=== PATIENT | male | born 1950 | race Caucasian/White ===

== ENCOUNTER → 2021-06-15 10:03 | Outpatient (CLI) | payer MEDICARE, SELFPAY ==
[2021-06-15 12:44] LABS: AST(SGOT) 18 U/L (15-37); Alanine Aminotransfer ALT/SGPT 26 U/L (16-61); Albumin, Serum 3.7 g/dL (3.2-5.0); Alkaline Phosphatase 124 U/L (45-117); Anion Gap 8 (5-15); BUN 19 mg/dL (7-18); BUN/Creat Ratio 19.1 RATIO (10-20); Calcium,Total 9.8 mg/dL (8.5-10.1); Chloride 104 mmol/L (98-107); Cholesterol 138 mg/dL (200); EST Glomerular Filtration Rate 79 mL/min (>60); Est Glom Filt Rate - Afr Amer 96 mL/min (>60); Globulin 3.7 g/dL (2.2-4.2); Glucose 148 mg/dL (74-106); High Density Lipoprotein 33 mg/dL; Potassium 4.4 mmol/L (3.5-5.1); Protein, Total 7.4 g/dL (6.4-8.2); Sodium Level 138 mmol/L (136-145); T4 Free Direct 0.83 ng/dL (0.76-1.46); Thyroid Stim Hormone (TSH) 1.82 uIU/mL (0.358-3.74); Triglycerides 392 mg/dL; Very Low Density Lipoprotein 78 mg/dL (5-40); Vitamin D,25 Hydroxy 21.5 ng/mL
[2021-06-15 13:08] LABS: Microalbumin:Creatinine Ratio 24.7 mg/g CRE (<30 mg/g CRE)
== END ==
PROVIDERS: PCP Internal Medicine; Referring Provider Internal Medicine Endocrinology, Diabetes & Metabolism; Visit Provider Internal Medicine Endocrinology, Diabetes & Metabolism
DX: G62.9 Polyneuropathy, unspecified (principal); E11.9 Type 2 diabetes mellitus without complications; I10 Essential (primary) hypertension; E78.2 Mixed hyperlipidemia; E55.9 Vitamin D deficiency, unspecified
CPT/HCPCS: 36415; 80053; 80061; 82043; 82306; 82533; 82570; 84439; 84443

== ENCOUNTER → 2021-07-19 15:02 | Outpatient (CLI) | payer MEDICARE, SELFPAY ==
--- NOTE | 2021-07-19 15:13 | ECHOD_ITS ---
Version 2 Reason For Study: CHF Procedure This was a 2D Doppler, Color Flow transthoracic echocardiogram. Exam performed in department. Left Ventricle Normal LV size. Left ventricular systolic function is normal. The estimated ejection fraction is 55 %. Stage 2 diastolic dysfunction. No regional wall motion abnormalities noted. Right Ventricle Normal RV size. Normal systolic function. Atria Normal left atrium. Normal right atrium. Mitral Valve Normal mitral valve. Tricuspid Valve Normal tricuspid valve. Mild tricuspid valve insufficiency. Pulmonary artery systolic pressure is 36 mmHg. Aortic Valve The aortic valve is not well visualized. Pulmonic Valve The pulmonic valve is not well visualized. Great Vessels Normal aortic root. Pericardium/Pleural No pericardial effusion. MMode/2D Measurements & Calculations LVIDd: 6.0 cm IVSd: 0.90 cm Ao root diam: 2.7 cm LVIDs: 4.3 cm LVPWd: 0.98 cm RVDd: 3.4 cm FS: 28.0 % LAV(MOD-bp): 77.6 ml LVAd ap4: 42.0 cm2 SV(MOD-sp4): 86.6 ml LAV(MOD-bp) Indexed: 27.3 ml/m2 LVLd ap4: 9.2 cm LAV(MOD-sp2): 76.1 ml EDV(MOD-sp4): 157.8 ml LAV(MOD-sp4): 74.6 ml EDV(sp4-el): 162.0 ml LVAs ap4: 26.4 cm2 LVLs ap4: 8.5 cm ESV(MOD-sp4): 71.2 ml ESV(sp4-el): 69.9 ml EF(MOD-sp4): 54.9 % EF(sp4-el): 56.9 % SV(sp4-el): 92.1 ml LA A4 area: 22.3 cm2 LA dimension(2D): 5.4 cm RA A4 area: 13.9 cm2 Doppler Measurements & Calculations MV E max taurus: 98.3 cm/sec Lat Peak E' Taurus: 12.8 cm/sec Med Peak E' Taurus: 5.0 cm/sec MV A max taurus: 58.1 cm/sec E/E' lat: 7.7 E/E' med: 19.5 MV E/A: 1.7 Ao V2 max: 174.6 cm/sec LV V1 max: 117.0 cm/sec PA V2 max: 101.6 cm/sec Ao max P.2 mmHg LV V1 max P.5 mmHg Ao V2 mean: 116.9 cm/sec Ao mean P.2 mmHg Ao V2 VTI: 36.9 cm TR max taurus: 279.8 cm/sec TR max P.3 mmHg ECHO/Echo Complete Interpretation Summary Normal LV size. Left ventricular systolic function is normal. The estimated ejection fraction is 55 %. Stage 2 diastolic dysfunction. The study was technically limited. The study was technically difficult. Ordering Physician: Constanza Alegria Referring Physician: Constanza Alegria Performed By: Kasandra Steele, PADMINI, RVT
== END ==
PROVIDERS: PCP Internal Medicine; Referring Provider Internal Medicine; Visit Provider Internal Medicine
DX: I50.9 Heart failure, unspecified (principal); I51.89 Other ill-defined heart diseases
CPT/HCPCS: 93306

== ENCOUNTER → 2021-07-20 13:40 | Outpatient (CLI) | payer MEDICARE, SELFPAY ==
[2021-07-20 15:09] LABS: Absolute Lymphocyte Count 0.99 X10^3/uL (0.83-4.51); Basophil# 0.01 X10^3/uL; Basophil% 0.3 % (0-1); Eosinophil# 0.07 X10^3/uL; Eosinophils% 2.1 % (0-5); Hematocrit 28.3 % (40-54); Hemoglobin 8.7 g/dL (13.0-16.5); Lymphocyte # 0.99 X10^3/ul (0.83-4.51); Lymphocyte % 30.2 % (19-41); Mean Corp Hgb Conc 30.7 g/dL (32-36); Mean Corpuscular Hgb 28.8 pg (27.0-32.0); Mean Corpuscular Volume 93.7 fL (80-94); Monocyte% 6.1 % (0-10); NRBC Flagged by Analyzer 1.5 % (0-5); Neutrophil # 1.98 X10^3/uL (2.7-7.7); Neutrophil % 60.4 % (47-70); POSITIVE COUNT YES; POSITIVE MORPHOLOGY YES; Platelet Count 88 K/mm3 (150-450); RBC Distribution Width CV 19.9 % (11.6-14.6); RBC Distribution Width SD 67.3 fl (35.1-43.9); Red Blood Count 3.02 M/mm3 (4.6-6.2); White Blood Count 3.3 K/mm3 (4.4-11.0)
[2021-07-20 15:28] LABS: Differential Indicated SCAN CRITERIA MET
[2021-07-20 15:43] LABS: Anisocytosis 2+; Differential Comment SCANNED; Hypochromasia RARE; Polychromasia RARE
[2021-07-20 15:44] LABS: Erythrocyte Sedimentation Rate 10 mm/hr (0-20)
[2021-07-20 15:47] LABS: CRP < 2.90 mg/L (0.0-3.0); Ferritin 87 ng/mL (26-388); Iron 149 ug/dL (65-175); Iron Binding Capacity,Total 353 ug/dL (250-450); PERCENT IRON SATURATION 42.2 % (15.0-55.0); Vitamin B12 > 2000 pg/mL (211-911); Vitamin D,25 Hydroxy 32.1 ng/mL
[2021-07-24 14:51] LABS: Vitamin D 1,25-Dihydroxy 61.8 pg/mL (19.9-79.3)
== END ==
PROVIDERS: PCP Internal Medicine; Referring Provider Internal Medicine Gastroenterology; Visit Provider Internal Medicine Gastroenterology
DX: E55.9 Vitamin D deficiency, unspecified (principal); D64.9 Anemia, unspecified; E11.65 Type 2 diabetes mellitus with hyperglycemia; Z79.4 Long term (current) use of insulin
CPT/HCPCS: 36415; 82306; 82607; 82652; 82728; 82784; 83516; 83540; 83550; 85025; 85652; 86140; 86255

== ENCOUNTER → 2021-07-24 09:43 | Outpatient (CLI) | payer MEDICARE, SELFPAY ==
[2021-07-24 10:41] LABS: Ferritin 65 ng/mL (26-388); LDH 192 U/L (87-241)
[2021-07-25 13:08] LABS: Anti-Centromere B Ab <0.2 AI (0.0-0.9); Anti-Chromatin <0.2 AI (0.0-0.9); Anti-Jo <0.2 AI (0.0-0.9); Anti-Scleroderma-70 AB <0.2 AI (0.0-0.9); RNP Ab 0.2 AI (0.0-0.9); SJOGREN'S Anti-SS-A test < 0.2 AI (0.0-0.9); SJOGREN'S Anti-SS-B test < 0.2 AI (0.0-0.9); Smith Ab <0.2 AI (0.0-0.9)
[2021-07-25 14:08] LABS: Anti-Mitochondrial AB <20.0 Units (0.0-20.0); Anti-dsDNA Ab 1 IU/mL (0-9)
[2021-07-27 12:08] LABS: Ceruloplasmin 19.8 mg/dL (16.0-31.0); Cytoplasmic Ab (C-ANCA) <1:20 titer (Neg:<1:20); HEPATITIS B SURFACE AG Negative (Negative); Hepatitis A IgM Antibody Negative (Negative); Hepatitis B Core AB IgM Negative (Negative); Immunoglobulin A 66 mg/dL (61-437); Immunoglobulin E 73 IU/mL (6-495); Immunoglobulin G 699 mg/dL (603-1613)
[2021-07-27 13:48] LABS: AFP, Tumor Marker 2.5 ng/mL (0.0-8.3); Anti-Smooth Muscle ABS 3 Units (0-19); Copper, Serum or Plasma 88 ug/dL (69-132); Hep C Antibodies <0.1 s/co ratio (0.0-0.9); Immunoglobulin M 36 mg/dL (20-172); Perinuclear Ab (P-ANCA) <1:20 titer (Neg:<1:20)
== END ==
PROVIDERS: PCP Internal Medicine; Referring Provider Internal Medicine Gastroenterology; Visit Provider Internal Medicine Gastroenterology
DX: E78.2 Mixed hyperlipidemia (principal); K74.60 Unspecified cirrhosis of liver; D64.9 Anemia, unspecified; E11.65 Type 2 diabetes mellitus with hyperglycemia; Z79.4 Long term (current) use of insulin
CPT/HCPCS: 36415; 80074; 82105; 82390; 82525; 82728; 82784; 82785; 83516; 83615; 86225; 86235; 86256

== ENCOUNTER 2021-08-11 07:50 | Outpatient (CLI) | payer MEDICARE, SELFPAY ==
--- NOTE | 2021-08-11 07:58 | US_ITS ---
STUDY: ABDOMINAL ULTRASOUND - RIGHT UPPER QUADRANT REASON FOR VISIT: Male, 70 years old cirrhosis TECHNIQUE: Ultrasound evaluation of the right upper quadrant was performed with real-time and static armstrong-scale imaging. TECHNICAL QUALITY: Adequate. COMPARISON: None. FINDINGS: Liver: The liver is enlarged and measures 22.3 cm. There is increased echogenicity consistent with fatty infiltration. The bile ducts are within normal limits. There is hepatic color flow. The direction of portal flow is hepatopetal. There is no demonstrated mass lesion. Gallbladder: Normal distended gallbladder. The gallbladder wall measures 3.0 mm. There is a negative sonographic Phillips''s sign. There is no pericholecystic fluid. There are no gallstones. Common Bile Duct (C.B.D.): The common bile duct measures 4.3 mm. Pancreas: There is nonvisualization of the pancreas due to overlying bowel gas. Right Kidney: Normal size of the right kidney. The right kidney measures 12.4 cm x 6.7 cm x 5.7 cm. Normal renal cortex. The right cortex measures 2 cm. There is no demonstrated renal mass or cyst. There is no right hydronephrosis. US/Liver IMPRESSION: Hepatomegaly and fatty infiltration of the liver. Electronically Signed: Lauro Horner MD at 10:34 EST , Service support ,
--- NOTE | 2021-08-11 07:58 | CT_ITS ---
STUDY: CT ABDOMEN AND PELVIS WITH CONTRAST REASON FOR EXAM: Male, 70 years old. Cirrhosis. RADIATION DOSAGE (If Supplied By Facility): CTDIvol = ( 20.57 ) mGy, DLP = ( 1579.25 ) mGycm TECHNIQUE: Transaxial images were obtained from the dome of the diaphragm to the symphysis pubis with oral contrast. Oral and amp; IV GASTROGRAFIN and amp; 100mL Isovue-300 was administered. Sagittal and coronal images were reconstructed. Individualized dose optimization techniques were used for this CT. COMPARISON: None. FINDINGS: Increased markings in the posterior medial segment of the left lower lobe. This is suggestive of early infiltrate. The visualized portions of the heart are within normal limits. There is decreased attenuation of the liver consistent with steatosis. Hepatomegaly. Normal gallbladder and extrahepatic biliary system. Normal spleen. Normal pancreas. Normal bilateral adrenal glands. Small right renal cysts. Small cyst in the lower pole of the left kidney. Normal visualized stomach. Normal small intestine. There are scattered colonic diverticula consistent with diverticulosis. The appendix is visualized and appears normal. There is scattered atherosclerotic calcification of the abdominal aorta, without a demonstrated aneurysm. Normal inferior vena cava. Normal retroperitoneum. Normal urinary bladder. The prostate measures 4.6 times by 5.6 cm. There is a small umbilical hernia containing fat. Diffuse sclerosis involving the appendicular and axial skeleton in keeping with diffuse osteoblastic metastasis. CT/Abdomen/Pelvis WITH Contrast IMPRESSION: Hepatomegaly and diffuse fatty infiltration of the liver. Small bilateral renal cysts. 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 Electronically Signed: Lauro Horner MD at 11:20 EST , Service support ,
[2021-08-11 11:10] LABS: CREATININE FINGERSTICK 1.1 mg/dL (0.70-1.30); EGFR FINGERSTICK > 60.0000 mL/min (>60)
== END 2021-08-11 23:59 | disposition short-term general hospital (02) ==
PROVIDERS: PCP Internal Medicine; Referring Provider Internal Medicine Gastroenterology; Visit Provider Internal Medicine Gastroenterology
DX: K74.60 Unspecified cirrhosis of liver (principal); D64.9 Anemia, unspecified
CPT/HCPCS: 74177; 76705; Q9967

== ENCOUNTER 2021-08-24 08:47 | Outpatient (CLI) | payer MEDICARE, SELFPAY ==
[2021-08-24] VITALS (9 sets, daily range): BP systolic 124–168; BP diastolic 55–74; PULSE 60–71; RESP 13–19; TEMP 36.9; O2SAT 93–98; BMI 48.1
--- NOTE | 2021-08-24 | BONBX_PTH ---
PATIENT: BLU SAMUEL LOC: CT U#:[id number] AGE/SX: 70/M ROOM: RE08/24/[address]: Dr. Cheryl Dillard MD : 1950 BED: DIS: 08/24/2021 SPEC #: [id number] RECD: 08/24/21 11:27 STATUS: MARISA KRYS #: [id number] ALEXA: 08/24/21 00:[address]: Cheryl Dillard DEPT: SURGICAL PATHOLOGY RECD BY: Dulce Huston ENTERED: 08/24/21 11:28 SP TYPE: Bone OTHR DR: Dr. Constanza Alegria, Tissues: Bone marrow of iliac crest Procedures: Decalcification bone/plaque Surgery Specimen Level V HEADER OPERATION: CT-guided bone marrow biopsy PRE-OP DIAGNOSIS: Bone lesion TISSUE SUBMITTED: Bone marrow 1 core MICROSCOPIC DIAGNOSIS Bone lesion, CT-guided core biopsy: A piece of bone with extensive necrosis. See comment. SJ:emily 08/25/2021 COMMENT No viable tumor is identified. If there is a high suspicion of malignancy, re-biopsy is suggested if clinically indicated. Case has been reviewed in consultation with Dr. Jackson who concurs with the above diagnosis. IDC:AM MICROSCOPIC DESCRIPTION Slides are reviewed. GROSS DESCRIPTION Received in fixative is one container labeled with the patient's name and designated bone lesion. The specimen consists of a fragment of bone measuring 0.3 x 0.2 x 0.1 cm. The entire specimen is submitted in one cassette after decalcification. / SJ:emily 08/24/2021 TC: Cannot code CPT: 31827, 79625 ADDENDUM ADDENDUM ADDENDUM ADDENDUM ADDENDUM ADDENDUM ADDENDUM ADDENDUM ADDENDUM ADDENDUM 10/30/2021 10:16 ADDENDUM 10/30/2021 10:16 ADDENDUM 10/30/2021 10:16 ADDENDUM 10/30/2021 10:16 ADDENDUM 10/30/2021 10:16 This addendum is added to incorporate an outside pathology consultation report. The case was examined at [facility] (#[id number]) and the following diagnosis was rendered. Bone lesion, CT-guided core biopsy: Fragmented bone with extensive necrosis. Please see complete above mentioned consultation report in EMR
--- NOTE | 2021-08-24 09:03 | CT_ITS ---
PROCEDURE: CT GUIDED BONE marrow biopsy of the posterior right iliac bone. DATE: 08/24/2021. INDICATION: Male, 70 years old. Diffuse sclerotic metastasis. PHYSICIAN: Lauro Horner M.D. RADIATION DOSAGE (If Supplied By Facility): CTDIvol = ( 9.49 ) mGy, DLP = ( 750.83 ) mGycm. Individualized dose augmentation techniques were utilized. PROCEDURE: The risks, benefits, and alternatives to the procedure were explained to the patient. The specific risk of hemorrhage requiring further treatment or intervention was detailed and accepted. Follow-up instructions were discussed with the patient as well. Written informed consent was obtained. The patient was brought into the CT suite and placed in the prone position. . An appropriate entry site was identified. The overlying skin was prepped and draped in the usual sterile fashion. 1% lidocaine was administered subcutaneously for local anesthesia. Conscious sedation was performed. The patient received 3 mg of VERSED and 75 mcg of FENTANYL intravenously. Conscious sedation was started at 10:09 AM and terminated at 1040. The patient was independently monitored by the department nurse. Under CT guidance, a bone marrow biopsy and attempted aspirate were performed utilizing an 11-gauge bone marrow biopsy needle system. The specimens were then placed in the appropriate fluid and transported to the laboratory for analysis. Hemostasis was obtained. The patient tolerated the procedure well without immediate complications. CT/Biopsy/Inj or Needle Placement IMPRESSION: Successful CT guided bone marrow biopsy of the posterior aspect of the right iliac bone, as described above. The conscious sedation protocol was followed. Electronically Signed: Lauro Horner MD at 11:11 EST ,
[2021-08-24 09:09] LABS: Absolute Lymphocyte Count 0.98 X10^3/uL (0.83-4.51); Absolute Neutrophil Count 2.6 X10^3/uL (2.0-7.7); Basophil# 0.02 X10^3/uL; Basophil% 0.5 % (0-1); Eosinophil# 0.08 X10^3/uL; Eosinophils% 2.1 % (0-5); Hematocrit 24.3 % (40-54); Hemoglobin 7.4 g/dL (13.0-16.5); Lymphocyte # 0.98 X10^3/ul (0.83-4.51); Lymphocyte % 25.3 % (19-41); Mean Corp Hgb Conc 30.5 g/dL (32-36); Mean Corpuscular Hgb 28.8 pg (27.0-32.0); Mean Corpuscular Volume 94.6 fL (80-94); Mean Platelet Vol. 10.4 fl (6.2-12.0); Monocyte# 0.21 X10^3/uL; Monocyte% 5.4 % (0-10); Neutrophil # 2.56 X10^3/uL (2.7-7.7); Neutrophil % 65.9 % (47-70); POSITIVE MORPHOLOGY YES; Platelet Count 108 K/mm3 (150-450); RBC Distribution Width CV 20.6 % (11.6-14.6); RBC Distribution Width SD 70.4 fl (35.1-43.9); Red Blood Count 2.57 M/mm3 (4.6-6.2); White Blood Count 3.9 K/mm3 (4.4-11.0)
[2021-08-24 09:10] LABS: Differential Indicated SCAN CRITERIA MET
[2021-08-24 09:18] LABS: International Normalized Ratio 0.9; Prothrombin Time (Protime)PT. 11.9 SECONDS (11.7-14.9)
[2021-08-24 09:23] LABS: Differential Comment SCANNED
[2021-08-24 09:24] LABS: Anisocytosis 1+
[2021-08-24] MEDS: fentaNYL 100 MCG/2 ML Ampul IV ×2 (10:09→10:29)
[2021-08-24] MEDS: Midazolam 2 MG/2 ML Syringe IV ×2 (10:09→10:29)
[2021-08-24] MEDS: Lidocaine 2% (20 ml mdv) 20 ML Vial INFILT (10:20)
[2021-08-24 10:43] LABS: HIV - WCH Non-Reactive (Nonreactive)
[2021-08-24 14:17] LABS: Pathologist Review Reviewed
[2021-08-25 19:04] LABS: Angiotensin Convert Enzyme 28 U/L (14-82)
== END 2021-08-24 23:59 | disposition home or self-care (01) ==
PROVIDERS: Internal Medicine Gastroenterology; PCP Internal Medicine; Referring Provider Internal Medicine Hematology & Oncology; Visit Provider Internal Medicine Hematology & Oncology
DX: M87.88 Other osteonecrosis, other site (principal); C79.51 Secondary malignant neoplasm of bone; D61.818 Other pancytopenia; K74.60 Unspecified cirrhosis of liver; J44.9 Chronic obstructive pulmonary disease, unspecified; I27.20 Pulmonary hypertension, unspecified; I50.9 Heart failure, unspecified; I11.0 Hypertensive heart disease with heart failure; E11.40 Type 2 diabetes mellitus with diabetic neuropathy, unspecified; E66.01 Morbid (severe) obesity due to excess calories; Z68.42 Body mass index [BMI] 45.0-49.9, adult; Z79.4 Long term (current) use of insulin; E78.5 Hyperlipidemia, unspecified; G47.33 Obstructive sleep apnea (adult) (pediatric); K76.0 Fatty (change of) liver, not elsewhere classified; G89.29 Other chronic pain; M79.7 Fibromyalgia; E78.00 Pure hypercholesterolemia, unspecified; M19.90 Unspecified osteoarthritis, unspecified site; Z87.01 Personal history of pneumonia (recurrent); Z79.899 Other long term (current) drug therapy; D47.2 Monoclonal gammopathy; G62.9 Polyneuropathy, unspecified
CPT/HCPCS: 36415; 77012; 82164; 85025; 85610; 85730; 86703; 88307; 88311; 99156; 99157; J7040; A4216

== ENCOUNTER 2021-08-29 09:03 | Day surgery (SDC) | payer MEDICARE, SELFPAY ==
[2021-08-29] VITALS (7 sets, daily range): BP systolic 66–129; BP diastolic 33–58; PULSE 62–74; RESP 16–18; TEMP 36.5–37.5; O2SAT 96–100; BMI 46.7
--- NOTE | 2021-08-29 | COLBX_PTH ---
PATIENT: BLU SAMUEL LOC: EN U#:[id number] AGE/SX: 70/M ROOM: RE08/29/[address]: Dr. Victorino Cavazos DO : 1950 BED: DIS: 08/29/2021 SPEC #: [id number] RECD: 08/29/21 17:16 STATUS: MARISA KRYS #: [id number] ALEXA: 08/29/21 00:[address]: Victorino Cavazos DEPT: SURGICAL PATHOLOGY RECD BY: Brennan Mosqueda ENTERED: 08/30/21 09:51 SP TYPE: COLON BX OTHR DR: Dr. Constanza Alegria DO Tissues: COLON BIOPSY Procedures: Surgery Specimen Level IV HEADER OPERATION: Colonoscopy, EGD ([facility]) with biopsy PRE-OP DIAGNOSIS: Anemia, cirrhosis TISSUE SUBMITTED: Hepatic flexure polyp MICROSCOPIC DIAGNOSIS Colonic polyp at hepatic flexure, biopsy: Tubular adenoma. AM:emily 08/31/2021 MICROSCOPIC DESCRIPTION Slides are reviewed. GROSS DESCRIPTION Received in fixative is one container labeled with the patient's name and designated hepatic flexure polyp. The specimen consists of one irregular fragment of light hubbard soft tissue that measures 0.5 x 0.3 x 0.1 cm. The specimen is totally submitted in one cassette. / AM:emily 08/30/2021 TC:5 CPT: 81534
[2021-08-29] MEDS: Lactated Ringers 1,000 ML 15 ML IV (10:25)
[2021-08-29 10:46] LABS: Bedside Glucose 171 mg/dL (70-110)
--- NOTE | 2021-08-29 12:28 | PCM.HP.BLA ---
History and Physical Date of Admission: 08/29/21 70 M who presents to the office today for Referred to this office for evaluation of blood in stool. Reports anemia last hemoglobin 9.1 recently with some blood in stool. Feels it happens most when he is having some constipation and then noted blood in toilet or on tissue paper. Occurring about once a week for the last several months. Feels he may be lactose intolerant because he has frequent and loose stools following cheese. Averages two BM a day that are of normal consistency with constipation about once a week typically occurring when he has to change his habitual timing of BM. Reports dizziness every day, all day since 2012. Primary has provided referrals to multiple specialists with no diagnosis to date. Additional medical history of fibromyalgia, CHF, pulmonary HTN, HTN, hyperlipidemia, testicular hypofunction, DMII with neuropathy, monoclonal paraproteinemia. ROS Const Constitutional: Positive for fatigue ENT ENT: Positive for ear or mastoid pain, tinnitus and nosebleed/epistaxis Resp Respiratory: Positive for cough and shortness of breath Cardio Cardiology: Positive for shortness of breath Gastro GI: Positive for diarrhea and Blood in stool Musc Musculoskeletal: Positive for joint pain, numbness, stiffness, tingling, Arthritis and restless legs Neuro Neurology: Positive for numbness, tingling and restless legs Endo Endocrine: Positive for fatigue Exam Const General: cooperative and comfortable Nutritional Appearance: average body habitus and well nourished HENMT Head: normal to inspection Ears: hearing grossly normal bilaterally Nose: external nose normal Face and sinus: normal facial exam Mouth: oral mucosae normal Throat: posterior oropharynx normal Eyes General: appearance normal, both eyes and all related structures Neck Neck: normal visual inspection Chest Chest palpation & inspection: normal inspection of the chest and normal palpation of entire chest wall Resp Effort & Inspection: normal respiratory effort Auscultation: Bilateral: Clear to Auscultation Cardio Palpation: normal PMI Rate: regular rate Rhythm: regular rhythm GI Inspection: normal to inspection Auscultation: normal bowel sounds Percussion: normal to percussion Palpation: no hepatosplenomegaly Skin General: no rashes or lesions noted Neuro General: patient alert Extrem General: normal to inspection Psych Affect: normal affect Quality Reporting Tobacco Screening ([facility] 138) Smoking Status: Never smoker Assessment and Plan Assessment and Plan (1) Anemia: Status: Acute Orders: Orders: CRP Today Erythrocyte Sed Rate Today Celiac Disease Profile Today Vitamin D,25 Hydroxy Today Vitamin B12 Today Ferritin Today Iron+Iron Binding Capacity Today CBC W/Diff, Automated Today Vitamin D 1,25-Dihydroxy Today Liver Today LDH Today Anti-Mitochondrial AB Today Hepatitis Panel Acute Today ANCA Today Anti-Smooth Muscle ABS Today Ceruloplasmin Today Copper, Serum or Plasma Today Immunoglobulin A Today Immunoglobulin E Today Immunoglobulin G Today Immunoglobulin M Today Miscellaneous Lab Procedure Today Plan - Dr. Gleason Friend, DO: I checked his hemoglobin and it is down to 8.7 from 9.1. He is not seen any signs of bleeding. I am concerned that his white count being down and platelet count being down are signs of cirrhosis in the setting of fatty liver disease and likely Wu. (2) Cirrhosis: Status: Acute Orders: Orders: Abdomen/Pelvis WITH Contrast Today Liver Today LDH Today Anti-Mitochondrial AB Today Hepatitis Panel Acute Today ANCA Today Anti-Smooth Muscle ABS Today Ceruloplasmin Today Copper, Serum or Plasma Today Immunoglobulin A Today Immunoglobulin E Today Immunoglobulin G Today Immunoglobulin M Today Miscellaneous Lab Procedure Today Plan - Dr. Gleason Friend, DO: Fact that he has Wu cirrhosis. I will get a CT scan abdomen pelvis along with an ultrasound. He may also need a liver biopsy. I ultimately what my thoughts were and answered all questions concerning his care. I have re-examined the patient. There are no clinical changes since date of exam.
--- NOTE | 2021-08-29 13:13 | OP.EGD_ITS ---
Patient Name: Chu Jin Procedure Date: 08/29/2021 12:33 PM Date of : 1950 Age: 70 Procedure: Upper GI endoscopy Indications: Iron deficiency anemia Providers: Victorino Cavazos DO Medicines: See the Anesthesia note for documentation of the administered medications Patient Profile: This is a 70 year old male. Refer to note in patient chart for documentation of history and physical. Patient has symptoms. Complications: No immediate complications. Procedure: Pre-Anesthesia Assessment: - Prior to the procedure, a History and Physical was performed, and patient medications and allergies were reviewed. The patient is competent. The risks and benefits of the procedure and the sedation options and risks were discussed with the patient. All questions were answered and informed consent was obtained. Patient identification and proposed procedure were verified by the physician. Mental Status Examination: alert and oriented. Airway Examination: normal oropharyngeal airway and neck mobility. Respiratory Examination: clear to auscultation. CV Examination: normal. Prophylactic Antibiotics: The patient does not require prophylactic antibiotics. Prior Anticoagulants: The patient has taken no previous anticoagulant or antiplatelet agents. After reviewing the risks and benefits, the patient was deemed in satisfactory condition to undergo the procedure. The anesthesia plan was to use moderate sedation / analgesia (conscious sedation). Immediately prior to administration of medications, the patient was re-assessed for adequacy to receive sedatives. The heart rate, respiratory rate, oxygen saturations, blood pressure, adequacy of pulmonary ventilation, and response to care were monitored throughout the procedure. The physical status of the patient was re-assessed after the procedure. After obtaining informed consent, the endoscope was passed under direct vision. Throughout the procedure, the patient's blood pressure, pulse, and oxygen saturations were monitored continuously. The Endoscope was introduced through the mouth, and advanced to the second part of duodenum. The upper GI endoscopy was accomplished without difficulty. The patient tolerated the procedure well. Moderate Sedation: Moderate (conscious) sedation was administered by the endoscopy nurse and supervised by the endoscopist. The following parameters were monitored: oxygen saturation, heart rate, blood pressure, and response to care. Total physician intraservice time was 15 minutes. Scope In: 12:36:57 PM Scope Out: 12:44:58 PM Total Procedure Duration Time 0 hours 8 minutes 1 second Findings: The examined esophagus was normal. A small hiatal hernia was present. Two 5 mm no bleeding angioectasias were found on the greater curvature of the stomach. Coagulation for hemostasis using argon plasma at 0.3 liters/minute and 20 larose was successful. Estimated blood loss was minimal. Diffuse moderately friable mucosa with contact bleeding was found in the gastric body. Coagulation for bleeding prevention using argon beam at 0.3 liters/minute and 20 larose was successful. Few non-bleeding superficial gastric ulcers with no stigmata of bleeding were found in the gastric antrum. The largest lesion was 2 mm in largest dimension. Coagulation for bleeding prevention using argon beam at 0.3 liters/minute and 20 larose was successful. Estimated blood loss was minimal. The second portion of the duodenum was normal. Impression: - Normal esophagus. - Small hiatal hernia. - Two non-bleeding angioectasias in the stomach. Treated with argon plasma coagulation (APC). - Friable gastric mucosa. Treated with argon beam coagulation. - Non-bleeding gastric ulcers with no stigmata of bleeding. Treated with argon beam coagulation. - Normal second portion of the duodenum. - No specimens collected. Recommendation: - Discharge patient to home. - Resume previous diet. - Continue present medications. Procedure Code(s): --- Professional --- 69478, Esophagogastroduodenoscopy, flexible, transoral; with control of bleeding, any method 19362, 59, Moderate sedation services provided by the same physician or other qualified health career development coordinator/teacher performing the diagnostic or therapeutic service that the sedation supports, requiring the presence of an independent trained observer to assist in the monitoring of the patient's level of consciousness and physiological status; initial 15 minutes of intraservice time, patient age 5 years or older CPT copyright 2017 [employer]. All rights reserved. The codes documented in this report are preliminary and upon transportation director review may be revised to meet current compliance requirements. Victorino Cavazos DO 08/29/2021 1:12:50 PM This report has been signed electronically. Number of Addenda: 1 Note Initiated On: 08/29/2021 12:33 PM Addendum Number: 1 Addendum Date: 04/16/2022 7:00:19 AM MAC was used for sedation during this procedure. Victorino Cavazos DO 04/16/2022 7:00:23 AM This report has been signed electronically.
--- NOTE | 2021-08-29 13:14 | OP.CCLET_ITS ---
04/16/2022 Constanza Alegria [address] [place] [address] Re : Upper GI endoscopy procedure for [facility] Dear Dr. Alegria This procedure was performed on Sunday, August 29, 2021. My impressions and recommendations are as follows: Impressions : - Normal esophagus. - Small hiatal hernia. - Two non-bleeding angioectasias in the stomach. Treated with argon plasma coagulation (APC). - Friable gastric mucosa. Treated with argon beam coagulation. - Non-bleeding gastric ulcers with no stigmata of bleeding. Treated with argon beam coagulation. - Normal second portion of the duodenum. - No specimens collected. Recommendations : - Discharge patient to home. - Resume previous diet. - Continue present medications. My findings are described in the full procedure note, which is enclosed. If I can be of further assistance, please feel free to contact me at . Sincerely, Victorino Cavazos, 08/29/2021 1:12:50 PM This report has been signed electronically.
--- NOTE | 2021-08-29 13:22 | OP.COLON_ITS ---
Patient Name: Chu Jin Procedure Date: 08/29/2021 12:47 PM Date of : 1950 Age: 70 Procedure: Colonoscopy Indications: Iron deficiency anemia Providers: Victorino Cavazos DO Medicines: See the Anesthesia note for documentation of the administered medications Patient Profile: This is a 70 year old male. Refer to note in patient chart for documentation of history and physical. Patient has symptoms. Last Colonoscopy: date unknown. Complications: No immediate complications. Procedure: Pre-Anesthesia Assessment: - Prior to the procedure, a History and Physical was performed, and patient medications and allergies were reviewed. The patient is competent. The risks and benefits of the procedure and the sedation options and risks were discussed with the patient. All questions were answered and informed consent was obtained. Patient identification and proposed procedure were verified by the physician. Mental Status Examination: alert and oriented. Airway Examination: normal oropharyngeal airway and neck mobility. Respiratory Examination: clear to auscultation. CV Examination: normal. Prophylactic Antibiotics: The patient does not require prophylactic antibiotics. Prior Anticoagulants: The patient has taken no previous anticoagulant or antiplatelet agents. After reviewing the risks and benefits, the patient was deemed in satisfactory condition to undergo the procedure. The anesthesia plan was to use moderate sedation / analgesia (conscious sedation). Immediately prior to administration of medications, the patient was re-assessed for adequacy to receive sedatives. The heart rate, respiratory rate, oxygen saturations, blood pressure, adequacy of pulmonary ventilation, and response to care were monitored throughout the procedure. The physical status of the patient was re-assessed after the procedure. After I obtained informed consent, the scope was passed under direct vision. Throughout the procedure, the patient's blood pressure, pulse, and oxygen saturations were monitored continuously. The pediatric colonoscope was introduced through the anus and advanced to the cecum, identified by appendiceal orifice and ileocecal valve. The colonoscopy was performed without difficulty. The patient tolerated the procedure well. The quality of the bowel preparation was fair. Moderate Sedation: Moderate (conscious) sedation was administered by the endoscopy nurse and supervised by the endoscopist. The following parameters were monitored: oxygen saturation, heart rate, blood pressure, and response to care. Total physician intraservice time was 15 minutes. Scope In: 12:51:47 PM Scope Withdrawal Time 0 hours 15 minutes 41 seconds Scope Out: 1:11:53 PM Total Procedure Duration Time 0 hours 20 minutes 6 seconds Findings: Hemorrhoids were found on perianal exam. A 5 mm polyp was found in the hepatic flexure. The polyp was sessile. The polyp was removed with a hot snare. Resection and retrieval were complete. Verification of patient identification for the specimen was done. Estimated blood loss was minimal. A few small-mouthed diverticula were found in the sigmoid colon. Impression: - Preparation of the colon was fair. - Hemorrhoids found on perianal exam. - One 5 mm polyp at the hepatic flexure, removed with a hot snare. Resected and retrieved. - Diverticulosis in the sigmoid colon. Recommendation: - Discharge patient to home. - Resume previous diet. - Continue present medications. - Await pathology results. - Repeat colonoscopy in 5 years for surveillance. - Return to GI office. Procedure Code(s): --- Professional --- 53484, Colonoscopy, flexible; with removal of tumor(s), polyp(s), or other lesion(s) by snare technique 23144, 59, Moderate sedation services provided by the same physician or other qualified health residential care officer performing the diagnostic or therapeutic service that the sedation supports, requiring the presence of an independent trained observer to assist in the monitoring of the patient's level of consciousness and physiological status; initial 15 minutes of intraservice time, patient age 5 years or older CPT copyright 2017 [employer]. All rights reserved. The codes documented in this report are preliminary and upon bone cooking operator review may be revised to meet current compliance requirements. Victorino Cavazos DO 08/29/2021 1:22:08 PM This report has been signed electronically. Number of Addenda: 1 Note Initiated On: 08/29/2021 12:47 PM Addendum Number: 1 Addendum Date: 04/16/2022 7:00:31 AM MAC was used for sedation during this procedure. Victorino Cavazos DO 04/16/2022 7:00:35 AM This report has been signed electronically.
--- NOTE | 2021-08-29 13:23 | OP.CCLET_ITS ---
04/16/2022 Constanza Alegria [address] [place] [address] Re : Colonoscopy procedure for [facility] Dear Dr. Alegria This procedure was performed on Sunday, August 29, 2021. My impressions and recommendations are as follows: Impressions : - Preparation of the colon was fair. - Hemorrhoids found on perianal exam. - One 5 mm polyp at the hepatic flexure, removed with a hot snare. Resected and retrieved. - Diverticulosis in the sigmoid colon. Recommendations : - Discharge patient to home. - Resume previous diet. - Continue present medications. - Await pathology results. - Repeat colonoscopy in 5 years for surveillance. - Return to GI office. My findings are described in the full procedure note, which is enclosed. If I can be of further assistance, please feel free to contact me at . Sincerely, Victorino Cavazos, 08/29/2021 1:22:08 PM This report has been signed electronically.
== END 2021-08-29 23:59 | disposition home or self-care (01) ==
LOC: EN 09:05 → AC 10:33
PROVIDERS: PCP Internal Medicine; Referring Provider Internal Medicine; Visit Provider Internal Medicine Gastroenterology
PROC: 0DJD8ZZ Inspection of Lower Intestinal Tract, Via Natural or Artificial Opening Endoscopic (ICD-10-PCS; CPT 45378; principal; 2021-08-29 11:55)
DX: D12.3 Benign neoplasm of transverse colon (principal); K74.60 Unspecified cirrhosis of liver; J44.9 Chronic obstructive pulmonary disease, unspecified; I50.9 Heart failure, unspecified; E11.21 Type 2 diabetes mellitus with diabetic nephropathy; Z79.4 Long term (current) use of insulin; K57.30 Diverticulosis of large intestine without perforation or abscess without bleeding; K44.9 Diaphragmatic hernia without obstruction or gangrene; K64.9 Unspecified hemorrhoids; K25.9 Gastric ulcer, unspecified as acute or chronic, without hemorrhage or perforation; I12.9 Hypertensive chronic kidney disease with stage 1 through stage 4 chronic kidney disease, or unspecified chronic kidney disease; E78.00 Pure hypercholesterolemia, unspecified; M50.30 Other cervical disc degeneration, unspecified cervical region; D64.9 Anemia, unspecified; G47.33 Obstructive sleep apnea (adult) (pediatric); M19.90 Unspecified osteoarthritis, unspecified site; M79.7 Fibromyalgia; Z79.84 Long term (current) use of oral hypoglycemic drugs; Z46.81 Encounter for fitting and adjustment of insulin pump; Z79.899 Other long term (current) drug therapy
CPT/HCPCS: 45385; 43255; 82962; 88305; J7120; J2405

== ENCOUNTER 2021-08-30 08:06 | Outpatient (CLI) | payer MEDICARE, SELFPAY ==
[2021-08-30] VITALS (9 sets, daily range): BP systolic 116–149; BP diastolic 44–82; PULSE 56–68; RESP 14–95; TEMP 36.2; O2SAT 93–98; BMI 48.1
--- NOTE | 2021-08-30 08:22 | CT_ITS ---
PROCEDURE: CT GUIDED BONE marrow biopsy of the posterior right iliac bone. DATE: 08/30/2021. INDICATION: Male, 70 years old. POEM PHYSICIAN: Lauro Horner M.D. RADIATION DOSAGE (If Supplied By Facility): CTDIvol = ( 19 ) mGy, DLP = ( 602.9 ) mGycm. Individualized dose optimization techniques were utilized. PROCEDURE: The risks, benefits, and alternatives to the procedure were explained to the patient. The specific risk of hemorrhage requiring further treatment or intervention was detailed and accepted. Follow-up instructions were discussed with the patient as well. Written informed consent was obtained. The patient was brought into the CT suite and placed in the prone position. . An appropriate entry site was identified overlying the posterior right iliac crest. The overlying skin was prepped and draped in the usual sterile fashion. 1% lidocaine was administered subcutaneously for local anesthesia. Conscious sedation was performed. The patient received 3 mg of VERSED and 75 mcg of FENTANYL intravenously. Conscious sedation was started at 9:07 AM and terminated at 9:30 AM. The patient was independently monitored by the department nurse. Under CT guidance, a bone marrow biopsy and bone marrow aspirate were performed. This was a dry aspirate. There is evidence of diffuse osteosclerosis of the pelvic bones. The patient tolerated the procedure well without immediate complications. CT/Biopsy/Inj or Needle Placement IMPRESSION: Attempted CT guided bone marrow biopsy and aspirate of the posterior right iliac crest, as described above. The conscious sedation protocol was followed. Electronically Signed: Lauro Horner MD at 10:01 EST ,
[2021-08-30 08:23] LABS: Absolute Lymphocyte Count 0.82 X10^3/uL (0.83-4.51); Absolute Neutrophil Count 2.2 X10^3/uL (2.0-7.7); Basophil# 0.02 X10^3/uL; Basophil% 0.6 % (0-1); Eosinophil# 0.09 X10^3/uL; Eosinophils% 2.7 % (0-5); Hematocrit 23.5 % (40-54); Hemoglobin 7.3 g/dL (13.0-16.5); Lymphocyte # 0.82 X10^3/ul (0.83-4.51); Lymphocyte % 24.6 % (19-41); Mean Corp Hgb Conc 31.1 g/dL (32-36); Mean Corpuscular Hgb 28.9 pg (27.0-32.0); Mean Corpuscular Volume 92.9 fL (80-94); Mean Platelet Vol. 11.7 fl (6.2-12.0); Monocyte# 0.13 X10^3/uL; Monocyte% 3.9 % (0-10); NRBC Flagged by Analyzer 1.8 % (0-5); Neutrophil # 2.24 X10^3/uL (2.7-7.7); Neutrophil % 67.3 % (47-70); POSITIVE MORPHOLOGY YES; Platelet Count 103 K/mm3 (150-450); RBC Distribution Width CV 20.4 % (11.6-14.6); RBC Distribution Width SD 68.6 fl (35.1-43.9); Red Blood Count 2.53 M/mm3 (4.6-6.2); White Blood Count 3.3 K/mm3 (4.4-11.0)
[2021-08-30 08:26] LABS: Differential Indicated SCAN CRITERIA MET
[2021-08-30 08:34] LABS: International Normalized Ratio 1.1; Partial Thromboplast Time 24.7 Seconds (24.1-36.2); Prothrombin Time (Protime)PT. 13.4 SECONDS (11.7-14.9)
[2021-08-30 08:49] LABS: PSA,Total- Diagnostic 3.88 ng/mL (0.0-4.0)
[2021-08-30 09:05] LABS: Anisocytosis 1+
[2021-08-30] MEDS: fentaNYL 100 MCG/2 ML Ampul IV ×2 (09:07→09:22)
[2021-08-30] MEDS: Midazolam 2 MG/2 ML Syringe IV ×2 (09:07→09:22)
[2021-08-30] MEDS: Lidocaine 2% (20 ml mdv) 20 ML Vial INFILT (09:15)
== END 2021-08-30 23:59 | disposition home or self-care (01) ==
PROVIDERS: Internal Medicine Gastroenterology; PCP Internal Medicine; Referring Provider Internal Medicine Hematology & Oncology; Visit Provider Internal Medicine Hematology & Oncology
DX: Z01.812 Encounter for preprocedural laboratory examination (principal); C79.51 Secondary malignant neoplasm of bone; K74.60 Unspecified cirrhosis of liver; D47.2 Monoclonal gammopathy
CPT/HCPCS: 38222; 36415; 77012; 84153; 85025; 85610; 85730; 99156; J7040; A4216

== ENCOUNTER 2021-09-13 11:52 | Outpatient (CLI) | payer MEDICARE, SELFPAY ==
--- NOTE | 2021-09-13 12:04 | US_ITS ---
STUDY: ABDOMINAL ULTRASOUND - ELASTOGRAPHY REASON FOR VISIT: Male, 70 years old. Cirrhosis. TECHNIQUE: Liver stiffness measurements were obtained on a [place] RS 85 ultrasound machine using a CA 1-7 probe following the SRU guidelines. 3 measurements were obtained using a 2-D-SWE method. The IQR/M was 12% suggesting a quality data set. TECHNICAL QUALITY: Adequate. COMPARISON: Comparison is made with prior examination is generally 2021. FINDINGS: Liver: Hepatomegaly. Fatty infiltration of the liver. Median liver stiffness measured 13 kPa. US/Elastography Parenchyma/Organ IMPRESSION: Liver stiffness measures 13 kPa compatible with F3 Metavir score. Electronically Signed: Lauro Horner MD at 15:23 EST ,
== END 2021-09-13 23:59 | disposition home or self-care (01) ==
PROVIDERS: PCP Internal Medicine; Referring Provider Internal Medicine Gastroenterology; Visit Provider Internal Medicine Gastroenterology
DX: K74.60 Unspecified cirrhosis of liver (principal)
CPT/HCPCS: 76981

== ENCOUNTER 2021-09-15 07:42 | Outpatient (CLI) | payer MEDICARE, SELFPAY ==
[2021-09-15] VITALS (8 sets, daily range): BP systolic 106–147; BP diastolic 46–86; PULSE 54–66; RESP 13–20; TEMP 36.4; O2SAT 93–99; BMI 46.5
--- NOTE | 2021-09-15 | LIVB_PTH ---
PATIENT: BLU SAMUEL LOC: CT U#:[id number] AGE/SX: 70/M ROOM: RE09/15/[address]: Dr. Victorino Cavazos DO : 1950 BED: DIS: 09/15/2021 SPEC #: [id number] RECD: 09/15/21 09:36 STATUS: MARISA RETierney #: [id number] ALEXA: 09/15/21 00:[address]: Cheryl Dillard DEPT: SURGICAL PATHOLOGY RECD BY: Robbin Cortez ENTERED: 09/15/21 13:03 SP TYPE: LIVER BX OTHR DR: DO Dr. Victorino Nichols, DO Dr. Blu Roberts MD Tissues: Liver, NOS Procedures: PAS with Diastase (control) Trichrome (control) Special Stain Group II PAS Stain (control) Surgery Specimen Level V Retic (control) Iron Stain (control) Comments: @ Ordering doctor for SUV edited from to @ by MARK at 09/15/21 1524 @ Submitting doctor edited from to @ by RGOOD at 09/15/21 1524 HEADER OPERATION: CT-guided liver biopsy PRE-OP DIAGNOSIS: Liver disease, suspected cirrhosis TISSUE SUBMITTED: Liver 18-gauge core x3 MICROSCOPIC DIAGNOSIS Liver, CT-guided core biopsy: Liver parenchymal tissue with focal macrovesicular steatosis. See microscopic description and comment. SJ:emily 09/18/2021 COMMENT Significant fibrosis consistent with cirrhosis is not seen. Correlation with clinical findings and appropriate follow up are necessary. Case has been reviewed in consultation with Dr. Jackson who concurs with the above diagnosis. IDC:AM MICROSCOPIC DESCRIPTION Slides are reviewed. The specimen shows liver parenchymal tissue with preserved lobular architecture. Hepatocytes show focal macrovesicular steatosis. Significant lobular inflammation is not seen. Portal areas are essentially unremarkable and does not show significant increased inflammation. Iron stain does not show significant increase of iron deposition. PAS stain with and without diastase does not show any abnormal accumulation of protein. Reticulin stain shows preserved lobular architecture. Trichrome stain does not show increased fibrosis. All stains are performed with appropriate matched control. GROSS DESCRIPTION Received in fixative is one container labeled with the patient's name and designated liver. The specimen consists of three elongated fragments of hubbard soft tissue each measuring 2 cm in length and 0.1 cm in diameter. The specimen is totally submitted in one cassette. / SJ:emily 09/15/2021 TC:5 CPT: 67445, 17749 x5
--- NOTE | 2021-09-15 08:01 | CT_ITS ---
PROCEDURE: CT DIRECTED CORE LIVER BIOPSY INDICATION: Male, 70 years old. Liver disease, suspected cirrhosis PHYSICIAN: Dr. JUAN PABLO Manzo CONSENT: Written informed consent was obtained having explained the risks, benefits and alternatives in detail with the patient who accepted the risks and agreed to proceed. Laboratory review and clinical assessment was performed. CONSCIOUS SEDATION PROTOCOL: The Drugs used were: 2 mg Versed, IV., and 50 mcg Fentanyl, IV. The sedation time was: 16 minutes. Conscious sedation was started at 9:13 AM and terminated on 929. The conscious sedation protocol was independently monitored. RADIATION DOSAGE (If Supplied By Facility): CTDIvol = ( 27 ) mGy, DLP = ( 850.93 ) mGycm Individualized dose optimization techniques were used for this CT. TECHNIQUE: Using CT image guidance with image documentation, a suitable location in the left lobe of the liver was identified. Using an anterior approach, puncture of the liver was uneventful with an 18-gauge core needle system. 3, 18-gauge core samples were obtained, and submitted in formalin to the pathologist for further assessment. Followup CT scan revealed no distinct sequelae. CT/Biopsy/Inj or Needle Placement IMPRESSION: 1. CT directed core needle biopsy of the liver, using CT image guidance with image documentation as described. 2. Conscious Sedation protocol utilized with independent monitoring. Electronically Signed: Lauro Horner MD at 9:53 EST ,
--- NOTE | 2021-09-15 08:01 | CT_ITS ---
STUDY: CT CHEST WITH CONTRAST REASON FOR EXAM: Male, 70 years old. POEMS/ ASSESS LN SCLEROTIC BONE LESIONS RADIATION DOSAGE (If Supplied By Facility): CTDIvol = ( 23.43 ) mGy, DLP = ( 983.94 ) mGycm TECHNIQUE: Transaxial imaging was performed following intravenous administration of IV 100mL Isovue-300. Multiplanar coronal and sagittal images were reformatted. Individualized dose optimization techniques were used for this CT. COMPARISON: None. FINDINGS: Small bilateral benign-appearing axillary lymph nodes. Multiple noncalcified nodules are seen in the left hemithorax more prominent in the left lower lobe. The largest nodule measures 3.6 cm x 4.2 cm. Calcified granuloma is seen in the anterior aspect of the right lower lobe. Scattered small nodules are seen at the right lung base. Minimal increased markings at the right lung base There is no demonstrated pleural abnormality. There are calcifications of the coronary arteries. There are multiple small lymph nodes within the mediastinum, which are normal in size and morphology most compatible with reactive lymph hyperplasia. Normal hilar regions. Normal enhanced pulmonary arteries. Normal aorta arch and descending thoracic aorta. Diffuse sclerosis of the appendicular and axial skeletons. There is no demonstrated abnormality of the visualized upper abdomen. CT/Chest WITH Contrast IMPRESSION: Pulmonary nodules in the left hemithorax as described. Metastatic disease should be ruled out. Smaller nodules are also seen at the right lung base. Diffuse sclerosis of the appendicular and axial skeletons. Electronically Signed: Lauro Horner MD at 10:26 EST ,
[2021-09-15 08:35] LABS: BNP,B-Type NATRIURETIC PEPTIDE 73.6 pg/mL (0-100)
[2021-09-15] MEDS: Midazolam 2 MG/2 ML Syringe IV (09:13)
[2021-09-15] MEDS: fentaNYL 100 MCG/2 ML Ampul IV (09:13)
[2021-09-15] MEDS: Lidocaine 2% (20 ml mdv) 20 ML Vial INFILT (09:23)
== END 2021-09-15 23:59 | disposition home or self-care (01) ==
PROVIDERS: Internal Medicine Pulmonary Disease; PCP Internal Medicine; Referring Provider Internal Medicine Gastroenterology; Visit Provider Internal Medicine Gastroenterology
DX: R06.00 Dyspnea, unspecified (principal); C79.51 Secondary malignant neoplasm of bone; K74.60 Unspecified cirrhosis of liver; E88.09 Other disorders of plasma-protein metabolism, not elsewhere classified
CPT/HCPCS: 47000; 36415; 71260; 77012; 83880; 88307; 88313; 99156; J7040; Q9967; A4216

== ENCOUNTER 2021-09-25 08:54 | Outpatient (CLI) | payer MEDICARE, SELFPAY ==
[2021-09-25] VITALS (11 sets, daily range): BP systolic 111–158; BP diastolic 51–77; PULSE 59–69; RESP 12–22; TEMP 36.1; O2SAT 90–99; BMI 46.5
--- NOTE | 2021-09-25 09:09 | CT_ITS ---
PROCEDURE: CT GUIDED CORE NEEDLE BIOPSY OF A left lower lobe pulmonary LUNG LESION INDICATION: Male, 70 years old. LUNG NODULES PHYSICIAN: Dr. JUAN PABLO Manzo CONSENT: Written informed consent was obtained having explained the risks, benefits and alternatives in detail with the patient who accepted the risks and agreed to proceed. Laboratory review and clinical assessment was performed. CONSCIOUS SEDATION PROTOCOL: The Drugs used were: 2 mg Versed, IV., and 50 mcg Fentanyl, IV. The sedation time was: 20 minutes. Conscious sedation was started at 10:10 AM and terminated at 10:30 AM. The conscious sedation protocol was independently monitored. RADIATION DOSAGE (If Supplied By Facility): CTDIvol = ( 24 ) mGy, DLP = ( 1012.25 ) mGycm Individualized dose optimization techniques were used for this CT. TECHNIQUE: The patient was placed in the pleural position. A noncontrast CT was performed to localize the lesion in the left lower lobe . The skin surface was prepped and draped in a sterile fashion. 1% lidocaine was used for local anesthesia. Using CT guidance, a 20-gauge coaxial biopsy device was advanced to the periphery of the lesion. A total of 5 core specimens were obtained. The specimens were placed in a formalin solution. A post procedure CT demonstrated no adverse sequelae or pneumothorax. The patient tolerated the procedure well without adverse event. A negative biopsy does not exclude malignancy. Further imaging or clinical followup based on patient condition and degree of clinical suspicion for malignancy. Suggest rebiopsy, if biopsy results do not match with clinical scenario. CT/Biopsy/Inj or Needle Placement IMPRESSION: 1. CT directed core needle biopsy of the left lower lobe pulmonary nodule using CT image guidance with image documentation as described. Pathology results are pending. 2. Conscious Sedation protocol utilized with independent monitoring. Electronically Signed: Lauro Horner MD at 10:55 EST ,
[2021-09-25 09:11] LABS: Absolute Lymphocyte Count 1.23 X10^3/uL (0.83-4.51); Absolute Neutrophil Count 2.4 X10^3/uL (2.0-7.7); Basophil# 0.01 X10^3/uL; Basophil% 0.2 % (0-1); Eosinophil# 0.16 X10^3/uL; Hematocrit 27.6 % (40-54); Hemoglobin 8.4 g/dL (13.0-16.5); Lymphocyte # 1.23 X10^3/ul (0.83-4.51); Lymphocyte % 30.4 % (19-41); Mean Corp Hgb Conc 30.4 g/dL (32-36); Mean Corpuscular Hgb 28.5 pg (27.0-32.0); Mean Corpuscular Volume 93.6 fL (80-94); Mean Platelet Vol. 11.3 fl (6.2-12.0); Monocyte# 0.19 X10^3/uL; Monocyte% 4.7 % (0-10); Neutrophil # 2.43 X10^3/uL (2.7-7.7); POSITIVE MORPHOLOGY YES; Platelet Count 125 K/mm3 (150-450); RBC Distribution Width CV 20.9 % (11.6-14.6); RBC Distribution Width SD 71.2 fl (35.1-43.9); Red Blood Count 2.95 M/mm3 (4.6-6.2); White Blood Count 4.1 K/mm3 (4.4-11.0)
[2021-09-25 09:14] LABS: Differential Indicated SCAN CRITERIA MET
[2021-09-25 09:22] LABS: International Normalized Ratio 0.9
[2021-09-25 09:23] LABS: Partial Thromboplast Time 25.7 Seconds (24.1-36.2)
[2021-09-25 09:40] LABS: Anisocytosis 1+; Poikilocytosis 1+; Polychromasia 1+
[2021-09-25 09:41] LABS: Ovalocyte 1+
[2021-09-25 09:54] LABS: Vitamin D,25 Hydroxy 21.6 ng/mL
[2021-09-25 10:00] LABS: Follicle Stimulating Hormone 4.4 mIU/mL; Free T3 2.5 pg/mL (2.18-3.98); Luteinizing Hormone 4.2 mIU/mL; Prolactin 16.8 ng/mL; T4 Free Direct 0.89 ng/dL (0.76-1.46); Thyroid Stim Hormone (TSH) 1.79 uIU/mL (0.358-3.74)
[2021-09-25] MEDS: fentaNYL 100 MCG/2 ML Ampul IV (10:10)
[2021-09-25] MEDS: Midazolam 2 MG/2 ML Syringe IV (10:10)
[2021-09-25] MEDS: Lidocaine 2% (20 ml mdv) 20 ML Vial INFILT (10:20)
--- NOTE | 2021-09-25 10:24 | ASPIGT_PTH ---
PATIENT: BLU SAMUEL LOC: CT U#:[id number] AGE/SX: 70/M ROOM: RE09/25/[address]: Dr. Cheryl Dillard MD : 1950 BED: DIS: 09/25/2021 SPEC #: [id number] RECD: 09/25/21 11:00 STATUS: MARISA RETierney #: [id number] ALEXA: 09/25/21 10:[address]: Cheryl Dillard DEPT: SURGICAL PATHOLOGY RECD BY: Dulce Huston ENTERED: 09/25/21 11:56 SP TYPE: ASP RAD OTHR DR: DO Dr. Damián Nichols MD Tissues: Lung, NOS Procedures: FNA Specimen Adequacy Elastin Stain (control) Trichrome (control) Special Stain Group II Special Stain Group I Surgery Specimen Level IV AFB Stain (control) GMS Stain (control) Retic (control) Imprint (control) HEADER OPERATION: CT-guided left lower lobe lung biopsy PRE-OP DIAGNOSIS: Lung nodule TISSUE SUBMITTED: Left lower lobe lung biopsy, 20-gauge, core x5 MICROSCOPIC DIAGNOSIS Left lower lobe lung, CT-guided core biopsy: Cores of benign lung parenchyma with lymphoplasmacytic and granulomatous inflammation; see comment. SJ:rg 10/30/2021 COMMENT The specimen is evaluated at the time of biopsy by Dr. Lizarraga. Immediate Evaluation = Negative for malignant cells. The specimen is sent to [facility] for expert opinion, reviewed by Dr. Alfaro and the above diagnosis is rendered. ?There is no evidence of malignancy in this sample; kappa/lambda-NANCY staining in the plasma cells shows a polytypic pattern without overt CD56 expression. HHV8 is negative, favoring against plasma cell of Castleman disease. The granulomatous inflammation and lymphoplasmacytic infiltrates are concerning for infectious etiologies. Stains are negative for unequivocal organisms. Correlation with microbiology studies is recommended, if clinically indicated. The differential also includes autoimmune etiologies; however, autoimmune workup has been negative. Sarcoidosis is another consideration; however, morphology in this sample is not typical.? The complete report is viewable in the patient's EMR. Reticulin, trichrome, elastin, AFB and GMS stains are performed with appropriate matched controls. Flow cytometry study was canceled due to no viable cells present. This case was discussed with Dr. Dillard on 10/06/2021. Case has been reviewed in consultation with Dr. Jackson who concurs with the above diagnosis. IDC:AM MICROSCOPIC DESCRIPTION Slides are reviewed. Stains/immunohistochemical stains performed at [facility] on block A1 show: CD138: Highlights plasma cell infiltrate. [place]/Lambda-NANCY: Polytypic expression CD56: No overt co-expression in plasma cells. CD3: Highlights admixed T-cells. PAX5: Highlights rare B-cells HHV8: Negative CD21: Negative ERG: Highlights vasculature CD163: Highlights scattered histiocytes and giant cells. [place] red: Negative for amyloid deposition. Elastic: Highlights histiologic findings. GMS, AFB, Edgardo: Negative for unequivocal organisms. GROSS DESCRIPTION Received in fixative is one container labeled with the patient's name and designated left lower lobe lung. The specimen consists of multiple irregular fragments of hubbard soft tissue that in aggregate measure 1.5 x 0.2 x 0.1 cm. The specimen is totally submitted in one cassette. One core is submitted for flow cytometry study. Three touch imprints are prepared at the time of core biopsy. / Vargas 09/25/2021 TC:3 CPT: 41078, 13336, 61961 x 3, 50774 x2
--- NOTE | 2021-09-25 10:40 | RAD_ITS ---
STUDY: X-RAY CHEST REASON FOR EXAM: Male, 70 years old. Pneumothorax -- Immediately post lung biopsy TECHNIQUE: AP inspiration and expiration views. COMPARISON: None. FINDINGS: No evidence of pneumothorax on the immediate post left lung biopsy radiographs. RAD/Chest Insp/Exp 2 View IMPRESSION: No evidence of pneumothorax on the immediate post left lung biopsy Electronically Signed: Lauro Horner MD at 12:16 EST ,
--- NOTE | 2021-09-25 12:46 | RAD_ITS ---
STUDY: X-RAY CHEST REASON FOR EXAM: Male, 70 years old. CHEST PAIN pneumothorax -- 2 hours post lung biopsy TECHNIQUE: XR Chest 2 Views COMPARISON: Study done earlier today. FINDINGS: There is no demonstrated pleural abnormality. There is no pneumothorax. Normal size heart. Normal mediastinum and florentino. Normal visualized pulmonary arteries. There is atherosclerotic calcification of the aortic arch with tortuosity. There are diffuse degenerative changes of the visualized thoracic spine. There is degenerative osteoarthritis of the bilateral shoulders. There is no demonstrated abnormality of the visualized soft tissue structures of the upper abdomen. RAD/Chest Insp/Exp 2 View IMPRESSION: There are no acute findings. Electronically Signed: Loco Orlando MD at 19:13 EST ,
[2021-09-29 17:07] LABS: Testosterone, % Free 2.33 % (1.50-4.20); Testosterone, Free 5.85 ng/dL (5.00-21.00)
[2021-09-29 18:55] LABS: Adrenocorticotropic Hormone 13.1 pg/mL (7.2-63.3); Testosterone, Total 251 ng/dL (264-916)
== END 2021-09-25 23:59 | disposition home or self-care (01) ==
LOC: CT 08:55
PROVIDERS: Internal Medicine Endocrinology, Diabetes & Metabolism; PCP Internal Medicine; Referring Provider Internal Medicine Hematology & Oncology; Visit Provider Internal Medicine Hematology & Oncology
DX: Z01.812 Encounter for preprocedural laboratory examination (principal); E11.65 Type 2 diabetes mellitus with hyperglycemia; Z79.4 Long term (current) use of insulin; R91.8 Other nonspecific abnormal finding of lung field; E55.9 Vitamin D deficiency, unspecified; E88.09 Other disorders of plasma-protein metabolism, not elsewhere classified
CPT/HCPCS: 32408; 36415; 71046; 77012; 82024; 82306; 82533; 83001; 83002; 84146; 84402; 84403; 84439; 84443; 84481; 85025; 85610; 85730; 88172; 88305; 88312; 88313; 99156; J7040; A4216

== ENCOUNTER 2021-10-03 12:34 | Outpatient (CLI) | payer MEDICARE, SELFPAY ==
--- NOTE | 2021-10-03 12:41 | ECHOCS_ITS ---
Reason For Study: DYSPNEA Procedure This was a 2D Doppler, Color Flow transthoracic echocardiogram. The study was technically difficult. Exam performed in department. Left Ventricle Normal LV size. Left ventricular systolic function is lower limits of normal. The estimated ejection fraction is 53 %. Stage 2 diastolic dysfunction. No regional wall motion abnormalities noted. Right Ventricle Normal RV size. Normal systolic function. Atria The left atrium is mildly enlarged. Normal right atrium. Mitral Valve Normal mitral valve. Tricuspid Valve The tricuspid valve is not well visualized. Mild (1+) tricuspid valve insufficiency. Pulmonary artery systolic pressure is 36 mmHg. Aortic Valve The aortic valve is not well visualized. Pulmonic Valve Normal pulmonic valve. Great Vessels Normal aortic root. Pericardium/Pleural No pericardial effusion. Medication 22 gauge I.V. with prn adaptor inserted into right arm. Diluted definity 2ml given slow IV push to enhance endocardial definition. MMode/2D Measurements & Calculations LVIDd: 5.4 cm IVSd: 0.99 cm Ao root diam: 3.2 cm LVIDs: 3.8 cm LVPWd: 1.0 cm RVDd: 4.4 cm FS: 30.5 % LAV(MOD-bp): 71.3 ml LVAd ap4: 48.3 cm2 SV(MOD-sp4): 118.7 ml LAV(MOD-bp) Indexed: 25.6 ml/m2 LVLd ap4: 9.6 cm LAV(MOD-sp2): 63.0 ml EDV(MOD-sp4): 200.5 ml LAV(MOD-sp4): 67.3 ml EDV(sp4-el): 207.1 ml LVAs ap4: 27.0 cm2 LVLs ap4: 7.3 cm ESV(MOD-sp4): 81.8 ml ESV(sp4-el): 84.5 ml EF(MOD-sp4): 59.2 % EF(sp4-el): 59.2 % SV(sp4-el): 122.6 ml LA A4 area: 23.5 cm2 LA dimension(2D): 3.8 cm RA A4 area: 22.2 cm2 Time Measurements MV dec time: 0.18 sec Doppler Measurements & Calculations MV E max taurus: 101.5 cm/sec Lat Peak E' Taurus: 16.2 cm/sec Med Peak E' Taurus: 8.2 cm/sec MV A max taurus: 52.7 cm/sec E/E' lat: 6.3 E/E' med: 12.4 MV E/A: 1.9 Ao V2 max: 178.7 cm/sec LV V1 max: 105.3 cm/sec PA V2 max: 125.6 cm/sec Ao max P.8 mmHg LV V1 max P.4 mmHg TR max taurus: 284.3 cm/sec TR max P.3 mmHg ECHO/Echo Complete W/ Contrast Interpretation Summary Normal LV size. Left ventricular systolic function is lower limits of normal. The estimated ejection fraction is 53 %. Stage 2 diastolic dysfunction. The left atrium is mildly enlarged. Contrast injection was performed. Ordering Physician: Chu Roberts Referring Physician: JOHAN CARVAJAL Performed By: Irlanda Yuen RDCS
== END 2021-10-03 23:59 | disposition home or self-care (01) ==
LOC: CVS 12:36
PROVIDERS: PCP Internal Medicine; Referring Provider Internal Medicine Pulmonary Disease; Visit Provider Internal Medicine Pulmonary Disease
DX: R06.00 Dyspnea, unspecified (principal)
CPT/HCPCS: 93306; Q9957; A4216; C8929

== ENCOUNTER 2021-11-15 08:06 | Outpatient (CLI) | payer MEDICARE, SELFPAY ==
[2021-11-16 15:57] LABS: Angiotensin Convert Enzyme 33 U/L (14-82)
== END 2021-11-15 23:59 | disposition home or self-care (01) ==
LOC: LAB 08:07
PROVIDERS: PCP Internal Medicine; Referring Provider Internal Medicine Pulmonary Disease; Visit Provider Internal Medicine Pulmonary Disease
DX: R06.00 Dyspnea, unspecified (principal); J44.9 Chronic obstructive pulmonary disease, unspecified
CPT/HCPCS: 36415; 82164

== ENCOUNTER → 2021-11-30 | Outpatient (CLI) | payer MEDICARE, SELFPAY ==
[2021-11-30 15:28] LABS: Vitamin B12 298 pg/mL (211-911)
[2021-11-30 16:11] LABS: Magnesium 2.1 mg/dL (1.6-2.6)
[2021-12-11 16:30] LABS: Vitamin B1, Thiamine 126.5 nmol/L (66.5-200.0)
== END | disposition home or self-care (01) ==
LOC: MTLAB 12:32
PROVIDERS: PCP Internal Medicine; Referring Provider Psychiatry & Neurology Neurology; Visit Provider Psychiatry & Neurology Neurology
DX: G62.9 Polyneuropathy, unspecified (principal); G25.3 Myoclonus
CPT/HCPCS: 36415; 82607; 82746; 83735; 84425

== ENCOUNTER → 2022-01-01 | Outpatient (CLI) | payer MEDICARE, SELFPAY ==
[2022-01-01 16:48] LABS: Absolute Lymphocyte Count 0.85 X10^3/uL (0.83-4.51); Absolute Neutrophil Count 1.7 X10^3/uL (2.0-7.7); Basophil# 0.01 X10^3/uL; Basophil% 0.4 % (0-1); Eosinophil# 0.06 X10^3/uL; Eosinophils% 2.2 % (0-5); Hematocrit 31.3 % (40-54); Hemoglobin 9.7 g/dL (13.0-16.5); Immature Platelet Fraction 7.9 % (1.0-7.9); Lymphocyte # 0.85 X10^3/ul (0.83-4.51); Lymphocyte % 31.7 % (19-41); Mean Corpuscular Hgb 28.7 pg (27.0-32.0); Mean Corpuscular Volume 92.6 fL (80-94); Mean Platelet Vol. 11.4 fl (6.2-12.0); Monocyte# 0.08 X10^3/uL; NRBC Flagged by Analyzer 1.1 % (0-5); Neutrophil # 1.67 X10^3/uL (2.7-7.7); Neutrophil % 62.3 % (47-70); POSITIVE COUNT YES; POSITIVE MORPHOLOGY YES; Platelet Count 86 K/mm3 (150-450); RBC Distribution Width CV 19.2 % (11.6-14.6); RBC Distribution Width SD 64.5 fl (35.1-43.9); RET-HE 27.6 pg (30-35); Red Blood Count 3.38 M/mm3 (4.6-6.2); Reticulocyte Count 1.93 % (0.5-1.5); White Blood Count 2.7 K/mm3 (4.4-11.0)
[2022-01-01 16:54] LABS: Differential Indicated SCAN CRITERIA MET
[2022-01-01 17:12] LABS: Atypical Lymphocyte 1+ %; Platelet Estimate MOD DEC (ADEQ); Red Cell Morphology N CHROM NORMAL (NORM C&C)
[2022-01-01 17:13] LABS: Anisocytosis 1+; Macrocytosis RARE
[2022-01-01 18:17] LABS: ALB/GLOB Ratio 1.1 RATIO (0.9-2.4); AST(SGOT) 15 U/L (15-37); Alanine Aminotransfer ALT/SGPT 23 U/L (16-61); Albumin, Serum 3.8 g/dL (3.2-5.0); Alkaline Phosphatase 112 U/L (45-117); Anion Gap 5 (5-15); BUN 17 mg/dL (7-18); BUN/Creat Ratio 14.7 RATIO (10-20); Calcium,Total 9.4 mg/dL (8.5-10.1); Chloride 111 mmol/L (98-107); Creatinine, Serum 1.16 mg/dL (0.70-1.30); EST Glomerular Filtration Rate 66 mL/min (>60); Est Glom Filt Rate - Afr Amer 80 mL/min (>60); Ferritin 42 ng/mL (26-388); Globulin 3.4 g/dL (2.2-4.2); Glucose 87 mg/dL (74-106); Iron 126 ug/dL (65-175); Iron Binding Capacity,Total 365 ug/dL (250-450); LDH 172 U/L (87-241); PERCENT IRON SATURATION 34.5 % (15.0-55.0); Potassium 4.2 mmol/L (3.5-5.1); Protein, Total 7.2 g/dL (6.4-8.2); Sodium Level 140 mmol/L (136-145)
[2022-01-03 22:07] LABS: Albumin 3.9 g/dL (2.9-4.4); Alpha-1-Globulins 0.2 g/dL (0.0-0.4); Alpha-2-Globulins 0.9 g/dL (0.4-1.0); Free Kappa Light Chains 16.1 mg/L (3.3-19.4); Free Lambda Light Chains 24.2 mg/L (5.7-26.3); Gamma Globulin 0.9 g/dL (0.4-1.8); Immunoglobulin A 58 mg/dL (61-437); Immunoglobulin G 832 mg/dL (603-1613); Immunoglobulin M 39 mg/dL (20-172); PROEL- TOTAL PROTEIN 6.9 g/dL (6.0-8.5)
== END | disposition home or self-care (01) ==
LOC: PAVLAB 16:18
PROVIDERS: PCP Internal Medicine; Visit Provider Internal Medicine Hematology & Oncology
DX: E88.09 Other disorders of plasma-protein metabolism, not elsewhere classified (principal); I11.0 Hypertensive heart disease with heart failure; I50.9 Heart failure, unspecified; M89.9 Disorder of bone, unspecified; R16.0 Hepatomegaly, not elsewhere classified
CPT/HCPCS: 36415; 80053; 82728; 82784; 83540; 83550; 83615; 83883; 84165; 85025; 85045; 86334; 86850; 86900; 86901

== ENCOUNTER → 2022-02-23 | Outpatient (CLI) | payer MEDICARE, SELFPAY ==
--- NOTE | 2022-02-23 08:47 | RAD_ITS ---
STUDY: CHEST SERIES--PA AND LATERAL VIEWS OF 0854 HOURS ON 02/23/2022 REASON FOR EXAM: 71-year-old male with shortness of breath. TECHNIQUE: A 3 view (PA and 2 lateral views) chest x-ray series were performed per protocol. COMPARISON: 09/25/2021. FINDINGS: Normal osseous structures. No cardiomegaly. Mild prominence of the bronchovascular markings in both lower lobes on comparison with the previous study of 09/25/2021 that may be indicative of a mild bilateral lower lobe pneumonitis. There is no confluent infiltrates, atelectasis, effusion, or pulmonary mass lesions. There is no other interval change since that previous study of 09/25/2021. RAD/Chest PA and Lateral IMPRESSION: 1. Findings indicative of normal mild bilateral lower lobe pneumonitis. 2. No other evidence of active cardiopulmonary disease. 3. Normal osseous structures. Electronically Signed: Lorenzo Suarez MD at 2:01 EDT ,
[2022-02-23 09:25] LABS: Absolute Lymphocyte Count 0.94 X10^3/uL (0.83-4.51); Absolute Neutrophil Count 1.5 X10^3/uL (2.0-7.7); Basophil# 0.01 X10^3/uL; Basophil% 0.4 % (0-1); Eosinophil# 0.06 X10^3/uL; Eosinophils% 2.4 % (0-5); Hematocrit 26.3 % (40-54); Hemoglobin 8.2 g/dL (13.0-16.5); Lymphocyte # 0.94 X10^3/ul (0.83-4.51); Lymphocyte % 36.9 % (19-41); Mean Corp Hgb Conc 31.2 g/dL (32-36); Mean Corpuscular Hgb 29.5 pg (27.0-32.0); Mean Corpuscular Volume 94.6 fL (80-94); Monocyte# 0.05 X10^3/uL; NRBC Flagged by Analyzer 1.6 % (0-5); Neutrophil # 1.47 X10^3/uL (2.7-7.7); Neutrophil % 57.5 % (47-70); POSITIVE COUNT YES; POSITIVE MORPHOLOGY YES; Platelet Count 77 K/mm3 (150-450); RBC Distribution Width CV 20.6 % (11.6-14.6); RBC Distribution Width SD 70.8 fl (35.1-43.9); Red Blood Count 2.78 M/mm3 (4.6-6.2); White Blood Count 2.6 K/mm3 (4.4-11.0)
[2022-02-23 09:47] LABS: Anisocytosis 2+; Differential Indicated SCAN CRITERIA MET
[2022-02-23 09:48] LABS: Anion Gap 4 (5-15); BUN 23 mg/dL (7-18); Calcium,Total 9.2 mg/dL (8.5-10.1); Chloride 110 mmol/L (98-107); Creatinine, Serum 1.28 mg/dL (0.70-1.30); EST Glomerular Filtration Rate 59 mL/min (>60); Est Glom Filt Rate - Afr Amer 72 mL/min (>60); Glucose 243 mg/dL (74-106); Hypochromasia 1+; Potassium 4.4 mmol/L (3.5-5.1); Sodium Level 139 mmol/L (136-145)
== END | disposition home or self-care (01) ==
LOC: LAB 08:35
PROVIDERS: PCP Internal Medicine; Referring Provider Internal Medicine Cardiovascular Disease; Visit Provider Internal Medicine Cardiovascular Disease
DX: R06.00 Dyspnea, unspecified (principal); E66.01 Morbid (severe) obesity due to excess calories; Z68.42 Body mass index [BMI] 45.0-49.9, adult; I25.10 Atherosclerotic heart disease of native coronary artery without angina pectoris; R06.02 Shortness of breath
CPT/HCPCS: 36415; 71046; 80048; 85025

== ENCOUNTER 2022-03-02 06:39 | Day surgery (SDC) | payer MEDICARE, SELFPAY ==
[2022-03-01 08:10] VITALS: BMI 49.3
[2022-03-02 08:40] LABS: Blood Gas Specimen Type VEN; VBG BASE EXCESS -4 mmol/L (-1.0-3.5); VBG Bicarbonate 22 mmol/L (22-26); VBG PO2 39 mmHg (25-40); VBG SO2 70 % (50-70); VBG TCO2 24 mmol/L (23-33); VBG pCO2 41.4 mmHg (41-51); VBG pH 7.34 (7.32-7.42)
[2022-03-02 08:50] LABS: Base Excess -4 mmol/L (-2 to +2); Bicarbonate 21.1 mmol/L (22-26); Blood Gas Specimen Type ART; PO2 101 mmHG (75-100); SO2 98 % (95-99); Total Carbon Dioxide 22 mmol/L; pCO2 36.7 mmHg (35-45); pH 7.37 (7.35-7.45)
--- NOTE | 2022-03-02 12:12 | CL.D_ITS ---
Patient Name: BLU SAMUEL Study Date: 03/02/2022 Performing: Shakeel Ramos MD Ht: 74 inches 188 cm : 1950 Wt: 384.1 lbs 174 kg Age: 71 Gender: male BSA: 2.87 PROCEDURE(S) PERFORMED [id number])RHC/LHC/COR/LV CLINICAL PROFILE AND INDICATIONS Indications: Suspected CAD Heart Failure: None Stress/Imaging Stress/Image Study Performed: No CAD Presentations: Other: SOB CONCLUSIONS Non obstructive coronary arteries Mild distal LM Cardiomyopathy: Dilated RECOMMENDATIONS Medical therapy DESCRIPTION OF PROCEDURE The patient arrived to the procedure lab. The risks and benefits of the procedure as well as a full d escription of our services here and current unavailability of surgical backup were fully explained to the patient and/or their significant other prior to the catheterization. The Timeout was completed, verifying the correct patient and procedure. The patient's procedural site was prepped and draped in the usual fashion. Local anesthetic was given subcutaneously to right groin region with Lidocaine 2%. Local anesthetic was given subcutaneously to right radial region with Lidocaine 2%. Using a modified Seldinger technique, arterial access was obtained via the right radial artery, a 6Fr sheath was inse rted. Venous access was obtained via the right femoral vein, a 7Fr sheath was inserted. A 7Fr thermal dilution catheter was inserted and right heart pressures were recorded, it was then advanced to PA p osition for cardiac outputs. The Thermal dilution catheter was then removed. Right Coronary Artery selective angiography was then performed in multiple views using a 5 Fr. 4.0 Colton ca theter. Left Coronary Artery selective angiography was performed in multiple views using a 5 Fr. 4.0 Colton catheter. Left Ventriculography was performed in RAY projection using a 5 Fr. Pigtail catheter. LV to AO pullback pressures were then recorded.The venous sheath was then pulled and manual compress ion applied until hemostasis achieved CORONARY ANGIOGRAPHY DOMINANCE: Right Dominant LEFT HEART ASSESSMENT Left Ventricular Ejection Fraction: by LV Gram 30 % Inferior Mid Hypokinesis - Severe Depressed Left Ventricular systolic function RIGHT HEART ASSESSMENT RV: 61/6 22 RA: 22/20 17 Right Heart pressures - elevated LEFT MAIN: Distal 30 LEFT ANTERIOR DESCENDING ARTERY: Mild luminal irregularities less than 30% CIRCUMFLEX ARTERY: Mild luminal irregularities RIGHT CORONARY ARTERY: Mild luminal irregularities COMPLICATIONS No Complications PROCEDURE MEDICATIONS Versed 1 mg IV Fentanyl 50 mcg IV Oxygen: 2 L/min via nasal cannula Oxygen: Discontinued Heparin given IA 03/02/2022 08:37:00 Verapamil 2.5mg, Ntg 100mcgs, 3000 units of Heparin given IA 03/02/2022 08:37:00 SUMMARY OF HEMODYNAMIC DATA Time AIR REST ECG 07:01:05 RA 22/20 (17) SV 08:37:58 RV 61/6, 22 08:38:16 AO 137/73 (97) SA 08:48:46 LV 134/13, 24 08:54:24 LV 136/14, 25 08:54:31 LV 123/12, 28 08:55:57 LV 121/13, 30 08:56:03 LVp 123/10, 29 08:56:09 AOp 125/63 (87) 08:56:14 Label % O2 Pres/Loc Time AIR REST AO 98 PV 08:57:30 RA 70 PA 08:57:40 Signed By Shakeel Ramos MD On 03/02/2022 12:12:18 Shakeel Ramos MD
== END 2022-03-02 11:48 | disposition home or self-care (01) ==
LOC: CLSP 06:40
PROVIDERS: PCP Internal Medicine; Visit Provider Internal Medicine Cardiovascular Disease
DX: I25.10 Atherosclerotic heart disease of native coronary artery without angina pectoris (principal); I42.0 Dilated cardiomyopathy; Z79.4 Long term (current) use of insulin; E11.9 Type 2 diabetes mellitus without complications; R06.02 Shortness of breath; G47.30 Sleep apnea, unspecified; E78.5 Hyperlipidemia, unspecified; Z79.82 Long term (current) use of aspirin; Z79.899 Other long term (current) drug therapy; Z79.84 Long term (current) use of oral hypoglycemic drugs; Z96.41 Presence of insulin pump (external) (internal)
CPT/HCPCS: 82803; 93460; 99152; 99153; J7040; C1769; C1894; Q9967

== ENCOUNTER → 2022-03-15 | Outpatient (CLI) | payer MEDICARE, SELFPAY ==
--- NOTE | 2022-03-15 07:50 | CT_ITS ---
STUDY: CT CHEST WITH CONTRAST REASON FOR EXAM: Male, 71 years old. F/U LUNG NODULES. CASTLEMAN''S DISEASE RADIATION DOSAGE (If Supplied By Facility): CTDIvol = ( 21.71 ) mGy, DLP = ( 968.35 ) mGycm TECHNIQUE: Transaxial imaging was performed following intravenous administration of IV 100mL Isovue-300. Multiplanar coronal and sagittal images were reformatted. Individualized dose optimization techniques were used for this CT. COMPARISON: Comparison is made with prior study dated 09/15/2021. FINDINGS: CHEST Mild degree of dependent bibasilar atelectasis and/or mild scarring. The previously seen bilateral pulmonary nodules have cleared. No new nodule is seen. Tiny calcified granulomas. There is no demonstrated pleural abnormality. There are calcifications of the coronary arteries. Normal mediastinum. Normal hilar regions. Normal unenhanced pulmonary arteries. Normal aorta arch and descending thoracic aorta. 1 segment,, there is evidence of diffuse sclerosis of the appendicular and axial skeletons. Diffuse fatty infiltration of the liver. CT/Chest WITH Contrast IMPRESSION: The previously seen nodular densities are resolved. Mild degree of bibasilar atelectasis and/or scarring. Stable appearance of the diffuse sclerosis of the appendicular and axial skeletons. Electronically Signed: Lauro Horner MD at 10:30 EDT ,
== END | disposition home or self-care (01) ==
LOC: CT 07:41
PROVIDERS: PCP Internal Medicine; Referring Provider Internal Medicine Hematology & Oncology; Visit Provider Internal Medicine Hematology & Oncology
DX: R91.1 Solitary pulmonary nodule (principal); C79.51 Secondary malignant neoplasm of bone; D61.818 Other pancytopenia; E66.01 Morbid (severe) obesity due to excess calories; Z68.42 Body mass index [BMI] 45.0-49.9, adult; E88.09 Other disorders of plasma-protein metabolism, not elsewhere classified; R53.83 Other fatigue; R06.00 Dyspnea, unspecified
CPT/HCPCS: 71260; J7040; Q9967

== ENCOUNTER → 2022-04-04 | Outpatient (CLI) | payer MEDICARE, SELFPAY ==
[2022-04-04 15:53] LABS: ALB/GLOB Ratio 0.9 RATIO (0.9-2.4); AST(SGOT) 9 U/L (15-37); Alanine Aminotransfer ALT/SGPT 16 U/L (16-61); Albumin, Serum 3.3 g/dL (3.2-5.0); Alkaline Phosphatase 64 U/L (45-117); Anion Gap 5 (5-15); BUN 20 mg/dL (7-18); BUN/Creat Ratio 14.6 RATIO (10-20); Calcium,Total 9.3 mg/dL (8.5-10.1); Chloride 108 mmol/L (98-107); Creatinine, Serum 1.37 mg/dL (0.70-1.30); EST Glomerular Filtration Rate 55 mL/min (>60); Est Glom Filt Rate - Afr Amer 66 mL/min (>60); Globulin 3.5 g/dL (2.2-4.2); Glucose 171 mg/dL (74-106); Potassium 4.4 mmol/L (3.5-5.1); Protein, Total 6.8 g/dL (6.4-8.2); Sodium Level 138 mmol/L (136-145)
== END | disposition home or self-care (01) ==
LOC: LAB 14:51
PROVIDERS: PCP Internal Medicine; Visit Provider Nurse Practitioner Family
DX: N18.9 Chronic kidney disease, unspecified (principal)
CPT/HCPCS: 36415; 80053

== ENCOUNTER → 2022-04-17 | Outpatient (CLI) | payer MEDICARE, SELFPAY ==
[2022-04-17 17:41] LABS: BNP,B-Type NATRIURETIC PEPTIDE 65.1 pg/mL (0-100)
[2022-04-17 18:05] LABS: Anion Gap 9 (5-15); BUN 32 mg/dL (7-18); BUN/Creat Ratio 17.8 RATIO (10-20); Calcium,Total 10.1 mg/dL (8.5-10.1); Chloride 105 mmol/L (98-107); EST Glomerular Filtration Rate 40 mL/min (>60); Est Glom Filt Rate - Afr Amer 48 mL/min (>60); Glucose 247 mg/dL (74-106); Potassium 4.5 mmol/L (3.5-5.1); Sodium Level 138 mmol/L (136-145)
== END | disposition home or self-care (01) ==
LOC: LAB 16:41
PROVIDERS: PCP Internal Medicine; Visit Provider Nurse Practitioner Family
DX: R06.00 Dyspnea, unspecified (principal); I42.8 Other cardiomyopathies; I10 Essential (primary) hypertension; E78.5 Hyperlipidemia, unspecified; D64.9 Anemia, unspecified
CPT/HCPCS: 36415; 80048; 83880

== ENCOUNTER → 2022-04-18 | Outpatient (CLI) | payer MEDICARE, SELFPAY ==
[2022-04-18 17:40] LABS: Absolute Lymphocyte Count 0.79 X10^3/uL (0.83-4.51); Absolute Neutrophil Count 1.5 X10^3/uL (2.0-7.7); Eosinophil# 0.03 X10^3/uL; Eosinophils% 1.2 % (0-5); Hematocrit 22.9 % (40-54); Hemoglobin 6.9 g/dL (13.0-16.5); Lymphocyte # 0.79 X10^3/ul (0.83-4.51); Lymphocyte % 31.2 % (19-41); Mean Corp Hgb Conc 30.1 g/dL (32-36); Mean Corpuscular Hgb 28.8 pg (27.0-32.0); Mean Corpuscular Volume 95.4 fL (80-94); Monocyte# 0.22 X10^3/uL; Monocyte% 8.7 % (0-10); Neutrophil # 1.48 X10^3/uL (2.7-7.7); Neutrophil % 58.5 % (47-70); POSITIVE COUNT YES; POSITIVE MORPHOLOGY YES; Platelet Count 87 K/mm3 (150-450); RBC Distribution Width CV 19.9 % (11.6-14.6); White Blood Count 2.5 K/mm3 (4.4-11.0)
[2022-04-18 17:42] LABS: Differential Indicated SCAN CRITERIA MET
[2022-04-18 18:11] LABS: Anisocytosis 1+; Platelet Estimate MOD DEC (ADEQ); Polychromasia RARE
== END | disposition home or self-care (01) ==
LOC: MTLAB 16:18
PROVIDERS: PCP Internal Medicine; Referring Provider Internal Medicine Hematology & Oncology; Visit Provider Internal Medicine Hematology & Oncology
DX: E88.09 Other disorders of plasma-protein metabolism, not elsewhere classified (principal); D61.818 Other pancytopenia
CPT/HCPCS: 85025; 86850; 86900; 86901; 86920; 86922

== ENCOUNTER → 2022-04-23 | Outpatient (CLI) | payer MEDICARE, SELFPAY ==
--- NOTE | 2022-04-23 10:26 | MRI_ITS ---
EXAM: MR HEAD WITHOUT AND WITH INTRAVENOUS CONTRAST, INTERNAL AUDITORY CANAL PROTOCOL CLINICAL INDICATION: Positional disequilibrium/vertigo; L hearing loss -- Perform w/ attention to internal auditory canals TECHNIQUE: Multiplanar and multisequence MR images of the internal auditory canal were obtained without and with intravenous contrast. This report was created using [employer] report [employer] technology. CONTRAST: IV 30 cc dotarem COMPARISON: None. FINDINGS: CRANIAL NERVES: Unremarkable. No mass. No abnormal enhancement. COCHLEA AND SEMICIRCULAR CANALS: Unremarkable. CEREBELLOPONTINE ANGLES: Unremarkable. No mass. BRAIN AND EXTRA-AXIAL SPACES: Unremarkable as visualized. No intra- or extra-axial hemorrhage. No intracranial mass or mass effect. There is preservation of the armstrong/white matter interface. Posterior fossa structures are unremarkable. Ventricles are appropriate for age. No hydrocephalus. Basal cisterns are patent. BONES/JOINTS: Unremarkable. No discrete lytic or blastic abnormalities. SINUSES: Unremarkable as visualized. Clear. MASTOID AIR CELLS: Unremarkable as visualized. Clear. ORBITS: Unremarkable as visualized. Both globes, extraocular muscles, optic nerves and retrobulbar fat appear unremarkable. MRI/Brain W/WO Contrast IMPRESSION: Unremarkable MRI of the internal auditory canal. Electronically Signed: Loco Orlando MD at 21:34 EDT ,
== END | disposition home or self-care (01) ==
PROVIDERS: PCP Internal Medicine; Referring Provider Psychiatry & Neurology Neurology; Visit Provider Psychiatry & Neurology Neurology
DX: H91.90 Unspecified hearing loss, unspecified ear (principal); H91.92 Unspecified hearing loss, left ear
CPT/HCPCS: 70553; A9575

== ENCOUNTER 2022-05-18 14:59 | Inpatient (IN) | payer MEDICARE, SELFPAY ==
[2022-05-18] VITALS (14 sets, daily range): BP systolic 112–162; BP diastolic 38–99; PULSE 62–88; RESP 13–19; TEMP 36.4–37.1; O2SAT 92–100; BMI 46.2; BMI 44.3
--- NOTE | 2022-05-18 15:28 | CT_ITS ---
We are attempting to reach an attending provider to discuss findings. An addendum with communication details will be sent when the communication is complete. INDICATION: transient slurred speech EXAMINATION: CT BRAIN - CT Head or Brain W/O Contrast Injection TECHNIQUE: Multiple axial images were obtained of the head without intravenous contrast. A radiation dose optimization technique was used for this scan. IV Contrast dosage and agent: None. COMPARISON: None FINDINGS: BRAIN PARENCHYMA: No intra- or extra-axial hemorrhage. No evidence of acute infarct. No intracranial mass or mass effect. There is preservation of the armstrong/white matter interface. Posterior fossa structures are unremarkable. Volume loss with low attenuation of the periventricular white matter typical of chronic small vessel disease. CSF SPACES: Appropriate for age. No hydrocephalus. Basal cisterns are patent. CALVARIUM, SKULL BASE, PARANASAL SINUSES AND MASTOID AIR CELLS: Clear. No discrete lytic or blastic abnormalities. CT/STROKE Brain/Head without Cont IMPRESSION: Volume loss with chronic white matter changes. No acute intracranial findings. Electronically Signed: Florian Kuo MD at 16:16 EDT ,
--- NOTE | 2022-05-18 15:28 | EKG12_ITS ---
Test Reason : GENERAL ILLNESS Blood Pressure : / mmHG Vent. Rate : 060 BPM Atrial Rate : 060 BPM P-R Int : 198 ms QRS Dur : 104 ms QT Int : 410 ms P-R-T Axes : 045 011 003 degrees QTc Int : 410 ms Normal sinus rhythm Inferior infarct , age undetermined , cannot be determined Nonspecific ST segment abnormality Abnormal ECG Confirmed by FABIENNE REED, SIMONE ([id number]), state editor LOVE BHAGAT ([id number]) on 05/22/2022 9:41:38 AM Referred By: Confirmed By:SIMONE LOVING MD
--- NOTE | 2022-05-18 15:37 | EX.ED.DYSGE1 ---
HPI History of Present Illness Chief Complaint: General Illness Informant: patient and family Narrative Narrative: Patient sent in here after speaking with PCP on the phone and having slurred speech. Daughter is present. This lasted for 15 minutes. No headaches or hemiparesis. No stroke history. Extensive recent medical history. Since June of last year noted shortness of breath with exertion with lightheaded symptoms. Prior to that he explain 2012 he was having vertigo symptoms with multiple specialists seen with negative work-up. Has seen multiple doctors. He was found to be pancytopenic, he is following Dr. Dillard. There is been 2 attempted bone marrow biopsies unable to evaluate the bone marrow. He had CT scan finding bone lesions however no clear source. He was referred down to [facility] also with no clear source. 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 He states he was attempted to be referred to the [facility] recently, however they declined the referral from his oncologist. He has been transfused blood 2 times in the last 2 weeks last time a week ago with 1 unit of blood. Denies any rectal bleeding. Also reports had a heart catheter last 2 months, he states there was an attempted intervention however unable to be performed. He has no current chest pains or tightness. Has been having urine incontinence proximal for the last week. He has no back pain. Seen his PCP on Saturday, empirically placed on antibiotics pending the culture. New symptoms was a slurred speech today therefore was sent to the ED. Also reports by daughter her insulin pump broke down 2 days ago he has been using insulin injections. 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 Presence of insulin pump Pulmonary disease Radiculopathy, cervical region Secondary pulmonary arterial hypertension Sleep apnea Vision problems Home Medications multivitamin (Daily Multi-Vitamin tablet) 1 tab PO DAILY SUPPLEMENT 06/15/21 [History Last Taken 05/18/22] fenofibric acid (choline) 135 mg capsule,delayed release (Trilipix) 135 mg PO DAILY CHOLESTEROL 08/01/21 [History Last Taken 05/17/22] cholecalciferol (vitamin D3) 25 mcg (1,000 unit) tablet 25 mcg PO DAILY SUPLEMENT 03/08/22 [History Last Taken 05/17/22] magnesium oxide 400 mg PO DAILY SUPPLEMETN 04/17/22 [History Last Taken 05/17/22] simvastatin 40 mg tablet 40 mg PO DAILY CHOLESTEROL 04/17/22 [History Last Taken 05/16/22] vitamin E mixed 400 unit capsule 400 unit PO DAILY SUPPLEMENT 04/17/22 [History Last Taken 05/18/22] carvedilol 6.25 mg tablet (Coreg) 6.25 mg PO BID HEART 05/18/22 [History Last Taken 05/18/22] dapagliflozin 10 mg tablet (Farxiga) 10 mg PO DAILY DM 05/18/22 [History Last Taken 05/17/22] furosemide 40 mg tablet (Lasix) 40 mg PO DAILY FLUID 05/18/22 [History Last Taken 05/18/22] ibuprofen 200 mg tablet 400 mg PO Q8H PRN Pain 05/18/22 [History Last Taken 05/18/22] insulin regular hum U-500 conc 500 unit/mL subcutaneous soln (Humulin R U-500 (Concentrated) Insulin) 100 unit continuous subcutaneous infusion .continuous DM 05/18/22 [History Last Taken 05/18/22] metformin 1,000 mg tablet 1,000 mg PO BID DM 05/18/22 [History Last Taken 05/18/22] metformin 500 mg tablet 500 mg PO LUNCH DM 05/18/22 [History Last Taken Unknown] sacubitril 49 mg-valsartan 51 mg tablet (Entresto) 1 tab PO BID HEART 05/18/22 [History Last Taken 05/18/22] ursodiol 300 mg capsule 300 mg PO BID GOUT 05/18/22 [History Last Taken 05/18/22] Allergy/AdvReac Type Severity Reaction Status Date / Time PITER Inhibitors Allergy Severe edema Verified 05/18/22 15:01 diltiazem [From Cardizem] Allergy Unknown unknown Verified 05/18/22 15:01 Penicillins AdvReac Intermediate diarrhea Verified 05/18/22 15:01 Family History Grandfather Alcoholism Father Arthritis Myocardial infarction Heart disease Hypertension Sister Autoimmune disorder Mother Cancer Brother Diabetes Myocardial infarction Heart disease Other Lung cancer Surgical History History of left heart catheterization (2012) History of right and left heart catheterization (03/02/22) History of surgery on arm Social History Smoking Status: Never smoker second hand exposure: No alcohol intake: never substance use type: does not use caffeine: Yes Type: carbonated beverages Number of servings: 8 and coffee Number of servings: 3 what type of physical activity do you participate in: none octavio/pentecostalism: Brethern seatbelt use: sometimes do you feel safe at home: Yes ROS ROS ED Constitutional Constitutional ED: Denies chills, fever(s) or sweats Eyes Eyes: Denies change in vision ENT ENT ED: Denies dysphagia or sore throat Cardiovascular Cardiovascular: Denies chest pain, leg edema, palpitations or racing heartbeat Respiratory/Chest Respiratory/Chest: Reports dyspnea and dyspnea on exertion Gastrointestinal Gastrointestinal: Denies abdominal pain, diarrhea, nausea or vomiting Genitourinary Genitourinary ED: Reports other Details: Urine incontinence ; Denies dysuria, hematuria or urinary frequency Musculoskeletal Musculoskeletal: Denies back pain, extremity pain or neck pain Integumentary Denies rash or wounds Neurologic Neurologic: Reports other Details: Transient slurred speech ; Denies headache(s), paresthesias or weakness EXAM Physical Exam Const Vital Signs: 05/18/22 14:59 05/18/22 15:28 05/18/22 16:30 Temperature 97.8 F Temperature Source Temporal Pulse Rate 71 68 Respiratory Rate 16 19 H Blood Pressure 126/46 H 132/57 H Blood Pressure Mean 72 82 Pulse Ox 95 94 Oxygen Delivery Method Room Air Room Air Room Air 05/18/22 17:00 Temperature Temperature Source Pulse Rate 72 Respiratory Rate 18 Blood Pressure 112/40 L Blood Pressure Mean 64 Pulse Ox 94 Oxygen Delivery Method Positive well nourished and well developed General Appearance ED: well developed and NAD HEENT Reports moist mucous membranes normocephalic and atraumatic Eyes PERRL and EOMs intact bilaterally Eyes Narrative: Pale conjunctiva General Eye ED: Yes normal appearance of both eyes Neck no lymphadenopathy and supple General: Negative for tenderness Chest Wall Chest: Negative for tenderness Resp normal respiratory effort and normal air movement Effort and Inspection: symmetric chest movement; Negative for respiratory distress Cardio regular rate, regular rhythm and no murmurs Peripheral Pulses: pulses 2+ throughout GI normal to inspection, nondistended, normoactive bowel sounds and non-tender Palpation: Negative for guarding or rebound tenderness present Back/Spine no CVA tenderness and no thoracic nor lumbar tenderness Extremity normal to inspection General Extremety ED: Negative for edema or tenderness General Extremity: Negative for edema Neuro oriented x3, CN's II-XII intact bilaterally and no sensory deficits noted Neuro Narrative: NIH of 0, normal cerebellar testing upper and lower extremities. Sensorium / Orientation: awake and alert Skin no rashes or lesions noted and no wounds MDM MDM MDM Narrative Medical decision making narrative: EKG sinus rhythm. Patient had new symptoms transient slurred speech lasted 15 minutes NIH 0. Stroke work-up initiated with noncontrast CT. Your platelets recently are 87. Resolved symptoms not candidate for any tPA. She will likely have anemia. Working diagnosis of POEMs syndrome, unable diagnosed multiple myeloma secondary no bone marrow evaluation. Evaluation of his records, March 02 had a diagnostic heart cath by Dr. Ramos found nonischemic cardiomyopathy ejection fraction of 30%. He is placed on Entresto and Farxiga. He had 30 sent blockage of main, less than 30% blockage of LAD minimal changes in other vessels. With patient's undiagnosed multiple bone lesions, cancer also in differential causing symptoms along with his incontinence current denies any back pain. CT brain returned negative. Remained symptom-free. Labs with pancytopenia white count 2.2 heme-onc 6.2, platelets 75. Blood pressure stable. Reviewing records had an endoscopy August Dr. Cavazos, he had nonbleeding gastric ulcers and angiodysplasia in the gastrum. Secondary to disease history I performed a rectal exam brown stool Hemoccult did return positive. Creatinine 1.8 stable from previous. Urine notes 25 leukocytes no other acute findings. Type and cross for 2 units of blood. To be transferred over 4 hours each unit due to his cardiomyopathy. Chest x-ray 1 view reviewed by myself and read by radiology shows no acute process. With positive guaiac stools, I spoke with his gastroenterology Dr. Friend who is aware of him and will follow as a consult if needed by hospital service. I spoke with Dr. Brown, hospitalist discussed patient's presentation history findings for admission to PCU. Lab Data Attestation: I reviewed the patient's lab results. Labs: Laboratory Results - last 24 hr 05/18/22 05/18/22 05/18/22 15:45 15:45 15:45 WBC 2.2 L RBC 2.24 L Hgb 6.2 L Hct 20.7 L MCV 92.4 MCH 27.7 MCHC 30.0 L RDW Std Deviation 62.3 H RDW Coeff of Juliet 18.6 H Plt Count 75 L MPV 10.6 Immature Gran % (Auto) 2.300 H Neut % (Auto) 67.6 Lymph % (Auto) 25.5 Searcy % (Auto) 3.7 Eos % (Auto) 0.9 Baso % (Auto) 0.0 Absolute Neuts (auto) 1.5 L Absolute Lymphs (auto) 0.55 L Nucleated RBC % 0 Differential Comment SCANNED Diff Path Review May foll PT 15.3 H INR 1.2 APTT 23.9 L Sodium 137 Potassium 3.3 L Chloride 103 Carbon Dioxide 31.0 Anion Gap 3 L BUN 30 H Creatinine 1.83 H Estim Creat Clear Calc 44.29 Est GFR (MDRD) Af Amer 47 L Est GFR (MDRD) Non-Af 39 L BUN/Creatinine Ratio 16.4 Glucose 163 H Calcium 12.3 H Phosphorus Magnesium Troponin I High Sens 38 Urine Color Urine Clarity Urine pH Ur Specific Blythe Urine Protein Urine Glucose (UA) Urine Ketones Urine Occult Blood Urine Nitrite Urine Bilirubin Urine Urobilinogen Ur Leukocyte Esterase Urine RBC Urine WBC Ur Squamous Epith Cells Urine Bacteria Hyaline Casts Fine Granular Casts Urine Mucus Blood Type Antibody Screen Crossmatch 05/18/22 05/18/22 05/18/22 15:45 16:25 16:53 WBC RBC Hgb Hct MCV MCH MCHC RDW Std Deviation RDW Coeff of Juliet Plt Count MPV Immature Gran % (Auto) Neut % (Auto) Lymph % (Auto) Searcy % (Auto) Eos % (Auto) Baso % (Auto) Absolute Neuts (auto) Absolute Lymphs (auto) Nucleated RBC % Differential Comment Diff Path Review PT INR APTT Sodium Potassium Chloride Carbon Dioxide Anion Gap BUN Creatinine Estim Creat Clear Calc Est GFR (MDRD) Af Amer Est GFR (MDRD) Non-Af BUN/Creatinine Ratio Glucose Calcium Phosphorus 2.9 Magnesium 1.8 Troponin I High Sens Urine Color Yellow Urine Clarity Clear Urine pH 6.5 Ur Specific Blythe 1.015 Urine Protein 15 H Urine Glucose (UA) 100 H Urine Ketones Negative Urine Occult Blood Negative Urine Nitrite Negative Urine Bilirubin Negative Urine Urobilinogen Normal Ur Leukocyte Esterase 25 H Urine RBC 0 SEEN Urine WBC 0-5 SEEN Ur Squamous Epith Cells 0 SEEN Urine Bacteria 0 SEEN Hyaline Casts 0-5 SEEN Fine Granular Casts 0-5 SEEN Urine Mucus 0 SEEN Blood Type Cancelled Antibody Screen Cancelled Crossmatch See Detail 05/18/22 16:55 WBC RBC Hgb Hct MCV MCH MCHC RDW Std Deviation RDW Coeff of Juliet Plt Count MPV Immature Gran % (Auto) Neut % (Auto) Lymph % (Auto) Searcy % (Auto) Eos % (Auto) Baso % (Auto) Absolute Neuts (auto) Absolute Lymphs (auto) Nucleated RBC % Differential Comment Diff Path Review PT INR APTT Sodium Potassium Chloride Carbon Dioxide Anion Gap BUN Creatinine Estim Creat Clear Calc Est GFR (MDRD) Af Amer Est GFR (MDRD) Non-Af BUN/Creatinine Ratio Glucose Calcium Phosphorus Magnesium Troponin I High Sens Urine Color Urine Clarity Urine pH Ur Specific Blythe Urine Protein Urine Glucose (UA) Urine Ketones Urine Occult Blood Urine Nitrite Urine Bilirubin Urine Urobilinogen Ur Leukocyte Esterase Urine RBC Urine WBC Ur Squamous Epith Cells Urine Bacteria Hyaline Casts Fine Granular Casts Urine Mucus Blood Type O POSITIVE Antibody Screen NEGATIVE Crossmatch See Detail Radiography Diagnostic Testing: Clinical Impression(s) from Imaging Studies Brain CT 05/18/22 15:28 IMPRESSION: Volume loss with chronic white matter changes. No acute intracranial findings. Electronically Signed: Florian Kuo MD at 16:16 EDT Reading Location ID and State: [facility] / [place] Tel , Service support , ADDENDUM: 05/18/22 [id number] IMPRESSION: Volume loss with chronic white matter changes. No acute intracranial findings. N.B. : The above Results were Read Back by Florian Kuo MD to Dima Mckeon MD, and understanding confirmed on 05/18/2022 16:18:57 (ET). Electronically Signed: Florian Kuo MD at 16:16 EDT , Chest X-Ray 05/18/22 15:59 IMPRESSION: No radiographic evidence of acute cardiopulmonary disease. Electronically Signed: Florian Kuo MD at 16:30 EDT , EKG Initial EKG: Attestation: I personally reviewed and interpreted this EKG as follows: Comments: Sinus rate of [address] or T wave changes. Critical Care Time Critical Care Time: Yes Critical care time (excluding procedures): 30-74 minutes, Discussing w/Patient &/or Family/Roller Print Tender, Discussing w/Consultants, Arranging Admission or Transfer and Performing Direct Patient Care at Bedside Discharge Plan Dx/Rx/DC Orders Clinical Impression: Brain TIA, Non-ischemic cardiomyopathy, CKD (chronic kidney disease), Slurred speech, Symptomatic anemia, GI bleed Disposition Disposition: Acute Care [facility] Discharge Date/Time: 05/18/22 18:24
[2022-05-18 15:57] LABS: Absolute Lymphocyte Count 0.55 X10^3/uL (0.83-4.51); Absolute Neutrophil Count 1.5 X10^3/uL (2.0-7.7); Eosinophil# 0.02 X10^3/uL; Eosinophils% 0.9 % (0-5); Hematocrit 20.7 % (40-54); Hemoglobin 6.2 g/dL (13.0-16.5); Lymphocyte # 0.55 X10^3/ul (0.83-4.51); Lymphocyte % 25.5 % (19-41); Mean Corpuscular Hgb 27.7 pg (27.0-32.0); Mean Corpuscular Volume 92.4 fL (80-94); Mean Platelet Vol. 10.6 fl (6.2-12.0); Monocyte# 0.08 X10^3/uL; Monocyte% 3.7 % (0-10); NRBC Flagged by Analyzer 0 % (0-5); Neutrophil # 1.46 X10^3/uL (2.7-7.7); Neutrophil % 67.6 % (47-70); POSITIVE COUNT YES; POSITIVE DIFFERENTIAL YES; POSITIVE MORPHOLOGY YES; Platelet Count 75 K/mm3 (150-450); RBC Distribution Width CV 18.6 % (11.6-14.6); RBC Distribution Width SD 62.3 fl (35.1-43.9); Red Blood Count 2.24 M/mm3 (4.6-6.2); White Blood Count 2.2 K/mm3 (4.4-11.0)
--- NOTE | 2022-05-18 15:59 | RAD_ITS ---
INDICATION: Possible stroke EXAMINATION/TECHNIQUE: X-RAY - portable upright AP chest x-ray COMPARISON: 02/23/2022 FINDINGS: LINES/DEVICES: None. LUNGS: Low lung volumes. MEDIASTINUM AND CARDIOVASCULAR STRUCTURES: Cardiac silhouette not enlarged. Central airways and mediastinal contour are unremarkable. BONES AND SOFT TISSUES: No acute findings. RAD/Chest 1 View IMPRESSION: No radiographic evidence of acute cardiopulmonary disease. Electronically Signed: Florian Kuo MD at 16:30 EDT ,
[2022-05-18 16:00] LABS: Differential Indicated SCAN CRITERIA MET
[2022-05-18 16:15] LABS: Anion Gap 3 (5-15); BUN 30 mg/dL (7-18); BUN/Creat Ratio 16.4 RATIO (10-20); Calcium,Total 12.3 mg/dL (8.5-10.1); Chloride 103 mmol/L (98-107); Creatinine, Serum 1.83 mg/dL (0.70-1.30); EST Glomerular Filtration Rate 39 mL/min (>60); Est Glom Filt Rate - Afr Amer 47 mL/min (>60); Estimated Creatinine Clearance 44.29 ml/min; Glucose 163 mg/dL (74-106); Potassium 3.3 mmol/L (3.5-5.1); Sodium Level 137 mmol/L (136-145); Troponin-I HS 38 pg/mL (3.0-78.0)
[2022-05-18 16:17] LABS: International Normalized Ratio 1.2; Prothrombin Time (Protime)PT. 15.3 SECONDS (11.7-14.9)
[2022-05-18 16:18] LABS: Partial Thromboplast Time 23.9 Seconds (24.1-36.2)
[2022-05-18 17:00] LABS: Differential Comment SCANNED
[2022-05-18 17:08] LABS: Bacteria 0 SEEN /hpf (None Seen); Mucous, Urine 0 SEEN /hpf (<or=2+); Red Blood Cells-Urine 0 SEEN /hpf (0-5); Squamous Epithelial Cells - UA 0 SEEN /hpf (0-5)
[2022-05-18 17:27] LABS: Color, Urine Yellow (Yellow); Glucose, Dipstick 100 mg/dl (Normal); Ketone-Dipstick Negative (Negative); Leukocyte Esterase-Dipstick 25 /ul (Negative); Nitrite-Dipstick Negative (Negative); Occult Blood-Urine Negative /ul (Negative); Protein-Dipstick 15 mg/dl (Negative); Specific Gravity, Urine 1.015 (1.002-1.030); Urine Bilirubin Dipstick Negative (Negative); Urine Clarity Clear (Clear); Urine Urobilinogen Normal (Normal); Urine pH 6.5 (5.0 - 8.0)
[2022-05-18 17:48] LABS: Fine Granular Cast- Urine 0-5 SEEN /lpf (0-5); Hyaline Cast 0-5 SEEN /lpf (0-5); White Blood Cells 0-5 SEEN /hpf (0-5)
--- NOTE | 2022-05-18 19:10 | PCM.HP.STD ---
[facility] - General General Date of Admission: 05/18/22 Date of Service: 05/18/22 Chief Complaint: Slurred speech sent by PCP. Also has pancytopenia with severe anemia. Multiple active symptoms. HPI Narrative BLU SAMUEL, is a 71 M who was sent by PCP to ED after he talked to him regarding slurred speech. Patient said today he felt slurred speech noticed by the daughter. He does not have previous stroke or TIA history. Symptom is resolved. No focal weakness sensory abnormality headache or confusion. Besides that patient is undergoing work-up for multiple recent history of dizziness, shortness of breath on exertion lightheadedness and vertigo and polyneuropathy since 2018 and is seen multiple specialities without any diagnosis. Patient follows political anthropologist/oncologist Dr. Dillard for pancytopenia. He had 2 bone marrow biopsies probably was dry unable to get sample. 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 Patient had multiple office visits to neurologist Dr. Hernandez. The patient also has severe anemia with pancytopenia and required transfusion 3 times in the past. Patient had colonoscopy by Dr. Cavazos in August 2021 reported hemorrhoids on perianal exam, one 5 mm polyp in hepatic flexure and diverticulosis in sigmoid colon. EGD during same time reported small hiatus hernia, 2 nonbleeding angiectasia in the stomach treated with APC. Friable gastric mucosa treated with argon beam coagulation. Nonbleeding gastric ulcer with no stigmata of bleeding. In ED, hemoglobin found 6.2/20%, WBC 2.2 thousand, ANC 1.5 thousand platelet count 75,000. CT head did not show acute intracranial abnormality but volume loss with chronic white matter changes. Chest x-ray no acute cardiopulmonary abnormality. Vitals in ED reviewed and are in normal range. Patient is ordered 2 units of PRBC transfusion and further admitted. 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 Presence of insulin pump Pulmonary disease Radiculopathy, cervical region Secondary pulmonary arterial hypertension Sleep apnea Vision problems Home Medications multivitamin (Daily Multi-Vitamin tablet) 1 tab PO DAILY SUPPLEMENT 06/15/21 [History Last Taken 05/18/22] fenofibric acid (choline) 135 mg capsule,delayed release (Trilipix) 135 mg PO DAILY CHOLESTEROL 08/01/21 [History Last Taken 05/17/22] cholecalciferol (vitamin D3) 25 mcg (1,000 unit) tablet 25 mcg PO DAILY SUPLEMENT 03/08/22 [History Last Taken 05/17/22] magnesium oxide 400 mg PO DAILY SUPPLEMETN 04/17/22 [History Last Taken 05/17/22] simvastatin 40 mg tablet 40 mg PO DAILY CHOLESTEROL 04/17/22 [History Last Taken 05/16/22] vitamin E mixed 400 unit capsule 400 unit PO DAILY SUPPLEMENT 04/17/22 [History Last Taken 05/18/22] carvedilol 6.25 mg tablet (Coreg) 6.25 mg PO BID HEART 05/18/22 [History Last Taken 05/18/22] dapagliflozin 10 mg tablet (Farxiga) 10 mg PO DAILY DM 05/18/22 [History Last Taken 05/17/22] furosemide 40 mg tablet (Lasix) 40 mg PO DAILY FLUID 05/18/22 [History Last Taken 05/18/22] ibuprofen 200 mg tablet 400 mg PO Q8H PRN Pain 05/18/22 [History Last Taken 05/18/22] insulin regular hum U-500 conc 500 unit/mL subcutaneous soln (Humulin R U-500 (Concentrated) Insulin) 100 unit continuous subcutaneous infusion .continuous DM 05/18/22 [History Last Taken 05/18/22] metformin 1,000 mg tablet 1,000 mg PO BID DM 05/18/22 [History Last Taken 05/18/22] metformin 500 mg tablet 500 mg PO LUNCH DM 05/18/22 [History Last Taken Unknown] sacubitril 49 mg-valsartan 51 mg tablet (Entresto) 1 tab PO BID HEART 05/18/22 [History Last Taken 05/18/22] ursodiol 300 mg capsule 300 mg PO BID GOUT 05/18/22 [History Last Taken 05/18/22] Allergy/AdvReac Type Severity Reaction Status Date / Time PITER Inhibitors Allergy Severe edema Verified 05/18/22 15:01 diltiazem [From Cardizem] Allergy Unknown unknown Verified 05/18/22 15:01 Penicillins AdvReac Intermediate diarrhea Verified 05/18/22 15:01 Family History Grandfather Alcoholism Father Arthritis Myocardial infarction Heart disease Hypertension Sister Autoimmune disorder Mother Cancer Brother Diabetes Myocardial infarction Heart disease Other Lung cancer Surgical History History of left heart catheterization (2012) History of right and left heart catheterization (03/02/22) History of surgery on arm Social History Smoking Status: Never smoker second hand exposure: No alcohol intake: never substance use type: does not use caffeine: Yes Type: carbonated beverages Number of servings: 8 and coffee Number of servings: 3 what type of physical activity do you participate in: none octavio/pentecostalism: Brethern seatbelt use: sometimes do you feel safe at home: Yes ROS ROS Narrative Constitutional: Reports fatigue and weakness, morbid obese person HEENT: Reports systems reviewed and no addt'l complaints, except as documented Respiratory/Chest: Denies chest pain, shortness of breath at rest or with exertion Gastrointestinal: Denies coffee ground emesis, hematemesis or vomiting Genitourinary: Recent urinary incontinence but patient has bladder sensation, cannot control it. Increased frequency and urgency. Intermittent micturition. Denies burning micturition/dysuria Musculoskeletal: Reports chronic lower back pain/knee joint pain and limited range of motion Neurologic: Neuropathy symptoms of lower extremities. Denies seizure-like activity skin: No ulcer. No rash Endocrinology: Reports systems reviewed and no addt'l complaints, except as documented Hematologic/Lymphatic: Reports systems reviewed and no addt'l complaints, except as documented Rest 14 ROS are negative except as mentioned in HPI Vital Signs Vital Signs Vital Signs: 05/18/22 14:59 05/18/22 15:28 05/18/22 16:30 Temperature 97.8 F Temperature Source Temporal Pulse Rate 71 68 Respiratory Rate 16 19 H Blood Pressure 126/46 H 132/57 H Blood Pressure Mean 72 82 Blood Pressure Source Blood Pressure Position Blood Pressure Location Pulse Ox 95 94 Oxygen Delivery Method Room Air Room Air Room Air 05/18/22 17:00 05/18/22 18:19 05/18/22 17:30 Temperature 97.8 F Temperature Source Temporal Pulse Rate 72 70 62 Respiratory Rate 18 18 17 Blood Pressure 112/40 L 125/99 H 117/55 L Blood Pressure Mean 64 107 75 Blood Pressure Source Blood Pressure Position Blood Pressure Location Pulse Ox 94 97 100 Oxygen Delivery Method Room Air 05/18/22 18:00 05/18/22 18:30 Temperature 97.6 F L Temperature Source Oral Pulse Rate 67 72 Respiratory Rate 13 18 Blood Pressure 122/42 H 139/43 H Blood Pressure Mean 68 75 Blood Pressure Source Monitor Blood Pressure Position Semi-Fowlers Blood Pressure Location Right Arm Pulse Ox 97 92 Oxygen Delivery Method Room Air Weight Weight: 345 lb 7.43 oz Body Mass Index (BMI) 44.3 Physical Exam Narrative General: Alert, Oriented x3, Cooperative, morbid recently BMI 44.4 kg/m? HEENT: Atraumatic, PERRLA, EOMI, Normocephalic. Chronic dizziness and vertigo Oral: Oral mucosa dry. No Gingival or Mucosal Lesions/ Ulcerations Neck: Supple, No JVD, Negative Carotid Bruits Lungs: Air entry diminished in bilateral lung bases. No crepitation/rhonchi Cardiovascular: Regular rate, Regular Rhythm, Normal S1, Normal S2, grade 3/6 LLSB systolic murmur Abdomen: Bowel Sounds Present, Soft, Non Tender, Non-Distended : Recent urinary incontinence, increased frequency urgency. No renal angle tenderness. No suprapubic tenderness. Extremities: No edema, Capillary Refill Less than 3 Seconds Skin: No rashes, No breakdown Musculoskeletal: No Tenderness to Palpation of Joints or Extremities. Muscle strength 4+/5 at major joints. Neurological: Chronic polyneuropathy. Cranial nerves II-XII grossly intact, DTR 2+/4 NIH 0 Psych/Mental Status: Flat affect. Results Lab / Micro Data Result Diagrams: 05/18/22 15:45 05/18/22 15:45 Labs: Laboratory Results - last 24 hr 05/18/22 15:45: WBC 2.2 L, RBC 2.24 L, Hgb 6.2 L, Hct 20.7 L, MCV 92.4, MCH 27.7, MCHC 30.0 L, RDW Std Deviation 62.3 H, RDW Coeff of Juliet 18.6 H, Plt Count 75 L, MPV 10.6, Immature Gran % (Auto) 2.300 H, Neut % (Auto) 67.6, Lymph % (Auto) 25.5, [place] % (Auto) 3.7, Eos % (Auto) 0.9, Baso % (Auto) 0.0, Absolute Neuts (auto) 1.5 L, Absolute Lymphs (auto) 0.55 L, Nucleated RBC % 0, Differential Comment SCANNED, Diff Path Review November05/18/22 15:45: PT 15.3 H, INR 1.2, APTT 23.9 L 05/18/22 15:45: Sodium 137, Potassium 3.3 L, Chloride 103, Carbon Dioxide 31.0, Anion Gap 3 L, BUN 30 H, Creatinine 1.83 H, Estim Creat Clear Calc 44.29, Est GFR (MDRD) Af Amer 47 L, Est GFR (MDRD) Non-Af 39 L, BUN/Creatinine Ratio 16.4, Glucose 163 H, Calcium 12.3 H, Troponin I High Sens 38 05/18/22 16:25: Blood Type Cancelled, Antibody Screen Cancelled, Crossmatch See Detail 05/18/22 16:53: Urine Color Yellow, Urine Clarity Clear, Urine pH 6.5, Ur Specific [place] 1.015, Urine Protein 15 H, Urine Glucose (UA) 100 H, Urine Ketones Negative, Urine Occult Blood Negative, Urine Nitrite Negative, Urine Bilirubin Negative, Urine Urobilinogen Normal, Ur Leukocyte Esterase 25 H, Urine RBC 0 SEEN, Urine WBC 0-5 SEEN, Ur Squamous Epith Cells 0 SEEN, Urine Bacteria 0 SEEN, Hyaline Casts 0-5 SEEN, Fine Granular Casts 0-5 SEEN, Urine Mucus 0 SEEN 05/18/22 16:55: Blood Type O POSITIVE, Antibody Screen NEGATIVE, Crossmatch See Detail Micro: Microbiology 05/18/22 16:45 Stool Stool Occult Blood (BASHIR) - Final Occult Blood Positive Radiology Impression Brain CT 05/18/22 15:28 IMPRESSION: Volume loss with chronic white matter changes. No acute intracranial findings. Electronically Signed: Florian Kuo MD at 16:16 EDT , ADDENDUM: 05/18/22 1625 IMPRESSION: Volume loss with chronic white matter changes. No acute intracranial findings. N.B. : The above Results were Read Back by Florian Kuo MD to Dima Mckeon MD, and understanding confirmed on 05/18/2022 16:18:57 (ET). Electronically Signed: Florian Kuo MD at 16:16 EDT , Chest X-Ray 05/18/22 15:59 IMPRESSION: No radiographic evidence of acute cardiopulmonary disease. Electronically Signed: Florian Kuo MD at 16:30 EDT , Assessment & Plan Assessment/Plan (1) TIA (transient ischemic attack): (2) Pancytopenia: PLAN: Plan This is a 71-year-old question gentleman is admitted for work-up for TIA and severe pancytopenia predominantly anemia 1. Pancytopenia with predominant anemia: Patient is being admitted in PCU on cardiac telemetry. H&H 6.2/20.7%. 2 units of PRBC type and crossmatch and transfuse 1 unit today. Monitor CBC tomorrow and decide about second unit. Patient has been transfused 3 units in the last 3 weeks recently. Stool for occult blood. GI is Patient had colonoscopy by Dr. Cavazos in August 2021 reported hemorrhoids on perianal exam, one 5 mm polyp in hepatic flexure and diverticulosis in sigmoid colon. EGD during same time reported small hiatus hernia, 2 nonbleeding angiectasia in the stomach treated with APC. Friable gastric mucosa treated with argon beam coagulation. Nonbleeding gastric ulcer with no stigmata of bleeding.consulted. 2. Slurred speech with suspicion of TIA: Acute stroke work-up was ordered including MRI brain and MRA head and neck without contrast. Patient had recent echo in September 2021 reported EF 53%, stage II diastolic dysfunction mild TR, LV mildly enlarged sensitive of chronic HFpEF. If MRI positive, decide further about echo with bubble contrast study. Continue high intensity statin. 3. Recent acute kidney injury since March 2022 on CKD 3: Patient BUN/creatinine was normal until DecemberJanuary 2022. Thereafter creatinine 1.6 in February and then 1.8 on March 2022 and then admitting creatinine 1.83. BUN/creatinine 16.4. Will consult driver's license examiner. On IV fluid Ringer lactate. Mild hypokalemia 3.3. Potassium replacement ordered. Serum magnesium and phosphorus level normal. 4. Nonobstructive cardiomyopathy/chronic HFpEF Patient had cardiac cath in February [address] Ramos for nonobstructive cardiomyopathy. Continue carvedilol. Hold baby aspirin, Entresto, metformin and furosemide. 5. Diabetes mellitus type 2: Hold oral hypoglycemic agents including Farxiga and metformin. Accu-Chek insulin coverage Humalog sliding scale. Patient on insulin pump but seems his current pump is broken. Accu-Chek insulin is covered with Humalog sliding scale. Glucose in BMP 163. Lantus 8 units subcutaneous daily. 6. 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 Liver ultrasound reported fatty infiltration hepatomegaly 22.[address]-guided biopsy in August 2021 reported focal macrovesicular steatosis. Reported significant fibrosis consistent with cirrhosis not seen. 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 Patient does not have dedicated power of ip technology transactions attorney for health but wants her eldest daughter to be power of ip technology transactions attorney for health. His had stroke and dementia. After discussion of benefits/risks procedures involved with full code, DNR CC arrest and DNR CC, the patient opted for DNRCC arrest with no intubation Patient does want artificial life support including intubation, tube feed, ventilator and/chest compression, central venous catheter, vasopressor and DC shock if needed Total time spent in [id number] encounter in discussion of advanced directive 16 minutes. Microbiology Past 72 Hours 05/18/22 16:45 Stool Stool Occult Blood (BASHIR) - Final Occult Blood Positive Laboratory Results 05/18/22 15:45: WBC 2.2 L, RBC 2.24 L, Hgb 6.2 L, Hct 20.7 L, MCV 92.4, MCH 27.7, MCHC 30.0 L, RDW Std Deviation 62.3 H, RDW Coeff of Juliet 18.6 H, Plt Count 75 L, MPV 10.6, Immature Gran % (Auto) 2.300 H, Neut % (Auto) 67.6, Lymph % (Auto) 25.5, [place] % (Auto) 3.7, Eos % (Auto) 0.9, Baso % (Auto) 0.0, Absolute Neuts (auto) 1.5 L, Absolute Lymphs (auto) 0.55 L, Nucleated RBC % 0, Differential Comment SCANNED, Diff Path Review November05/18/22 15:45: PT 15.3 H, INR 1.2, APTT 23.9 L 05/18/22 15:45: Sodium 137, Potassium 3.3 L, Chloride 103, Carbon Dioxide 31.0, Anion Gap 3 L, BUN 30 H, Creatinine 1.83 H, Estim Creat Clear Calc 44.29, Est GFR (MDRD) Af Amer 47 L, Est GFR (MDRD) Non-Af 39 L, BUN/Creatinine Ratio 16.4, Glucose 163 H, Calcium 12.3 H, Troponin I High Sens 38 05/18/22 15:45: Phosphorus Pending, Magnesium Pending 05/18/22 16:25: Blood Type Cancelled, Antibody Screen Cancelled, Crossmatch See Detail 05/18/22 16:53: Urine Color Yellow, Urine Clarity Clear, Urine pH 6.5, Ur Specific [place] 1.015, Urine Protein 15 H, Urine Glucose (UA) 100 H, Urine Ketones Negative, Urine Occult Blood Negative, Urine Nitrite Negative, Urine Bilirubin Negative, Urine Urobilinogen Normal, Ur Leukocyte Esterase 25 H, Urine RBC 0 SEEN, Urine WBC 0-5 SEEN, Ur Squamous Epith Cells 0 SEEN, Urine Bacteria 0 SEEN, Hyaline Casts 0-5 SEEN, Fine Granular Casts 0-5 SEEN, Urine Mucus 0 SEEN 05/18/22 16:55: Blood Type O POSITIVE, Antibody Screen NEGATIVE, Crossmatch See Detail Clinical Impression(s) from Imaging Studies Brain CT 05/18/22 15:28 IMPRESSION: Volume loss with chronic white matter changes. No acute intracranial findings. Chest X-Ray 05/18/22 15:59 IMPRESSION: No radiographic evidence of acute cardiopulmonary disease. Charges/Coding Multi Select Codes Visit Charges Visit Charges: 41814 Init Hosp Hospitalists' Procedures Procedures: 31624 Advncd Care Plan 30 Min
[2022-05-18 19:38] LABS: Magnesium 1.8 mg/dL (1.6-2.6); Phosphorus 2.9 mg/dL (2.5-4.9)
[2022-05-18 20:50] LABS: AST(SGOT) 17 U/L (15-37); Alanine Aminotransfer ALT/SGPT 21 U/L (16-61); Albumin, Serum 2.2 g/dL (3.2-5.0); Alkaline Phosphatase 58 U/L (45-117); Bilirubin, Direct 0.17 mg/dL (0.00-0.30); Protein, Total 8.2 g/dL (6.4-8.2)
[2022-05-18] MEDS: Atorvastatin Calcium 80 MG Tablet PO (21:55)
[2022-05-18] MEDS: 0.9% Saline Lock 10 ML Syringe IV (21:55)
[2022-05-18] MEDS: Carvedilol 6.25 MG Tablet PO (21:55)
[2022-05-18] MEDS: Ursodiol 250 MG Tablet PO (21:55)
[2022-05-19] VITALS (24 sets, daily range): BP systolic 108–148; BP diastolic 53–91; PULSE 69–88; RESP 18; TEMP 36.6–37.2; O2SAT 92–96; BMI 44.3
[2022-05-19 00:31] LABS: Bedside Glucose 140 mg/dL (74-106)
--- NOTE | 2022-05-19 02:30 | NURSING ---
Alerted by staff call/aids to room. Pt was found laying on the floor in the bathroom, urine on the floor. Pt stated he felt okay, he was unsure if he hit his head or not. VS stable (documented). Assisted pt into chair, wheeled to bed, and assisted into bed. Re checked vitals, NIH, and neuro assessment, all negative. Blood sugar 189. MD aware, fall sheet filled out. Pt was A&Ox3 before fall, he had previously called for help and had not tried to get out of bed before this. Once in bed post fall, this RN re-educated patient labor economics professor light, and ensured bed exit is on, fall sign up, fall communication filled out. Pt has no injuries noted besides small abrasion on back. Abrasion is not actively draining, left open to air. Pt denies any pain.
[2022-05-19 03:26] LABS: Bedside Glucose 189 mg/dL (74-106)
[2022-05-19] MEDS: Insulin Lispro 100 UNIT/ML INSULN.PEN SC ×4 (06:49→22:03)
[2022-05-19 06:50] LABS: Absolute Lymphocyte Count 0.56 X10^3/uL (0.83-4.51); Absolute Neutrophil Count 1.6 X10^3/uL (2.0-7.7); Eosinophil# 0.02 X10^3/uL; Eosinophils% 0.9 % (0-5); Hematocrit 20.9 % (40-54); Hemoglobin 6.5 g/dL (13.0-16.5); Lymphocyte # 0.56 X10^3/ul (0.83-4.51); Lymphocyte % 23.8 % (19-41); Mean Corp Hgb Conc 31.1 g/dL (32-36); Mean Corpuscular Hgb 27.9 pg (27.0-32.0); Mean Corpuscular Volume 89.7 fL (80-94); Monocyte# 0.11 X10^3/uL; Monocyte% 4.7 % (0-10); NRBC Flagged by Analyzer 0.9 % (0-5); Neutrophil # 1.64 X10^3/uL (2.7-7.7); Neutrophil % 69.7 % (47-70); POSITIVE COUNT YES; POSITIVE DIFFERENTIAL YES; POSITIVE MORPHOLOGY YES; Platelet Count 65 K/mm3 (150-450); RBC Distribution Width CV 18.8 % (11.6-14.6); RBC Distribution Width SD 60.7 fl (35.1-43.9); Red Blood Count 2.33 M/mm3 (4.6-6.2); White Blood Count 2.4 K/mm3 (4.4-11.0)
[2022-05-19 06:54] LABS: Differential Indicated SCAN CRITERIA MET
[2022-05-19 07:10] LABS: Anisocytosis 1+; Platelet Estimate MOD DEC (ADEQ)
[2022-05-19 07:10] LABS: Bedside Glucose 199 mg/dL (74-106)
[2022-05-19 07:38] LABS: Anion Gap 10 (5-15); BUN 24 mg/dL (7-18); BUN/Creat Ratio 15.7 RATIO (10-20); Calcium,Total 11.6 mg/dL (8.5-10.1); Chloride 101 mmol/L (98-107); Cholesterol 91 mg/dL (200); Creatinine, Serum 1.53 mg/dL (0.70-1.30); EST Glomerular Filtration Rate 48 mL/min (>60); Est Glom Filt Rate - Afr Amer 58 mL/min (>60); Estimated Creatinine Clearance 52.98 ml/min; Glucose 207 mg/dL (74-106); High Density Lipoprotein 28 mg/dL; Potassium 3.3 mmol/L (3.5-5.1); Sodium Level 136 mmol/L (136-145); Thyroid Stim Hormone (TSH) 0.88 uIU/mL (0.358-3.74); Triglycerides 201 mg/dL; Very Low Density Lipoprotein 40 mg/dL (5-40)
[2022-05-19] MEDS: Carvedilol 6.25 MG Tablet PO ×2 (08:15→22:05)
[2022-05-19] MEDS: Insulin Glargine-YFGN 100 UNIT/ML Pen 8 UNIT SC (08:15)
[2022-05-19] MEDS: Magnesium Chloride 64 MG Delay Rel.Tablet 128 MG PO (08:15)
[2022-05-19] MEDS: Ursodiol 250 MG Tablet PO ×2 (08:15→22:04)
[2022-05-19] MEDS: Cholecalciferol (VIT D3) 25 MCG TABLET (1,000 UNITS) PO (08:15)
[2022-05-19] MEDS: Vitamin E 400 UNITS Capsule PO (08:15)
[2022-05-19] MEDS: Multivitamins,Therapeutic Tablet 1 TABLET PO (08:15)
[2022-05-19] MEDS: Acetaminophen 325 MG Tablet 650 MG PO ×2 (09:28→15:58)
--- NOTE | 2022-05-19 09:51 | CASEMGMT ---
Social Work SW met w/pt in room, reviewed prior level of function and anticipated discharge plan. PCP: Dr. Alegria Specialists: Cardiology--Dr. Ramos, GI--Dr. Cavazos, Pulmonology--Armando Insurance: [facility] Medicare Pharmacy: [facility] in [place] Living arrangements: Pt lives home w/ LW/POA: Pt had not completed these documents. SW assisted pt in completing Healthcare POA. Pt put daughter Vale Choe as POA. Pt declined to complete LW. SW gave pt original and copies, copies placed on chart. DME: Pt has and uses a shower chair. Pt has no other DME HHC/SNF: Pt has no history of HHC or SNF Prior level of function: Pt independent with ADLs at home. Pt drives, organizes his own medications, does the cooking. Pt states he does have trouble getting around however due to having shortness of breath. Pt states he does not have home oxygen. Plan: Pt would like to go home if possible. SW explained we will continue to follow. SW/CM to follow for appropriate plan. Pt would prefer to go home. SATINDER Nath
--- NOTE | 2022-05-19 10:03 | CASEMGMT ---
Social Work Pt completed PHQ-9 with pt, pt scored a 12. We reviewed how pt has been feeling mentally. Pt confirms has been feeling down, however he attributes all of his symptoms to his recent decline in health. He states this has just been over the last couple of weeks. Pt states he is normally an upbeat person. Support given to pt in light of all of his recent health difficulties. SW spoke w/pt about counseling should this persist. Pt does feel it is too soon to consider counseling, but is open to a list of counseling agencies. SW provided list of agencies to pt. SW remains available for any additional support to pt. SATINDER Nath
--- NOTE | 2022-05-19 11:00 | MRI_ITS ---
STUDY: MRA NECK WITHOUT CONTRAST REASON FOR EXAM: Male, 71 years old. Acute stroke suspected. TECHNIQUE: Source images were obtained, MIPs were performed. The study was performed unenhanced. COMPARISON: None. FINDINGS: RIGHT CAROTID ARTERIES: Normal right common carotid artery (CCA). Normal right carotid bulb. Normal origin of the right internal carotid (ICA) artery without a hemodynamically significant stenosis. Normal visualized cervical portion of the right internal carotid artery. Normal origin of the right external carotid artery (ECA). LEFT CAROTID ARTERIES: Normal left common carotid artery (CCA). Normal left carotid bulb. Normal origin of the left internal carotid (ICA) artery without a hemodynamically significant stenosis. Normal visualized cervical portion of the left internal carotid artery. Normal origin of the left external carotid artery (ECA). VERTEBRAL ARTERIES: Normal antegrade flow within the bilateral vertebral artery without a hemodynamically significant stenosis. MRI/MRA Neck without Contrast IMPRESSION: Normal bilateral cervical carotid and vertebral arteries. Electronically Signed: Sidney Ashton MD at 14:10 EDT ,
--- NOTE | 2022-05-19 11:00 | MRI_ITS ---
STUDY: MRI BRAIN WITHOUT CONTRAST REASON FOR EXAM: Male, 71 years old. TIA. TECHNIQUE: Standardized multiplanar fat and water weighted pulse sequences were obtained. COMPARISON: CT head without contrast 05/18/2022. FINDINGS: Normal size of the ventricles and extra-axial spaces for the patient''s age. Normal white matter tracts of the supratentorial brain. Normal bilateral basal ganglia. Normal thalami. There is no extra-axial fluid accumulation. Normal flow voids within the major intracranial circulation suggesting patency by spin echo criteria. Normal sella turcica, pituitary gland, infundibular stalk, optic chiasm and hypothalamus. Normal tectal plate and pineal gland. Normal midbrain, adolfo and medulla. Normal cerebellum. Normal basal cisterns. Normal bilateral temporal bones. Normal bilateral internal auditory canals. No demonstrated orbital abnormality, within the constraints of a routine brain study. Normal visualized paranasal sinuses. Normal calvarium and skull base. Normal visualized soft tissue structures. Normal visualized upper cervical spine. MRI/Brain without Contrast IMPRESSION: Normal unenhanced MRI of the brain. Electronically Signed: Sidney Ashton MD at 14:09 EDT ,
--- NOTE | 2022-05-19 11:00 | MRI_ITS ---
STUDY: MRA OF THE HEAD WITHOUT CONTRAST REASON FOR EXAM: Male, 71 years old. Acute stroke suspected TECHNIQUE: 3-D [id number] (TOF) imaging was performed with MIPs. The study was performed unenhanced. COMPARISON: None. FINDINGS: Normal bilateral petrous carotid arteries. Normal right cavernous carotid artery with a normal supraclinoid bifurcation. Normal left cavernous carotid artery with a normal supraclinoid bifurcation. Normal right A1 segment of the anterior cerebral artery. Normal left A1 segment of the anterior cerebral artery. Normal intact anterior communicating artery (ACOM). Normal bilateral A2 segments of the anterior cerebral arteries. Normal right M1 and M2 segments of the middle cerebral arteries, with a normal M1 bifurcation. Normal left M1 and M2 segments of the middle cerebral arteries, with a normal M1 bifurcation. Normal right posterior communicating artery (PCOM). Normal left posterior communicating artery (PCOM). Normal bilateral vertebral arteries. Normal basilar artery with a normal basilar bifurcation. The visualized bilateral superior cerebellar (SCA) arteries are normal. Normal bilateral P1, P2 and visualized P3 segments of the posterior cerebral arteries. There is no demonstrated aneurysm of the [place]. There is no major vessel occlusion or hemodynamically significant stenosis. There is no demonstrated abnormality of the visualized brain. MRI/MRA Head ONLY without Contrast IMPRESSION: Normal MRA of the head Electronically Signed: Sidney Ashton MD at 14:10 EDT ,
[2022-05-19 11:30] LABS: Bedside Glucose 266 mg/dL (74-106)
--- NOTE | 2022-05-19 13:48 | PN.HOSP_ITS ---
Subjective Subjective This 71-year-old male who presented with slurred speech and sent from his primary care physician's office but also was noted to have pancytopenia with severe anemia and multiple symptoms otherwise. He recently has been undergoing an extensive work-up and is following with hematology oncology for pancytopenia. 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 The patient's had previous colonoscopies in August 2021 which showed no significant etiology for bleeding however the patient remains pancytopenic. His slurred speech has since resolved. The patient complains of intermittent shortness of breath however he is not hypoxic and currently on room air. He is receiving transfusion of 2 units packed red blood cells for hemoglobin of 6.5 this morning. He is awaiting MRI and MRA to rule out stroke. Objective Data Objective Data Vital Signs: Vital Signs Temp Pulse Resp BP Pulse Ox O2 Del Method 98.9 F 77 18 108/86 H 92 Room Air 05/19/22 13:19 05/19/22 13:19 05/19/22 13:19 05/19/22 13:19 05/19/22 13:19 05/19/22 13:19 Oxygen Delivery Method Room Air Weight: 156.7 kg Body Mass Index (BMI) 44.3 Intake & Output: Intake and Output for Last 24 Hours 05/17/22 05/18/22 05/19/22 23:59 23:59 23:59 Intake Total 800 / 800 880 / 880 Output Total 550 / 550 1100 / 1100 Balance 250 / 250 -220 / -220 Lab / Micro Data Result Diagrams: 05/19/22 05:30 05/19/22 05:30 Labs: Laboratory Results - last 24 hr 05/18/22 15:45: WBC 2.2 L, RBC 2.24 L, Hgb 6.2 L, Hct 20.7 L, MCV 92.4, MCH 27.7, MCHC 30.0 L, RDW Std Deviation 62.3 H, RDW Coeff of Juliet 18.6 H, Plt Count 75 L, MPV 10.6, Immature Gran % (Auto) 2.300 H, Neut % (Auto) 67.6, Lymph % (Auto) 25.5, [place] % (Auto) 3.7, Eos % (Auto) 0.9, Baso % (Auto) 0.0, Absolute Neuts (auto) 1.5 L, Absolute Lymphs (auto) 0.55 L, Nucleated RBC % 0, Differential Comment SCANNED, Diff Path Review November05/18/22 15:45: PT 15.3 H, INR 1.2, APTT 23.9 L 05/18/22 15:45: Sodium 137, Potassium 3.3 L, Chloride 103, Carbon Dioxide 31.0, Anion Gap 3 L, BUN 30 H, Creatinine 1.83 H, Estim Creat Clear Calc 44.29, Est GFR (MDRD) Af Amer 47 L, Est GFR (MDRD) Non-Af 39 L, BUN/Creatinine Ratio 16.4, Glucose 163 H, Calcium 12.3 H, Troponin I High Sens 38 05/18/22 15:45: Phosphorus 2.9, Magnesium 1.8 05/18/22 15:45: Total Bilirubin 0.30, Direct Bilirubin 0.17, AST 17, ALT 21, Alkaline Phosphatase 58, Total Protein 8.2, Albumin 2.2 L, Globulin 6.0 H 05/18/22 16:25: Blood Type Cancelled, Antibody Screen Cancelled, Crossmatch See Detail 05/18/22 16:53: Urine Color Yellow, Urine Clarity Clear, Urine pH 6.5, Ur Specific Slemp 1.015, Urine Protein 15 H, Urine Glucose (UA) 100 H, Urine Ketones Negative, Urine Occult Blood Negative, Urine Nitrite Negative, Urine Bilirubin Negative, Urine Urobilinogen Normal, Ur Leukocyte Esterase 25 H, Urine RBC 0 SEEN, Urine WBC 0-5 SEEN, Ur Squamous Epith Cells 0 SEEN, Urine Bacteria 0 SEEN, Hyaline Casts 0-5 SEEN, Fine Granular Casts 0-5 SEEN, Urine Mucus 0 SEEN 05/18/22 16:55: Blood Type O POSITIVE, Antibody Screen NEGATIVE, Crossmatch See Detail 05/18/22 16:55: Crossmatch See Detail 05/18/22 20:28: POC Glucose 140 H 05/19/22 03:00: POC Glucose 189 H 05/19/22 05:30: Sodium 136, Potassium 3.3 L, Chloride 101, Carbon Dioxide 25.0, Anion Gap 10, BUN 24 H, Creatinine 1.53 H, Estim Creat Clear Calc 52.98, Est GFR (MDRD) Af Amer 58 L, Est GFR (MDRD) Non-Af 48 L, BUN/Creatinine Ratio 15.7, Glucose 207 H, Calcium 11.6 H, Triglycerides 201 H, Cholesterol 91, LDL Cholesterol 23, VLDL Cholesterol 40, HDL Cholesterol 28 L, TSH 0.88 05/19/22 05:30: WBC 2.4 L, RBC 2.33 L, Hgb 6.5 L, Hct 20.9 L, MCV 89.7, MCH 27.9, MCHC 31.1 L, RDW Std Deviation 60.7 H, RDW Coeff of Juliet 18.8 H, Plt Count 65 L, MPV 11.0, Immature Gran % (Auto) 0.900, Neut % (Auto) 69.7, Lymph % (Auto) 23.8, [place] % (Auto) 4.7, Eos % (Auto) 0.9, Baso % (Auto) 0.0, Absolute Neuts (auto) 1.6 L, Absolute Lymphs (auto) 0.56 L, Nucleated RBC % 0.9, Diff Path Review November foll, Platelet Estimate MOD DEC, Anisocytosis 1+ 05/19/22 06:41: POC Glucose 199 H 05/19/22 10:55: POC Glucose 266 H Micro: Microbiology 05/18/22 16:45 Stool Stool Occult Blood (BASHIR) - Final Occult Blood Positive Radiography Diagnostic Testing: Radiology Impression Brain CT 05/18/22 15:28 IMPRESSION: Volume loss with chronic white matter changes. No acute intracranial findings. Electronically Signed: Florian Kuo MD at 16:16 EDT Reading Location ID and State: [facility] / [place] Tel , Service support , ADDENDUM: 05/18/22 1625 IMPRESSION: Volume loss with chronic white matter changes. No acute intracranial findings. N.B. : The above Results were Read Back by Florian Kuo MD to Dima Mckeon MD, and understanding confirmed on 05/18/2022 16:18:57 (ET). Electronically Signed: Florian Kuo MD at 16:16 EDT Reading Location ID and State: [facility] / [place] Tel , Service support , Chest X-Ray 05/18/22 15:59 IMPRESSION: No radiographic evidence of acute cardiopulmonary disease. Electronically Signed: Florian Kuo MD at 16:30 EDT Reading Location ID and State: [facility] / [place] Tel , Service support , Physical Exam Const alert, oriented x3 and well nourished Constitutional Narrative: Very pleasant, upper middle-aged white male sitting up in bed, morbidly obese, and daughter at bedside, patient appears nontoxic and comfortable at this time HEENT head/scalp atraumatic and moist oral mucous membranes HEENT Narrative: Mild hearing loss, dentition is fair, Mallampati is 3, no thrush Head and Scalp: normocephalic Resp normal respiratory effort, no retractions, no use of accessory muscles and clear to auscultation bilaterally Resp Narrative: Diminished diffusely but clear Auscultation: Negative for crackles, rales, rhonchi or wheezes Cardio regular rate, regular rhythm, S1 normal heart sound, S2 normal heart sound, no murmurs, no rub, no gallops and no clicks GI normal to inspection, nondistended, normoactive bowel sounds, soft to palpation and non-tender Extremity no clubbing, cyanosis or edema Extremity Narrative: Tenderness at left lateral knee Skin skin turgor normal, no jaundice, no petechiae and no mottling Skin Narrative: Linear ecchymotic area on upper back left side, skin is pale Neuro oriented x3, CN's II-XII intact bilaterally, moves all extremities and no focal motor deficits Neuro Narrative: Generalized weakness but no focal deficits Speech: speech normal Psych affect normal Psych Narrative: Very pleasant and jokes during my exam Assessment & Plan Assessment/Plan (1) Slurred speech: (2) Pancytopenia: (3) Hypokalemia: (4) Chronic kidney disease: (5) Hypercalcemia: PLAN: Plan Slurred speech -Resolved -Possible TIA -MRA of head and neck and MRI pending -Lipids performed and showed total cholesterol of 91/LDL 23/HDL 28 -Aspirin on hold secondary to severe thrombocytopenia/anemia -Continue statin -Echo performed 3 of 2022 that shows an EF of 53% and stage II diastolic dysfunction with mild left atrial enlargement however no bubble study done at that time therefore we will repeat echocardiogram if MRI positive for stroke -PT/OT consultation -Speech consultation Pancytopenia -2 bone marrow biopsy attempts with no results -Follows with Dr.'s Boateng from hematology -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 and work-up in progress -Patient has been transfused 1 unit packed red blood cells and receiving 2 more units this morning for hemoglobin of 6.5 -GI consultation pending -Hold on antiplatelet therapy at this time given anemia requiring transfusion and thrombocytopenia -Has had recent EGD and colonoscopy in August 2021--> may need repeat given worsening anemia and guaiac positive stool CKD stage IIIb -Serum creatinine is at baseline -We will continue to hold home Lasix for now and evaluate to restart in the next 24 hours -Avoid nephrotoxins as able Hypercalcemia -This appears to be new -With previous known lytic lesions -Alk phos within normal limits -Check vitamin D level -Check intact PTH Hypokalemia -40 mill equivalents p.o. potassium replacement -Check a.m. BMP and magnesium level DM-2 -Hold home oral agents -Sliding scale insulin -Accu-Cheks as ordered -Most recent hemoglobin A1c from 04/04/2022 was 7 indicating adequate control Nonobstructive cardiomyopathy/HFpEF -Currently compensated -Continue carvedilol -Aspirin on hold secondary to the above -We will continue to hold Entresto and furosemide for now however anticipate restart in the next 24 hours as long as renal function maintain stability Wu -Possible F3 fibrosis on elastography -Liver ultrasound previously reported fatty infiltration with hepatomegaly -CT-guided biopsy 2021 with focal macrovesicular steatosis -No cirrhosis noted at this time -Continue to follow with gastroenterology Fall -No severe injury -Complaining of left knee pain -We will obtain imaging of left knee History of gout -Continue ursodiol Vitamin D deficiency -Repeating vitamin D level given hypercalcemia -Most recent one documented in the computer was 21 -If less than 30 will start ergocalciferol weekly Fibromyalgia -No current acute issues Essential tremor/myoclonus -Continue outpatient follow-up with neurology KADE -Nocturnal CPAP ordered -Family to bring in home unit but will need one of our masks Hypertension -Continue home carvedilol -Anticipate reinitiation of Entresto in the next 24 hours Hyperlipidemia -Continue home simvastatin Chronic dyspnea -Likely multifactorial -We will monitor for oxygen needs at discharge with ambulation Morbid obesity -BMI 44.4 -Recommend weight loss -Complicates treatment, prognosis, outcomes DVT prophylaxis -SCDs -No chemoprophylaxis with severe hrombocytopenia CODE STATUS -Full code Charges/Coding Visit Charges Inpatient E&M: 69602 Subs Hosp L2
--- NOTE | 2022-05-19 14:05 | RAD_ITS ---
STUDY: X-RAY - LEFT KNEE REASON FOR EXAM: Male, 71 years old. pain TECHNIQUE: 3 view(s) of the knee. COMPARISON: None. FINDINGS: Unusual mottled radiolucencies involving the distal femur and the proximal tibia and fibula of uncertain etiology and significance. Correlation with MRI would be useful. Normal proximal tibiofibular articulation. Normal medial femorotibial compartment. Normal lateral femorotibial compartment. Normal patellofemoral articulation. Calcification of the distal patellar tendon. RAD/Knee 3 Views IMPRESSION: Unusual mottled radiolucencies of the distal femur and proximal tibia and fibula. Correlation with MRI would be useful. Electronically Signed: Mark Ramesh MD at 16:44 EDT ,
[2022-05-19] MEDS: Potassium Chloride Oral Tablet 20 MEQ 40 MEQ PO (14:20)
[2022-05-19 15:27] LABS: PTHIN 11.2 pg/mL (18.4-80.1)
[2022-05-19] MEDS: Glucerna Shake 120 ML LIQUID PO (15:58)
[2022-05-19 16:25] LABS: Bedside Glucose 282 mg/dL (74-106)
[2022-05-19 16:46] LABS: Hematocrit 23.5 % (40-54); Hemoglobin 7.5 g/dL (13.0-16.5)
[2022-05-19 18:26] LABS: Bedside Glucose 283 mg/dL (74-106)
[2022-05-19] MEDS: Atorvastatin Calcium 80 MG Tablet PO (22:03)
[2022-05-19 23:00] LABS: Bedside Glucose 386 mg/dL (74-106)
[2022-05-20] VITALS (13 sets, daily range): BP systolic 131–163; BP diastolic 48–91; PULSE 66–84; RESP 14–18; TEMP 36.7–38.6; O2SAT 94–100; BMI 44.3
[2022-05-20] MEDS: Acetaminophen 325 MG Tablet 650 MG PO (03:10)
[2022-05-20 06:25] LABS: Absolute Lymphocyte Count 0.42 X10^3/uL (0.83-4.51); Absolute Neutrophil Count 1.7 X10^3/uL (2.0-7.7); Hematocrit 23.9 % (40-54); Hemoglobin 7.7 g/dL (13.0-16.5); Lymphocyte # 0.42 X10^3/ul (0.83-4.51); Lymphocyte % 19.1 % (19-41); Mean Corp Hgb Conc 32.2 g/dL (32-36); Mean Corpuscular Hgb 28.2 pg (27.0-32.0); Mean Corpuscular Volume 87.5 fL (80-94); Monocyte# 0.08 X10^3/uL; Monocyte% 3.6 % (0-10); NRBC Flagged by Analyzer 1.4 % (0-5); Neutrophil # 1.68 X10^3/uL (2.7-7.7); Neutrophil % 76.4 % (47-70); POSITIVE COUNT YES; POSITIVE DIFFERENTIAL YES; POSITIVE MORPHOLOGY YES; Platelet Count 60 K/mm3 (150-450); RBC Distribution Width CV 17.5 % (11.6-14.6); RBC Distribution Width SD 54.8 fl (35.1-43.9); Red Blood Count 2.73 M/mm3 (4.6-6.2); White Blood Count 2.2 K/mm3 (4.4-11.0)
[2022-05-20 06:26] LABS: Differential Indicated SCAN CRITERIA MET
[2022-05-20] MEDS: Insulin Lispro 100 UNIT/ML INSULN.PEN SC ×4 (06:36→21:52)
[2022-05-20 06:47] LABS: Anisocytosis 1+; Platelet Estimate MKD DEC (ADEQ)
[2022-05-20 06:50] LABS: ALB/GLOB Ratio 0.4 RATIO (0.9-2.4); AST(SGOT) 18 U/L (15-37); Alanine Aminotransfer ALT/SGPT 18 U/L (16-61); Albumin, Serum 2.1 g/dL (3.2-5.0); Alkaline Phosphatase 59 U/L (45-117); Anion Gap 8 (5-15); BUN 23 mg/dL (7-18); BUN/Creat Ratio 14.4 RATIO (10-20); Calcium,Total 11.5 mg/dL (8.5-10.1); Chloride 102 mmol/L (98-107); EST Glomerular Filtration Rate 46 mL/min (>60); Est Glom Filt Rate - Afr Amer 55 mL/min (>60); Estimated Creatinine Clearance 50.66 ml/min; Glucose 273 mg/dL (74-106); Magnesium 1.8 mg/dL (1.6-2.6); Phosphorus 2.6 mg/dL (2.5-4.9); Potassium 3.5 mmol/L (3.5-5.1); Protein, Total 8.1 g/dL (6.4-8.2); Sodium Level 135 mmol/L (136-145)
[2022-05-20 07:06] LABS: Bedside Glucose 275 mg/dL (74-106)
[2022-05-20] MEDS: Glucerna Shake 120 ML LIQUID PO ×2 (08:25→17:08)
[2022-05-20] MEDS: Multivitamins,Therapeutic Tablet 1 TABLET PO (08:26)
[2022-05-20] MEDS: Cholecalciferol (VIT D3) 25 MCG TABLET (1,000 UNITS) PO (08:26)
[2022-05-20] MEDS: Carvedilol 6.25 MG Tablet PO ×2 (08:26→21:51)
[2022-05-20] MEDS: Magnesium Chloride 64 MG Delay Rel.Tablet 128 MG PO (08:26)
[2022-05-20] MEDS: Ursodiol 250 MG Tablet PO ×2 (08:26→21:53)
[2022-05-20] MEDS: Vitamin E 400 UNITS Capsule PO (08:26)
[2022-05-20] MEDS: Insulin Glargine-YFGN 100 UNIT/ML Pen 8 UNIT SC (10:08)
[2022-05-20 10:31] LABS: Bedside Glucose 253 mg/dL (74-106)
--- NOTE | 2022-05-20 10:49 | PCM.PN.HOSP ---
Subjective Subjective Patient was not able to wear CPAP last evening. He states that his unit was not compatible with our masks and for some reason our units were not given to him. I have addressed this with nursing to address with respiratory. And I would like patient to wear a mask nocturnally with his baseline sleep apnea. He denies any complaints and no significant issues overnight. Objective Data Objective Data Vital Signs: Vital Signs Temp Pulse Resp BP Pulse Ox O2 Del Method O2 Flow Rate 98.1 F 81 18 156/68 H 95 Nasal Cannula 2 05/20/22 08:20 05/20/22 08:20 05/20/22 08:20 05/20/22 08:20 05/20/22 08:20 05/20/22 08:20 05/20/22 08:20 FiO2 96 05/19/22 20:00 Oxygen Flow Rate (L/min) 2 Oxygen Delivery Method Nasal Cannula Weight: 156.7 kg Body Mass Index (BMI) 44.3 Intake & Output: Intake and Output for Last 24 Hours 05/18/22 05/19/22 05/20/22 23:59 23:59 23:59 Intake Total 800 / 800 1760 / 2560 1600 / 1600 Output Total 550 / 550 1475 / 2200 1075 / 1075 Balance 250 / 250 285 / 360 525 / 525 Lab / Micro Data Result Diagrams: 05/20/22 05:15 05/20/22 05:15 Labs: Laboratory Results - last 24 hr 05/18/22 16:55: Crossmatch See Detail 05/18/22 16:55: Crossmatch See Detail 05/19/22 05:30: PTH Intact 11.2 L 05/19/22 10:55: POC Glucose 266 H 05/19/22 15:56: POC Glucose 282 H 05/19/22 16:35: Hgb 7.5 L, Hct 23.5 L 05/19/22 18:01: POC Glucose 283 H 05/19/22 22:01: POC Glucose 386 H 05/20/22 05:15: WBC 2.2 L, RBC 2.73 L, Hgb 7.7 L, Hct 23.9 L, MCV 87.5, MCH 28.2, MCHC 32.2, RDW Std Deviation 54.8 H, RDW Coeff of Juliet 17.5 H, Plt Count 60 L, MPV 11.0, Immature Gran % (Auto) 0.900, Neut % (Auto) 76.4 H, Lymph % (Auto) 19.1, [place] % (Auto) 3.6, Eos % (Auto) 0.0, Baso % (Auto) 0.0, Absolute Neuts (auto) 1.7 L, Absolute Lymphs (auto) 0.42 L, Nucleated RBC % 1.4, Diff Path Review May foll, Platelet Estimate MKD DEC, Anisocytosis 1+ 05/20/22 05:15: Sodium 135 L, Potassium 3.5, Chloride 102, Carbon Dioxide 25.0, Anion Gap 8, BUN 23 H, Creatinine 1.60 H, Estim Creat Clear Calc 50.66, Est GFR (MDRD) Af Amer 55 L, Est GFR (MDRD) Non-Af 46 L, BUN/Creatinine Ratio 14.4, Glucose 273 H, Calcium 11.5 H, Phosphorus 2.6, Magnesium 1.8, Total Bilirubin 0.60, AST 18, ALT 18, Alkaline Phosphatase 59, Total Protein 8.1, Albumin 2.1 L, Globulin 6.0 H, Albumin/Globulin Ratio 0.4 L 05/20/22 06:34: POC Glucose 275 H 05/20/22 10:07: POC Glucose 253 H Micro: Microbiology 05/18/22 16:45 Stool Stool Occult Blood (BASHIR) - Final Occult Blood Positive Radiography Diagnostic Testing: Radiology Impression Brain MRI 05/19/22 11:00 IMPRESSION: Normal unenhanced MRI of the brain. Electronically Signed: Sidney Ashton MD at 14:09 EDT Reading Location ID and State: [facility] / [place] , Service support , Head MRA 05/19/22 11:00 IMPRESSION: Normal MRA of the head Electronically Signed: Sidney Ashton MD at 14:10 EDT , Neck MRA 05/19/22 11:00 IMPRESSION: Normal bilateral cervical carotid and vertebral arteries. Electronically Signed: Sidney Ashton MD at 14:10 EDT , Knee X-Ray 05/19/22 14:05 IMPRESSION: Unusual mottled radiolucencies of the distal femur and proximal tibia and fibula. Correlation with MRI would be useful. Electronically Signed: Mark Ramesh MD at 16:44 EDT , Physical Exam Const alert, oriented x3 and well nourished Constitutional Narrative: Very pleasant, upper middle-aged white male lying in bed sleeping, arouses to verbal and tactile stimuli, morbidly obese, still somewhat sleepy but interactive, patient appears nontoxic and comfortable at this time HEENT head/scalp atraumatic and moist oral mucous membranes HEENT Narrative: Mallampati 3, no thrush Resp normal respiratory effort, no retractions, no use of accessory muscles and clear to auscultation bilaterally Resp Narrative: Diminished diffusely but clear Auscultation: Negative for crackles, rales, rhonchi or wheezes Cardio regular rate, regular rhythm, S1 normal heart sound, S2 normal heart sound, no murmurs, no rub, no gallops and no clicks GI normal to inspection, nondistended, normoactive bowel sounds, soft to palpation and non-tender Extremity no clubbing, cyanosis or edema Extremity Narrative: Tenderness at left lateral knee Neuro oriented x3, moves all extremities and no focal motor deficits Neuro Narrative: Generalized weakness but no focal deficits Speech: speech normal Psych Psych Narrative: Sleepy this morning Assessment & Plan Assessment/Plan (1) Slurred speech: (2) Pancytopenia: (3) Hypokalemia: (4) Chronic kidney disease: (5) Hypercalcemia: (6) Fever: PLAN: Plan Slurred speech -Resolved--> etiology unclear -Possible TIA -MRA and MRI were negative -Lipids performed and showed total cholesterol of 91/LDL 23/HDL 28 -Aspirin on hold secondary to severe thrombocytopenia/anemia -Continue statin -Echo performed 2021 that shows an EF of 53% and stage II diastolic dysfunction with mild left atrial enlargement however no bubble study done at that time therefore we will repeat echocardiogram if MRI positive for stroke -PT/OT following and assessments pending as they were held yesterday secondary to blood products being given -Speech has cleared for diet of regular textures and thin liquids Pancytopenia -2 bone marrow biopsy attempts with no results -Follows with Dr.'s Boateng from hematology -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 Cavazos this morning as he had not seen the patient yesterday due to confusion with regards to the consult -Hold on antiplatelet therapy at this time given anemia requiring transfusion and thrombocytopenia -Has had recent EGD and colonoscopy in August 2021--> may need repeat given worsening anemia and guaiac positive stool Fever -Isolated temp of 101 this morning -Urine cultures pending -We will obtain blood cultures -Hold on empiric antibiotics at this time since it was an isolated event but if recurrent fevers occur will start empiric antibiotics -Chest x-ray from admission was unremarkable CKD stage IIIb -Serum creatinine is at baseline -Restart home diuretics as serum creatinine is stable -Avoid nephrotoxins as able Hypercalcemia -This appears to be new -With previous known lytic lesions -Alk phos within normal limits -Vitamin D level remains pending -PTH is appropriately suppressed at 11.2 Hypokalemia - resolved at 3.5 however we will dose 40 mill equivalents as patient is to receive Lasix today DM-2 -Hold home oral agents -Blood sugar is up today at 273 increase Lantus from 8 units to 14 units -Sliding scale insulin -Accu-Cheks as ordered -Most recent hemoglobin A1c from 04/04/2022 was 7 indicating adequate control Nonobstructive cardiomyopathy/HFpEF -Currently compensated -Continue carvedilol -Aspirin on hold secondary to the above -Restart Lasix and Entresto Wu -Possible F3 fibrosis on elastography -Liver ultrasound previously reported fatty infiltration with hepatomegaly -CT-guided biopsy 2021 with focal macrovesicular steatosis -No cirrhosis noted at this time -Continue to follow with gastroenterology Fall -No severe injury -Complaining of left knee pain -Imaging with no acute fracture History of gout -Continue ursodiol Vitamin D deficiency -Vitamin D level pending -Most recent one documented in the computer was 21.6 from 09/25/2021 -If less than 30 will start ergocalciferol weekly Fibromyalgia -No current acute issues Essential tremor/myoclonus -Continue outpatient follow-up with neurology KADE -Nocturnal CPAP ordered -Family to bring in home unit but will need one of our masks Hypertension -Continue home carvedilol -Anticipate reinitiation of Entresto in the next 24 hours Hyperlipidemia -Continue home simvastatin Chronic dyspnea -Likely multifactorial -We will monitor for oxygen needs at discharge with ambulation Morbid obesity -BMI 44.4 -Recommend weight loss -Complicates treatment, prognosis, outcomes DVT prophylaxis -SCDs -No chemoprophylaxis with severe hrombocytopenia CODE STATUS -Full code Charges/Coding Visit Charges Inpatient E&M: 29721 Subs Hosp L2
--- NOTE | 2022-05-20 11:08 | NURSING ---
Called respiratory to be sure the patient has CPAP at bedtime.
[2022-05-20] MEDS: 0.9% Saline Lock 10 ML Syringe IV (11:43)
[2022-05-20] MEDS: Potassium Chloride Oral Tablet 20 MEQ 40 MEQ PO (11:43)
[2022-05-20] MEDS: SACUBITRIL/VALSARTAN 49-51 MG TABLET 1 EACH PO ×2 (11:43→21:52)
[2022-05-20 11:45] LABS: Bedside Glucose 258 mg/dL (74-106)
--- NOTE | 2022-05-20 16:07 | CON.PCM_ITS ---
Assessment & Plan Assessment/Plan (1) Anemia: PLAN: He does not want a repeat colonoscopy at this time to look for angiodysplastic lesions. He will agree to have an upper endoscopy to look for angiodysplastic lesions of the upper GI tract. Depending on what we see he may agree to have a colonoscopy for evaluation of his small bowel from the lower GI tract. He was explained alternatives, risk, benefits including not withstanding bleeding, infection, sepsis, perforation, need for emergent . He will have an ASA of 3. HPI Consult Data Date of Consult: 05/20/22 HPI Narrative Reason for Consultation: Anemia HPI Narrative: BLU SAMUEL, is a 71 M who presented to the ED after the patient sent in here after speaking with PCP on the phone and having slurred speech.? His daughter was present with him in the ED.? No headaches or hemiparesis.? No stroke history.? Extensive recent medical history.? Since June of last year noted shortness of breath with exertion with lightheaded symptoms.? Prior to that he explain 2012 he was having vertigo symptoms with multiple specialists seen with negative work-up.? Has seen multiple doctors.? He was found to be pancytopenic, he is following Dr. Dillard.? There is been 2 attempted bone marrow biopsies unable to evaluate the bone marrow.? He had CT scan finding bone lesions however no clear source.? He was referred down to [facility] also with no clear source.? 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 He states he was attempted to be referred to the [facility] recently, however they declined the referral from his oncologist.? He has been transfused blood 2 times in the last 2 weeks last time a week ago with 1 unit of blood.? Denies any rectal bleeding.? Also reports had a heart catheter last 2 months, he states there was an attempted intervention however unable to be performed.? He has no current chest pains or tightness.? Has been having urine incontinence proximal for the last week.? He has no back pain.? He was seen by his PCP on Saturday, empirically placed on antibiotics pending the culture.? New symptoms was a slurred speech today therefore was sent to the ED.? Also reports by daughter her insulin pump broke down 2 days ago he has been using insulin injections. He was referred to me for the evaluation of blood in stool. He reports anemia last hemoglobin 9.7 and recently with some blood in stool. His current hemoglobin is down to 7. He feels it happens most when he is having some constipation and then noted blood in toilet or on tissue paper. Occurring about once a week for the last several months. He feels he may be lactose intolerant because he has frequent and loose stools following cheese. Averages two BM a day that are of normal consistency with constipation about once a week typically occurring when he has to change his habitual timing of BM. Reports dizziness every day, all day since 2012. Primary has provided referrals to multiple specialists with no diagnosis to date. Additional medical history of fibromyalgia, CHF, pulmonary HTN, HTN, hyperlipidemia, testicular hypofunction, DMII with neuropathy, monoclonal par aproteinemia. 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 Presence of insulin pump Pulmonary disease Radiculopathy, cervical region Secondary pulmonary arterial hypertension Sleep apnea Vision problems Home Medications multivitamin (Daily Multi-Vitamin tablet) 1 tab PO DAILY SUPPLEMENT 06/15/21 [History Last Taken 05/18/22] fenofibric acid (choline) 135 mg capsule,delayed release (Trilipix) 135 mg PO DAILY CHOLESTEROL 08/01/21 [History Last Taken 05/17/22] cholecalciferol (vitamin D3) 25 mcg (1,000 unit) tablet 25 mcg PO DAILY SUPLEMENT 03/08/22 [History Last Taken 05/17/22] magnesium oxide 400 mg PO DAILY SUPPLEMETN 04/17/22 [History Last Taken 05/17/22] simvastatin 40 mg tablet 40 mg PO DAILY CHOLESTEROL 04/17/22 [History Last Taken 05/16/22] vitamin E mixed 400 unit capsule 400 unit PO DAILY SUPPLEMENT 04/17/22 [History Last Taken 05/18/22] carvedilol 6.25 mg tablet (Coreg) 6.25 mg PO BID HEART 05/18/22 [History Last Taken 05/18/22] dapagliflozin 10 mg tablet (Farxiga) 10 mg PO DAILY DM 05/18/22 [History Last Taken 05/17/22] furosemide 40 mg tablet (Lasix) 40 mg PO DAILY FLUID 05/18/22 [History Last Taken 05/18/22] ibuprofen 200 mg tablet 400 mg PO Q8H PRN Pain 05/18/22 [History Last Taken 05/18/22] insulin regular hum U-500 conc 500 unit/mL subcutaneous soln (Humulin R U-500 (Concentrated) Insulin) 100 unit continuous subcutaneous infusion .continuous DM 05/18/22 [History Last Taken 05/18/22] metformin 1,000 mg tablet 1,000 mg PO BID DM 05/18/22 [History Last Taken 05/18/22] metformin 500 mg tablet 500 mg PO LUNCH DM 05/18/22 [History Last Taken Unknown] sacubitril 49 mg-valsartan 51 mg tablet (Entresto) 1 tab PO BID HEART 05/18/22 [History Last Taken 05/18/22] ursodiol 300 mg capsule 300 mg PO BID GOUT 05/18/22 [History Last Taken 05/18/22] Allergy/AdvReac Type Severity Reaction Status Date / Time PITER Inhibitors Allergy Severe edema Verified 05/18/22 15:01 diltiazem [From Cardizem] Allergy Unknown unknown Verified 05/18/22 15:01 Penicillins AdvReac Intermediate diarrhea Verified 05/18/22 15:01 Family History Grandfather Alcoholism Father Arthritis Myocardial infarction Heart disease Hypertension Sister Autoimmune disorder Mother Cancer Brother Diabetes Myocardial infarction Heart disease Other Lung cancer Surgical History History of left heart catheterization (2012) History of right and left heart catheterization (03/02/22) History of surgery on arm Social History Smoking Status: Never smoker second hand exposure: No alcohol intake: never substance use type: does not use caffeine: Yes Type: carbonated beverages Number of servings: 8 and coffee Number of servings: 3 what type of physical activity do you participate in: none octavio/faith: Brethern seatbelt use: sometimes do you feel safe at home: Yes ROS ROS Narrative Constitutional: Reports fatigue and weakness, morbid obese person HEENT: Reports systems reviewed and no addt'l complaints, except as documented Respiratory/Chest: Denies chest pain, shortness of breath at rest or with exertion Gastrointestinal: Denies coffee ground emesis, hematemesis or vomiting Genitourinary: Recent urinary incontinence but patient has bladder sensation, cannot control it. Increased frequency and urgency. Intermittent micturition. Denies burning micturition/dysuria Musculoskeletal: Reports chronic lower back pain/knee joint pain and limited range of motion Neurologic: Neuropathy symptoms of lower extremities. Denies seizure-like activity skin: No ulcer. No rash Endocrinology: Reports systems reviewed and no addt'l complaints, except as documented Hematologic/Lymphatic: Reports systems reviewed and no addt'l complaints, except as documented Rest 14 ROS are negative except as mentioned in HPI Physical Exam Narrative General: Alert, Oriented x3, Cooperative, morbid recently BMI 44.4 kg/m? HEENT: Atraumatic, PERRLA, EOMI, Normocephalic. Chronic dizziness and vertigo Oral: Oral mucosa dry. No Gingival or Mucosal Lesions/ Ulcerations Neck: Supple, No JVD, Negative Carotid Bruits Lungs: Air entry diminished in bilateral lung bases. No crepitation/rhonchi Cardiovascular: Regular rate, Regular Rhythm, Normal S1, Normal S2, grade 3/6 LLSB systolic murmur Abdomen: Bowel Sounds Present, Soft, Non Tender, Non-Distended : Recent urinary incontinence, increased frequency urgency. No renal angle tenderness. No suprapubic tenderness. Extremities: No edema, Capillary Refill Less than 3 Seconds Skin: No rashes, No breakdown Musculoskeletal: No Tenderness to Palpation of Joints or Extremities. Muscle strength 4+/5 at major joints. Neurological: Chronic polyneuropathy. Cranial nerves II-XII grossly intact, DTR 2+/4 NIH 0 Psych/Mental Status: Flat affect. Lab / Micro Data Result Diagrams: 05/21/22 05:45 05/21/22 05:45 Labs: Laboratory Results - last 24 hr 05/18/22 15:45: Diff Path Review Reviewed 05/19/22 05:30: Diff Path Review Reviewed 05/20/22 05:15: Vitamin D 25-Hydroxy 64.5 05/20/22 05:15: Diff Path Review Reviewed 05/20/22 17:07: POC Glucose 307 H 05/20/22 21:49: POC Glucose 318 H 05/21/22 05:45: WBC 1.7 L, RBC 2.44 L, Hgb 7.0 L, Hct 21.7 L, MCV 88.9, MCH 28.7, MCHC 32.3, RDW Std Deviation 55.4 H, RDW Coeff of Juliet 17.2 H, Plt Count 52 L, MPV 10.5, Immature Gran % (Auto) 0.600, Neut % (Auto) 69.8, Lymph % (Auto) 25.4, Lyon % (Auto) 3.6, Eos % (Auto) 0.6, Baso % (Auto) 0.0, Absolute Neuts (auto) 1.2 L, Absolute Lymphs (auto) 0.43 L, Nucleated RBC % 0, Differential Comment SCANNED, Diff Path Review Reviewed 05/21/22 05:45: Sodium 135 L, Potassium 3.5, Chloride 104, Carbon Dioxide 24.0, Anion Gap 7, BUN 23 H, Creatinine 1.57 H, Estim Creat Clear Calc 51.63, Est GFR (MDRD) Af Amer 57 L, Est GFR (MDRD) Non-Af 47 L, BUN/Creatinine Ratio 14.6, Glucose 289 H, Calcium 11.4 H 05/21/22 06:38: POC Glucose 287 H 05/21/22 11:11: POC Glucose 276 H 05/21/22 15:07: POC Glucose 299 H Micro: Microbiology 05/19/22 00:39 Urine, Clean Catch Urine Culture - Final Mixed Gram Positive Organisms
[2022-05-20 17:30] LABS: Bedside Glucose 307 mg/dL (74-106)
[2022-05-20] MEDS: Atorvastatin Calcium 80 MG Tablet PO (21:52)
[2022-05-20 23:06] LABS: Bedside Glucose 318 mg/dL (74-106)
[2022-05-21] VITALS (18 sets, daily range): BP systolic 107–158; BP diastolic 44–64; PULSE 69–79; RESP 14–20; TEMP 36.3–37.4; O2SAT 89–97; BMI 44.3
[2022-05-21 06:32] LABS: Absolute Lymphocyte Count 0.43 X10^3/uL (0.83-4.51); Absolute Neutrophil Count 1.2 X10^3/uL (2.0-7.7); Eosinophil# 0.01 X10^3/uL; Eosinophils% 0.6 % (0-5); Hematocrit 21.7 % (40-54); Lymphocyte # 0.43 X10^3/ul (0.83-4.51); Lymphocyte % 25.4 % (19-41); Mean Corp Hgb Conc 32.3 g/dL (32-36); Mean Corpuscular Hgb 28.7 pg (27.0-32.0); Mean Corpuscular Volume 88.9 fL (80-94); Mean Platelet Vol. 10.5 fl (6.2-12.0); Monocyte# 0.06 X10^3/uL; Monocyte% 3.6 % (0-10); NRBC Flagged by Analyzer 0 % (0-5); Neutrophil # 1.18 X10^3/uL (2.7-7.7); Neutrophil % 69.8 % (47-70); POSITIVE COUNT YES; POSITIVE DIFFERENTIAL YES; POSITIVE MORPHOLOGY YES; Platelet Count 52 K/mm3 (150-450); RBC Distribution Width CV 17.2 % (11.6-14.6); RBC Distribution Width SD 55.4 fl (35.1-43.9); Red Blood Count 2.44 M/mm3 (4.6-6.2); White Blood Count 1.7 K/mm3 (4.4-11.0)
[2022-05-21] MEDS: Insulin Lispro 100 UNIT/ML INSULN.PEN SC ×3 (06:39→21:34)
[2022-05-21 06:44] LABS: Anion Gap 7 (5-15); BUN 23 mg/dL (7-18); BUN/Creat Ratio 14.6 RATIO (10-20); Calcium,Total 11.4 mg/dL (8.5-10.1); Chloride 104 mmol/L (98-107); Creatinine, Serum 1.57 mg/dL (0.70-1.30); EST Glomerular Filtration Rate 47 mL/min (>60); Est Glom Filt Rate - Afr Amer 57 mL/min (>60); Estimated Creatinine Clearance 51.63 ml/min; Glucose 289 mg/dL (74-106); Potassium 3.5 mmol/L (3.5-5.1); Sodium Level 135 mmol/L (136-145)
[2022-05-21 07:02] LABS: Differential Indicated SCAN CRITERIA MET
[2022-05-21 07:10] LABS: Bedside Glucose 287 mg/dL (74-106)
[2022-05-21 07:53] LABS: Differential Comment SCANNED
[2022-05-21 09:16] LABS: Vitamin D,25 Hydroxy 64.5 ng/mL
--- NOTE | 2022-05-21 10:45 | CASEMGMT ---
Therapy is recommending correction facility for patient. SW went to patient's room. Patient was sleeping, but he did wake up when RN said his name. SW introduced self and role at [facility]. SW let patient know that therapy is recommending he go somewhere for therapy at discharge. Patient was not awake enough to respond to SW. SW let patient know SW will bring him a list of facilities that take his insurance. SW went back to patient's room and left him a list of correction facility providers including quality and resource use data and consistent with patient?s preferred geographic region, medical needs, and insurance network were provided from the [employer] Guide. Patient was sleeping. Plan: Undetermined Ramona GILMORE
[2022-05-21 11:35] LABS: Bedside Glucose 276 mg/dL (74-106)
[2022-05-21 11:38] LABS: Pathologist Review Reviewed
[2022-05-21 11:42] LABS: Pathologist Review Reviewed
[2022-05-21 12:13] LABS: Pathologist Review Reviewed
[2022-05-21 12:18] LABS: Pathologist Review Reviewed
--- NOTE | 2022-05-21 12:21 | PCM.PN.HOSP ---
Subjective Subjective Patient more awake today. Complains of pain in all of his extremities which has been ongoing since his initial blood transfusion which was done as an outpatient, speech therapy at the bedside he is complaining of word finding difficulties however he appears to do quite well overall. Strongly encourage patient to get out of bed and move around some. May need placement at discharge Objective Data Objective Data Vital Signs: Vital Signs Temp Pulse Resp BP Pulse Ox O2 Del Method O2 Flow Rate 97.4 F L 69 18 134/44 H 96 Nasal Cannula 2 05/21/22 11:13 05/21/22 11:13 05/21/22 11:13 05/21/22 11:13 05/21/22 11:13 05/21/22 11:13 05/21/22 11:13 FiO2 96 05/19/22 20:00 Oxygen Flow Rate (L/min) 2 Oxygen Delivery Method Nasal Cannula Weight: 156.7 kg Body Mass Index (BMI) 44.3 Intake & Output: Intake and Output for Last 24 Hours 05/19/22 05/20/22 05/21/22 23:59 23:59 23:59 Intake Total 1760 / 2560 2040 / 2640 1400 / 1400 Output Total 1475 / 2200 1885 / 1885 400 / 400 Balance 285 / 360 155 / 755 1000 / 1000 Lab / Micro Data Result Diagrams: 05/21/22 05:45 05/21/22 05:45 Labs: Laboratory Results - last 24 hr 05/18/22 15:45: Diff Path Review Reviewed 05/19/22 05:30: Diff Path Review Reviewed 05/20/22 05:15: Vitamin D 25-Hydroxy 64.5 05/20/22 05:15: Diff Path Review Reviewed 05/20/22 17:07: POC Glucose 307 H 05/20/22 21:49: POC Glucose 318 H 05/21/22 05:45: WBC 1.7 L, RBC 2.44 L, Hgb 7.0 L, Hct 21.7 L, MCV 88.9, MCH 28.7, MCHC 32.3, RDW Std Deviation 55.4 H, RDW Coeff of Juliet 17.2 H, Plt Count 52 L, MPV 10.5, Immature Gran % (Auto) 0.600, Neut % (Auto) 69.8, Lymph % (Auto) 25.4, [place] % (Auto) 3.6, Eos % (Auto) 0.6, Baso % (Auto) 0.0, Absolute Neuts (auto) 1.2 L, Absolute Lymphs (auto) 0.43 L, Nucleated RBC % 0, Differential Comment SCANNED, Diff Path Review Reviewed 05/21/22 05:45: Sodium 135 L, Potassium 3.5, Chloride 104, Carbon Dioxide 24.0, Anion Gap 7, BUN 23 H, Creatinine 1.57 H, Estim Creat Clear Calc 51.63, Est GFR (MDRD) Af Amer 57 L, Est GFR (MDRD) Non-Af 47 L, BUN/Creatinine Ratio 14.6, Glucose 289 H, Calcium 11.4 H 05/21/22 06:38: POC Glucose 287 H 05/21/22 11:11: POC Glucose 276 H Micro: Microbiology 05/19/22 00:39 Urine, Clean Catch Urine Culture - Final Mixed Gram Positive Organisms 05/18/22 16:45 Stool Stool Occult Blood (BASHIR) - Final Occult Blood Positive Physical Exam Const alert, oriented x3 and well nourished Constitutional Narrative: Very pleasant, upper middle-aged white male sitting up in bed, speech therapy at bedside, morbidly obese, patient appears nontoxic and comfortable at this time HEENT head/scalp atraumatic and moist oral mucous membranes HEENT Narrative: Mallampati 3-4, dentition is fair, no thrush Resp normal respiratory effort, no retractions, no use of accessory muscles and clear to auscultation bilaterally Resp Narrative: Diminished diffusely but clear Auscultation: Negative for crackles, rales, rhonchi or wheezes Cardio regular rate, regular rhythm, S1 normal heart sound, S2 normal heart sound, no murmurs, no rub, no gallops and no clicks GI normal to inspection, nondistended, normoactive bowel sounds, soft to palpation and non-tender Extremity no clubbing, cyanosis or edema Neuro oriented x3, CN's II-XII intact bilaterally, moves all extremities and no focal motor deficits Neuro Narrative: Generalized weakness but no focal deficits Speech: speech normal Psych affect normal Assessment & Plan Assessment/Plan (1) Slurred speech: (2) Pancytopenia: (3) Hypokalemia: (4) Chronic kidney disease: (5) Hypercalcemia: (6) Fever: PLAN: Plan Slurred speech -Resolved--> etiology unclear -Possible TIA -MRA and MRI were negative -Lipids performed and showed total cholesterol of 91/LDL 23/HDL 28 -Aspirin on hold secondary to severe thrombocytopenia/anemia -Continue statin -Echo performed 2021 that shows an EF of 53% and stage II diastolic dysfunction with mild left atrial enlargement -PT/OT following and overall patient did fairly well need some therapy at discharge most likely will be home health -Speech has cleared for diet of regular textures and thin liquids Pancytopenia -2 bone marrow biopsy attempts with no results -Follows with Dr. Phillips from hematology -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 and work-up in progress -Patient has been transfused 1 unit packed red blood cells and receiving 2 more units this morning for hemoglobin of 6.5 -GI consultation--> plan for EGD today -Hold on antiplatelet therapy at this time given anemia requiring transfusion and thrombocytopenia -Has had recent EGD and colonoscopy in August 2021 Fever -Isolated temp of 101 on a.m. of 05/20/2022, however no further temperature elevations documented -Urine cultures was contaminant with mixed gram-positive organisms -Blood cultures are pending -Continue to hold empiric antibiotics -Chest x-ray from admission was unremarkable CKD stage IIIb -Serum creatinine is at baseline -Convert Lasix to hydrochlorothiazide with calcium elevation -Avoid nephrotoxins as able Hypercalcemia -This appears to be new -With previous known lytic lesions -Alk phos within normal limits -Vitamin D level was greater than 60 -PTH is appropriately suppressed at 11.2 -We will trial HCTZ for calcium wasting at the kidney level and trend given this is only a mild elevation Hypokalemia -Resolved DM-2 -Hold home oral agents -Fasting blood sugar remains elevated at 289 increase Lantus from 8 units to 20 units -Sliding scale insulin -Accu-Cheks as ordered -Most recent hemoglobin A1c from 04/04/2022 was 7 indicating adequate control Nonobstructive cardiomyopathy/HFpEF -Currently compensated -Continue carvedilol -Aspirin on hold secondary to the above -Stop Lasix and switch to hydrochlorothiazide with hypercalcemia -Continue Entresto Wu -Possible F3 fibrosis on elastography -Liver ultrasound previously reported fatty infiltration with hepatomegaly -CT-guided biopsy 2021 with focal macrovesicular steatosis -No cirrhosis noted at this time -Continue to follow with gastroenterology Fall -No severe injury -Complaining of left knee pain -Imaging with no acute fracture History of gout -Continue ursodiol Vitamin D deficiency -Vitamin D level pending -Most recent one documented in the computer was 21.6 from 09/25/2021 -If less than 30 will start ergocalciferol weekly Fibromyalgia -No current acute issues Essential tremor/myoclonus -Continue outpatient follow-up with neurology KADE -Nocturnal CPAP ordered -Family to bring in home unit but will need one of our masks Hypertension -Continue home carvedilol -Continue Entresto Hyperlipidemia -Continue home simvastatin Chronic dyspnea -Likely multifactorial -We will monitor for oxygen needs at discharge with ambulation Morbid obesity -BMI 44.4 -Recommend weight loss -Complicates treatment, prognosis, outcomes DVT prophylaxis -SCDs -No chemoprophylaxis with severe thrombocytopenia CODE STATUS -Full code Charges/Coding Visit Charges Inpatient E&M: 60168 Subs Hosp L2
[2022-05-21 15:31] LABS: Bedside Glucose 299 mg/dL (74-106)
--- NOTE | 2022-05-21 16:36 | OP.CCLET_ITS ---
05/21/2022 Constanza Alegria [address] [place] [address] Re : Upper GI endoscopy procedure for [facility] Dear Dr. Alegria This procedure was performed on Saturday, May 21, 2022. My impressions and recommendations are as follows: Impressions : - The nasopharynx and oropharynx are abnormal. - Normal esophagus. - A few bleeding angiodysplastic lesions in the stomach. Treated with a heater probe. - Normal second portion of the duodenum. - No specimens collected. Recommendations : - Resume regular diet. - Continue present medications. - Consider CT of the sinuses and brain to look for source of blood in oropharynx. My findings are described in the full procedure note, which is enclosed. If I can be of further assistance, please feel free to contact me at . Sincerely, Victorino Cavazos, 05/21/2022 4:35:35 PM This report has been signed electronically.
--- NOTE | 2022-05-21 16:36 | OP.EGD_ITS ---
Patient Name: Chu Jin Procedure Date: 05/21/2022 3:37 PM Date of : 1950 Age: 71 Procedure: Upper GI endoscopy Indications: Iron deficiency anemia Providers: Victorino Cavazos DO Medicines: Monitored Anesthesia Care Complications: No immediate complications. Procedure: Pre-Anesthesia Assessment: - Prior to the procedure, a History and Physical was performed, and patient medications and allergies were reviewed. The patient is competent. The risks and benefits of the procedure and the sedation options and risks were discussed with the patient. All questions were answered and informed consent was obtained. Patient identification and proposed procedure were verified by the physician in the pre-procedure area. Mental Status Examination: alert and oriented. Airway Examination: normal oropharyngeal airway and neck mobility. Respiratory Examination: clear to auscultation. CV Examination: normal. Prophylactic Antibiotics: The patient does not require prophylactic antibiotics. Prior Anticoagulants: The patient has taken no previous anticoagulant or antiplatelet agents. ASA Grade Assessment: IV - A patient with severe systemic disease that is a constant threat to life. After reviewing the risks and benefits, the patient was deemed in satisfactory condition to undergo the procedure. The anesthesia plan was to use monitored anesthesia care (MAC). Immediately prior to administration of medications, the patient was re-assessed for adequacy to receive sedatives. The heart rate, respiratory rate, oxygen saturations, blood pressure, adequacy of pulmonary ventilation, and response to care were monitored throughout the procedure. The physical status of the patient was re-assessed after the procedure. After obtaining informed consent, the endoscope was passed under direct vision. Throughout the procedure, the patient's blood pressure, pulse, and oxygen saturations were monitored continuously. The gastroscope was introduced through the mouth, and advanced to the second part of duodenum. Scope In: 4:15:51 PM Scope Out: 4:21:05 PM Total Procedure Duration Time 0 hours 5 minutes 14 seconds Findings: The nasopharynx and oropharynx are abnormal as there was a lot of old blood in his nasopharynx and oropharynx. The examined esophagus was normal except for some esophagitis in the distal esophagus. A few 4 mm bleeding angiodysplastic lesions were found in the stomach. Coagulation for hemostasis using heater probe was successful. The second portion of the duodenum was normal. Impression: - The nasopharynx and oropharynx are abnormal. - Normal esophagus. - A few bleeding angiodysplastic lesions in the stomach. Treated with a heater probe. - Normal second portion of the duodenum. - No specimens collected. Recommendation: - Resume regular diet. - Continue present medications. - Consider CT of the sinuses and brain to look for source of blood in oropharynx. Procedure Code(s): --- Professional --- 44922, Esophagogastroduodenoscopy, flexible, transoral; with control of bleeding, any method CPT copyright 2017 [employer]. All rights reserved. The codes documented in this report are preliminary and upon break off worker review may be revised to meet current compliance requirements. Victorino Cavazos DO 05/21/2022 4:35:35 PM This report has been signed electronically. Number of Addenda: 0 Note Initiated On: 05/21/2022 3:37 PM
[2022-05-21] MEDS: Magnesium Chloride 64 MG Delay Rel.Tablet 128 MG PO (17:23)
[2022-05-21] MEDS: Carvedilol 6.25 MG Tablet PO ×2 (17:24→21:35)
[2022-05-21] MEDS: Ursodiol 250 MG Tablet PO ×2 (17:24→21:35)
[2022-05-21] MEDS: hydroCHLOROthiazide 25 MG Tablet PO (17:24)
[2022-05-21] MEDS: Vitamin E 400 UNITS Capsule PO (17:24)
[2022-05-21] MEDS: Multivitamins,Therapeutic Tablet 1 TABLET PO (17:24)
[2022-05-21] MEDS: Cholecalciferol (VIT D3) 25 MCG TABLET (1,000 UNITS) PO (17:24)
[2022-05-21] MEDS: SACUBITRIL/VALSARTAN 49-51 MG TABLET 1 EACH PO ×2 (17:24→21:35)
[2022-05-21] MEDS: Glucerna Shake 120 ML LIQUID PO (17:49)
[2022-05-21 17:51] LABS: Bedside Glucose 297 mg/dL (74-106)
[2022-05-21] MEDS: Atorvastatin Calcium 80 MG Tablet PO (21:35)
[2022-05-21 22:00] LABS: Bedside Glucose 344 mg/dL (74-106)
[2022-05-22] VITALS (9 sets, daily range): BP systolic 125–132; BP diastolic 48–51; PULSE 63–76; RESP 18–20; TEMP 37.1–37.3; O2SAT 93–97; BMI 44.3
[2022-05-22] MEDS: Insulin Lispro 100 UNIT/ML INSULN.PEN SC ×4 (06:26→21:25)
[2022-05-22 06:30] LABS: Absolute Lymphocyte Count 0.39 X10^3/uL (0.83-4.51); Absolute Neutrophil Count 1.1 X10^3/uL (2.0-7.7); Hematocrit 22.3 % (40-54); Hemoglobin 7.2 g/dL (13.0-16.5); Lymphocyte # 0.39 X10^3/ul (0.83-4.51); Lymphocyte % 25.7 % (19-41); Mean Corp Hgb Conc 32.3 g/dL (32-36); Mean Corpuscular Hgb 28.7 pg (27.0-32.0); Mean Corpuscular Volume 88.8 fL (80-94); Mean Platelet Vol. 11.6 fl (6.2-12.0); Monocyte# 0.06 X10^3/uL; Monocyte% 3.9 % (0-10); NRBC Flagged by Analyzer 0 % (0-5); Neutrophil # 1.05 X10^3/uL (2.7-7.7); Neutrophil % 69.1 % (47-70); POSITIVE COUNT YES; POSITIVE DIFFERENTIAL YES; POSITIVE MORPHOLOGY YES; Platelet Count 53 K/mm3 (150-450); RBC Distribution Width CV 17.2 % (11.6-14.6); RBC Distribution Width SD 54.7 fl (35.1-43.9); Red Blood Count 2.51 M/mm3 (4.6-6.2); White Blood Count 1.5 K/mm3 (4.4-11.0)
[2022-05-22 06:40] LABS: Differential Indicated SCAN CRITERIA MET
[2022-05-22 06:50] LABS: Bedside Glucose 312 mg/dL (74-106)
[2022-05-22 06:51] LABS: Anion Gap 8 (5-15); BUN 26 mg/dL (7-18); BUN/Creat Ratio 16.8 RATIO (10-20); Calcium,Total 11.8 mg/dL (8.5-10.1); Chloride 102 mmol/L (98-107); Creatinine, Serum 1.55 mg/dL (0.70-1.30); EST Glomerular Filtration Rate 47 mL/min (>60); Est Glom Filt Rate - Afr Amer 57 mL/min (>60); Glucose 333 mg/dL (74-106); Magnesium 1.7 mg/dL (1.6-2.6); Phosphorus 2.8 mg/dL (2.5-4.9); Potassium 3.5 mmol/L (3.5-5.1); Sodium Level 135 mmol/L (136-145)
[2022-05-22 06:59] LABS: Anisocytosis 1+; Platelet Estimate MOD DEC (ADEQ)
--- NOTE | 2022-05-22 07:14 | CT_ITS ---
EXAM: CT MAXILLOFACIAL SINUSES WITHOUT INTRAVENOUS CONTRAST CLINICAL INDICATION: bleeding TECHNIQUE: Helically acquired images were obtained of the maxillofacial sinuses without intravenous contrast. This CT exam was performed using one or more of the following dose reduction techniques: automated exposure control, adjustment of the mA and/or kV according to patient size, and/or use of iterative reconstruction technique. This report was created using [email or web address] report generation technology. COMPARISON: None. FINDINGS: MAXILLARY SINUSES: Clear. Ostiomeatal complexes are normally formed. SPHENOID SINUSES: Clear. FRONTAL SINUSES: Clear. ETHMOID AIR CELLS: Clear. NASAL CAVITY/SEPTUM: Bilateral conch bullosa. Mild deviation of the anterior nasal septum to the right of midline. Left-sided septal spur is present. Nasal turbinates are unremarkable. BONES/JOINTS: Osteolytic and osteoblastic changes of the visualized osseous structures consistent with metastatic bone disease. ORBITS: Normal. DENTAL: Dental crown erosions involve the right mandibular maxillary molars. No periodontal osseous erosion. CT/Sinus/Facial Bone IMPRESSION: 1. No evidence of sinusitis or nasopharyngeal mass. 2. Diffuse bony metastases. Electronically Signed: Zeeshan Skaggs MD at 8:22 EDT ,
[2022-05-22] MEDS: 0.9% Normal Saline 1,000 ML 75 ML IV (09:30)
[2022-05-22] MEDS: Glucerna Shake 120 ML LIQUID PO ×3 (09:31→17:00)
[2022-05-22] MEDS: Insulin Glargine-YFGN 100 UNIT/ML Pen 16 UNIT SC (09:32)
[2022-05-22] MEDS: Ursodiol 250 MG Tablet PO ×2 (09:33→21:25)
[2022-05-22] MEDS: Vitamin E 400 UNITS Capsule PO (09:33)
[2022-05-22] MEDS: Furosemide 40 MG/4 ML Vial IV ×2 (09:33→17:00)
[2022-05-22] MEDS: Magnesium Chloride 64 MG Delay Rel.Tablet 128 MG PO (09:33)
[2022-05-22] MEDS: Cholecalciferol (VIT D3) 25 MCG TABLET (1,000 UNITS) PO (09:33)
[2022-05-22] MEDS: Carvedilol 6.25 MG Tablet PO ×2 (09:33→21:25)
[2022-05-22] MEDS: SACUBITRIL/VALSARTAN 49-51 MG TABLET 1 EACH PO ×2 (09:33→21:25)
[2022-05-22] MEDS: Multivitamins,Therapeutic Tablet 1 TABLET PO (09:33)
--- NOTE | 2022-05-22 10:34 | PN_ITS ---
Subjective Subjective He underwent an upper endoscopy yesterday and was discovered to have a lot of blood in his hypopharynx, nasopharynx and oropharynx. He underwent a CT scan of the sinuses. He was discovered to have a lot of bony metastasis that is seen on her imaging studies Objective Data Objective Data Vital Signs: Vital Signs Temp Pulse Resp BP Pulse Ox O2 Del Method O2 Flow Rate 98.8 F 73 18 125/48 H 97 CPAP 3 05/22/22 02:30 05/22/22 03:00 05/22/22 02:30 05/22/22 02:30 05/22/22 08:32 05/22/22 02:30 05/22/22 08:32 FiO2 96 05/19/22 20:00 Oxygen Flow Rate (L/min) 3 Oxygen Delivery Method CPAP Weight: 345 lb 7.43 oz Body Mass Index (BMI) 44.3 Intake & Output: Intake and Output for Last 24 Hours 05/20/22 05/21/22 05/22/22 23:59 23:59 23:59 Intake Total 2040 / 2640 1700 / 1700 Output Total 1885 / 1885 1450 / 1450 450 / 450 Balance 155 / 755 250 / 250 -450 / -450 Lab / Micro Data Result Diagrams: 05/22/22 05:00 05/22/22 05:00 Labs: Laboratory Results - last 24 hr 05/18/22 15:45: Diff Path Review Reviewed 05/18/22 16:55: Crossmatch See Detail 05/19/22 05:30: Diff Path Review Reviewed 05/20/22 05:15: Diff Path Review Reviewed 05/21/22 05:45: Diff Path Review Reviewed 05/21/22 11:11: POC Glucose 276 H 05/21/22 15:07: POC Glucose 299 H 05/21/22 17:20: POC Glucose 297 H 05/21/22 21:33: POC Glucose 344 H 05/22/22 05:00: WBC 1.5 L, RBC 2.51 L, Hgb 7.2 L, Hct 22.3 L, MCV 88.8, MCH 28.7, MCHC 32.3, RDW Std Deviation 54.7 H, RDW Coeff of Juliet 17.2 H, Plt Count 53 L, MPV 11.6, Immature Gran % (Auto) 1.300 H, Neut % (Auto) 69.1, Lymph % (Auto) 25.7, [place] % (Auto) 3.9, Eos % (Auto) 0.0, Baso % (Auto) 0.0, Absolute Neuts (auto) 1.1 L, Absolute Lymphs (auto) 0.39 L, Nucleated RBC % 0, Diff Path Review May foll, Platelet Estimate MOD DEC, Anisocytosis 1+ 05/22/22 05:00: Sodium 135 L, Potassium 3.5, Chloride 102, Carbon Dioxide 25.0, Anion Gap 8, BUN 26 H, Creatinine 1.55 H, Estim Creat Clear Calc 52.30, Est GFR (MDRD) Af Amer 57 L, Est GFR (MDRD) Non-Af 47 L, BUN/Creatinine Ratio 16.8, Glucose 333 H, Calcium 11.8 H, Phosphorus 2.8, Magnesium 1.7 05/22/22 06:25: POC Glucose 312 H Micro: Microbiology 05/20/22 11:24 Blood Culture (Wb) - Right Hand Blood Culture - Preliminary No growth in 48 hours. 05/20/22 11:13 Blood Culture (Wb) - Anticubital Right Blood Culture - Preliminary No growth in 48 hours. 05/19/22 00:39 Urine, Clean Catch Urine Culture - Final Mixed Gram Positive Organisms 05/18/22 16:45 Stool Stool Occult Blood (BASHIR) - Final Occult Blood Positive Radiography Diagnostic Testing: Radiology Impression Facial/Sinus 05/22/22 07:14 IMPRESSION: 1. No evidence of sinusitis or nasopharyngeal mass. 2. Diffuse bony metastases. Electronically Signed: Zeeshan Skaggs MD at 8:22 EDT , Physical Exam Narrative General: Alert, Oriented x3, Cooperative, morbid recently BMI 44.4 kg/m? HEENT: Atraumatic, PERRLA, EOMI, Normocephalic. Chronic dizziness and vertigo Oral: Oral mucosa dry. No Gingival or Mucosal Lesions/ Ulcerations Neck: Supple, No JVD, Negative Carotid Bruits Lungs: Air entry diminished in bilateral lung bases. No crepitation/rhonchi Cardiovascular: Regular rate, Regular Rhythm, Normal S1, Normal S2, grade 3/6 LLSB systolic murmur Abdomen: Bowel Sounds Present, Soft, Non Tender, Non-Distended : Recent urinary incontinence, increased frequency urgency. No renal angle tenderness. No suprapubic tenderness. Extremities: No edema, Capillary Refill Less than 3 Seconds Skin: No rashes, No breakdown Musculoskeletal: No Tenderness to Palpation of Joints or Extremities. Muscle strength 4+/5 at major joints. Neurological: Chronic polyneuropathy. Cranial nerves II-XII grossly intact, DTR 2+/4 NIH 0 Psych/Mental Status: Flat affect. Assessment & Plan Assessment/Plan (1) Anemia: PLAN: I think he should get an ENT evaluation to see if bleeding in his upper airway that is causing his worsening anemia. His hemoglobin is slightly up toda y. I will give him iron transfusions and a unit of blood. We will likely need to be on scheduled iron transfusions as an outpatient as he follows up with oncology. We can repeat his capsule endoscopy as an outpatient. (2) GI bleed: PLAN: He was discovered to have 3-4 AVMs in his upper GI tract that were treated endoscopically. There was no signs of active bleeding of the angiodysplasias in his stomach. Charges/Coding Visit Charges Inpatient E&M: 83763 Subs Hosp L2
--- NOTE | 2022-05-22 11:14 | CASEMGMT ---
SW went back to patient's room. Patient's and granddaughter were present. Patient's said their daughter is patient's Healthcare Power of Quality Assurance Supervisor Final. Patient's said she called her and let her know about the list in the room. SW explained they just need to pick at least 3 facilities they would be okay with. SW will then make referrals. They asked when SW needed the information and SW told them the sooner the better as SW has to get the process started before patient is ready for discharge. They verbalized understanding. SW pointed out SW's name and contact information at the top of the list. Plan: Likely SNF pending daughter viewing the list, giving options, accepting facility, and pre-cert. Ramona GILMORE
--- NOTE | 2022-05-22 11:35 | CASEMGMT ---
CATHRYN received a call from patient's daughter Vale. CATHRYN let Vale know that therapy is recommending SNF placement. Vale agreed with this plan. Their first choice is [facility], second is [facility], and third is [facility]. CATHRYN asked Sana d/c financial planning assistant to please make referrals. Plan: SNF pending accepting facility and pre-cert. Ramona GILMORE
--- NOTE | 2022-05-22 12:01 | CASEMGMT ---
Addendum entered by Sana Johnson 05/22/22 14:52: Discharge Linter Saw Sharpener [facility] reached out. No beds at this time. Sade Saldana Addendum entered by Sana Johnson 05/22/22 13:52: Referral also sent to [facility]. Sade AVERY Public Finance Specialist Original Note: Discharge Linter Saw Sharpener This flex o writer operator sent referral to [facility]. Will follow up. Sade AVERY Public Finance Specialist
[2022-05-22 12:30] LABS: Bedside Glucose 370 mg/dL (74-106)
--- NOTE | 2022-05-22 13:01 | PN.HOSP_ITS ---
Subjective Subjective No significant GI bleeding found yesterday on scopes. Significant blood found to though in posterior oropharynx and this was suggestive of nasal bleeding. CT of the face performed with no masses so I discussed this with family and they indicate that he has had significant nosebleeds at home. We discussed that this is likely related to any supplemental oxygen that he may be on plus his low platelet counts. I did recommend ENT follow-up as an outpatient after discharge and they voiced understanding. We also discussed his elevated calcium level and pending work-up. Objective Data Objective Data Vital Signs: Vital Signs Temp Pulse Resp BP Pulse Ox O2 Del Method O2 Flow Rate 98.8 F 76 18 125/48 H 97 CPAP 3 05/22/22 02:30 05/22/22 07:03 05/22/22 02:30 05/22/22 02:30 05/22/22 08:32 05/22/22 08:00 05/22/22 08:32 FiO2 96 05/19/22 20:00 Oxygen Flow Rate (L/min) 3 Oxygen Delivery Method CPAP Weight: 156.7 kg Body Mass Index (BMI) 44.3 Intake & Output: Intake and Output for Last 24 Hours 05/20/22 05/21/22 05/22/22 23:59 23:59 23:59 Intake Total 2040 / 2640 1700 / 6651 943.9714 / 809.1667 Output Total 1885 / 1885 1450 / 1450 850 / 850 Balance 155 / 755 250 / 250 -40.8333 / -40.8333 Lab / Micro Data Result Diagrams: 05/22/22 05:00 05/22/22 05:00 Labs: Laboratory Results - last 24 hr 05/18/22 16:55: Crossmatch See Detail 05/21/22 15:07: POC Glucose 299 H 05/21/22 17:20: POC Glucose 297 H 05/21/22 21:33: POC Glucose 344 H 05/22/22 05:00: WBC 1.5 L, RBC 2.51 L, Hgb 7.2 L, Hct 22.3 L, MCV 88.8, MCH 28.7, MCHC 32.3, RDW Std Deviation 54.7 H, RDW Coeff of Juliet 17.2 H, Plt Count 53 L, MPV 11.6, Immature Gran % (Auto) 1.300 H, Neut % (Auto) 69.1, Lymph % (Auto) 25.7, [place] % (Auto) 3.9, Eos % (Auto) 0.0, Baso % (Auto) 0.0, Absolute Neuts (auto) 1.1 L, Absolute Lymphs (auto) 0.39 L, Nucleated RBC % 0, Diff Path Review May foll, Platelet Estimate MOD DEC, Anisocytosis 1+ 05/22/22 05:00: Sodium 135 L, Potassium 3.5, Chloride 102, Carbon Dioxide 25.0, Anion Gap 8, BUN 26 H, Creatinine 1.55 H, Estim Creat Clear Calc 52.30, Est GFR (MDRD) Af Amer 57 L, Est GFR (MDRD) Non-Af 47 L, BUN/Creatinine Ratio 16.8, Glucose 333 H, Calcium 11.8 H, Phosphorus 2.8, Magnesium 1.7 05/22/22 06:25: POC Glucose 312 H 05/22/22 11:58: POC Glucose 370 H Micro: Microbiology 05/20/22 11:24 Blood Culture (Wb) - Right Hand Blood Culture - Preliminary No growth in 48 hours. 05/20/22 11:13 Blood Culture (Wb) - Anticubital Right Blood Culture - Preliminary No growth in 48 hours. 05/19/22 00:39 Urine, Clean Catch Urine Culture - Final Mixed Gram Positive Organisms 05/18/22 16:45 Stool Stool Occult Blood (BASHIR) - Final Occult Blood Positive Radiography Diagnostic Testing: Radiology Impression Facial/Sinus 05/22/22 07:14 IMPRESSION: 1. No evidence of sinusitis or nasopharyngeal mass. 2. Diffuse bony metastases. Electronically Signed: Zeeshan Skaggs MD at 8:22 EDT , Physical Exam Const alert, oriented x3 and well nourished Constitutional Narrative: Very pleasant, upper middle-aged white male sitting up in bed, family at bedside, morbidly obese, patient appears nontoxic and comfortable at this time HEENT head/scalp atraumatic and moist oral mucous membranes HEENT Narrative: Old blood noted in mustache on right below right nares Resp normal respiratory effort, no retractions, no use of accessory muscles and clear to auscultation bilaterally Resp Narrative: Diminished diffusely but clear Auscultation: Negative for crackles, rales, rhonchi or wheezes Cardio regular rate, regular rhythm, S1 normal heart sound, S2 normal heart sound, no murmurs, no rub, no gallops and no clicks GI normal to inspection, nondistended, normoactive bowel sounds, soft to palpation and non-tender Extremity no clubbing, cyanosis or edema Skin skin turgor normal, no jaundice, no petechiae and no mottling Skin Narrative: Linear ecchymotic area on upper back left side, skin is pale Neuro oriented x3, CN's II-XII intact bilaterally, moves all extremities and no focal motor deficits Neuro Narrative: Generalized weakness but no focal deficits Speech: speech normal Psych affect normal Psych Narrative: Very pleasant and appropriately interactive-speech was more timely today Assessment & Plan Assessment/Plan (1) Slurred speech: (2) Pancytopenia: (3) Hypokalemia: (4) Chronic kidney disease: (5) Hypercalcemia: (6) Fever: PLAN: Plan Slurred speech -Resolved--> etiology unclear -May be related to hypercalcemia -MRA and MRI were negative -Lipids performed and showed total cholesterol of 91/LDL 23/HDL 28 -Aspirin on hold secondary to severe thrombocytopenia/anemia -Continue statin -Echo performed 2021 that shows an EF of 53% and stage II diastolic dysfunction with mild left atrial enlargement -PT/OT following and overall patient did fairly well need some therapy at discharge most likely will be home health -Speech has cleared for diet of regular textures and thin liquids Pancytopenia -2 bone marrow biopsy attempts with no results -Follows with Dr. 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 -Hold on antiplatelet therapy at this time given anemia requiring transfusion and thrombocytopenia -Has had recent EGD and colonoscopy in August 2021 Nasal bleeding -CT of the sinuses and nasopharynx was normal with no masses -We will refer to ENT for possible cauterization as an outpatient after di scharge Fever -Isolated temp of 101 on a.m. of 05/20/2022, however no further temperature elevations documented -Urine cultures was contaminant with mixed gram-positive organisms -Blood cultures are negative -Fevers have resolved CKD stage IIIb -Serum creatinine is at baseline -Continue Lasix -Avoid nephrotoxins as able Hypercalcemia -This appears to be new -With previous known lytic lesions -Alk phos within normal limits -Vitamin D level was greater than 60 -PTH is appropriately suppressed at 11.2 -Continue Lasix and add IV fluids -Check check PTHrP, vitamin D 1,25, SPEP and UPEP Hypokalemia -Resolved but will monitor with diuretic use DM-2 -Hold home oral agents -Fasting blood sugar remains elevated at 33 increase Lantus from 16 units to 22 units -Sliding scale insulin -Accu-Cheks as ordered -Most recent hemoglobin A1c from 04/04/2022 was 7 indicating adequate control -Unclear why blood sugars are so elevated at this time Nonobstructive cardiomyopathy/HFpEF -Currently compensated -Continue carvedilol -Aspirin on hold secondary to the above -Continue Lasix -Continue Entresto Wu -Possible F3 fibrosis on elastography -Liver ultrasound previously reported fatty infiltration with hepatomegaly -CT-guided biopsy 2021 with focal macrovesicular steatosis -No cirrhosis noted at this time -Continue to follow with gastroenterology Fall -No severe injury -Complaining of left knee pain -Imaging with no acute fracture History of gout -Continue ursodiol Vitamin D deficiency -Vitamin D level pending -Most recent one documented in the computer was 21.6 from 09/25/2021 -If less than 30 will start ergocalciferol weekly Fibromyalgia -No current acute issues Essential tremor/myoclonus -Continue outpatient follow-up with neurology KADE -Nocturnal CPAP ordered -Family to bring in home unit but will need one of our masks Hypertension -Continue home carvedilol -Continue Entresto Hyperlipidemia -Continue home simvastatin Chronic dyspnea -Likely multifactorial -We will monitor for oxygen needs at discharge with ambulation Debility -Patient will need placement at discharge -PT and OT to continue to follow -Management following and discharge planning for placement in progress Morbid obesity -BMI 44.4 -Recommend weight loss -Complicates treatment, prognosis, outcomes DVT prophylaxis -SCDs -No chemoprophylaxis with severe thrombocytopenia CODE STATUS -Full code Charges/Coding Visit Charges Inpatient E&M: 79766 Subs Hosp L2
[2022-05-22 15:15] LABS: Pathologist Review Reviewed
[2022-05-22 17:16] LABS: Bedside Glucose 347 mg/dL (74-106)
[2022-05-22] MEDS: Atorvastatin Calcium 80 MG Tablet PO (21:25)
[2022-05-22 22:35] LABS: Bedside Glucose 381 mg/dL (74-106)
[2022-05-23] VITALS (13 sets, daily range): BP systolic 104–121; BP diastolic 38–51; PULSE 64–76; RESP 18–20; TEMP 35.6–36.9; O2SAT 93–97; BMI 44.3
[2022-05-23 05:36] LABS: Absolute Lymphocyte Count 0.37 X10^3/uL (0.83-4.51); Absolute Neutrophil Count 1.2 X10^3/uL (2.0-7.7); Eosinophil# 0.01 X10^3/uL; Eosinophils% 0.6 % (0-5); Hematocrit 23.3 % (40-54); Hemoglobin 7.3 g/dL (13.0-16.5); Lymphocyte # 0.37 X10^3/ul (0.83-4.51); Lymphocyte % 22.3 % (19-41); Mean Corp Hgb Conc 31.3 g/dL (32-36); Mean Corpuscular Volume 89.3 fL (80-94); Mean Platelet Vol. 12.2 fl (6.2-12.0); Monocyte# 0.07 X10^3/uL; Monocyte% 4.2 % (0-10); NRBC Flagged by Analyzer 1.2 % (0-5); Neutrophil % 72.3 % (47-70); POSITIVE COUNT YES; POSITIVE DIFFERENTIAL YES; POSITIVE MORPHOLOGY YES; Platelet Count 54 K/mm3 (150-450); RBC Distribution Width CV 17.3 % (11.6-14.6); RBC Distribution Width SD 55.8 fl (35.1-43.9); Red Blood Count 2.61 M/mm3 (4.6-6.2); White Blood Count 1.7 K/mm3 (4.4-11.0)
[2022-05-23 05:38] LABS: Differential Indicated SCAN CRITERIA MET
[2022-05-23 05:57] LABS: Anion Gap 5 (5-15); BUN 37 mg/dL (7-18); BUN/Creat Ratio 21.6 RATIO (10-20); Calcium,Total 12.2 mg/dL (8.5-10.1); Chloride 102 mmol/L (98-107); Creatinine, Serum 1.71 mg/dL (0.70-1.30); EST Glomerular Filtration Rate 42 mL/min (>60); Est Glom Filt Rate - Afr Amer 51 mL/min (>60); Glucose 387 mg/dL (74-106); Potassium 3.5 mmol/L (3.5-5.1); Sodium Level 133 mmol/L (136-145)
[2022-05-23 06:21] LABS: Differential Comment SCANNED
[2022-05-23 06:22] LABS: Anisocytosis 1+; Hypochromasia 1+; Microcytosis 1+; Platelet Estimate MKD DEC (ADEQ)
[2022-05-23] MEDS: Insulin Lispro 100 UNIT/ML INSULN.PEN SC ×4 (06:25→21:06)
[2022-05-23 06:51] LABS: Bedside Glucose 398 mg/dL (74-106)
[2022-05-23] MEDS: Ursodiol 250 MG Tablet PO ×2 (08:29→21:10)
[2022-05-23] MEDS: Cholecalciferol (VIT D3) 25 MCG TABLET (1,000 UNITS) PO (08:29)
[2022-05-23] MEDS: Carvedilol 6.25 MG Tablet PO (08:30)
[2022-05-23] MEDS: Multivitamins,Therapeutic Tablet 1 TABLET PO (08:30)
[2022-05-23] MEDS: Furosemide 40 MG Tablet PO (08:30)
[2022-05-23] MEDS: Vitamin E 400 UNITS Capsule PO (08:30)
[2022-05-23] MEDS: SACUBITRIL/VALSARTAN 49-51 MG TABLET 1 EACH PO (08:30)
[2022-05-23] MEDS: Glucerna Shake 120 ML LIQUID PO ×2 (08:30→16:32)
[2022-05-23] MEDS: Magnesium Chloride 64 MG Delay Rel.Tablet 128 MG PO (08:30)
--- NOTE | 2022-05-23 09:13 | CASEMGMT ---
Discharge Creative Services Coordinator This automobile service writer reached out to [place] and left a message about referral and also messaged [place] on [facility]. Sade AVERY Wire Harness Design Engineer
[2022-05-23] MEDS: Insulin Glargine-YFGN 100 UNIT/ML Pen 32 UNIT SC (11:14)
[2022-05-23] MEDS: Insulin Lispro 100 UNIT/ML INSULN.PEN 8 UNIT SC ×2 (11:15→16:31)
--- NOTE | 2022-05-23 11:17 | PCM.CONS.R ---
Assessment & Plan Assessment/Plan (1) Hypercalcemia: PLAN: Corrected calcium is 13.5-14. Phosphate normal. PTH appropriately suppressed. PTH RP is pending. 25-hydroxy vitamin D is normal. 1, 25 hydroxy vitamin D is pending. He does have evidence of granulomatous infiltrate on the lung biopsy. Most likely hypercalcemia is mediated by granulomatous condition. He also has extensive osteolytic lesions. Myeloma work-up is not impressive so far. Due to inability to obtain a bone marrow sample, conclusive myeloma diagnosis has not been possible. He does have pancytopenia. This case was discussed in myeloma conference at [facility]. Due to lack of bone marrow, chemotherapy was not advised. Will be somewhat atypical for sarcoidosis to cause pancytopenia and osteolytic lesions. I think fungal infection needs to be ruled out. I called and spoke to Dr. Sanchez from infectious disease. He will evaluate patient and order required fungal battery testing. For treatment, increase IV fluids, cut back on Lasix, hold vitamin D. He has received a dose of pamidronate 60 mg yesterday. Should improve the labs in about 1 to 2 days. Hesitant to add steroids due to suspected fungal infections. (2) Chronic kidney disease: PLAN: Likely mediated by hypercalcemia. Previous abdominal imaging without any hydronephrosis. Urine analysis does show some glycosuria. HPI Consult Data Date of Consult: 05/23/22 HPI Narrative Reason for Consultation: Acute renal failure HPI Narrative: BLU SAMUEL, is a 71 M who presents to the hospital with slurred speech, nephrology on consultation for acute renal failure and hypercalcemia. She has somewhat complicated last 1 year. Initially presented to with anemia, was subsequently found to have pancytopenia, saw hematology. Nephrology on consultation for hypercalcemia. Work-up so far Pancytopenia Serum protein electrophoresis with monoclonal lambda chain, serum kappa and lambda levels are normal Immunoglobulin levels are acceptable Bone marrow biopsy was attempted twice, first time the bone was necrosis, second time the bone was considered to be too hard hence sample could not be obtained Imaging study. CT chest with resolving granulomatous lesion in the left lung. Biopsy was consistent with lymphoplasma Citic infiltrate with granulomatous infiltration. CT abdomen shows hepatomegaly, liver biopsy was consistent with fatty liver ANCA, double-stranded DNA, other rheumatologic work-up negative His creatinine was around 1.0-1.1 beginning of this year, slowly increased to 1.7 now Hypercalcemia, corrected calcium is about 13.5-14. Phosphate is normal. Vitamin D levels low normal around 30. 1, 25 hydroxy vitamin D is pending this admission, in the past the level was within normal limits for the lab Alkaline phosphatase was normal Bone scan with extensive lytic lesions Denies any significant weight loss. Appetite is poor. Energy levels are low. 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 Presence of insulin pump Pulmonary disease Radiculopathy, cervical region Secondary pulmonary arterial hypertension Sleep apnea Vision problems Home Medications multivitamin (Daily Multi-Vitamin tablet) 1 tab PO DAILY SUPPLEMENT 06/15/21 [History Last Taken 05/18/22] fenofibric acid (choline) 135 mg capsule,delayed release (Trilipix) 135 mg PO DAILY CHOLESTEROL 08/01/21 [History Last Taken 05/17/22] cholecalciferol (vitamin D3) 25 mcg (1,000 unit) tablet 25 mcg PO DAILY SUPLEMENT 03/08/22 [History Last Taken 05/17/22] magnesium oxide 400 mg PO DAILY SUPPLEMETN 04/17/22 [History Last Taken 05/17/22] simvastatin 40 mg tablet 40 mg PO DAILY CHOLESTEROL 04/17/22 [History Last Taken 05/16/22] vitamin E mixed 400 unit capsule 400 unit PO DAILY SUPPLEMENT 04/17/22 [History Last Taken 05/18/22] carvedilol 6.25 mg tablet (Coreg) 6.25 mg PO BID HEART 05/18/22 [History Last Taken 05/18/22] dapagliflozin 10 mg tablet (Farxiga) 10 mg PO DAILY DM 05/18/22 [History Last Taken 05/17/22] furosemide 40 mg tablet (Lasix) 40 mg PO DAILY FLUID 05/18/22 [History Last Taken 05/18/22] ibuprofen 200 mg tablet 400 mg PO Q8H PRN Pain 05/18/22 [History Last Taken 05/18/22] insulin regular hum U-500 conc 500 unit/mL subcutaneous soln (Humulin R U-500 (Concentrated) Insulin) 100 unit continuous subcutaneous infusion .continuous DM 05/18/22 [History Last Taken 05/18/22] metformin 1,000 mg tablet 1,000 mg PO BID DM 05/18/22 [History Last Taken 05/18/22] metformin 500 mg tablet 500 mg PO LUNCH DM 05/18/22 [History Last Taken Unknown] sacubitril 49 mg-valsartan 51 mg tablet (Entresto) 1 tab PO BID HEART 05/18/22 [History Last Taken 05/18/22] ursodiol 300 mg capsule 300 mg PO BID GOUT 05/18/22 [History Last Taken 05/18/22] Allergy/AdvReac Type Severity Reaction Status Date / Time PITER Inhibitors Allergy Severe edema Verified 05/18/22 15:01 diltiazem [From Cardizem] Allergy Unknown unknown Verified 05/18/22 15:01 Penicillins AdvReac Intermediate diarrhea Verified 05/18/22 15:01 Family History Grandfather Alcoholism Father Arthritis Myocardial infarction Heart disease Hypertension Sister Autoimmune disorder Mother Cancer Brother Diabetes Myocardial infarction Heart disease Other Lung cancer Surgical History History of left heart catheterization (2012) History of right and left heart catheterization (03/02/22) History of surgery on arm Social History second hand exposure: No alcohol intake: never substance use type: does not use caffeine: Yes Type: carbonated beverages Number of servings: 8 and coffee Number of servings: 3 what type of physical activity do you participate in: none octavio/sikh: Brethern seatbelt use: sometimes do you feel safe at home: Yes ROS ROS Narrative Negative except above Physical Exam Narrative Alert awake oriented x 3 no obvious distress no pallor no icterus no JVD s1s2 no murmurs lungs clear abdomen soft no organomegaly no edema no cyanosis Lab / Micro Data Result Diagrams: 05/23/22 04:54 05/23/22 04:54 Labs: Laboratory Results - last 24 hr 05/22/22 05:00: Diff Path Review Reviewed 05/22/22 11:58: POC Glucose 370 H 05/22/22 16:56: POC Glucose 347 H 05/22/22 21:23: POC Glucose 381 H 05/23/22 04:54: WBC 1.7 L, RBC 2.61 L, Hgb 7.3 L, Hct 23.3 L, MCV 89.3, MCH 28.0, MCHC 31.3 L, RDW Std Deviation 55.8 H, RDW Coeff of Juliet 17.3 H, Plt Count 54 L, MPV 12.2 H, Immature Gran % (Auto) 0.600, Neut % (Auto) 72.3 H, Lymph % (Auto) 22.3, [place] % (Auto) 4.2, Eos % (Auto) 0.6, Baso % (Auto) 0.0, Absolute Neuts (auto) 1.2 L, Absolute Lymphs (auto) 0.37 L, Nucleated RBC % 1.2, Differential Comment SCANNED, Diff Path Review May , Platelet Estimate MKD DEC, Hypochromasia 1+, Anisocytosis 1+, Microcytosis 1+ 05/23/22 04:54: Sodium 133 L, Potassium 3.5, Chloride 102, Carbon Dioxide 26.0, Anion Gap 5, BUN 37 H, Creatinine 1.71 H, Estim Creat Clear Calc 47.40, Est GFR (MDRD) Af Amer 51 L, Est GFR (MDRD) Non-Af 42 L, BUN/Creatinine Ratio 21.6 H, Glucose 387 H, Calcium 12.2 H 05/23/22 06:23: POC Glucose 398 H Micro: Microbiology 05/20/22 11:24 Blood Culture (Wb) - Right Hand Blood Culture - Preliminary No growth in 48 hours. 05/20/22 11:13 Blood Culture (Wb) - Anticubital Right Blood Culture - Preliminary No growth in 48 hours.
--- NOTE | 2022-05-23 11:18 | CASEMGMT ---
Sana pelletier estate planning paralegal has not been able to speak with anyone in admissions at [employer]. CATHRYN called and was placed on hold for over 10 minutes. CATHRYN tried again and finally was able to talk with Jennifer. CATHRYN asked about referral and she said they are waiting on 1 more person on the clinical team. Jennifer said she will call this person and call CATHRYN back. CATHRYN gave Jennifer LOCKETT's name and phone number. Await response. Ramona Hughes DEVELOPMENTAL TRAINING COUNSELOR MANDO
[2022-05-23 11:35] LABS: Bedside Glucose 384 mg/dL (74-106)
[2022-05-23] MEDS: 0.9% Normal Saline 1,000 ML 75 ML IV ×3 (12:12→21:11)
[2022-05-23 12:48] LABS: Pathologist Review Reviewed
--- NOTE | 2022-05-23 13:50 | CASEMGMT ---
Discharge Central Sterile Technician This technical document writer reached out to [place]. [place] still does not have an answer for us. This technical document writer expressed how frustrating this is at the referral was sent yesterday. Will keep following up. Sade AVERY Credit Control Officer
--- NOTE | 2022-05-23 13:56 | CASEMGMT ---
Discharge Pbx Repairer Jaquan called back. Patient has been accepted and [facility] is start pre-cert. [facility] asked if patient has a home breathing machine and if so if patient can bring it in from home. CATHRYN Greene notified. Sade AVERY Medical Oncology Physician
--- NOTE | 2022-05-23 14:52 | CASEMGMT ---
CATHRYN spoke with patient and his . CATHRYN let them know that SW spoke with patient's daughter and she wanted [facility] or [facility]. [facility] was full, but [facility] can take him. Patient confirmed he has his cpap here at [facility]. SW let them know SW will call their daughter and inform her of the update. CATHRYN called patient's daughter Vale and let her know [facility] is full, but [facility] could take him. Vale thanked CATHRYN for the update. Plan: [facility] pending insurance approval and patient being medically ready. Ramona Hughes ARMED SECURITY OFFICERFelecia GILMORE
--- NOTE | 2022-05-23 15:04 | PCM.PN.HOSP ---
Subjective Subjective No specific issues overnight. Mental status still issue intermittently. Denies any current needs. Objective Data Objective Data Vital Signs: Vital Signs Temp Pulse Resp BP Pulse Ox O2 Del Method O2 Flow Rate 96.1 F L 64 18 104/41 L 94 Room Air 2 05/23/22 10:16 05/23/22 11:39 05/23/22 10:16 05/23/22 10:16 05/23/22 11:39 05/23/22 11:39 05/23/22 10:16 FiO2 21 05/23/22 10:16 Oxygen Flow Rate (L/min) 2 Oxygen Delivery Method Room Air Weight: 156.7 kg Body Mass Index (BMI) 44.3 Intake & Output: Intake and Output for Last 24 Hours 05/21/22 05/22/22 05/23/22 23:59 23:59 23:59 Intake Total 1700 / 1700 1259.1667 / 2192.9167 2398.75 / 2398.75 Output Total 1450 / 1450 1950 / 1950 800 / 800 Balance 250 / 250 -690.8333 / 242.9167 1598.75 / 1598.75 Lab / Micro Data Result Diagrams: 05/23/22 04:54 05/23/22 04:54 Labs: Laboratory Results - last 24 hr 05/22/22 05:00: Diff Path Review Reviewed 05/22/22 16:56: POC Glucose 347 H 05/22/22 21:23: POC Glucose 381 H 05/23/22 04:54: WBC 1.7 L, RBC 2.61 L, Hgb 7.3 L, Hct 23.3 L, MCV 89.3, MCH 28.0, MCHC 31.3 L, RDW Std Deviation 55.8 H, RDW Coeff of Juliet 17.3 H, Plt Count 54 L, MPV 12.2 H, Immature Gran % (Auto) 0.600, Neut % (Auto) 72.3 H, Lymph % (Auto) 22.3, [place] % (Auto) 4.2, Eos % (Auto) 0.6, Baso % (Auto) 0.0, Absolute Neuts (auto) 1.2 L, Absolute Lymphs (auto) 0.37 L, Nucleated RBC % 1.2, Differential Comment SCANNED, Diff Path Review Reviewed, Platelet Estimate MKD DEC, Hypochromasia 1+, Anisocytosis 1+, Microcytosis 1+ 05/23/22 04:54: Sodium 133 L, Potassium 3.5, Chloride 102, Carbon Dioxide 26.0, Anion Gap 5, BUN 37 H, Creatinine 1.71 H, Estim Creat Clear Calc 47.40, Est GFR (MDRD) Af Amer 51 L, Est GFR (MDRD) Non-Af 42 L, BUN/Creatinine Ratio 21.6 H, Glucose 387 H, Calcium 12.2 H 05/23/22 06:23: POC Glucose 398 H 05/23/22 11:12: POC Glucose 384 H Micro: Microbiology 05/20/22 11:24 Blood Culture (Wb) - Right Hand Blood Culture - Preliminary No growth in 48 hours. 05/20/22 11:13 Blood Culture (Wb) - Anticubital Right Blood Culture - Preliminary No growth in 48 hours. 05/19/22 00:39 Urine, Clean Catch Urine Culture - Final Mixed Gram Positive Organisms 05/18/22 16:45 Stool Stool Occult Blood (BASHIR) - Final Occult Blood Positive Physical Exam Const alert, oriented x3 and well nourished Constitutional Narrative: Very pleasant, upper middle-aged white male sitting up in bed, morbidly obese, patient appears nontoxic and comfortable at this time, patient is trying to change the television with the phone and seems confused when I try to correct him but finally does understand how to change the television the remote HEENT head/scalp atraumatic and moist oral mucous membranes HEENT Narrative: Mallampati 3, no thrush Resp normal respiratory effort, no retractions, no use of accessory muscles and clear to auscultation bilaterally Resp Narrative: Diminished diffusely but clear Auscultation: Negative for crackles, rales, rhonchi or wheezes Cardio regular rate, regular rhythm, S1 normal heart sound, S2 normal heart sound, no murmurs, no rub, no gallops and no clicks GI normal to inspection, nondistended, normoactive bowel sounds, soft to palpation and non-tender Extremity no clubbing, cyanosis or edema Extremity Narrative: Tenderness at left lateral knee Skin skin turgor normal, no jaundice, no petechiae and no mottling Skin Narrative: Linear ecchymotic area on upper back left side, skin is pale Neuro oriented x3, CN's II-XII intact bilaterally, moves all extremities and no focal motor deficits Neuro Narrative: Generalized weakness but no focal deficits Speech: speech normal Psych affect normal Psych Narrative: Very pleasant and appropriately interactive-seems more confused today but is alert and oriented x3 Assessment & Plan Assessment/Plan (1) Slurred speech: (2) Pancytopenia: (3) Hypokalemia: (4) Chronic kidney disease: (5) Hypercalcemia: (6) Fever: PLAN: Plan Slurred speech/encephalopathy -Suspect related to hypercalcemia -Corrected calcium levels 15.3 -Deferred ionized calcium as obtaining this takes approximately 1 week to result -MRA and MRI were negative -Lipids performed and showed total cholesterol of 91/LDL 23/HDL 28 -Aspirin on hold secondary to severe thrombocytopenia/anemia -Continue statin -Echo performed 2021 that shows an EF of 53% and stage II diastolic dysfunction with mild left atrial enlargement -PT/OT following and overall patient did fairly well need some therapy at discharge most likely will be home health -Speech has cleared for diet of regular textures and thin liquids Hypercalcemia -This appears to be new -With previous known lytic lesions -Alk phos within normal limits -Vitamin D level was greater than 60 -PTH is appropriately suppressed at 11.2 -Continue Lasix and add IV fluids - PTHrP, vitamin D 1,25, SPEP and UPEP are all pending -vitamin D 1,25 should be elevated if granulomatous disease present -Pamidronate 60 mg given 1 dose on 05/22/2022 -Nephrology consulted and they suspect granulomatous disease--> ID consultation is pending -Fungal pathology has been ordered -She will need outpatient follow-up with ID and nephrology at the time of discharge as I suspect lab work will be pending at that time for the above Pancytopenia -2 bone marrow biopsy attempts with no results -Follows with Dr. 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 -Hold on antiplatelet therapy at this time given anemia requiring transfusion and thrombocytopenia Nasal bleeding -CT of the sinuses and nasopharynx was normal with no masses -We will refer to ENT for possible cauterization as an outpatient after discharge CKD stage IIIb -Serum creatinine is at baseline -Continue Lasix -Avoid nephrotoxins as able -Nephrology following Hypokalemia -Resolved but will monitor with diuretic use DM-2 -Hold home oral agents -Fasting blood sugar remains elevated at 33 increase Lantus from 16 units to 22 units -Sliding scale insulin -Accu-Cheks as ordered -Most recent hemoglobin A1c from 04/04/2022 was 7 indicating adequate control -Unclear why blood sugars are so elevated at this time Nonobstructive cardiomyopathy/HFpEF -Currently compensated -Continue carvedilol -Aspirin on hold secondary to the above -Continue Lasix -Entresto on hold Wu -Possible F3 fibrosis on elastography -Liver ultrasound previously reported fatty infiltration with hepatomegaly -CT-guided biopsy 2021 with focal macrovesicular steatosis -No cirrhosis noted at this time -Continue to follow with gastroenterology Fall -No severe injury -Complaining of left knee pain -Imaging with no acute fracture History of gout -Continue ursodiol Vitamin D deficiency -Vitamin D level pending -Most recent one documented in the computer was 21.6 from 09/25/2021 -If less than 30 will start ergocalciferol weekly Fibromyalgia -No current acute issues Essential tremor/myoclonus -Continue outpatient follow-up with neurology KADE -Nocturnal CPAP ordered -Family to bring in home unit but will need one of our masks Hypertension -Continue home carvedilol -Continue Entresto Hyperlipidemia -Continue home simvastatin Chronic dyspnea -Likely multifactorial -We will monitor for oxygen needs at discharge with ambulation Debility -Patient will need placement at discharge -PT and OT to continue to follow -Management following and discharge planning for placement in progress Morbid obesity -BMI 44.4 -Recommend weight loss -Complicates treatment, prognosis, outcomes DVT prophylaxis -SCDs -No chemoprophylaxis with severe thrombocytopenia CODE STATUS -Full code Charges/Coding Visit Charges Inpatient E&M: 86747 Subs Hosp L2
[2022-05-23 16:55] LABS: Bedside Glucose 363 mg/dL (74-106)
--- NOTE | 2022-05-23 19:26 | CON.PCM.ID_ITS ---
Assessment & Plan Assessment/Plan (1) Granulomatous disease: PLAN: Granulomatous disease seen on path 08/2021 of LLL biopsy. Minimal records in [facility] and [facility] system. Will order fungal and AFB workup, including AFB bcx, fungal bcx, histo Ab and Ag, bartonella antibodies, TB IGRA, fungal immunodiffusion panel, and Aspergillus Ab. Will follow, thank you, d/w Dr. Hope (2) Pancytopenia: (3) Hypercalcemia: (4) Chronic kidney disease: (5) Bone lesion: HPI Consult Data Date of Consult: 05/23/22 HPI Narrative Reason for Consultation: granulomatous disease HPI Narrative: BLU SAMUEL, is a 71 M who presented 05/18 with one day h/o slurred speech. Has been having pancytopenia, lung lesion, hypercalcemia, multiple bone lesions of unclear cause. 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 Denies any pets, no animal/bat/bird/livestock exposure. Has not been to [facility]. Only foreign travel was to [place]. Not feeling well, unable to provide much history. Full ROS performed and neg except as noted above. 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 Presence of insulin pump Pulmonary disease Radiculopathy, cervical region Secondary pulmonary arterial hypertension Sleep apnea Vision problems Home Medications multivitamin (Daily Multi-Vitamin tablet) 1 tab PO DAILY SUPPLEMENT 06/15/21 [History Last Taken 05/18/22] fenofibric acid (choline) 135 mg capsule,delayed release (Trilipix) 135 mg PO DAILY CHOLESTEROL 08/01/21 [History Last Taken 05/17/22] cholecalciferol (vitamin D3) 25 mcg (1,000 unit) tablet 25 mcg PO DAILY SUPLEMENT 03/08/22 [History Last Taken 05/17/22] magnesium oxide 400 mg PO DAILY SUPPLEMETN 04/17/22 [History Last Taken 05/17/22] simvastatin 40 mg tablet 40 mg PO DAILY CHOLESTEROL 04/17/22 [History Last Taken 05/16/22] vitamin E mixed 400 unit capsule 400 unit PO DAILY SUPPLEMENT 04/17/22 [History Last Taken 05/18/22] carvedilol 6.25 mg tablet (Coreg) 6.25 mg PO BID HEART 05/18/22 [History Last Taken 05/18/22] dapagliflozin 10 mg tablet (Farxiga) 10 mg PO DAILY DM 05/18/22 [History Last Taken 05/17/22] furosemide 40 mg tablet (Lasix) 40 mg PO DAILY FLUID 05/18/22 [History Last Taken 05/18/22] ibuprofen 200 mg tablet 400 mg PO Q8H PRN Pain 05/18/22 [History Last Taken 05/18/22] insulin regular hum U-500 conc 500 unit/mL subcutaneous soln (Humulin R U-500 (Concentrated) Insulin) 100 unit continuous subcutaneous infusion .continuous DM 05/18/22 [History Last Taken 05/18/22] metformin 1,000 mg tablet 1,000 mg PO BID DM 05/18/22 [History Last Taken 05/18/22] metformin 500 mg tablet 500 mg PO LUNCH DM 05/18/22 [History Last Taken Unknown] sacubitril 49 mg-valsartan 51 mg tablet (Entresto) 1 tab PO BID HEART 05/18/22 [History Last Taken 05/18/22] ursodiol 300 mg capsule 300 mg PO BID GOUT 05/18/22 [History Last Taken 05/18/22] Allergy/AdvReac Type Severity Reaction Status Date / Time PITER Inhibitors Allergy Severe edema Verified 05/18/22 15:01 diltiazem [From Cardize] Allergy Unknown unknown Verified 05/18/22 15:01 Penicillins AdvReac Intermediate diarrhea Verified 05/18/22 15:01 Family History Grandfather Alcoholism Father Arthritis Myocardial infarction Heart disease Hypertension Sister Autoimmune disorder Mother Cancer Brother Diabetes Myocardial infarction Heart disease Other Lung cancer Surgical History History of left heart catheterization (2012) History of right and left heart catheterization (03/02/22) History of surgery on arm Social History second hand exposure: No alcohol intake: never substance use type: does not use caffeine: Yes Type: carbonated beverages Number of servings: 8 and coffee Number of servings: 3 what type of physical activity do you participate in: none octavio/confucianist: Brethern seatbelt use: sometimes do you feel safe at home: Yes Physical Exam Const General Appearance: cooperative and lethargic HEENT normocephalic and head/scalp atraumatic Eyes PERRL and EOMs intact bilaterally Neck supple and No nodes Resp normal air movement and clear to auscultation bilaterally Cardio regular rate and regular rhythm GI soft to palpation, non-tender and non-distended Extremity General Extremity: edema Skin no rashes or lesions noted Neuro CN's II-XII intact bilaterally Lab / Micro Data Attestation: I reviewed the patient's lab results. Result Diagrams: 05/23/22 04:54 05/23/22 04:54 Labs: Laboratory Results - last 24 hr 05/22/22 21:23: POC Glucose 381 H 05/23/22 04:54: WBC 1.7 L, RBC 2.61 L, Hgb 7.3 L, Hct 23.3 L, MCV 89.3, MCH 28.0, MCHC 31.3 L, RDW Std Deviation 55.8 H, RDW Coeff of Juliet 17.3 H, Plt Count 54 L, MPV 12.2 H, Immature Gran % (Auto) 0.600, Neut % (Auto) 72.3 H, Lymph % (Auto) 22.3, [place] % (Auto) 4.2, Eos % (Auto) 0.6, Baso % (Auto) 0.0, Absolute Neuts (auto) 1.2 L, Absolute Lymphs (auto) 0.37 L, Nucleated RBC % 1.2, Differential Comment SCANNED, Diff Path Review Reviewed, Platelet Estimate MKD DEC, Hypochromasia 1+, Anisocytosis 1+, Microcytosis 1+ 05/23/22 04:54: Sodium 133 L, Potassium 3.5, Chloride 102, Carbon Dioxide 26.0, Anion Gap 5, BUN 37 H, Creatinine 1.71 H, Estim Creat Clear Calc 47.40, Est GFR (MDRD) Af Amer 51 L, Est GFR (MDRD) Non-Af 42 L, BUN/Creatinine Ratio 21.6 H, Glucose 387 H, Calcium 12.2 H 05/23/22 06:23: POC Glucose 398 H 05/23/22 11:12: POC Glucose 384 H 05/23/22 16:29: POC Glucose 363 H
[2022-05-23] MEDS: Atorvastatin Calcium 80 MG Tablet PO (21:09)
[2022-05-23 23:50] LABS: Bedside Glucose 299 mg/dL (74-106)
[2022-05-24] VITALS (30 sets, daily range): BP systolic 96–151; BP diastolic 38–92; PULSE 62–123; RESP 12–24; TEMP 36–37.2; O2SAT 92–100; BMI 44.3
--- NOTE | 2022-05-24 01:20 | EKG12_ITS ---
Test Reason : A-FIB Blood Pressure : / mmHG Vent. Rate : 127 BPM Atrial Rate : 000 BPM P-R Int : 000 ms QRS Dur : 090 ms QT Int : 366 ms P-R-T Axes : 000 009 -16 degrees QTc Int : 531 ms Atrial fibrillation with rapid ventricular response Inferior infarct (cited on or before 18-MAY-2022) Abnormal ECG When compared with ECG of 18-MAY-2022 15:42, Atrial fibrillation has replaced Sinus rhythm Vent. rate has increased BY 67 BPM Nonspecific T wave abnormality, improved in Lateral leads Confirmed by LORIE REED, RAN ([id number]), digital editor LOVE BHAGAT ([id number]) on 05/25/2022 2:41:40 P M Referred By: DR THOMPSON Confirmed By:MJ MELO MD
--- NOTE | 2022-05-24 02:10 | PCM.HOSP.N ---
Hospitalist Note Developed afib w RVR around midnight. Denies chest pain nor palpitations. He confirms that he has an allergy to Cardizem. He does not recall what the actual allergy is other than it turns him into a goon. He does not elaborate on that. Will start amiodarone bolus and gtt, DC carvedilol for now.
[2022-05-24] MEDS: 0.9% Saline Lock 10 ML Syringe IV (02:32)
--- NOTE | 2022-05-24 02:36 | CPS ---
Pt has own bipap unit with 3 L o2 bled in
[2022-05-24] MEDS: Amiodarone 360 MG in Dextrose 5% Viaflo Bag 192.8 ML 16.7 MG CONT INF ×2 (02:42→16:33)
[2022-05-24 05:36] LABS: Absolute Lymphocyte Count 0.43 X10^3/uL (0.83-4.51); Absolute Neutrophil Count 1.4 X10^3/uL (2.0-7.7); Eosinophil# 0.02 X10^3/uL; Eosinophils% 1.1 % (0-5); Hematocrit 22.8 % (40-54); Hemoglobin 7.2 g/dL (13.0-16.5); Lymphocyte # 0.43 X10^3/ul (0.83-4.51); Lymphocyte % 22.6 % (19-41); Mean Corp Hgb Conc 31.6 g/dL (32-36); Mean Corpuscular Hgb 28.5 pg (27.0-32.0); Mean Corpuscular Volume 90.1 fL (80-94); Mean Platelet Vol. 11.4 fl (6.2-12.0); Monocyte# 0.09 X10^3/uL; Monocyte% 4.7 % (0-10); NRBC Flagged by Analyzer 0 % (0-5); Neutrophil # 1.35 X10^3/uL (2.7-7.7); Neutrophil % 71.1 % (47-70); POSITIVE COUNT YES; POSITIVE DIFFERENTIAL YES; POSITIVE MORPHOLOGY YES; Platelet Count 60 K/mm3 (150-450); RBC Distribution Width CV 17.2 % (11.6-14.6); Red Blood Count 2.53 M/mm3 (4.6-6.2); White Blood Count 1.9 K/mm3 (4.4-11.0)
[2022-05-24 05:40] LABS: Differential Indicated SCAN CRITERIA MET
[2022-05-24 05:47] LABS: Anion Gap 8 (5-15); BUN 50 mg/dL (7-18); Calcium,Total 10.7 mg/dL (8.5-10.1); Chloride 102 mmol/L (98-107); Creatinine, Serum 1.85 mg/dL (0.70-1.30); EST Glomerular Filtration Rate 39 mL/min (>60); Est Glom Filt Rate - Afr Amer 47 mL/min (>60); Estimated Creatinine Clearance 43.82 ml/min; Glucose 366 mg/dL (74-106); Potassium 3.4 mmol/L (3.5-5.1); Sodium Level 133 mmol/L (136-145)
[2022-05-24 06:18] LABS: Differential Comment SCANNED; Platelet Estimate MOD DEC (ADEQ)
[2022-05-24] MEDS: Insulin Lispro 100 UNIT/ML INSULN.PEN 8 UNIT SC ×3 (08:53→16:27)
[2022-05-24] MEDS: Insulin Glargine-YFGN 100 UNIT/ML Pen 32 UNIT SC (08:53)
[2022-05-24] MEDS: Insulin Lispro 100 UNIT/ML INSULN.PEN SC ×4 (08:53→21:53)
[2022-05-24 09:11] LABS: Bedside Glucose 353 mg/dL (74-106)
[2022-05-24] MEDS: Potassium Chloride Oral Tablet 20 MEQ 40 MEQ PO (10:24)
[2022-05-24] MEDS: Magnesium Chloride 64 MG Delay Rel.Tablet 128 MG PO (10:25)
[2022-05-24] MEDS: Vitamin E 400 UNITS Capsule PO (10:25)
[2022-05-24] MEDS: Multivitamins,Therapeutic Tablet 1 TABLET PO (10:25)
[2022-05-24] MEDS: Furosemide 40 MG Tablet PO (10:25)
[2022-05-24] MEDS: Ursodiol 250 MG Tablet PO ×2 (10:26→21:54)
[2022-05-24] MEDS: Glucerna Shake 120 ML LIQUID PO ×2 (10:28→12:50)
--- NOTE | 2022-05-24 10:35 | EKG12_ITS ---
Test Reason : Blood Pressure : / mmHG Vent. Rate : 066 BPM Atrial Rate : 066 BPM P-R Int : 150 ms QRS Dur : 102 ms QT Int : 394 ms P-R-T Axes : -09 041 122 degrees QTc Int : 413 ms Normal sinus rhythm Possible Inferior infarct , age undetermined Nonspecific T wave abnormality Abnormal ECG Confirmed by FABIENNE REED, SIMONE ([id number]), research editor LOVE BHAGAT ([id number]) on 05/25/2022 10:22:28 AM Referred By: TERRI Confirmed By:SIMONE LOVING MD
[2022-05-24] MEDS: 0.9% Normal Saline 1,000 ML 75 ML IV (10:59)
[2022-05-24 11:05] LABS: Bedside Glucose 359 mg/dL (74-106)
--- NOTE | 2022-05-24 12:20 | CASEMGMT ---
Discharge Director Consumer Pre-cert has been obtained at [facility]. [facility] can take patient when medically ready starting 05/25/2022. CATHRYN Greene notified. Sade AVERY Senior Quality Control Inspector
--- NOTE | 2022-05-24 13:30 | PN.RENAL_ITS ---
Subjective Subjective no new events mental status is better Objective Data Objective Data Vital Signs: Vital Signs Temp Pulse Resp BP Pulse Ox O2 Del Method O2 Flow Rate 96.8 F L 62 18 114/46 L 96 Room Air 3 05/24/22 12:41 05/24/22 12:41 05/24/22 12:41 05/24/22 12:41 05/24/22 12:41 05/24/22 12:41 05/24/22 10:00 FiO2 21 05/24/22 10:00 Oxygen Flow Rate (L/min) 3 Oxygen Delivery Method Room Air Weight: 156.7 kg Body Mass Index (BMI) 44.3 Intake & Output: Intake and Output for Last 24 Hours 05/22/22 05/23/22 05/24/22 23:59 23:59 23:59 Intake Total 1259.1667 / 2192.9167 3422.50 / 3422.50 1241.63 / 1241.63 Output Total 1950 / 1950 1200 / 1400 500 / 500 Balance -690.8333 / 242.9167 2222.50 / 2022.50 741.63 / 741.63 Lab / Micro Data Result Diagrams: 05/24/22 05:10 05/24/22 05:10 Labs: Laboratory Results - last 24 hr 05/23/22 16:29: POC Glucose 363 H 05/23/22 21:06: POC Glucose 299 H 05/24/22 05:10: Miscellaneous Test Cancelled 05/24/22 05:10: WBC 1.9 L, RBC 2.53 L, Hgb 7.2 L, Hct 22.8 L, MCV 90.1, MCH 28.5, MCHC 31.6 L, RDW Std Deviation 56.0 H, RDW Coeff of Juliet 17.2 H, Plt Count 60 L, MPV 11.4, Immature Gran % (Auto) 0.500, Neut % (Auto) 71.1 H, Lymph % (Auto) 22.6, [place] % (Auto) 4.7, Eos % (Auto) 1.1, Baso % (Auto) 0.0, Absolute Ne uts (auto) 1.4 L, Absolute Lymphs (auto) 0.43 L, Nucleated RBC % 0, Differential Comment SCANNED, Diff Path Review November jarret, Platelet Estimate MOD 05/24/22 05:10: Sodium 133 L, Potassium 3.4 L, Chloride 102, Carbon Dioxide 23.0, Anion Gap 8, BUN 50 H, Creatinine 1.85 H, Estim Creat Clear Calc 43.82, Est GFR (MDRD) Af Amer 47 L, Est GFR (MDRD) Non-Af 39 L, BUN/Creatinine Ratio 27.0 H, Glucose 366 H, Calcium 10.7 H 05/24/22 08:51: POC Glucose 353 H 05/24/22 10:44: POC Glucose 359 H Micro: Microbiology 05/20/22 11:24 Blood Culture (Wb) - Right Hand Blood Culture - Preliminary No growth in 48 hours. 05/20/22 11:13 Blood Culture (Wb) - Anticubital Right Blood Culture - Preliminary No growth in 48 hours. 05/19/22 00:39 Urine, Clean Catch Urine Culture - Final Mixed Gram Positive Organisms 05/18/22 16:45 Stool Stool Occult Blood (BASHIR) - Final Occult Blood Positive Physical Exam Narrative Alert awake oriented x 3 no obvious distress no pallor no icterus no JVD s1s2 no murmurs lungs clear abdomen soft no organomegaly no edema no cyanosis Assessment & Plan Assessment/Plan (1) Hypercalcemia: PLAN: Corrected calcium is 13.5-14. Phosphate normal. PTH appropriately suppressed. PTH RP is pending. 25-hydroxy vitamin D is normal. 1, 25 hydroxy vitamin D is pending. He does have evidence of granulomatous infiltrate on the lung biopsy. Most likely hypercalcemia is mediated by granulomatous condition. He also has extensive osteolytic lesions. Myeloma work-up is not impressive so far. Due to inability to obtain a bone marrow sample, conclusive myeloma diagnosis has not been possible. He does have pancytopenia. This case was discussed in myeloma conference at [facility]. Due to lack of bone marrow, chemotherapy was not advised. Will be somewhat atypical for sarcoidosis to cause pancytopenia and osteolytic lesions. I think fungal infection needs to be ruled out. ID on consult continue same for today Hesitant to add steroids due to suspected fungal infections. (2) Chronic kidney disease: PLAN: Likely mediated by hypercalcemia. Previous abdominal imaging without any hydronephrosis. Urine analysis does show some glycosuria.
--- NOTE | 2022-05-24 14:34 | CON.PCM.CA_ITS ---
Assessment & Plan Assessment/Plan (1) Atrial fibrillation: PLAN: Converted to sinus rhythm. Restart carvedilol 6.25 mg p.o. twice daily. Once 24 hours of IV amiodarone is done, recommend 200 mg p.o. daily of p.o. amiodarone. Based on [id number] score patient would qualify for anticoagulation with one of the newer oral anticoagulants or Coumadin. Unfortunately he has other medical issues which could limit our ability to anticoagulate him or even give him aspirin. Patient has pancytopenia and was found to have bleeding angiodysplastic lesions in the stomach. The final decision regarding anticoagulation/antiplatelet therapy will be up to the primary team after discussing with GI and heme-onc service to see if it is okay from their standpoint for him to be on anticoagulation (preferred) or at least antiplatelet therapy with either aspirin or Plavix. (2) Non-ischemic cardiomyopathy: PLAN: Restart carvedilol. Entresto appears to be on hold due to acute kidney injury. HPI Consult Data Date of Consult: 05/24/22 HPI Narrative Reason for Consultation: Atrial fibrillation HPI Narrative: BLU SAMUEL, is a 71 M who presents with slurred speech. He has history of pancytopenia and follows with hematology service. He also has nonischemic cardiomyopathy with an EF of 30%. He did have coronary angiography which did not reveal any significant obstructive CAD. Cardiology consult was requested as patient went into A. fib with RVR. He was started on IV amiodarone and has converted to sinus rhythm. Review of systems: All systems reviewed. 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 Presence of insulin pump Pulmonary disease Radiculopathy, cervical region Secondary pulmonary arterial hypertension Sleep apnea Vision problems Home Medications multivitamin (Daily Multi-Vitamin tablet) 1 tab PO DAILY SUPPLEMENT 06/15/21 [History Last Taken 05/18/22] fenofibric acid (choline) 135 mg capsule,delayed release (Trilipix) 135 mg PO DAILY CHOLESTEROL 08/01/21 [History Last Taken 05/17/22] cholecalciferol (vitamin D3) 25 mcg (1,000 unit) tablet 25 mcg PO DAILY SUPLEMENT 03/08/22 [History Last Taken 05/17/22] magnesium oxide 400 mg PO DAILY SUPPLEMETN 04/17/22 [History Last Taken 05/17/22] simvastatin 40 mg tablet 40 mg PO DAILY CHOLESTEROL 04/17/22 [History Last Taken 05/16/22] vitamin E mixed 400 unit capsule 400 unit PO DAILY SUPPLEMENT 04/17/22 [History Last Taken 05/18/22] carvedilol 6.25 mg tablet (Coreg) 6.25 mg PO BID HEART 05/18/22 [History Last Taken 05/18/22] dapagliflozin 10 mg tablet (Farxiga) 10 mg PO DAILY DM 05/18/22 [History Last Taken 05/17/22] furosemide 40 mg tablet (Lasix) 40 mg PO DAILY FLUID 05/18/22 [History Last Taken 05/18/22] ibuprofen 200 mg tablet 400 mg PO Q8H PRN Pain 05/18/22 [History Last Taken 05/18/22] insulin regular hum U-500 conc 500 unit/mL subcutaneous soln (Humulin R U-500 (Concentrated) Insulin) 100 unit continuous subcutaneous infusion .continuous DM 05/18/22 [History Last Taken 05/18/22] metformin 1,000 mg tablet 1,000 mg PO BID DM 05/18/22 [History Last Taken 05/18/22] metformin 500 mg tablet 500 mg PO LUNCH DM 05/18/22 [History Last Taken Unknown] sacubitril 49 mg-valsartan 51 mg tablet (Entresto) 1 tab PO BID HEART 05/18/22 [History Last Taken 05/18/22] ursodiol 300 mg capsule 300 mg PO BID GOUT 05/18/22 [History Last Taken 05/18/22] Allergy/AdvReac Type Severity Reaction Status Date / Time PITER Inhibitors Allergy Severe edema Verified 05/18/22 15:01 diltiazem [From Cardizem] Allergy Unknown unknown Verified 05/18/22 15:01 Penicillins AdvReac Intermediate diarrhea Verified 05/18/22 15:01 Family History Grandfather Alcoholism Father Arthritis Myocardial infarction Heart disease Hypertension Sister Autoimmune disorder Mother Cancer Brother Diabetes Myocardial infarction Heart disease Other Lung cancer Surgical History History of left heart catheterization (2012) History of right and left heart catheterization (03/02/22) History of surgery on arm Social History second hand exposure: No alcohol intake: never substance use type: does not use caffeine: Yes Type: carbonated beverages Number of servings: 8 and coffee Number of servings: 3 what type of physical activity do you participate in: none octavio/pentecostalism: Brethern seatbelt use: sometimes do you feel safe at home: Yes Physical Exam Const alert and oriented x3 HEENT normocephalic Eyes no scleral icterus Cardio regular rate Skin no rashes or lesions noted Psych mental status grossly normal Risk Stratification Risk Stratification Applicable: No Charges/Coding Visit Charges Inpatient E&M: 07717 Init Hosp L2 Objective Data Vital Signs: Vital Signs Temp Pulse Resp BP Pulse Ox O2 Del Method O2 Flow Rate 96.8 F L 62 18 114/46 L 96 Room Air 3 05/24/22 12:41 05/24/22 12:41 05/24/22 12:41 05/24/22 12:41 05/24/22 12:41 05/24/22 14:00 05/24/22 10:00 FiO2 21 05/24/22 10:00 Oxygen Flow Rate (L/min) 3 Oxygen Delivery Method Room Air Weight: 345 lb 7.43 oz Body Mass Index (BMI) 44.3 Intake & Output: Intake and Output for Last 24 Hours 05/22/22 05/23/22 05/24/22 23:59 23:59 23:59 Intake Total 1259.1667 / 2192.9167 3422.50 / 3422.50 1741.63 / 1741.63 Output Total 1950 / 1950 1200 / 1400 500 / 500 Balance -690.8333 / 242.9167 2222.50 / 2022.50 1241.63 / 1241.63 Lab / Micro Data Result Diagrams: 05/24/22 05:10 05/24/22 05:10 Labs: Laboratory Results - last 24 hr 05/23/22 16:29: POC Glucose 363 H 05/23/22 21:06: POC Glucose 299 H 05/24/22 05:10: Miscellaneous Test Cancelled 05/24/22 05:10: WBC 1.9 L, RBC 2.53 L, Hgb 7.2 L, Hct 22.8 L, MCV 90.1, MCH 28.5, MCHC 31.6 L, RDW Std Deviation 56.0 H, RDW Coeff of Juliet 17.2 H, Plt Count 60 L, MPV 11.4, Immature Gran % (Auto) 0.500, Neut % (Auto) 71.1 H, Lymph % (Auto) 22.6, [place] % (Auto) 4.7, Eos % (Auto) 1.1, Baso % (Auto) 0.0, Absolute Neuts (auto) 1.4 L, Absolute Lymphs (auto) 0.43 L, Nucleated RBC % 0, Differential Comment SCANNED, Diff Path Review November, Platelet Estimate MOD 05/24/22 05:10: Sodium 133 L, Potassium 3.4 L, Chloride 102, Carbon Dioxide 23.0, Anion Gap 8, BUN 50 H, Creatinine 1.85 H, Estim Creat Clear Calc 43.82, Est GFR (MDRD) Af Amer 47 L, Est GFR (MDRD) Non-Af 39 L, BUN/Creatinine Ratio 27.0 H, Glucose 366 H, Calcium 10.7 H 05/24/22 08:51: POC Glucose 353 H 05/24/22 10:44: POC Glucose 359 H Cardiology Labs/Tests 05/24/22 05:10: WBC 1.9 L, RBC 2.53 L, Hgb 7.2 L, Hct 22.8 L, MCV 90.1, MCH 28.5, MCHC 31.6 L, Plt Count 60 L, MPV 11.4, Immature Gran % (Auto) 0.500, Neut % (Auto) 71.1 H, Lymph % (Auto) 22.6, [place] % (Auto) 4.7, Eos % (Auto) 1.1, Baso % (Auto) 0.0, Absolute Neuts (auto) 1.4 L, Nucleated RBC % 0 05/24/22 05:10: Sodium 133 L, Potassium 3.4 L, Chloride 102, Carbon Dioxide 23.0, Anion Gap 8, BUN 50 H, Creatinine 1.85 H, Est GFR (MDRD) Af Amer 47 L, Est GFR (MDRD) Non-Af 39 L, BUN/Creatinine Ratio 27.0 H, Glucose 366 H, Calcium 10.7 H Rhythm: EKG: ECHO: Stress Test: Cardiac Cath: PCI: CT Surgery: Holter monitor: EPS: PPM: CXR: Chest CT Scan:
--- NOTE | 2022-05-24 14:41 | PN.HOSP_ITS ---
Subjective Subjective Family at bedside and they were updated with regards to current thoughts and plan of care. Patient developed A. fib with RVR overnight however it appears he is now in normal sinus rhythm after being started on amiodarone drip. Anticoagulation is contraindicated based on platelet count and hemoglobin levels. Cardiology has been consulted. Mental status seems better to family and to me however still remains not at baseline. Current thought is that his mental status issues are related to hypercalcemia which seems to be improving. It is felt that this may be related to granulomatous disease as he has had pr evious granulomatous infiltration on lung biopsy. Objective Data Objective Data Vital Signs: Vital Signs Temp Pulse Resp BP Pulse Ox O2 Del Method O2 Flow Rate 96.8 F L 62 18 114/46 L 96 Room Air 3 05/24/22 12:41 05/24/22 12:41 05/24/22 12:41 05/24/22 12:41 05/24/22 12:41 05/24/22 14:00 05/24/22 10:00 FiO2 21 05/24/22 10:00 Oxygen Flow Rate (L/min) 3 Oxygen Delivery Method Room Air Weight: 156.7 kg Body Mass Index (BMI) 44.3 Intake & Output: Intake and Output for Last 24 Hours 05/22/22 05/23/22 05/24/22 23:59 23:59 23:59 Intake Total 1259.1667 / 2192.9167 3422.50 / 3422.50 1741.63 / 1741.63 Output Total 1950 / 1950 1200 / 1400 500 / 500 Balance -690.8333 / 242.9167 2222.50 / 2022.50 1241.63 / 1241.63 Lab / Micro Data Result Diagrams: 05/24/22 05:10 05/24/22 05:10 Labs: Laboratory Results - last 24 hr 05/23/22 16:29: POC Glucose 363 H 05/23/22 21:06: POC Glucose 299 H 05/24/22 05:10: Miscellaneous Test Cancelled 05/24/22 05:10: WBC 1.9 L, RBC 2.53 L, Hgb 7.2 L, Hct 22.8 L, MCV 90.1, MCH 28.5, MCHC 31.6 L, RDW Std Deviation 56.0 H, RDW Coeff of Juliet 17.2 H, Plt Count 60 L, MPV 11.4, Immature Gran % (Auto) 0.500, Neut % (Auto) 71.1 H, Lymph % (Auto) 22.6, [place] % (Auto) 4.7, Eos % (Auto) 1.1, Baso % (Auto) 0.0, Absolute Neuts (auto) 1.4 L, Absolute Lymphs (auto) 0.43 L, Nucleated RBC % 0, Differential Comment SCANNED, Diff Path Review November foll, Platelet Estimate MOD 05/24/22 05:10: Sodium 133 L, Potassium 3.4 L, Chloride 102, Carbon Dioxide 23.0, Anion Gap 8, BUN 50 H, Creatinine 1.85 H, Estim Creat Clear Calc 43.82, Est GFR (MDRD) Af Amer 47 L, Est GFR (MDRD) Non-Af 39 L, BUN/Creatinine Ratio 27.0 H, Glucose 366 H, Calcium 10.7 H 05/24/22 08:51: POC Glucose 353 H 05/24/22 10:44: POC Glucose 359 H Micro: Microbiology 05/20/22 11:24 Blood Culture (Wb) - Right Hand Blood Culture - Preliminary No growth in 48 hours. 05/20/22 11:13 Blood Culture (Wb) - Anticubital Right Blood Culture - Preliminary No growth in 48 hours. 05/19/22 00:39 Urine, Clean Catch Urine Culture - Final Mixed Gram Positive Organisms 05/18/22 16:45 Stool Stool Occult Blood (BASHIR) - Final Occult Blood Positive Physical Exam Const alert, no apparent distress and well nourished Constitutional Narrative: Very pleasant, morbidly obese, upper middle-aged white male sitting up in bed, patient appears nontoxic and comfortable at this time, family at bedside and feel that his mental status is better today than it has been, disoriented on current place but oriented to self, month, year, and vice president mission integration HEENT head/scalp atraumatic and moist oral mucous membranes HEENT Narrative: Mallampati 3, no thrush Resp normal respiratory effort, no retractions, no use of accessory muscles and clear to auscultation bilaterally Resp Narrative: Diminished diffusely but clear Auscultation: Negative for crackles, rales, rhonchi or wheezes Cardio regular rate, regular rhythm, S1 normal heart sound, S2 normal heart sound, no murmurs, no rub, no gallops and no clicks GI normal to inspection, nondistended, normoactive bowel sounds, soft to palpation and non-tender Extremity Extremity Narrative: 2+ pedal pulses, trace edema in hands and feet bilaterally, no cyanosis or clubbing Skin skin turgor normal, no jaundice, no petechiae and no mottling Skin Narrative: Linear ecchymotic area on upper back left side, skin is pale Neuro oriented x3, CN's II-XII intact bilaterally, moves all extremities and no focal motor deficits Neuro Narrative: Generalized weakness but no focal deficits Speech: speech normal Psych affect normal Psych Narrative: Confusion seems better however not resolved, patient very pleasant Assessment & Plan Assessment/Plan (1) Slurred speech: (2) Pancytopenia: (3) Hypokalemia: (4) Chronic kidney disease: (5) Hypercalcemia: (6) Fever: (7) Toxic metabolic encephalopathy: PLAN: Plan Metabolic/toxic encephalopathy -Suspect related to hypercalcemia -Corrected calcium levels 15.3--> 13.73 in the last 24 hours -Deferred ionized calcium as obtaining this takes approximately 1 week to result -MRA and MRI were negative -Lipids performed and showed total cholesterol of 91/LDL 23/HDL 28 -Aspirin on hold secondary to severe thrombocytopenia/anemia -Continue statin -Echo performed 2021 that shows an EF of 53% and stage II diastolic dysfunction with mild left atrial enlargement -PT/OT following and overall patient did fairly well need some therapy at discharge most likely will be home health -Speech has cleared for diet of regular textures and thin liquids Hypercalcemia -This appears to be new -With previous known lytic lesions -Alk phos within normal limits -Vitamin D level was greater than 60 -PTH is appropriately suppressed at 11.2 -Continue Lasix and add IV fluids - PTHrP, vitamin D 1,25, SPEP and UPEP are all pending -vitamin D 1,25 should be elevated if granulomatous disease present -Pamidronate 60 mg given 1 dose on 05/22/2022 -Calcium level is finally improving with corrected down from 15-13.73 -Status seems to be improving -Suspect granulomatous disease is caused -Fungal pathology has been ordered -If negative will likely have steroids initiated -She will need outpatient follow-up with ID and nephrology at the time of discharge as I suspect lab work will be pending at that time for the above Pancytopenia -2 bone marrow biopsy attempts with no results -Is willing to retry bone marrow biopsy per discussion with nephrology--> ordered however Dr. Horner reports that he is done both bone marrow's and they taps are dry and there is no reason to repeat -Follows with Dr. 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 -Hold on antiplatelet therapy at this time given anemia requiring transfusion and thrombocytopenia Paroxysmal atrial fibrillation -Patient developed A. fib overnight -Patient apparently has previous remote history of atrial fibrillation with no known episodes in between -Amiodarone drip initiated-continue -Cardiology consult is pending -Anticoagulation is contraindicated with thrombocytopenia and anemia as well as ongoing intermittent nosebleeds -Continue aspirin alone for now Nasal bleeding -CT of the sinuses and nasopharynx was normal with no masses -We will refer to ENT for possible cauterization as an outpatient after discharge CKD stage IIIb -Slight trend up and serum creatinine -Continue Lasix per nephrology orders/continue fluids as nephrology -Entresto is on hold -Avoid nephrotoxins as able -Nephrology following Hypokalemia -Repeat is 3.4 today -P.o. 40 medical events given -Recheck in a.m. DM-2 -Hold home oral agents -Fasting blood sugar remains elevated at 33 increase Lantus from 16 units to 22 units -Sliding scale insulin -Accu-Cheks as ordered -Most recent hemoglobin A1c from 04/04/2022 was 7 indicating adequate control -Unclear why blood sugars are so elevated at this time Nonobstructive cardiomyopathy/HFpEF -Currently compensated -Continue carvedilol -Aspirin on hold secondary to the above -Continue Lasix -Entresto on hold Wu -Possible F3 fibrosis on elastography -Liver ultrasound previously reported fatty infiltration with hepatomegaly -CT-guided biopsy 2021 with focal macrovesicular steatosis -No cirrhosis noted at this time -Continue to follow with gastroenterology Fall -No severe injury -Complaining of left knee pain -Imaging with no acute fracture History of gout -Continue ursodiol Vitamin D deficiency -Vitamin D level is normal -Most recent one documented in the computer was 21.6 from 09/25/2021 Fibromyalgia -No current acute issues Essential tremor/myoclonus -Continue outpatient follow-up with neurology KADE -Nocturnal CPAP ordered -Family to bring in home unit but will need one of our masks Hypertension -Continue home carvedilol -Continue Entresto Hyperlipidemia -Continue home simvastatin Chronic dyspnea -Likely multifactorial -We will monitor for oxygen needs at discharge with ambulation Debility -Patient will need placement at discharge -PT and OT to continue to follow -Management following and discharge planning for placement in progress Morbid obesity -BMI 44.4 -Recommend weight loss -Complicates treatment, prognosis, outcomes DVT prophylaxis -SCDs -No chemoprophylaxis with severe thrombocytopenia CODE STATUS -Full code Charges/Coding Visit Charges Inpatient E&M: 24585 Subs Hosp L2
--- NOTE | 2022-05-24 14:49 | CASEMGMT ---
SW spoke with patient's daughter and gave her information on [facility] transportation van per her request. Ramona GILMORE
[2022-05-24 16:50] LABS: Bedside Glucose 271 mg/dL (74-106)
[2022-05-24] MEDS: Insulin Glargine-YFGN 100 UNIT/ML Pen 25 UNIT SC (21:53)
[2022-05-24] MEDS: Atorvastatin Calcium 80 MG Tablet PO (21:54)
[2022-05-24] MEDS: Carvedilol 6.25 MG Tablet PO (22:01)
[2022-05-24] MEDS: Senna/Docusate Sodium 1 Tablet 2 TABLET PO (22:13)
[2022-05-24 22:16] LABS: Bedside Glucose 267 mg/dL (74-106)
[2022-05-25] VITALS (21 sets, daily range): BP systolic 82–149; BP diastolic 38–66; PULSE 59–70; RESP 16–25; TEMP 36.3–37.2; O2SAT 93–100
[2022-05-25] MEDS: 0.9% Normal Saline 1,000 ML 75 ML IV ×2 (00:19→14:24)
--- NOTE | 2022-05-25 01:05 | CPS ---
pt placed on own bipap unit with 2 l/m o2 bleed in
[2022-05-25] MEDS: 0.9% Saline Lock 10 ML Syringe IV ×3 (02:32→12:08)
[2022-05-25 06:21] LABS: Absolute Neutrophil Count 0.8 X10^3/uL (2.0-7.7); Eosinophil# 0.01 X10^3/uL; Eosinophils% 0.8 % (0-5); Hematocrit 17.7 % (40-54); Hemoglobin 5.9 g/dL (13.0-16.5); Lymphocyte % 30.3 % (19-41); Mean Corp Hgb Conc 33.3 g/dL (32-36); Mean Corpuscular Hgb 29.8 pg (27.0-32.0); Mean Corpuscular Volume 89.4 fL (80-94); Mean Platelet Vol. 12.1 fl (6.2-12.0); Monocyte# 0.06 X10^3/uL; Monocyte% 4.5 % (0-10); NRBC Flagged by Analyzer 0 % (0-5); Neutrophil # 0.84 X10^3/uL (2.7-7.7); Neutrophil % 63.6 % (47-70); POSITIVE COUNT YES; POSITIVE DIFFERENTIAL YES; POSITIVE MORPHOLOGY YES; Platelet Count 47 K/mm3 (150-450); RBC Distribution Width CV 17.6 % (11.6-14.6); RBC Distribution Width SD 56.7 fl (35.1-43.9); Red Blood Count 1.98 M/mm3 (4.6-6.2); White Blood Count 1.3 K/mm3 (4.4-11.0)
[2022-05-25 06:30] LABS: Differential Indicated SCAN CRITERIA MET
[2022-05-25 06:46] LABS: Anion Gap 6 (5-15); BUN 44 mg/dL (7-18); BUN/Creat Ratio 27.3 RATIO (10-20); Calcium,Total 8.9 mg/dL (8.5-10.1); Chloride 104 mmol/L (98-107); Creatinine, Serum 1.61 mg/dL (0.70-1.30); EST Glomerular Filtration Rate 45 mL/min (>60); Est Glom Filt Rate - Afr Amer 55 mL/min (>60); Estimated Creatinine Clearance 50.35 ml/min; Glucose 301 mg/dL (74-106); Potassium 3.2 mmol/L (3.5-5.1); Sodium Level 134 mmol/L (136-145)
[2022-05-25 07:06] LABS: Anisocytosis 1+; Platelet Estimate MKD DEC (ADEQ)
--- NOTE | 2022-05-25 07:58 | PN.HOSP_ITS ---
Subjective Subjective Follow-up for multiple acute issues including pancytopenia, kidney dysfunction, A. fib, low physical function capacity Patient is very weak lethargic. No fever or chills. Heart rate and blood pressure controlled. Patient still has very low cell counts on all 3 cell lines Objective Data Objective Data Vital Signs: Vital Signs Temp Pulse Resp BP Pulse Ox O2 Del Method O2 Flow Rate 98.5 F 70 24 H 120/38 L 94 Room Air 2 05/25/22 04:00 05/25/22 07:01 05/25/22 04:00 05/25/22 04:00 05/25/22 07:11 05/25/22 07:11 05/25/22 04:00 FiO2 21 05/24/22 17:35 Oxygen Flow Rate (L/min) 2 Oxygen Delivery Method Room Air Weight: 345 lb 7.43 oz Body Mass Index (BMI) 44.3 Intake & Output: Intake and Output for Last 24 Hours 05/23/22 05/24/22 05/25/22 23:59 23:59 23:59 Intake Total 3422.50 / 3422.50 1910.72 / 2227.42 1350.1 / 1350.1 Output Total 1200 / 1400 500 / 500 Balance 2222.50 / 2022.50 1410.72 / 1727.42 1350.1 / 1350.1 Lab / Micro Data Result Diagrams: 05/25/22 13:10 05/25/22 05:40 Labs: Laboratory Results - last 24 hr 05/24/22 05:10: Miscellaneous Test Cancelled 05/24/22 08:51: POC Glucose 353 H 05/24/22 10:44: POC Glucose 359 H 05/24/22 16:25: POC Glucose 271 H 05/24/22 21:51: POC Glucose 267 H 05/25/22 05:40: WBC 1.3 L*, RBC 1.98 L, Hgb 5.9 L*, Hct 17.7 L, MCV 89.4, MCH 29.8, MCHC 33.3 D, RDW Std Deviation 56.7 H, RDW Coeff of Juliet 17.6 H, Plt Count 47 L*, MPV 12.1 H, Immature Gran % (Auto) 0.800, Neut % (Auto) 63.6, Lymph % (Auto) 30.3, [place] % (Auto) 4.5, Eos % (Auto) 0.8, Baso % (Auto) 0.0, Absolute Neuts (auto) 0.8 L, Absolute Lymphs (auto) 0.40 L, Nucleated RBC % 0, Diff Path Review May foll, Platelet Estimate MKD DEC, Anisocytosis 1+ 05/25/22 05:40: Sodium 134 L, Potassium 3.2 L, Chloride 104, Carbon Dioxide 24.0 , Anion Gap 6, BUN 44 H, Creatinine 1.61 H, Estim Creat Clear Calc 50.35, Est GFR (MDRD) Af Amer 55 L, Est GFR (MDRD) Non-Af 45 L, BUN/Creatinine Ratio 27.3 H , Glucose 301 H, Calcium 8.9 05/25/22 06:55: Crossmatch See Detail Micro: Microbiology 05/20/22 11:24 Blood Culture (Wb) - Right Hand Blood Culture - Preliminary No growth in 48 hours. 05/20/22 11:13 Blood Culture (Wb) - Anticubital Right Blood Culture - Preliminary No growth in 48 hours. 05/19/22 00:39 Urine, Clean Catch Urine Culture - Final Mixed Gram Positive Organisms 05/18/22 16:45 Stool Stool Occult Blood (BASHIR) - Final Occult Blood Positive Physical Exam Narrative General: Awake, Oriented x3, Cooperative, morbid recently BMI 44.4 kg/m? HEENT: Atraumatic, PERRLA, EOMI, Normocephalic. Chronic dizziness and vertigo Oral: Oral mucosa dry. No Gingival or Mucosal Lesions/ Ulcerations Neck: Supple, No JVD, Negative Carotid Bruits Lungs: Air entry diminished in bilateral lung bases. No crepitation/rhonchi Cardiovascular: Regular rate, Regular Rhythm, Normal S1, Normal S2, grade 3/6 LLSB systolic murmur Abdomen: Bowel Sounds Present, Soft, Non Tender, Non-Distended : Large urinary incontinence, spontaneously voiding. No renal angle or suprapubic tenderness. Extremities: No edema, Capillary Refill Less than 3 Seconds Skin: No rashes, No breakdown Musculoskeletal: No Tenderness to Palpation of Joints or Extremities. Muscle strength 4/5 at major joints. Neurological: Chronic polyneuropathy. Cranial nerves II-XII grossly intact, DTR 2+/4. Psych/Mental Status: Flat affect. Assessment & Plan Assessment/Plan (1) Pancytopenia: (2) Hypokalemia: (3) Chronic kidney disease: (4) Hypercalcemia: (5) Toxic metabolic encephalopathy: PLAN: Plan This is a 71-year-old question gentleman is admitted for work-up for TIA and severe pancytopenia predominantly anemia 1.? Pancytopenia with predominant anemia: Patient is being admitted in PCU on cardiac telemetry.? H&H 6.2/20.7%.? 2 units of PRBC type and crossmatch and transfuse 1 unit today.? Monitor CBC tomorrow and decide about second unit.? Patient has been transfused 3 units in the last 3 weeks recently. The patient is willing to try the third bone marrow biopsy but Dr. Oliva said no reason to repeat as prior to bone marrow were dry tap. 05/25: Hemoglobin 5.9/27.7, platelet count 47,000. WBC count 1.3 thousand, ANC 0.8 thousand, ALC 0.4 thousand. Anisocytosis 1+. Patient had total of 4 units PRBC transfusion till now during this admission Patient had repeat EGD on 05/21 noted old blood in nasopharynx and oropharynx, some mild esophagitis distally, angiodysplastic lesions stomach, noted to be bleeding and was hemostasis was done. Does not require platelet transfusion. Microbiology Past 72 Hours 05/20/22 11:13 Blood Culture (Wb) - Anticubital Right Blood Culture - Final No growth in 5 days. 05/20/22 11:24 Blood Culture (Wb) - Right Hand Blood Culture - Final No growth in 5 days. Laboratory Results 05/24/22 16:25: POC Glucose 271 H 05/24/22 21:51: POC Glucose 267 H 05/25/22 05:40: WBC 1.3 L*, RBC 1.98 L, Hgb 5.9 L*, Hct 17.7 L, MCV 89.4, MCH 29.8, MCHC 33.3 D, RDW Std Deviation 56.7 H, RDW Coeff of Juliet 17.6 H, Plt Count 47 L*, MPV 12.1 H, Immature Gran % (Auto) 0.800, Neut % (Auto) 63.6, Lymph % (Auto) 30.3, [place] % (Auto) 4.5, Eos % (Auto) 0.8, Baso % (Auto) 0.0, Absolute Neuts (auto) 0.8 L, Absolute Lymphs (auto) 0.40 L, Nucleated RBC % 0, Diff Path Review May foll, Platelet Estimate MKD DEC, Anisocytosis 1+ 05/25/22 05:40: Sodium 134 L, Potassium 3.2 L, Chloride 104, Carbon Dioxide 24.0, Anion Gap 6, BUN 44 H, Creatinine 1.61 H, Estim Creat Clear Calc 50.35, Est GFR (MDRD) Af Amer 55 L, Est GFR (MDRD) Non-Af 45 L, BUN/Creatinine Ratio 27.3 H, Glucose 301 H, Calcium 8.9 05/25/22 06:55: Blood Type O POSITIVE, Antibody Screen NEGATIVE, Crossmatch See Detail 05/25/22 08:28: POC Glucose 282 H 05/25/22 11:24: POC Glucose 301 H 05/25/22 13:10: Hgb 6.9 L, Hct 21.4 L 2. Metabolic/toxic encephalopathy suspected to be due to hypercalcemia: Serum calcium level of 8.9. -MRA and MRI were negative -Lipids performed and showed total cholesterol of 91/LDL 23/HDL 28 -Aspirin on hold secondary to severe thrombocytopenia/anemia -Continue statin -Echo performed 2021 that shows an EF of 53% and stage II diastolic dysfunction with mild left atrial enlargement -PT/OT following and overall patient did fairly well need some therapy at discharge most likely will be home health -Speech has cleared for diet of regular textures and thin liquids 3. Hypercalcemia -This appears to be new -With previous known lytic lesions -Alk phos within normal limits -Vitamin D level was greater than 60 -PTH is appropriately suppressed at 11.2 -Continue Lasix and add IV fluids - PTHrP, vitamin D 1,25, SPEP and UPEP are all pending -vitamin D 1,25 should be elevated if granulomatous disease present -Pamidronate 60 mg given 1 dose on 05/22/2022 -Calcium level is finally improving with corrected down from 15-13.73 -Status seems to be improving 4. 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 Fungal and AFB work-up was ordered. Histo antibody antigen Bartonella antibodies TB Ig and fungal immunodiffusion panel and Aspergillus antibodies. Being comanaged with ID. Paroxysmal atrial fibrillation: As per daughter, patient was sinus rhythm for long time and then in A. fib. The patient was on amiodarone drip, changed to amiodarone oral 200 mg daily. Converted to sinus rhythm. Carvedilol 6.25 mg p.o. twice daily. Due to pancytopenia. High risk for bleeding and contraindication for anticoagulant. Nasal bleeding -CT of the sinuses and nasopharynx was normal with no masses -We will refer to ENT for possible cauterization as an outpatient after discharge CKD stage IIIb -Slight trend up and serum creatinine -Continue Lasix per nephrology orders/continue fluids as nephrology -Entresto is on hold -Avoid nephrotoxins as able -Nephrology following Hypokalemia -Repeat K3.2. Mild hyponatremia. Spironolactone added. DM-2 -Hold home oral agents -Fasting blood sugar remains elevated at 33 increase Lantus from 16 units to 22 units -Sliding scale insulin -Accu-Cheks as ordered -Most recent hemoglobin A1c from 04/04/2022 was 7 indicating adequate control -Unclear why blood sugars are so elevated at this time Nonobstructive cardiomyopathy/HFpEF -Currently compensated -Continue carvedilol -Aspirin on hold secondary to the above -Continue Lasix. 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 -Liver ultrasound previously reported fatty infiltration with hepatomegaly -CT-guided biopsy 2021 with focal macrovesicular steatosis -No cirrhosis noted at this time -Continue to follow with gastroenterology Fall -No severe injury -Complaining of left knee pain -Imaging with no acute fracture History of gout -Continue ursodiol Vitamin D deficiency -Vitamin D level is normal -Most recent one documented in the computer was 21.6 from 09/25/2021 Fibromyalgia -No current acute issues Essential tremor/myoclonus -Continue outpatient follow-up with neurology KADE -Nocturnal CPAP ordered -Family to bring in home unit but will need one of our masks Hypertension -Continue home carvedilol -Continue Entresto Hyperlipidemia -Continue home simvastatin Chronic dyspnea -Likely multifactorial -We will monitor for oxygen needs at discharge with ambulation Debility -Patient will need placement at discharge -PT and OT to continue to follow -Management following and discharge planning for placement in progress Morbid obesity -BMI 44.4 -Recommend weight loss -Complicates treatment, prognosis, outcomes DVT prophylaxis -SCDs -No chemoprophylaxis with severe thrombocytopenia CODE STATUS -Full code Total time of the visit including total time spent in counseling or coordination of care, (more than 50% of the total time, spent in obtaining medical informat ion from nurses and other ancillary care providers,explaining to the patient about labs, imaging, diagnosis and management of active complex medical conditions), discussion with consultants, review of labs and imaging, clinical update given to patient's daughter and near the bedside is 40 minutes. Charges/Coding Visit Charges Inpatient E&M: 32712 Subs Hosp L3
[2022-05-25] MEDS: Insulin Lispro 100 UNIT/ML INSULN.PEN 8 UNIT SC ×3 (08:31→17:19)
[2022-05-25] MEDS: Insulin Lispro 100 UNIT/ML INSULN.PEN SC ×4 (08:32→22:18)
[2022-05-25] MEDS: Vitamin E 400 UNITS Capsule PO (08:34)
[2022-05-25] MEDS: Amiodarone 200 MG Tablet PO (08:34)
[2022-05-25] MEDS: Multivitamins,Therapeutic Tablet 1 TABLET PO (08:34)
[2022-05-25 09:00] LABS: Bedside Glucose 282 mg/dL (74-106)
--- NOTE | 2022-05-25 09:39 | CASEMGMT ---
Discharge Staker Surveying This property underwriter called [facility] about when pre-cert expires. Pre-cert expires today. CATHRYN Greene notified. Sade AVERY Biological Lab Technician
[2022-05-25] MEDS: Carvedilol 6.25 MG Tablet PO ×2 (09:54→22:20)
[2022-05-25] MEDS: Magnesium Chloride 64 MG Delay Rel.Tablet 128 MG PO (09:55)
[2022-05-25] MEDS: Furosemide 40 MG Tablet PO (09:55)
[2022-05-25] MEDS: Ursodiol 250 MG Tablet PO ×2 (09:55→22:20)
--- NOTE | 2022-05-25 10:11 | CASEMGMT ---
Addendum entered by Sana Johnson 05/25/22 13:35: Discharge Rail Layer This aligner typewriter called Neeru at [facility] to tell her patient will be staying over weekend. Neeru stated we need a new pre-cert. If ready Saturday this aligner typewriter will call on Saturday to have [facility] start a new pre-cert. Sade AVERY Chief Safety Officer Original Note: Discharge Rail Layer Neeru from [facility] called. Pre-cert is actually good thru tomorrow. Neeru stated that if patient were to come tomorrow 05/26/2022 the patient would need to be at [facility] by 1:00pm or the facility can't take patient. CATHRYN Greene notified. Sade AVERY Chief Safety Officer
[2022-05-25] MEDS: Acetaminophen 325 MG Tablet 650 MG PO (11:18)
[2022-05-25] MEDS: Insulin Glargine-YFGN 100 UNIT/ML Pen 25 UNIT SC ×2 (11:26→22:19)
[2022-05-25 11:51] LABS: Bedside Glucose 301 mg/dL (74-106)
[2022-05-25] MEDS: Spironolactone 25 MG Tablet PO (12:07)
[2022-05-25 13:17] LABS: Hematocrit 21.4 % (40-54); Hemoglobin 6.9 g/dL (13.0-16.5)
--- NOTE | 2022-05-25 13:27 | PN.CARD_ITS ---
Subjective Subjective Denies any cardiac complaints. Continues to remain in sinus rhythm Objective Data Vital Signs: Vital Signs Temp Pulse Resp BP Pulse Ox O2 Del Method O2 Flow Rate 98.1 F 60 18 125/43 H 96 Room Air 2 05/25/22 11:52 05/25/22 11:52 05/25/22 11:52 05/25/22 11:52 05/25/22 11:52 05/25/22 11:52 05/25/22 04:00 FiO2 21 05/24/22 17:35 Oxygen Flow Rate (L/min) 2 Oxygen Delivery Method Room Air Weight: 345 lb 7.43 oz Body Mass Index (BMI) 44.3 Intake & Output: Intake and Output for Last 24 Hours 05/23/22 05/24/22 05/25/22 23:59 23:59 23:59 Intake Total 3422.50 / 3422.50 1910.72 / 2227.42 2150.1 / 2150.1 Output Total 1200 / 1400 500 / 500 300 / 300 Balance 2222.50 / 2022.50 1410.72 / 1727.42 1850.1 / 1850.1 Lab / Micro Data Result Diagrams: 05/25/22 13:10 05/25/22 05:40 Labs: Laboratory Results - last 24 hr 05/24/22 16:25: POC Glucose 271 H 05/24/22 21:51: POC Glucose 267 H 05/25/22 05:40: WBC 1.3 L*, RBC 1.98 L, Hgb 5.9 L*, Hct 17.7 L, MCV 89.4, MCH 29.8, MCHC 33.3 D, RDW Std Deviation 56.7 H, RDW Coeff of Juliet 17.6 H, Plt Count 47 L*, MPV 12.1 H, Immature Gran % (Auto) 0.800, Neut % (Auto) 63.6, Lymph % (Auto) 30.3, [place] % (Auto) 4.5, Eos % (Auto) 0.8, Baso % (Auto) 0.0, Absolute Neuts (auto) 0.8 L, Absolute Lymphs (auto) 0.40 L, Nucleated RBC % 0, Diff Path Review May foll, Platelet Estimate MKD DEC, Anisocytosis 1+ 05/25/22 05:40: Sodium 134 L, Potassium 3.2 L, Chloride 104, Carbon Dioxide 24.0, Anion Gap 6, BUN 44 H, Creatinine 1.61 H, Estim Creat Clear Calc 50.35, Est GFR (MDRD) Af Amer 55 L, Est GFR (MDRD) Non-Af 45 L, BUN/Creatinine Ratio 27.3 H, Glucose 301 H, Calcium 8.9 05/25/22 06:55: Blood Type O POSITIVE, Antibody Screen NEGATIVE, Crossmatch See Detail 05/25/22 08:28: POC Glucose 282 H 05/25/22 11:24: POC Glucose 301 H 05/25/22 13:10: Hgb 6.9 L, Hct 21.4 L Cardiology Labs/Tests 05/25/22 05:40: WBC 1.3 L*, RBC 1.98 L, Hgb 5.9 L*, Hct 17.7 L, MCV 89.4, MCH 29.8, MCHC 33.3 D, Plt Count 47 L*, MPV 12.1 H, Immature Gran % (Auto) 0.800, Neut % (Auto) 63.6, Lymph % (Auto) 30.3, [place] % (Auto) 4.5, Eos % (Auto) 0.8, Baso % (Auto) 0.0, Absolute Neuts (auto) 0.8 L, Nucleated RBC % 0 05/25/22 05:40: Sodium 134 L, Potassium 3.2 L, Chloride 104, Carbon Dioxide 24.0, Anion Gap 6, BUN 44 H, Creatinine 1.61 H, Est GFR (MDRD) Af Amer 55 L, Est GFR (MDRD) Non-Af 45 L, BUN/Creatinine Ratio 27.3 H, Glucose 301 H, Calcium 8.9 05/25/22 13:10: Hgb 6.9 L, Hct 21.4 L Rhythm: EKG: ECHO: Stress Test: Cardiac Cath: PCI: CT Surgery: Holter monitor: EPS: PPM: CXR: Chest CT Scan: Physical Exam Const alert and oriented x3 HEENT normocephalic Eyes no scleral icterus Resp normal respiratory effort Cardio regular rate Extremity no pedal edema Psych mental status grossly normal Assessment & Plan Assessment/Plan (1) Atrial fibrillation: PLAN: Converted to sinus rhythm. Restart carvedilol 6.25 mg p.o. twice daily. Continue 200 mg p.o. daily of p.o. amiodarone. Based on [id number] score patient would qualify for anticoagulation with one of the newer oral anticoagulants or Coumadin. Unfortunately he has other medical issues which could limit our ability to anticoagulate him or even give him aspirin. Patient has pancytopenia and was found to have bleeding angiodysplastic lesions in the s tomach. The final decision regarding anticoagulation/antiplatelet therapy will be up to the primary team after discussing with GI and heme-onc service to see if it is okay from their standpoint for him to be on anticoagulation (preferred) or at least antiplatelet therapy with either aspirin or Plavix. We will sign off at this time. If we can be of any further assistance please let us know. (2) Non-ischemic cardiomyopathy: PLAN: Continue carvedilol. Entresto appears to be on hold due to acute kidney injury. Please restart Entresto when okay with renal service. Charges/Coding Visit Charges Inpatient E&M: 47332 Subs Hosp L2
--- NOTE | 2022-05-25 14:29 | PN.RENAL_ITS ---
Subjective Subjective no new events Objective Data Objective Data Vital Signs: Vital Signs Temp Pulse Resp BP Pulse Ox O2 Del Method O2 Flow Rate 98.1 F 60 18 125/43 H 96 Room Air 2 05/25/22 11:52 05/25/22 11:52 05/25/22 11:52 05/25/22 11:52 05/25/22 11:52 05/25/22 11:52 05/25/22 04:00 FiO2 21 05/24/22 17:35 Oxygen Flow Rate (L/min) 2 Oxygen Delivery Method Room Air Weight: 156.7 kg Body Mass Index (BMI) 44.3 Intake & Output: Intake and Output for Last 24 Hours 05/23/22 05/24/22 05/25/22 23:59 23:59 23:59 Intake Total 3422.50 / 3422.50 1910.72 / 2227.42 3150.1 / 3150.1 Output Total 1200 / 1400 500 / 500 300 / 300 Balance 2222.50 / 2022.50 1410.72 / 1727.42 2850.1 / 2850.1 Lab / Micro Data Result Diagrams: 05/25/22 13:10 05/25/22 05:40 Labs: Laboratory Results - last 24 hr 05/24/22 16:25: POC Glucose 271 H 05/24/22 21:51: POC Glucose 267 H 05/25/22 05:40: WBC 1.3 L*, RBC 1.98 L, Hgb 5.9 L*, Hct 17.7 L, MCV 89.4, MCH 29.8, MCHC 33.3 D, RDW Std Deviation 56.7 H, RDW Coeff of Juliet 17.6 H, Plt Count 47 L*, MPV 12.1 H, Immature Gran % (Auto) 0.800, Neut % (Auto) 63.6, Lymph % (Auto) 30.3, [place] % (Auto) 4.5, Eos % (Auto) 0.8, Baso % (Auto) 0.0, Absolute Ne uts (auto) 0.8 L, Absolute Lymphs (auto) 0.40 L, Nucleated RBC % 0, Diff Path Review May foll, Platelet Estimate MKD DEC, Anisocytosis 1+ 05/25/22 05:40: Sodium 134 L, Potassium 3.2 L, Chloride 104, Carbon Dioxide 24.0, Anion Gap 6, BUN 44 H, Creatinine 1.61 H, Estim Creat Clear Calc 50.35, Est GFR (MDRD) Af Amer 55 L, Est GFR (MDRD) Non-Af 45 L, BUN/Creatinine Ratio 27.3 H, Glucose 301 H, Calcium 8.9 05/25/22 06:55: Blood Type O POSITIVE, Antibody Screen NEGATIVE, Crossmatch See Detail 05/25/22 08:28: POC Glucose 282 H 05/25/22 11:24: POC Glucose 301 H 05/25/22 13:10: Hgb 6.9 L, Hct 21.4 L Micro: Microbiology 05/20/22 11:13 Blood Culture (Wb) - Anticubital Right Blood Culture - Final No growth in 5 days. 05/20/22 11:24 Blood Culture (Wb) - Right Hand Blood Culture - Final No growth in 5 days. 05/19/22 00:39 Urine, Clean Catch Urine Culture - Final Mixed Gram Positive Organisms 05/18/22 16:45 Stool Stool Occult Blood (BASHIR) - Final Occult Blood Positive Physical Exam Narrative Alert awake oriented x 3 no obvious distress no pallor no icterus no JVD s1s2 no murmurs lungs clear abdomen soft no organomegaly no edema no cyanosis Assessment & Plan Assessment/Plan (1) Hypercalcemia: PLAN: Corrected calcium is 13.5-14. Phosphate normal. PTH appropriately suppressed. PTH RP is pending. 25-hydroxy vitamin D is normal. 1, 25 hydroxy vitamin D is pending. He does have evidence of granulomatous infiltrate on the lung biopsy. Most likely hypercalcemia is mediated by granulomatous condition. He also has extensive osteolytic lesions. Myeloma work-up is not impressive so far. Due to inability to obtain a bone marrow sample, conclusive myeloma diagnosis has not been possible. He does have pancytopenia. This case was discussed in myeloma conference at [facility]. Due to lack of bone marrow, chemotherapy was not advised. Will be somewhat atypical for sarcoidosis to cause pancytopenia and osteolytic lesions. I think fungal infection needs to be ruled out. ID on consult calcium better BP is ok dc fluids Hesitant to add steroids due to suspected fungal infections. (2) Chronic kidney disease: PLAN: Likely mediated by hypercalcemia. Previous abdominal imaging without any hydronephrosis. Urine analysis does show some glycosuria.
[2022-05-25 15:45] LABS: Pathologist Review Reviewed
[2022-05-25 17:25] LABS: Bedside Glucose 212 mg/dL (74-106)
[2022-05-25] MEDS: Atorvastatin Calcium 80 MG Tablet PO (22:19)
[2022-05-25 23:55] LABS: Bedside Glucose 181 mg/dL (74-106)
[2022-05-26] VITALS (17 sets, daily range): BP systolic 113–142; BP diastolic 46–55; PULSE 61–67; RESP 18–20; TEMP 36.2–36.9; O2SAT 93–100
[2022-05-26] MEDS: 0.9% Normal Saline 1,000 ML 75 ML IV ×2 (03:28→18:57)
[2022-05-26 05:55] LABS: Absolute Lymphocyte Count 0.48 X10^3/uL (0.83-4.51); Absolute Neutrophil Count 0.9 X10^3/uL (2.0-7.7); Eosinophil# 0.02 X10^3/uL; Eosinophils% 1.4 % (0-5); Hematocrit 20.4 % (40-54); Hemoglobin 6.4 g/dL (13.0-16.5); Lymphocyte # 0.48 X10^3/ul (0.83-4.51); Lymphocyte % 32.7 % (19-41); Mean Corp Hgb Conc 31.4 g/dL (32-36); Mean Corpuscular Hgb 28.8 pg (27.0-32.0); Mean Corpuscular Volume 91.9 fL (80-94); Mean Platelet Vol. 10.4 fl (6.2-12.0); Monocyte# 0.09 X10^3/uL; Monocyte% 6.1 % (0-10); NRBC Flagged by Analyzer 0 % (0-5); Neutrophil # 0.85 X10^3/uL (2.7-7.7); Neutrophil % 57.8 % (47-70); POSITIVE COUNT YES; POSITIVE DIFFERENTIAL YES; POSITIVE MORPHOLOGY YES; Platelet Count 50 K/mm3 (150-450); RBC Distribution Width CV 17.5 % (11.6-14.6); Red Blood Count 2.22 M/mm3 (4.6-6.2); White Blood Count 1.5 K/mm3 (4.4-11.0)
[2022-05-26 06:12] LABS: Differential Indicated SCAN CRITERIA MET
[2022-05-26 06:35] LABS: ALB/GLOB Ratio 0.3 RATIO (0.9-2.4); AST(SGOT) 26 U/L (15-37); Alanine Aminotransfer ALT/SGPT 19 U/L (16-61); Albumin, Serum 1.5 g/dL (3.2-5.0); Alkaline Phosphatase 76 U/L (45-117); Anion Gap 5 (5-15); BUN 28 mg/dL (7-18); BUN/Creat Ratio 20.3 RATIO (10-20); Calcium,Total 8.2 mg/dL (8.5-10.1); Chloride 109 mmol/L (98-107); Creatinine, Serum 1.38 mg/dL (0.70-1.30); EST Glomerular Filtration Rate 54 mL/min (>60); Est Glom Filt Rate - Afr Amer 66 mL/min (>60); Estimated Creatinine Clearance 58.74 ml/min; Globulin 5.4 g/dL (2.2-4.2); Glucose 206 mg/dL (74-106); Potassium 3.4 mmol/L (3.5-5.1); Protein, Total 6.9 g/dL (6.4-8.2); Sodium Level 136 mmol/L (136-145)
[2022-05-26 06:39] LABS: Differential Comment SCANNED; Hypochromasia 1+
[2022-05-26] MEDS: Insulin Lispro 100 UNIT/ML INSULN.PEN 8 UNIT SC ×3 (08:47→16:59)
[2022-05-26] MEDS: Insulin Lispro 100 UNIT/ML INSULN.PEN SC ×3 (08:47→16:59)
[2022-05-26] MEDS: Vitamin E 400 UNITS Capsule PO (08:50)
[2022-05-26] MEDS: Carvedilol 6.25 MG Tablet PO ×2 (08:50→21:59)
[2022-05-26] MEDS: Furosemide 40 MG Tablet PO (08:50)
[2022-05-26] MEDS: Ursodiol 250 MG Tablet PO ×2 (08:50→22:00)
[2022-05-26] MEDS: Multivitamins,Therapeutic Tablet 1 TABLET PO (08:50)
[2022-05-26] MEDS: Amiodarone 200 MG Tablet PO (08:51)
[2022-05-26] MEDS: Spironolactone 25 MG Tablet PO (08:51)
[2022-05-26 09:47] LABS: Vitamin D 1,25-Dihydroxy 12.4 pg/mL (24.8-81.5)
[2022-05-26 10:01] LABS: Bedside Glucose 206 mg/dL (74-106)
[2022-05-26] MEDS: Magnesium Chloride 64 MG Delay Rel.Tablet 128 MG PO (11:04)
[2022-05-26] MEDS: Insulin Glargine-YFGN 100 UNIT/ML Pen 25 UNIT SC ×2 (12:08→21:59)
[2022-05-26] MEDS: Glucerna Shake 120 ML LIQUID PO (12:13)
[2022-05-26 12:35] LABS: Bedside Glucose 200 mg/dL (74-106)
--- NOTE | 2022-05-26 13:01 | CASEMGMT ---
Social Work Pt is not ready for discharge. Therefore, pt will be here until Saturday as a new precert will need to be attained for pt to go to SNF. The precert expires today. SATINDER Nath
--- NOTE | 2022-05-26 13:11 | CASEMGMT ---
Social Work SW assisted pt in completing POA, pt listed daughter Laurie Choe as POA. Pt declined to complete LW. SATINDER Nath
[2022-05-26 14:40] LABS: Hematocrit 22.3 % (40-54); Hemoglobin 7.2 g/dL (13.0-16.5)
--- NOTE | 2022-05-26 15:10 | PCM.PN.HOSP ---
Subjective Subjective Follow-up for multiple acute medical conditions including pancytopenia, A. fib, low physical functional capacity Not much improvement as compared to yesterday. Still feels weak. Objective Data Objective Data Vital Signs: Vital Signs Temp Pulse Resp BP Pulse Ox O2 Del Method O2 Flow Rate 97.2 F L 64 20 H 130/55 H 95 Nasal Cannula 2 05/26/22 13:28 05/26/22 13:28 05/26/22 13:28 05/26/22 13:28 05/26/22 13:28 05/26/22 14:55 05/26/22 14:55 FiO2 21 05/26/22 11:00 Oxygen Flow Rate (L/min) 2 Oxygen Delivery Method Nasal Cannula Weight: 345 lb 7.43 oz Body Mass Index (BMI) 44.3 Intake & Output: Intake and Output for Last 24 Hours 05/24/22 05/25/22 05/26/22 23:59 23:59 23:59 Intake Total 1910.72 / 2227.42 3770.1 / 3770.1 2455 / 2455 Output Total 500 / 500 1600 / 1600 800 / 800 Balance 1410.72 / 1727.42 2170.1 / 2170.1 1655 / 1655 Lab / Micro Data Result Diagrams: 05/26/22 14:15 05/26/22 05:28 Labs: Laboratory Results - last 24 hr 05/22/22 05:00: Vit D 1,25-Dihydroxy 12.4 L 05/24/22 05:10: Diff Path Review Reviewed 05/25/22 06:55: Crossmatch See Detail 05/25/22 06:55: Crossmatch See Detail 05/25/22 17:05: POC Glucose 212 H 05/25/22 22:14: POC Glucose 181 H 05/26/22 05:28: WBC 1.5 L, RBC 2.22 L, Hgb 6.4 L, Hct 20.4 L, MCV 91.9, MCH 28.8, MCHC 31.4 L D, RDW Std Deviation 58.0 H, RDW Coeff of Juliet 17.5 H, Plt Count 50 L*, MPV 10.4, Immature Gran % (Auto) 2.000 H, Neut % (Auto) 57.8, Lymph % (Auto) 32.7, [place] % (Auto) 6.1, Eos % (Auto) 1.4, Baso % (Auto) 0.0, Absolute Neuts (auto) 0.9 L, Absolute Lymphs (auto) 0.48 L, Nucleated RBC % 0, Differential Comment SCANNED, Diff Path Review May foll, Hypochromasia 1+ 05/26/22 05:28: Sodium 136, Potassium 3.4 L, Chloride 109 H, Carbon Dioxide 22.0, Anion Gap 5, BUN 28 H, Creatinine 1.38 H, Estim Creat Clear Calc 58.74, Est GFR (MDRD) Af Amer 66, Est GFR (MDRD) Non-Af 54 L, BUN/Creatinine Ratio 20.3 H, Glucose 206 H, Calcium 8.2 L, Total Bilirubin 0.40, AST 26, ALT 19, Alkaline Phosphatase 76, Total Protein 6.9, Albumin 1.5 L, Globulin 5.4 H, Albumin/Globulin Ratio 0.3 L 05/26/22 08:43: POC Glucose 206 H 05/26/22 12:04: POC Glucose 200 H 05/26/22 14:15: Hgb 7.2 L, Hct 22.3 L Micro: Microbiology 05/20/22 11:13 Blood Culture (Wb) - Anticubital Right Blood Culture - Final No growth in 5 days. 05/20/22 11:24 Blood Culture (Wb) - Right Hand Blood Culture - Final No growth in 5 days. 05/19/22 00:39 Urine, Clean Catch Urine Culture - Final Mixed Gram Positive Organisms 05/18/22 16:45 Stool Stool Occult Blood (BASHIR) - Final Occult Blood Positive Physical Exam Narrative General: Awake, Oriented x3, Cooperative, morbid recently BMI 44.4 kg/m? HEENT: Atraumatic, PERRLA, EOMI, Normocephalic. Chronic dizziness and vertigo Oral: Oral mucosa dry. No Gingival or Mucosal Lesions/ Ulcerations Neck: Supple, No JVD, Negative Carotid Bruits Lungs: Air entry diminished in bilateral lung bases. No crepitation/rhonchi Cardiovascular: Sinus rhythm, Normal S1, Normal S2, grade 3/6 LLSB systolic murmur Abdomen: Bowel Sounds Present, Soft, Non Tender, Non-Distended : Large urinary incontinence, spontaneously voiding. No renal angle or suprapubic tenderness. Extremities: No edema, Capillary Refill Less than 3 Seconds Skin: No rashes, No breakdown Musculoskeletal: No Tenderness to Palpation of Joints or Extremities. Muscle strength 4/5 at major joints. Neurological: Chronic polyneuropathy. Cranial nerves II-XII grossly intact, DTR 2+/4. Psych/Mental Status: Flat affect. Assessment & Plan Assessment/Plan (1) Pancytopenia: (2) Hypokalemia: (3) Chronic kidney disease: (4) Hypercalcemia: (5) Toxic metabolic encephalopathy: PLAN: Plan This is a 71-year-old question gentleman is admitted for work-up for TIA and severe pancytopenia predominantly anemia 1.? Pancytopenia with predominant anemia: Patient is being admitted in PCU on cardiac telemetry.? H&H 6.2/20.7%.? 2 units of PRBC type and crossmatch and transfuse 1 unit today.? Monitor CBC tomorrow and decide about second unit.? Patient has been transfused 3 units in the last 3 weeks recently. The patient is willing to try the third bone marrow biopsy but Dr. Oliva said no reason to repeat as prior to bone marrow were dry tap. 05/25: Hemoglobin 5.9/27.7, platelet count 47,000. WBC count 1.3 thousand, ANC 0.8 thousand, ALC 0.4 thousand. Anisocytosis 1+. Patient had total of 4 units PRBC transfusion till now during this admission Patient had repeat EGD on 05/21 noted old blood in nasopharynx and oropharynx, some mild esophagitis distally, angiodysplastic lesions stomach, noted to be bleeding and was hemostasis was done. Does not require platelet transfusion. 05/26: H&H 6.4/20.4.. Fluid smear shows moderate thrombocytopenia, leukopenia and normocytic normochromic anemia. Patient does not have chest pain or shortness of breath. We will hold for transfusion. Microbiology Past 72 Hours 05/20/22 11:13 Blood Culture (Wb) - Anticubital Right Blood Culture - Final No growth in 5 days. 05/20/22 11:24 Blood Culture (Wb) - Right Hand Blood Culture - Final No growth in 5 days. Laboratory Results 05/22/22 05:00: Vit D 1,25-Dihydroxy 12.4 L 05/24/22 05:10: Diff Path Review Reviewed 05/25/22 06:55: Crossmatch See Detail 05/25/22 06:55: Crossmatch See Detail 05/25/22 17:05: POC Glucose 212 H 05/25/22 22:14: POC Glucose 181 H 05/26/22 05:28: WBC 1.5 L, RBC 2.22 L, Hgb 6.4 L, Hct 20.4 L, MCV 91.9, MCH 28.8, MCHC 31.4 L D, RDW Std Deviation 58.0 H, RDW Coeff of Juliet 17.5 H, Plt Count 50 L*, MPV 10.4, Immature Gran % (Auto) 2.000 H, Neut % (Auto) 57.8, Lymph % (Auto) 32.7, [place] % (Auto) 6.1, Eos % (Auto) 1.4, Baso % (Auto) 0.0, Absolute Neuts (auto) 0.9 L, Absolute Lymphs (auto) 0.48 L, Nucleated RBC % 0, Differential Comment SCANNED, Diff Path Review May foll, Hypochromasia 1+ 05/26/22 05:28: Sodium 136, Potassium 3.4 L, Chloride 109 H, Carbon Dioxide 22.0, Anion Gap 5, BUN 28 H, Creatinine 1.38 H, Estim Creat Clear Calc 58.74, Est GFR (MDRD) Af Amer 66, Est GFR (MDRD) Non-Af 54 L, BUN/Creatinine Ratio 20.3 H, Glucose 206 H, Calcium 8.2 L, Total Bilirubin 0.40, AST 26, ALT 19, Alkaline Phosphatase 76, Total Protein 6.9, Albumin 1.5 L, Globulin 5.4 H, Albumin/Globulin Ratio 0.3 L 05/26/22 08:43: POC Glucose 206 H 05/26/22 12:04: POC Glucose 200 H 05/26/22 14:15: Hgb 7.2 L, Hct 22.3 L 2. Metabolic/toxic encephalopathy suspected to be due to hypercalcemia: Serum calcium level of 8.9. -MRA and MRI were negative -Lipids performed and showed total cholesterol of 91/LDL 23/HDL 28 -Aspirin on hold secondary to severe thrombocytopenia/anemia -Continue statin -Echo performed 2021 that shows an EF of 53% and stage II diastolic dysfunction with mild left atrial enlargement -PT/OT following and overall patient did fairly well need some therapy at discharge most likely will be home health -Speech has cleared for diet of regular textures and thin liquids 3. Hypercalcemia -This appears to be new -With previous known lytic lesions -Alk phos within normal limits -Vitamin D level was greater than 60 -PTH is appropriately suppressed at 11.2 -Continue Lasix and add IV fluids - PTHrP, vitamin D 1,25, SPEP and UPEP are all pending -vitamin D 1,25 should be elevated if granulomatous disease present -Pamidronate 60 mg given 1 dose on 05/22/2022 -Calcium level is finally improving with corrected down from 15-13.73 05/26: Serum calcium 8.2. 4. 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 Fungal and AFB work-up was ordered. Histo antibody antigen Bartonella antibodies TB Ig and fungal immunodiffusion panel and Aspergillus antibodies. Being comanaged with ID. Paroxysmal atrial fibrillation: As per daughter, patient was sinus rhythm for long time and then in A. fib. The patient was on amiodarone drip, changed to amiodarone oral 200 mg daily. Converted to sinus rhythm. Carvedilol 6.25 mg p.o. twice daily. Due to pancytopenia. High risk for bleeding and contraindication for anticoagulant. Nasal bleeding -CT of the sinuses and nasopharynx was normal with no masses -We will refer to ENT for possible cauterization as an outpatient after discharge CKD stage IIIb -Slight trend up and serum creatinine -Continue Lasix per nephrology orders/continue fluids as nephrology -Entresto is on hold -Avoid nephrotoxins as able -Nephrology following 05/26: Serum creatinine improving. From 1.85 to current 1.38 Hypokalemia -Repeat K3.2. Mild hyponatremia. Spironolactone added. DM-2 -Hold home oral agents -Fasting blood sugar remains elevated at 33 increase Lantus from 16 units to 22 units -Sliding scale insulin -Accu-Cheks as ordered -Most recent hemoglobin A1c from 04/04/2022 was 7 indicating adequate control -Unclear why blood sugars are so elevated at this time Nonobstructive cardiomyopathy/HFpEF -Currently compensated -Continue carvedilol -Aspirin on hold secondary to the above -Continue Lasix. 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 -Liver ultrasound previously reported fatty infiltration with hepatomegaly -CT-guided biopsy 2021 with focal macrovesicular steatosis -No cirrhosis noted at this time -Continue to follow with gastroenterology Fall -No severe injury -Complaining of left knee pain -Imaging with no acute fracture History of gout -Continue ursodiol Vitamin D deficiency -Vitamin D level is normal -Most recent one documented in the computer was 21.6 from 09/25/2021 Fibromyalgia -No current acute issues Essential tremor/myoclonus -Continue outpatient follow-up with neurology KADE -Nocturnal CPAP ordered -Family to bring in home unit but will need one of our masks Hypertension -Continue home carvedilol -Continue Entresto Hyperlipidemia -Continue home simvastatin Chronic dyspnea -Likely multifactorial -We will monitor for oxygen needs at discharge with ambulation Debility -Patient will need placement at discharge -PT and OT to continue to follow -Management following and discharge planning for placement in progress Morbid obesity -BMI 44.4 -Recommend weight loss -Complicates treatment, prognosis, outcomes DVT prophylaxis -SCDs -No chemoprophylaxis with severe thrombocytopenia CODE STATUS -Full code Total time of the visit including total time spent in counseling or coordination of care, (more than 50% of the total time, spent in obtaining medical information from nurses and other ancillary care providers,explaining to the patient about labs, imaging, diagnosis and management of active complex medical conditions), discussion with consultants, review of labs and imaging, clinical update given to patient's daughter and near the bedside is 40 minutes. Charges/Coding Visit Charges Inpatient E&M: 95797 Subs Hosp L2
[2022-05-26 17:25] LABS: Bedside Glucose 190 mg/dL (74-106)
[2022-05-26] MEDS: Atorvastatin Calcium 80 MG Tablet PO (22:00)
[2022-05-26] MEDS: 0.9% Saline Lock 10 ML Syringe IV (22:04)
[2022-05-26 23:50] LABS: Bedside Glucose 149 mg/dL (74-106)
[2022-05-27] VITALS (17 sets, daily range): BP systolic 115–148; BP diastolic 40–57; PULSE 64–76; RESP 18–20; TEMP 36.2–37.1; O2SAT 94–99
[2022-05-27 06:19] LABS: ALB/GLOB Ratio 0.3 RATIO (0.9-2.4); AST(SGOT) 19 U/L (15-37); Alanine Aminotransfer ALT/SGPT 19 U/L (16-61); Albumin, Serum 1.5 g/dL (3.2-5.0); Alkaline Phosphatase 80 U/L (45-117); Anion Gap 8 (5-15); BUN 19 mg/dL (7-18); BUN/Creat Ratio 15.7 RATIO (10-20); Calcium,Total 7.5 mg/dL (8.5-10.1); Chloride 108 mmol/L (98-107); Creatinine, Serum 1.21 mg/dL (0.70-1.30); EST Glomerular Filtration Rate 63 mL/min (>60); Est Glom Filt Rate - Afr Amer 76 mL/min (>60); Estimated Creatinine Clearance 66.99 ml/min; Globulin 5.3 g/dL (2.2-4.2); Glucose 166 mg/dL (74-106); Potassium 3.1 mmol/L (3.5-5.1); Protein, Total 6.8 g/dL (6.4-8.2); Sodium Level 136 mmol/L (136-145)
[2022-05-27 06:29] LABS: Absolute Lymphocyte Count 0.42 X10^3/uL (0.83-4.51); Absolute Neutrophil Count 0.8 X10^3/uL (2.0-7.7); Basophil# 0.01 X10^3/uL; Basophil% 0.7 % (0-1); Eosinophil# 0.01 X10^3/uL; Eosinophils% 0.7 % (0-5); Hematocrit 20.3 % (40-54); Hemoglobin 6.6 g/dL (13.0-16.5); Lymphocyte # 0.42 X10^3/ul (0.83-4.51); Lymphocyte % 31.1 % (19-41); Mean Corp Hgb Conc 32.5 g/dL (32-36); Mean Corpuscular Hgb 29.5 pg (27.0-32.0); Mean Corpuscular Volume 90.6 fL (80-94); Mean Platelet Vol. 10.9 fl (6.2-12.0); Monocyte# 0.09 X10^3/uL; Monocyte% 6.7 % (0-10); NRBC Flagged by Analyzer 0 % (0-5); Neutrophil % 59.3 % (47-70); POSITIVE COUNT YES; POSITIVE DIFFERENTIAL YES; POSITIVE MORPHOLOGY YES; Platelet Count 51 K/mm3 (150-450); RBC Distribution Width CV 17.6 % (11.6-14.6); RBC Distribution Width SD 56.9 fl (35.1-43.9); Red Blood Count 2.24 M/mm3 (4.6-6.2)
[2022-05-27 06:38] LABS: Differential Indicated SCAN CRITERIA MET
[2022-05-27 06:39] LABS: White Blood Count 1.4 K/mm3 (4.4-11.0)
[2022-05-27 06:54] LABS: Differential Comment SCANNED
[2022-05-27] MEDS: Insulin Lispro 100 UNIT/ML INSULN.PEN 8 UNIT SC ×3 (08:28→16:55)
[2022-05-27] MEDS: Insulin Lispro 100 UNIT/ML INSULN.PEN SC ×4 (08:29→20:49)
[2022-05-27 08:51] LABS: Bedside Glucose 163 mg/dL (74-106)
[2022-05-27] MEDS: Furosemide 40 MG Tablet PO (09:53)
[2022-05-27] MEDS: Glucerna Shake 120 ML LIQUID PO ×3 (09:54→16:55)
[2022-05-27] MEDS: Vitamin E 400 UNITS Capsule PO (09:54)
[2022-05-27] MEDS: Ursodiol 250 MG Tablet PO ×2 (09:54→20:49)
[2022-05-27] MEDS: Magnesium Chloride 64 MG Delay Rel.Tablet 128 MG PO (09:54)
[2022-05-27] MEDS: Multivitamins,Therapeutic Tablet 1 TABLET PO (09:54)
[2022-05-27] MEDS: Carvedilol 6.25 MG Tablet PO ×2 (09:54→20:48)
[2022-05-27] MEDS: Amiodarone 200 MG Tablet PO (09:54)
[2022-05-27 11:50] LABS: Bedside Glucose 175 mg/dL (74-106)
[2022-05-27] MEDS: Spironolactone 50 MG Tablet PO (12:10)
[2022-05-27] MEDS: 0.9% Normal Saline 1,000 ML 75 ML IV (12:26)
[2022-05-27 14:14] LABS: Hemoglobin 7.4 g/dL (13.0-16.5)
--- NOTE | 2022-05-27 16:23 | PCM.PN.HOSP ---
Subjective Subjective Follow-up for pancytopenia, failure to thrive, encephalopathy. Objective Data Objective Data Vital Signs: Vital Signs Temp Pulse Resp BP Pulse Ox O2 Del Method O2 Flow Rate 97.2 F L 65 20 H 127/52 H 94 Nasal Cannula 2 05/27/22 12:08 05/27/22 14:57 05/27/22 12:08 05/27/22 12:08 05/27/22 15:25 05/27/22 14:07 05/27/22 15:25 FiO2 21 05/27/22 10:38 Oxygen Flow Rate (L/min) 2 Oxygen Delivery Method Nasal Cannula Weight: 345 lb 7.43 oz Body Mass Index (BMI) 44.3 Intake & Output: Intake and Output for Last 24 Hours 05/25/22 05/26/22 05/27/22 23:59 23:59 23:59 Intake Total 3770.1 / 3770.1 3056.25 / 3056.25 2840 / 2840 Output Total 1600 / 1600 1400 / 1600 200 / 200 Balance 2170.1 / 2170.1 1656.25 / 1456.25 2640 / 2640 Lab / Micro Data Result Diagrams: 05/27/22 14:03 05/27/22 05:23 Labs: Laboratory Results - last 24 hr 05/25/22 06:55: Crossmatch See Detail 05/26/22 16:58: POC Glucose 190 H 05/26/22 21:47: POC Glucose 149 H 05/27/22 05:23: WBC 1.4 L*, RBC 2.24 L, Hgb 6.6 L, Hct 20.3 L, MCV 90.6, MCH 29.5, MCHC 32.5, RDW Std Deviation 56.9 H, RDW Coeff of Juliet 17.6 H, Plt Count 51 L, MPV 10.9, Immature Gran % (Auto) 1.500 H, Neut % (Auto) 59.3, Lymph % (Auto) 31.1, Alexander % (Auto) 6.7, Eos % (Auto) 0.7, Baso % (Auto) 0.7, Absolute Neuts (auto) 0.8 L, Absolute Lymphs (auto) 0.42 L, Nucleated RBC % 0, Differential Comment SCANNED, Diff Path Review November05/27/22 05:23: Sodium 136, Potassium 3.1 L, Chloride 108 H, Carbon Dioxide 20.0 L, Anion Gap 8, BUN 19 H, Creatinine 1.21, Estim Creat Clear Calc 66.99, Est GFR (MDRD) Af Amer 76, Est GFR (MDRD) Non-Af 63, BUN/Creatinine Ratio 15.7, Glucose 166 H, Calcium 7.5 L, Total Bilirubin 0.50, AST 19, ALT 19, Alkaline Phosphatase 80, Total Protein 6.8, Albumin 1.5 L, Globulin 5.3 H, Albumin/Globulin Ratio 0.3 L 05/27/22 08:27: POC Glucose 163 H 05/27/22 11:09: POC Glucose 175 H 05/27/22 14:03: Hgb 7.4 L, Hct 23.0 L Micro: Microbiology 05/20/22 11:13 Blood Culture (Wb) - Anticubital Right Blood Culture - Final No growth in 5 days. 05/20/22 11:24 Blood Culture (Wb) - Right Hand Blood Culture - Final No growth in 5 days. 05/19/22 00:39 Urine, Clean Catch Urine Culture - Final Mixed Gram Positive Organisms 05/18/22 16:45 Stool Stool Occult Blood (BASHIR) - Final Occult Blood Positive Physical Exam Narrative General: Awake, Oriented x3, Cooperative, morbid recently BMI 44.4 kg/m? HEENT: Atraumatic, PERRLA, EOMI, Normocephalic. Chronic dizziness and vertigo Oral: Oral mucosa dry. No Gingival or Mucosal Lesions/ Ulcerations Neck: Supple, No JVD, Negative Carotid Bruits Lungs: Air entry diminished in bilateral lung bases. No crepitation/rhonchi Cardiovascular: Sinus rhythm, Normal S1, Normal S2, grade 3/6 LLSB systolic murmur Abdomen: Bowel Sounds Present, Soft, Non Tender, Non-Distended : Large urinary incontinence, spontaneously voiding. No renal angle or suprapubic tenderness. Extremities: No edema, Capillary Refill Less than 3 Seconds Skin: No rashes, No breakdown Musculoskeletal: No Tenderness to Palpation of Joints or Extremities. Muscle strength 4/5 at major joints. Neurological: Chronic polyneuropathy. Cranial nerves II-XII grossly intact, DTR 2+/4. Psych/Mental Status: Flat affect. Assessment & Plan Assessment/Plan (1) Pancytopenia: (2) Hypokalemia: (3) Chronic kidney disease: (4) Hypercalcemia: (5) Toxic metabolic encephalopathy: PLAN: Plan This is a 71-year-old question gentleman is admitted for work-up for TIA and severe pancytopenia predominantly anemia 1.? Pancytopenia with predominant anemia: Patient is being admitted in PCU on cardiac telemetry.? H&H 6.2/20.7%.? 2 units of PRBC type and crossmatch and transfuse 1 unit today.? Monitor CBC tomorrow and decide about second unit.? Patient has been transfused 3 units in the last 3 weeks recently. The patient is willing to try the third bone marrow biopsy but Dr. Oliva said no reason to repeat as prior to bone marrow were dry tap. 05/25: Hemoglobin 5.9/27.7, platelet count 47,000. WBC count 1.3 thousand, ANC 0.8 thousand, ALC 0.4 thousand. Anisocytosis 1+. Patient had total of 4 units PRBC transfusion till now during this admission Patient had repeat EGD on 05/21 noted old blood in nasopharynx and oropharynx, some mild esophagitis distally, angiodysplastic lesions stomach, noted to be bleeding and was hemostasis was done. Does not require platelet transfusion. 05/26: H&H 6.4/20.4.. Fluid smear shows moderate thrombocytopenia, leukopenia and normocytic normochromic anemia. Patient does not have chest pain or shortness of breath. We will hold for transfusion. 05/27: Hemoglobin 6.6 g, 1 unit of PRBC ordered last night. Patient on PRBC transfusion. Repeat hemoglobin 7.4 in afternoon. 2. Metabolic/toxic encephalopathy suspected to be due to hypercalcemia: Serum calcium level of 8.9. -MRA and MRI were negative -Lipids performed and showed total cholesterol of 91/LDL 23/HDL 28 -Aspirin on hold secondary to severe thrombocytopenia/anemia -Continue statin -Echo performed 2021 that shows an EF of 53% and stage II diastolic dysfunction with mild left atrial enlargement -PT/OT following and overall patient did fairly well need some therapy at discharge most likely will be home health -Speech has cleared for diet of regular textures and thin liquids 05/27: Patient is still lethargic, Sleepy, responds to simple questions. 3. Hypercalcemia -This appears to be new -With previous known lytic lesions -Alk phos within normal limits -Vitamin D level was greater than 60 -PTH is appropriately suppressed at 11.2 -Continue Lasix and add IV fluids - PTHrP, vitamin D 1,25, SPEP and UPEP are all pending -vitamin D 1,25 should be elevated if granulomatous disease present -Pamidronate 60 mg given 1 dose on 05/22/2022 -Calcium level is finally improving with corrected down from 15-13.73 05/26: Serum calcium 8.2. 4. 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 Fungal and AFB work-up was ordered. Histo antibody antigen Bartonella antibodies TB Ig and fungal immunodiffusion panel and Aspergillus antibodies. Being comanaged with ID. Paroxysmal atrial fibrillation: As per daughter, patient was sinus rhythm for long time and then in A. fib. The patient was on amiodarone drip, changed to amiodarone oral 200 mg daily. Converted to sinus rhythm. Carvedilol 6.25 mg p.o. twice daily. Due to pancytopenia. High risk for bleeding and contraindication for anticoagulant. Nasal bleeding -CT of the sinuses and nasopharynx was normal with no masses -We will refer to ENT for possible cauterization as an outpatient after discharge CKD stage IIIb -Slight trend up and serum creatinine -Continue Lasix per nephrology orders/continue fluids as nephrology -Entresto is on hold -Avoid nephrotoxins as able -Nephrology following 05/26: Serum creatinine improving. Admitting creatinine 1.83 Hypokalemia -Repeat K3.2. Mild hyponatremia. Spironolactone added. 05/27: Potassium 3.1. Patient spironolactone was increased to 50 mg daily. Creatinine improved to 1.2. DM-2 -Hold home oral agents -Fasting blood sugar remains elevated at 33 increase Lantus from 16 units to 22 units -Sliding scale insulin -Accu-Cheks as ordered -Most recent hemoglobin A1c from 04/04/2022 was 7 indicating adequate control -Unclear why blood sugars are so elevated at this time Nonobstructive cardiomyopathy/HFpEF -Currently compensated -Continue carvedilol -Aspirin on hold secondary to the above -Continue Lasix. 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 -Liver ultrasound previously reported fatty infiltration with hepatomegaly -CT-guided biopsy 2021 with focal macrovesicular steatosis -No cirrhosis noted at this time -Continue to follow with gastroenterology Fall -No severe injury -Complaining of left knee pain -Imaging with no acute fracture History of gout -Continue ursodiol Vitamin D deficiency -Vitamin D level is normal -Most recent one documented in the computer was 21.6 from 09/25/2021 Fibromyalgia -No current acute issues Essential tremor/myoclonus -Continue outpatient follow-up with neurology KADE -Nocturnal CPAP ordered -Family to bring in home unit but will need one of our masks Hypertension -Continue home carvedilol -Continue Entresto Hyperlipidemia -Continue home simvastatin Chronic dyspnea -Likely multifactorial -We will monitor for oxygen needs at discharge with ambulation Debility -Patient will need placement at discharge -PT and OT to continue to follow -Management following and discharge planning for placement in progress Morbid obesity -BMI 44.4 -Recommend weight loss -Complicates treatment, prognosis, outcomes DVT prophylaxis -SCDs -No chemoprophylaxis with severe thrombocytopenia CODE STATUS -Full code Microbiology Past 72 Hours 05/20/22 11:13 Blood Culture (Wb) - Anticubital Right Blood Culture - Final No growth in 5 days. 05/20/22 11:24 Blood Culture (Wb) - Right Hand Blood Culture - Final No growth in 5 days. Laboratory Results 05/25/22 06:55: Crossmatch See Detail 05/26/22 16:58: POC Glucose 190 H 05/26/22 21:47: POC Glucose 149 H 05/27/22 05:23: WBC 1.4 L*, RBC 2.24 L, Hgb 6.6 L, Hct 20.3 L, MCV 90.6, MCH 29.5, MCHC 32.5, RDW Std Deviation 56.9 H, RDW Coeff of Juliet 17.6 H, Plt Count 51 L, MPV 10.9, Immature Gran % (Auto) 1.500 H, Neut % (Auto) 59.3, Lymph % (Auto) 31.1, Alexander % (Auto) 6.7, Eos % (Auto) 0.7, Baso % (Auto) 0.7, Absolute Neuts (auto) 0.8 L, Absolute Lymphs (auto) 0.42 L, Nucleated RBC % 0, Differential Comment SCANNED, Diff Path Review November05/27/22 05:23: Sodium 136, Potassium 3.1 L, Chloride 108 H, Carbon Dioxide 20.0 L, Anion Gap 8, BUN 19 H, Creatinine 1.21, Estim Creat Clear Calc 66.99, Est GFR (MDRD) Af Amer 76, Est GFR (MDRD) Non-Af 63, BUN/Creatinine Ratio 15.7, Glucose 166 H, Calcium 7.5 L, Total Bilirubin 0.50, AST 19, ALT 19, Alkaline Phosphatase 80, Total Protein 6.8, Albumin 1.5 L, Globulin 5.3 H, Albumin/Globulin Ratio 0.3 L 05/27/22 08:27: POC Glucose 163 H 05/27/22 11:09: POC Glucose 175 H 05/27/22 14:03: Hgb 7.4 L, Hct 23.0 L Charges/Coding Visit Charges Inpatient E&M: 67013 Subs Hosp L2
[2022-05-27 17:20] LABS: Bedside Glucose 209 mg/dL (74-106)
[2022-05-27] MEDS: Insulin Glargine-YFGN 100 UNIT/ML Pen 25 UNIT SC (20:49)
[2022-05-27] MEDS: Atorvastatin Calcium 80 MG Tablet PO (20:49)
[2022-05-27 22:36] LABS: Bedside Glucose 186 mg/dL (74-106)
[2022-05-28] VITALS (18 sets, daily range): BP systolic 122–148; BP diastolic 37–52; PULSE 60–71; RESP 16–18; TEMP 36.5–37.6; O2SAT 95–98
[2022-05-28] MEDS: 0.9% Normal Saline 1,000 ML 75 ML IV (00:26)
[2022-05-28 06:15] LABS: Absolute Lymphocyte Count 0.44 X10^3/uL (0.83-4.51); Absolute Neutrophil Count 0.8 X10^3/uL (2.0-7.7); Eosinophil# 0.01 X10^3/uL; Eosinophils% 0.8 % (0-5); Hematocrit 21.5 % (40-54); Hemoglobin 6.9 g/dL (13.0-16.5); Lymphocyte # 0.44 X10^3/ul (0.83-4.51); Lymphocyte % 33.6 % (19-41); Mean Corp Hgb Conc 32.1 g/dL (32-36); Mean Corpuscular Hgb 28.6 pg (27.0-32.0); Mean Corpuscular Volume 89.2 fL (80-94); Mean Platelet Vol. 12.4 fl (6.2-12.0); Monocyte# 0.08 X10^3/uL; Monocyte% 6.1 % (0-10); NRBC Flagged by Analyzer 0 % (0-5); Neutrophil # 0.78 X10^3/uL (2.7-7.7); Neutrophil % 59.5 % (47-70); POSITIVE COUNT YES; POSITIVE DIFFERENTIAL YES; POSITIVE MORPHOLOGY YES; Platelet Count 51 K/mm3 (150-450); RBC Distribution Width CV 17.5 % (11.6-14.6); RBC Distribution Width SD 56.4 fl (35.1-43.9); Red Blood Count 2.41 M/mm3 (4.6-6.2)
[2022-05-28 06:32] LABS: ALB/GLOB Ratio 0.3 RATIO (0.9-2.4); AST(SGOT) 19 U/L (15-37); Alanine Aminotransfer ALT/SGPT 18 U/L (16-61); Albumin, Serum 1.5 g/dL (3.2-5.0); Alkaline Phosphatase 89 U/L (45-117); Anion Gap 7 (5-15); BUN 14 mg/dL (7-18); BUN/Creat Ratio 12.3 RATIO (10-20); Calcium,Total 7.3 mg/dL (8.5-10.1); Chloride 109 mmol/L (98-107); Creatinine, Serum 1.14 mg/dL (0.70-1.30); EST Glomerular Filtration Rate 68 mL/min (>60); Est Glom Filt Rate - Afr Amer 82 mL/min (>60); Globulin 5.7 g/dL (2.2-4.2); Glucose 192 mg/dL (74-106); Potassium 3.3 mmol/L (3.5-5.1); Protein, Total 7.2 g/dL (6.4-8.2); Sodium Level 137 mmol/L (136-145)
[2022-05-28 06:40] LABS: Differential Indicated SCAN CRITERIA MET; White Blood Count 1.3 K/mm3 (4.4-11.0)
[2022-05-28 07:17] LABS: Differential Comment SCANNED
[2022-05-28 08:25] LABS: Bedside Glucose 171 mg/dL (74-106)
--- NOTE | 2022-05-28 08:32 | PN.HOSP_ITS ---
Objective Data Objective Data Vital Signs: Vital Signs Temp Pulse Resp BP Pulse Ox O2 Del Method O2 Flow Rate 99.6 F H 65 18 143/37 H 96 Nasal Cannula 2 05/28/22 07:59 05/28/22 07:59 05/28/22 07:59 05/28/22 07:59 05/28/22 07:59 05/28/22 07:59 05/28/22 07:59 FiO2 21 05/27/22 17:00 Oxygen Flow Rate (L/min) 2 Oxygen Delivery Method Nasal Cannula Weight: 345 lb 7.43 oz Body Mass Index (BMI) 44.3 Intake & Output: Intake and Output for Last 24 Hours 05/26/22 05/27/22 05/28/22 23:59 23:59 23:59 Intake Total 3056.25 / 3056.25 3190 / 3190 900 / 900 Output Total 1400 / 1600 650 / 650 Balance 1656.25 / 1456.25 2540 / 2540 900 / 900 Lab / Micro Data Result Diagrams: 05/28/22 04:39 05/28/22 04:39 Labs: Laboratory Results - last 24 hr 05/25/22 06:55: Crossmatch See Detail 05/27/22 08:27: POC Glucose 163 H 05/27/22 11:09: POC Glucose 175 H 05/27/22 14:03: Hgb 7.4 L, Hct 23.0 L 05/27/22 16:54: POC Glucose 209 H 05/27/22 20:46: POC Glucose 186 H 05/28/22 04:39: WBC 1.3 L*, RBC 2.41 L, Hgb 6.9 L, Hct 21.5 L, MCV 89.2, MCH 28.6, MCHC 32.1, RDW Std Deviation 56.4 H, RDW Coeff of Juliet 17.5 H, Plt Count 51 L, MPV 12.4 H, Immature Gran % (Auto) 0.000, Neut % (Auto) 59.5, Lymph % (Auto) 33.6, [place] % (Auto) 6.1, Eos % (Auto) 0.8, Baso % (Auto) 0.0, Absolute Neuts (auto) 0.8 L, Absolute Lymphs (auto) 0.44 L, Nucleated RBC % 0, Differential Comment SCANNED, Diff Path Review May 05/28/22 04:39: Sodium 137, Potassium 3.3 L, Chloride 109 H, Carbon Dioxide 21.0, Anion Gap 7, BUN 14, Creatinine 1.14, Estim Creat Clear Calc 71.10, Est GFR (MDRD) Af Amer 82, Est GFR (MDRD) Non-Af 68, BUN/Creatinine Ratio 12.3, Glucose 192 H, Calcium 7.3 L, Total Bilirubin 0.50, AST 19, ALT 18, Alkaline Phosphatase 89, Total Protein 7.2, Albumin 1.5 L, Globulin 5.7 H, Albumin/Globulin Ratio 0.3 L 05/28/22 08:04: POC Glucose 171 H Micro: Microbiology 05/20/22 11:13 Blood Culture (Wb) - Anticubital Right Blood Culture - Final No growth in 5 days. 05/20/22 11:24 Blood Culture (Wb) - Right Hand Blood Culture - Final No growth in 5 days. 05/19/22 00:39 Urine, Clean Catch Urine Culture - Final Mixed Gram Positive Organisms 05/18/22 16:45 Stool Stool Occult Blood (BASHIR) - Final Occult Blood Positive Physical Exam Narrative The patient is stated he was short of breath yesterday. He was put on CPAP which he tolerated for few hours. He is more awake alert oriented now. Currently on baseline breathing. General: Awake, Oriented x3, Cooperative, morbid recently BMI 44.4 kg/m? HEENT: Atraumatic, PERRLA, EOMI, Normocephalic. Oral: Oral mucosa moist.. No Gingival or Mucosal Lesions/ Ulcerations Neck: Supple, No JVD, Negative Carotid Bruits Lungs: Air entry diminished in bilateral lung bases. No crepitation/rhonchi Cardiovascular: Sinus rhythm, Normal S1, Normal S2, grade 3/6 LLSB systolic murmur Abdomen: Bowel Sounds Present, Soft, Non Tender, Non-Distended : Large urinary incontinence, spontaneously voiding. No renal angle or suprapubic tenderness. Extremities: No edema, Capillary Refill Less than 3 Seconds Skin: No rashes, No breakdown Musculoskeletal: No Tenderness to Palpation of Joints or Extremities. Muscle strength 4/5 at knee and hip joints, left chronically is more weaker than right Neurological: Chronic polyneuropathy. Cranial nerves II-XII grossly intact, DTR 2+/4. Psych/Mental Status: Flat affect. Assessment & Plan Assessment/Plan (1) Pancytopenia: (2) Hypokalemia: (3) Chronic kidney disease: (4) Hypercalcemia: (5) Toxic metabolic encephalopathy: PLAN: Plan This is a 71-year-old question gentleman is admitted for work-up for TIA and severe pancytopenia predominantly anemia 1.? Pancytopenia with predominant anemia: Patient is being admitted in PCU on cardiac telemetry.? H&H 6.2/20.7%.? 2 units of PRBC type and crossmatch and transfuse 1 unit today.? Monitor CBC tomorrow and decide about second unit.? Patient has been transfused 3 units in the last 3 weeks recently. The patient is willing to try the third bone marrow biopsy but Dr. Oliva said no reason to repeat as prior to bone marrow were dry tap. 05/25: Hemoglobin 5.9/27.7, platelet count 47,000. WBC count 1.3 thousand, ANC 0.8 thousand, ALC 0.4 thousand. Anisocytosis 1+. Patient had total of 4 units PRBC transfusion till now during this admission Patient had repeat EGD on 05/21 noted old blood in nasopharynx and oropharynx, some mild esophagitis distally, angiodysplastic lesions stomach, noted to be bleeding and was hemostasis was done. Does not require platelet transfusion. 05/26: H&H 6.4/20.4.. Fluid smear shows moderate thrombocytopenia, leukopenia and normocytic normochromic anemia. Patient does not have chest pain or shortness of breath. We will hold for transfusion. 05/27: Hemoglobin 6.6 g, 1 unit of PRBC ordered last night. Patient on PRBC transfusion. Repeat hemoglobin 7.4 in afternoon. 05/28: Hemoglobin 6.9 g, WBC 1.3 thousand. Platelet count 51,000. Discussed with management professional Dr Dillard who saw the patient as consult. We discussed after the consult. The diagnosis for transfusion dependent anemia/pancytopenia is not clear as the patient has thick bone with bone marrow sclerosis. 2 times dry tap. Patient was also recommended to see [facility] management professional specialist but his insurance does not cover for consult therefore that plan was dropped in the past. Patient has some sort of plasmacytic disorder although the exact diagnosis not clear, POEMS was in consideration but not ruled in or ruled out. Palliative care consult requested because of low functional activity 2. Metabolic/toxic encephalopathy suspected to be due to hypercalcemia: Serum calcium level of 8.9. -MRA and MRI were negative -Lipids performed and showed total cholesterol of 91/LDL 23/HDL 28 -Aspirin on hold secondary to severe thrombocytopenia/anemia -Continue statin -Echo performed 2021 that shows an EF of 53% and stage II diastolic dysfunction with mild left atrial enlargement -PT/OT following and overall patient did fairly well need some therapy at discharge most likely will be home health -Speech has cleared for diet of regular textures and thin liquids 05/27: Patient is still lethargic, Sleepy, responds to simple questions. 05/28: Patient encephalopathy looks much better today. Not confused. 3. Hypercalcemia -This appears to be new -With previous known lytic lesions -Alk phos within normal limits -Vitamin D level was greater than 60 -PTH is appropriately suppressed at 11.2 -Continue Lasix and add IV fluids - PTHrP, vitamin D 1,25, SPEP and UPEP are all pending -vitamin D 1,25 should be elevated if granulomatous disease present -Pamidronate 60 mg given 1 dose on 05/22/2022 -Calcium level is finally improving with corrected down from 15-13.73 05/26: Serum calcium 8.2. 05/28: Serum calcium 7.3. 4. 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 Fungal and AFB work-up was ordered. Histo antibody antigen Bartonella antibodies TB Ig and fungal immunodiffusion panel and Aspergillus antibodies. Being comanaged with ID. Paroxysmal atrial fibrillation: As per daughter, patient was sinus rhythm for long time and then in A. fib. The patient was on amiodarone drip, changed to amiodarone oral 200 mg daily. Converted to sinus rhythm. Carvedilol 6.25 mg p.o. twice daily. Due to pancytopenia. High risk for bleeding and contr aindication for anticoagulant. Nasal bleeding -CT of the sinuses and nasopharynx was normal with no masses -We will refer to ENT for possible cauterization as an outpatient after discharge CKD stage IIIb -Slight trend up and serum creatinine -Continue Lasix per nephrology orders as nephrology -Nephrology following 05/26: Serum creatinine improving. Admitting creatinine 1.83 Hypokalemia -Repeat K3.2. Mild hyponatremia. Spironolactone added. 05/27: Potassium 3.1. Patient spironolactone was increased to 50 mg daily. Creatinine improved to 1.2. 05/28: IV fluid discontinued by radio electronics officer. Serum creatinine 1.1. Extra dose of spironolactone 50 mg 1 dose given for hypokalemia. Entresto resumed DM-2 -Hold home oral agents -Fasting blood sugar remains elevated at 33 increase Lantus from 16 units to 22 units -Sliding scale insulin -Accu-Cheks as ordered -Most recent hemoglobin A1c from 04/04/2022 was 7 indicating adequate control -Unclear why blood sugars are so elevated at this time Nonobstructive cardiomyopathy/HFpEF -Currently compensated -Continue carvedilol -Aspirin on hold secondary to the above -Continue Lasix. 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 -Liver ultrasound previously reported fatty infiltration with hepatomegaly -CT-guided biopsy 2021 with focal macrovesicular steatosis -No cirrhosis noted at this time -Continue to follow with gastroenterology Fall -No severe injury -Complaining of left knee pain -Imaging with no acute fracture History of gout -Continue ursodiol Vitamin D deficiency -Vitamin D level is normal -Most recent one documented in the computer was 21.6 from 09/25/2021 Fibromyalgia -No current acute issues Essential tremor/myoclonus -Continue outpatient follow-up with neurology KADE -Nocturnal CPAP ordered -Family to bring in home unit but will need one of our masks Hypertension -Continue home carvedilol -Continue Entresto Hyperlipidemia -Continue home simvastatin Chronic dyspnea -Likely multifactorial -We will monitor for oxygen needs at discharge with ambulation Debility -Patient will need placement at discharge -PT and OT to continue to follow -Management following and discharge planning for placement in progress Morbid obesity -BMI 44.4 -Recommend weight loss -Complicates treatment, prognosis, outcomes DVT prophylaxis -SCDs -No chemoprophylaxis with severe thrombocytopenia CODE STATUS -Full code Total time of the visit including total time spent in counseling or coordination of care, (more than 50% of the total time, spent in obtaining medical information from nurses and other ancillary care providers,explaining to the patient about labs, imaging, diagnosis and management of active complex medical conditions), discussion with management professional and radio electronics officer, family member and daughter near the bedside regarding palliative care, review of labs and imaging is 40 minutes. Microbiology Past 72 Hours 05/20/22 11:13 Blood Culture (Wb) - Anticubital Right Blood Culture - Final No growth in 5 days. 05/20/22 11:24 Blood Culture (Wb) - Right Hand Blood Culture - Final No growth in 5 days. Laboratory Results 05/25/22 05:40: Diff Path Review Reviewed 05/26/22 05:28: Diff Path Review Reviewed 05/27/22 05:23: Diff Path Review Reviewed 05/27/22 14:03: Hgb 7.4 L, Hct 23.0 L 05/27/22 16:54: POC Glucose 209 H 05/27/22 20:46: POC Glucose 186 H 05/28/22 04:39: WBC 1.3 L*, RBC 2.41 L, Hgb 6.9 L, Hct 21.5 L, MCV 89.2, MCH 28.6, MCHC 32.1, RDW Std Deviation 56.4 H, RDW Coeff of Juliet 17.5 H, Plt Count 51 L, MPV 12.4 H, Immature Gran % (Auto) 0.000, Neut % (Auto) 59.5, Lymph % (Auto) 33.6, [place] % (Auto) 6.1, Eos % (Auto) 0.8, Baso % (Auto) 0.0, Absolute Neuts (auto) 0.8 L, Absolute Lymphs (auto) 0.44 L, Nucleated RBC % 0, Differential Comment SCANNED, Diff Path Review Reviewed 05/28/22 04:39: Sodium 137, Potassium 3.3 L, Chloride 109 H, Carbon Dioxide 21.0, Anion Gap 7, BUN 14, Creatinine 1.14, Estim Creat Clear Calc 71.10, Est GFR (MDRD) Af Amer 82, Est GFR (MDRD) Non-Af 68, BUN/Creatinine Ratio 12.3, Glucose 192 H, Calcium 7.3 L, Total Bilirubin 0.50, AST 19, ALT 18, Alkaline Phosphatase 89, Total Protein 7.2, Albumin 1.5 L, Globulin 5.7 H, Albumin/Globulin Ratio 0.3 L 05/28/22 08:04: POC Glucose 171 H 05/28/22 12:46: POC Glucose 235 H 05/28/22 12:57: Blood Type Pending, Antibody Screen Pending, Crossmatch See Detail Charges/Coding Visit Charges Inpatient E&M: 19841 Subs Hosp L3
[2022-05-28] MEDS: Magnesium Chloride 64 MG Delay Rel.Tablet 128 MG PO (09:56)
[2022-05-28] MEDS: Multivitamins,Therapeutic Tablet 1 TABLET PO (09:57)
[2022-05-28] MEDS: Carvedilol 6.25 MG Tablet PO ×2 (09:57→21:12)
[2022-05-28] MEDS: Ursodiol 250 MG Tablet PO ×2 (09:57→21:13)
[2022-05-28] MEDS: Vitamin E 400 UNITS Capsule PO (09:57)
[2022-05-28] MEDS: Amiodarone 200 MG Tablet PO (09:57)
[2022-05-28] MEDS: Spironolactone 50 MG Tablet PO ×2 (09:58→14:40)
[2022-05-28] MEDS: Glucerna Shake 120 ML LIQUID PO ×2 (10:03→12:53)
[2022-05-28] MEDS: Insulin Lispro 100 UNIT/ML INSULN.PEN 8 UNIT SC ×2 (10:05→12:49)
[2022-05-28] MEDS: Insulin Lispro 100 UNIT/ML INSULN.PEN SC ×4 (10:05→21:11)
[2022-05-28 11:48] LABS: Pathologist Review Reviewed
[2022-05-28 11:51] LABS: Pathologist Review Reviewed
[2022-05-28 12:00] LABS: Pathologist Review Reviewed
[2022-05-28 12:04] LABS: Pathologist Review Reviewed
[2022-05-28] MEDS: Insulin Glargine-YFGN 100 UNIT/ML Pen 25 UNIT SC ×2 (12:50→22:27)
[2022-05-28 13:25] LABS: Bedside Glucose 235 mg/dL (74-106)
--- NOTE | 2022-05-28 13:38 | CASEMGMT ---
Discharge Child Development Professor This marketing underwriter asked Jaquan to start pre-cert. Sade AVERY Forensic Specialist
--- NOTE | 2022-05-28 13:58 | CASEMGMT ---
Addendum entered by Roslyn Colbert 05/28/22 15:20: Palliative liaison will meet with pt/family tomorrow at 1100 in pt's room. Bossman NEGRETE CM Original Note: Per Dr. Brown after speaking with Dr. Boothe, pt will be transfused 2 units of PRBC's and then d/c'd to SNF. Dr. Brown requested palliative referral for pt and this was ordered and e-mailed. tracie Hood/c planning asst, aware to contact [facility] to re-start precert. Bossman NEGRETE CM
--- NOTE | 2022-05-28 14:01 | CASEMGMT ---
Discharge Warehouse Traffic Supervisor This database report writer sent updates to [facility] so [facility] can send to insurance. Sade AVERY Administrative Services Manager
[2022-05-28 14:08] LABS: PROELU- Albumin, Urine 15.8 % (.); PROELU- Alpha-1-Globulin,Ur 5.1 % (.); PROELU- Alpha-2-Globulin,Ur 19.5 % (.); PROELU- Gamma Globulin, Ur 34.6 % (.); PROELU- M-Spike, Ur 13.5 % (Not Observed); Total Protein, Ur 5.3 mg/dL (Not Estab.)
--- NOTE | 2022-05-28 15:38 | CON.PCM.ON_ITS ---
Assessment & Plan Assessment/Plan (1) Pancytopenia: Status: Acute Code(s): D61.818 - Other pancytopenia Plan: 71-year-old gentleman with multiple chronic medical problems , presenting with symptomatic anemia, found to have a pancytopenia and widely spread sclerotic bone lesions noted on a CT scan of the abdomen and pelvis .? 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 * Bone marrow aspirate and biopsy was attempted twice in 2021.? The first biopsy showed extensive necrosis and the second was unsuccessful to obtain tissue or aspirate due to extreme density of bone. * CT scan of the chest showed multiple bilateral nodules, biopsy August 2021 showed an infiltrate that includes plasma cells but polycystic (polyclonal). CT scan of the chest February 2022 showed resolution of the nodular densities even though he was not given any specific therapy. * CT scan of the abdomen showed an enlarged liver, normal spleen, liver biopsy August 2021 showed fatty liver and a similar infiltrate with plasma cells. * VEGF twice within normal range. * He has chronic diabetes and chronic peripheral neuropathy presumed diabetic but no other evidence for endocrinopathy. * His PSA is not elevated and he was seen by urology and prostate cancer was felt very unlikely. * PET/CT showed abnormal uptake of 7.0 in the previously biopsied lung nodule. * Myeloproliferative neoplasm panel negative. * EMG/nerve conduction showed predominantly sensory peripheral polyneuropathy favoring diabetes over POEMS. Despite the extensive work-up including a second opinion consultation at [facility] the cause for the patient's progressive bone marrow failure, pancytopenia remains unclear, very unlikely reversible with extensive sclerosis of the bones and bone marrow and supportive treatment was advised. 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 April 2022 was hospitalized and there appears to be added chronic GI blood loss secondary to angiodysplasia status post cauterization May 21, 2022. From the hematology consult review recommend: 1. Continue supportive transfusion with packed red blood cells, target hemoglobin at 8 g per DL if possible, if the patient has a meaningful symptomatic response to transfusions. 2. Third attempt at bone marrow is not advisable and very unlikely to be more successful that the previous 2 due to extensive sclerosis of bone. 3. Although the cause for his progressive bone marrow failure from sclerosis remains unknown, this is only of academic interest and a reversible therapeutic intervention is very unlikely. 4. Advise palliative consultation. Impression and recommendations discussed with patient and treating hospitalist. Cheyrl Dillard MD [employer], [facility] Divisions of Medical Oncology & Hematology Department of Internal Medicine [place] [id number] This note was generated using a voice recognition system software. Although it was reviewed by the author prior to finalization, it may still contain incorrect words, spelling, and punctuation that were not noted when reviewing prior to saving. If a clinically significant typo or inaccurately typed phrase is noted, please notify the author. (2) Bone marrow failure: Status: Chronic Code(s): D61.9 - Aplastic anemia, unspecified HPI Consult Data Date of Service:: 05/28/22 PCP / Referring Provider: Dr. Constanza Alegria DO Attending: Dr. Richard Brown MD Chief Complaint Chief Complaint: Slurred speech History of Present Illness History of Present Illness: Patient with multiple chronic medical problems admitted May 18, 2022 with slurred speech. From the hematology oncology aspect of his chronic illnesses patient has a slowly progressive pancytopenia due to bone marrow failure the cause of which is not clear and he has undergone extensive work-up including going for a second opinion at [facility]. In February 2022 he has become red blood cell transfusion dependent due to incre asing symptomatic anemia. The course of his illness can be summarized as follows: August 24, 2021 Bone lesion, CT-guided core biopsy:A piece of bone with extensive necrosis.? See comment.SJ:[email or web address]? 08/25/2021 COMMENTNo viable tumor is identified.? If there is a high suspicion of malignancy, re-biopsy is suggested if clinically indicated. The tap was dry and no aspirate was obtained. Flow cytometry could not be done due to lack of viable cells. August 29 2021-second attempt at bone marrow aspirate and biopsy?was attempted but unsuccessful to obtain tissue due to extreme sclerosis of bone. September 15, 2021 CT chest:?IMPRESSION: Pulmonary nodules in the left hemithorax September 15, 2021 Liver, CT-guided core biopsy:Liver parenchymal tissue with focal macrovesicular steatosis. September 25, 2021 CT biopsy lung:?Left lower lobe lung, CT-guided core biopsy:Cores of benign lung parenchyma with lymphoplasmacytic and granulomatous inflammation; September 2021 all pathology was reviewed in second opinion at [facility] and conclusion was: 1.? Bone lesion extensive necrosis no pathologic diagnosis. 2.? Liver biopsy liver parenchyma with macrovesicular steatosis and mild lymphoplasmacytic inflammation. 3.? Left lower lobe lung nodule biopsy: Benign lung parenchyma with lymphoplasmacytic and granulomatous inflammation.? 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 Morphology was not typical of sarcoidosis. November 07, 2021: Myeloproliferative neoplasm panel:?Negative (BCR ABL, JAK2 V6 17F, CALR, JAK2 exon 12?15, MPL). November 22, 2021 PET/CT: IMPRESSION: Abnormal increased activity noted in the previously biopsied noncalcified 2.4 cm nodule in the left lower lobe.? Findings are consistent with metabolically active neoplastic process. No other suspicious PET activity identified. December 28, 2021 EMG/nerve conduction:?Abnormal, consistent with sensory greater than motor proximal axonal peripheral polyneuropathy, typical of early diabetic polyneuropathy although other etiologies are possible, not typical pattern but cannot exclude for poems. December - February 2022: Patient did seek opinion at [facility] with Dr. Lemus, but insurance would not cover.? Patient was focused on pulmonary evaluation with Dr. Roberts. March 15, 2022:?CT chest follow-up: IMPRESSION: The previously seen nodular densities are resolved. Mild degree of bibasilar atelectasis and/or scarring. Stable appearance of the diffuse sclerosis of the appendicular and axial skeletons. Advanced Directives Power of Commercial Insurance Underwriter: No Living Will: No [facility] Medical History (Updated 05/28/22 @ 15:[address] 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 Presence of insulin pump Pulmonary disease Radiculopathy, cervical region Secondary pulmonary arterial hypertension Sleep apnea Vision problems Home Medications multivitamin (Daily Multi-Vitamin tablet) 1 tab PO DAILY SUPPLEMENT 06/15/21 [History Last Taken 05/18/22] fenofibric acid (choline) 135 mg capsule,delayed release (Trilipix) 135 mg PO DAILY CHOLESTEROL 08/01/21 [History Last Taken 05/17/22] cholecalciferol (vitamin D3) 25 mcg (1,000 unit) tablet 25 mcg PO DAILY S UPLEMENT 03/08/22 [History Last Taken 05/17/22] magnesium oxide 400 mg PO DAILY SUPPLEMETN 04/17/22 [History Last Taken 05/17/22] simvastatin 40 mg tablet 40 mg PO DAILY CHOLESTEROL 04/17/22 [History Last Taken 05/16/22] vitamin E mixed 400 unit capsule 400 unit PO DAILY SUPPLEMENT 04/17/22 [History Last Taken 05/18/22] carvedilol 6.25 mg tablet (Coreg) 6.25 mg PO BID HEART 05/18/22 [History Last Taken 05/18/22] dapagliflozin 10 mg tablet (Farxiga) 10 mg PO DAILY DM 05/18/22 [History Last Taken 05/17/22] furosemide 40 mg tablet (Lasix) 40 mg PO DAILY FLUID 05/18/22 [History Last Taken 05/18/22] ibuprofen 200 mg tablet 400 mg PO Q8H PRN Pain 05/18/22 [History Last Taken 05/18/22] insulin regular hum U-500 conc 500 unit/mL subcutaneous soln (Humulin R U-500 (Concentrated) Insulin) 100 unit continuous subcutaneous infusion .continuous DM 05/18/22 [History Last Taken 05/18/22] metformin 1,000 mg tablet 1,000 mg PO BID DM 05/18/22 [History Last Taken 05/18/22] metformin 500 mg tablet 500 mg PO LUNCH DM 05/18/22 [History Last Taken Unknown] sacubitril 49 mg-valsartan 51 mg tablet (Entresto) 1 tab PO BID HEART 05/18/22 [History Last Taken 05/18/22] ursodiol 300 mg capsule 300 mg PO BID GOUT 05/18/22 [History Last Taken 05/18/22] Allergy/AdvReac Type Severity Reaction Status Date / Time PITER Inhibitors Allergy Severe edema Verified 05/18/22 15:01 diltiazem [From Cardize] Allergy Unknown unknown Verified 05/18/22 15:01 Penicillins AdvReac Intermediate diarrhea Verified 05/18/22 15:01 Family History Grandfather Alcoholism Father Arthritis Myocardial infarction Heart disease Hypertension Sister Autoimmune disorder Mother Cancer Brother Diabetes Myocardial infarction Heart disease Other Lung cancer Surgical History History of left heart catheterization (2012) History of right and left heart catheterization (03/02/22) History of surgery on arm Social History second hand exposure: No alcohol intake: never substance use type: does not use caffeine: Yes Type: carbonated beverages Number of servings: 8 and coffee Number of servings: 3 what type of physical activity do you participate in: none octavio/gnosticist: Brethern seatbelt use: sometimes do you feel safe at home: Yes ROS ROS Narrative Obtained from the patient and inpatient record Constitutional Constitutional: Reports fatigue; Denies fever(s), night sweats, poor appetite or weight loss ENT HEENT: Denies dysphagia Cardiovascular Cardiovascular: Reports edema; Denies chest pain Respiratory/Chest Respiratory/Chest: Reports dyspnea on exertion; Denies hemoptysis Gastrointestinal Gastrointestinal: Denies abdominal pain, dysphagia, hematochezia or melena Genitourinary Genitourinary: Denies hematuria Musculoskeletal Musculoskeletal: Reports back pain, joint pain and other Details: Chronic back pain and arthralgia Integumentary Integumentary: Reports unusual bruising; Denies rash Neurologic Neurologic: Reports abnormal speech; Denies focal weakness or headache(s) Hematologic/Lymphatic Hematologic/Lymphatic: Reports easy bruising; Denies easy bleeding or lymphadenopathy Physical Exam Narrative ECOG 4 Const no apparent distress General Appearance: ill appearing Positive for chronically Nutritional Appearance: obese morbidly obese HEENT normocephalic Neck no lymphadenopathy and no JVD Lymph Lymphatic: no lymphadenopathy noted Resp clear to auscultation bilaterally Cardio regular rate and regular rhythm GI soft to palpation and non-tender Extremity General Extremity: edema bilateral lower extremity Details: mild Skin no rashes or lesions noted Neuro CN's II-XII intact bilaterally and moves all extremities Motor Exam: general weakness Psych mental status grossly normal Vital Signs Temperature 98.9 F 05/28/22 14:00 Temperature Source Oral 05/28/22 14:00 Pulse Rate 61 05/28/22 14:00 Pulse Strength Normal (2+) 05/27/22 20:00 Respiratory Rate 16 05/28/22 14:00 Respiratory Effort Non-Labored 05/28/22 10:00 Respiratory Depth Normal 05/28/22 10:00 Respiratory Pattern Normal 05/28/22 10:00 Blood Pressure 136/50 H 05/28/22 14:00 Blood Pressure Mean 78 05/28/22 14:00 Blood Pressure Source Monitor 05/28/22 14:00 Blood Pressure Position Semi-Fowlers 05/28/22 14:00 Blood Pressure Location Left Arm 05/28/22 14:00 Baseline BP 134/44 05/21/22 16:45 Pulse Ox 98 05/28/22 14:00 Oxygen Delivery Method Nasal Cannula 05/28/22 14:00 Oxygen Flow Rate (L/min) 2 05/28/22 14:00 Fraction of Inspired Oxygen (FIO2) 21 05/28/22 10:24 Laboratory Results - last 24 hr 05/25/22 05:40: Diff Path Review Reviewed 05/26/22 05:28: Diff Path Review Reviewed 05/27/22 05:23: Diff Path Review Reviewed 05/27/22 16:54: POC Glucose 209 H 05/27/22 20:46: POC Glucose 186 H 05/28/22 04:39: WBC 1.3 L*, RBC 2.41 L, Hgb 6.9 L, Hct 21.5 L, MCV 89.2, MCH 28.6, MCHC 32.1, RDW Std Deviation 56.4 H, RDW Coeff of Juliet 17.5 H, Plt Count 51 L, MPV 12.4 H, Immature Gran % (Auto) 0.000, Neut % (Auto) 59.5, Lymph % (Auto) 33.6, [place] % (Auto) 6.1, Eos % (Auto) 0.8, Baso % (Auto) 0.0, Absolute Neuts (auto) 0.8 L, Absolute Lymphs (auto) 0.44 L, Nucleated RBC % 0, Differential Comment SCANNED, Diff Path Review Reviewed 05/28/22 04:39: Sodium 137, Potassium 3.3 L, Chloride 109 H, Carbon Dioxide 21.0, Anion Gap 7, BUN 14, Creatinine 1.14, Estim Creat Clear Calc 71.10, Est GFR (MDRD) Af Amer 82, Est GFR (MDRD) Non-Af 68, BUN/Creatinine Ratio 12.3, Glucose 192 H, Calcium 7.3 L, Total Bilirubin 0.50, AST 19, ALT 18, Alkaline Phosphatase 89, Total Protein 7.2, Albumin 1.5 L, Globulin 5.7 H, Albumin/Globulin Ratio 0.3 L 05/28/22 08:04: POC Glucose 171 H 05/28/22 12:46: POC Glucose 235 H 05/28/22 12:57: Blood Type O POSITIVE, Antibody Screen NEGATIVE, Crossmatch See Detail Diagnostic Data Brain CT 05/18/22 15:28 IMPRESSION: Volume loss with chronic white matter changes. No acute intracranial findings. Electronically Signed: Florian Kuo MD at 16:16 EDT Reading Location ID and State: [facility] / [place] Tel , Service support , ADDENDUM: 05/18/22 1625 IMPRESSION: Volume loss with chronic white matter changes. No acute intracranial findings. N.B. : The above Results were Read Back by Florina Kuo MD to Dima Mckeon MD, and understanding confirmed on 05/18/2022 16:18:57 (ET). Electronically Signed: Florian Kuo MD at 16:16 EDT Reading Location ID and State: [facility] / [place] Tel , Service support , Chest X-Ray 05/18/22 15:59 IMPRESSION: No radiographic evidence of acute cardiopulmonary disease. Electronically Signed: Florian Kuo MD at 16:30 EDT Reading Location ID and State: [facility] / [place] Tel , Service support , Brain MRI 05/19/22 11:00 IMPRESSION: Normal unenhanced MRI of the brain. Electronically Signed: Sidney Ashton MD at 14:09 EDT , Head MRA 05/19/22 11:00 IMPRESSION: Normal MRA of the head Electronically Signed: Sidney Ashton MD at 14:10 EDT , Neck MRA 05/19/22 11:00 IMPRESSION: Normal bilateral cervical carotid and vertebral arteries. Electronically Signed: Sidney Ashton MD at 14:10 EDT , Knee X-Ray 05/19/22 14:05 IMPRESSION: Unusual mottled radiolucencies of the distal femur and proximal tibia and fibula. Correlation with MRI would be useful. Electronically Signed: Mark Ramesh MD at 16:44 EDT , Facial/Sinus 05/22/22 07:14 IMPRESSION: 1. No evidence of sinusitis or nasopharyngeal mass. 2. Diffuse bony metastases. Electronically Signed: Zeeshan Skaggs MD at 8:22 EDT ,
--- NOTE | 2022-05-28 15:58 | PN.RENAL_ITS ---
Subjective Subjective No new events Objective Data Objective Data Vital Signs: Vital Signs Temp Pulse Resp BP Pulse Ox O2 Del Method O2 Flow Rate 98.9 F 61 16 136/50 H 98 Nasal Cannula 2 05/28/22 15:52 05/28/22 15:52 05/28/22 15:52 05/28/22 15:52 05/28/22 15:52 05/28/22 15:52 05/28/22 15:52 FiO2 21 05/28/22 15:52 Oxygen Flow Rate (L/min) 2 Oxygen Delivery Method Nasal Cannula Weight: 156.7 kg Body Mass Index (BMI) 44.3 Intake & Output: Intake and Output for Last 24 Hours 05/26/22 05/27/22 05/28/22 23:59 23:59 23:59 Intake Total 3056.25 / 3056.25 3190 / 3190 1616.25 / 1616.25 Output Total 1400 / 1600 650 / 650 550 / 550 Balance 1656.25 / 1456.25 2540 / 2540 1066.25 / 1066.25 Lab / Micro Data Result Diagrams: 05/28/22 04:39 05/28/22 04:39 Labs: Laboratory Results - last 24 hr 05/25/22 05:40: Diff Path Review Reviewed 05/26/22 05:28: Diff Path Review Reviewed 05/27/22 05:23: Diff Path Review Reviewed 05/27/22 16:54: POC Glucose 209 H 05/27/22 20:46: POC Glucose 186 H 05/28/22 04:39: WBC 1.3 L*, RBC 2.41 L, Hgb 6.9 L, Hct 21.5 L, MCV 89.2, MCH 28.6, MCHC 32.1, RDW Std Deviation 56.4 H, RDW Coeff of Juliet 17.5 H, Plt Count 51 L, MPV 12.4 H, Immature Gran % (Auto) 0.000, Neut % (Auto) 59.5, Lymph % (Auto) 33.6, [place] % (Auto) 6.1, Eos % (Auto) 0.8, Baso % (Auto) 0.0, Absolute Neuts (auto) 0.8 L, Absolute Lymphs (auto) 0.44 L, Nucleated RBC % 0, Differential Comment SCANNED, Diff Path Review Reviewed 05/28/22 04:39: Sodium 137, Potassium 3.3 L, Chloride 109 H, Carbon Dioxide 21.0, Anion Gap 7, BUN 14, Creatinine 1.14, Estim Creat Clear Calc 71.10, Est GFR (MDRD) Af Amer 82, Est GFR (MDRD) Non-Af 68, BUN/Creatinine Ratio 12.3, Glucose 192 H, Calcium 7.3 L, Total Bilirubin 0.50, AST 19, ALT 18, Alkaline Phosphatase 89, Total Protein 7.2, Albumin 1.5 L, Globulin 5.7 H, Albumin/Globulin Ratio 0.3 L 05/28/22 08:04: POC Glucose 171 H 05/28/22 12:46: POC Glucose 235 H 05/28/22 12:57: Blood Type O POSITIVE, Antibody Screen NEGATIVE, Crossmatch See Detail Micro: Microbiology 05/20/22 11:13 Blood Culture (Wb) - Anticubital Right Blood Culture - Final No growth in 5 days. 05/20/22 11:24 Blood Culture (Wb) - Right Hand Blood Culture - Final No growth in 5 days. 05/19/22 00:39 Urine, Clean Catch Urine Culture - Final Mixed Gram Positive Organisms 05/18/22 16:45 Stool Stool Occult Blood (BASHIR) - Final Occult Blood Positive Physical Exam Narrative Alert awake oriented x 3 no obvious distress no pallor no icterus no JVD s1s2 no murmurs lungs clear abdomen soft no organomegaly no edema no cyanosis Assessment & Plan Assessment/Plan (1) Hypercalcemia: PLAN: Corrected calcium is 13.5-14. Phosphate normal. PTH appropriately sup pressed. PTH RP is pending. 25-hydroxy vitamin D is normal. 1, 25 hydroxy vitamin D is low. With low 1, 25 hydroxy vitamin D, suspicion for granulomatous disease will be somewhat lower. Reviewed hematology notes, likely bone marrow failure due to unknown infiltrative condition. Fungal serologies have been sent, will likely take long time to come back. Serum calcium is normal, albumin is low, corrected for albumin and calcium values are still normal. DC IV fluids. Discussed with hospitalist. He is scheduled to receive blood transfusion today. Okay to give Lasix for today. Okay to add cardiac medications such as Entresto. Creatinine is down to normal. Blood pressure is on the higher side hence he should be able to tolerate cardiac medications. (2) Chronic kidney disease: PLAN: Likely mediated by hypercalcemia. Previous abdominal imaging without any hydronephrosis. Urine analysis does show some glycosuria. Creatinine is back to baseline
[2022-05-28 17:55] LABS: Bedside Glucose 183 mg/dL (74-106)
[2022-05-28] MEDS: Atorvastatin Calcium 80 MG Tablet PO (21:12)
[2022-05-28] MEDS: SACUBITRIL/VALSARTAN 49-51 MG TABLET 1 EACH PO (21:12)
[2022-05-28 22:50] LABS: Bedside Glucose 163 mg/dL (74-106)
[2022-05-29] VITALS (15 sets, daily range): BP systolic 110–144; BP diastolic 50–76; PULSE 43–77; RESP 16–21; TEMP 36.4–36.9; O2SAT 96–98
[2022-05-29] MEDS: Acetaminophen 325 MG Tablet 650 MG PO (03:26)
[2022-05-29 07:22] LABS: ALB/GLOB Ratio 0.3 RATIO (0.9-2.4); AST(SGOT) 22 U/L (15-37); Alanine Aminotransfer ALT/SGPT 19 U/L (16-61); Albumin, Serum 1.4 g/dL (3.2-5.0); Alkaline Phosphatase 91 U/L (45-117); Anion Gap 5 (5-15); BUN 14 mg/dL (7-18); BUN/Creat Ratio 12.8 RATIO (10-20); Calcium,Total 7.2 mg/dL (8.5-10.1); Chloride 110 mmol/L (98-107); Creatinine, Serum 1.09 mg/dL (0.70-1.30); EST Glomerular Filtration Rate 71 mL/min (>60); Est Glom Filt Rate - Afr Amer 86 mL/min (>60); Estimated Creatinine Clearance 74.37 ml/min; Globulin 5.5 g/dL (2.2-4.2); Glucose 178 mg/dL (74-106); Potassium 3.1 mmol/L (3.5-5.1); Protein, Total 6.9 g/dL (6.4-8.2); Sodium Level 137 mmol/L (136-145)
[2022-05-29] MEDS: Insulin Lispro 100 UNIT/ML INSULN.PEN SC ×3 (08:24→17:25)
[2022-05-29] MEDS: Amiodarone 200 MG Tablet PO (08:26)
[2022-05-29] MEDS: Multivitamins,Therapeutic Tablet 1 TABLET PO (08:26)
[2022-05-29] MEDS: Vitamin E 400 UNITS Capsule PO (08:26)
[2022-05-29] MEDS: Spironolactone 50 MG Tablet PO (08:27)
[2022-05-29] MEDS: SACUBITRIL/VALSARTAN 49-51 MG TABLET 1 EACH PO ×2 (08:27→21:20)
[2022-05-29] MEDS: Magnesium Chloride 64 MG Delay Rel.Tablet 128 MG PO (08:28)
[2022-05-29] MEDS: Ursodiol 250 MG Tablet PO ×2 (08:28→21:19)
[2022-05-29 08:55] LABS: Bedside Glucose 172 mg/dL (74-106)
[2022-05-29 10:04] LABS: Absolute Lymphocyte Count 0.42 X10^3/uL (0.83-4.51); Absolute Neutrophil Count 0.7 X10^3/uL (2.0-7.7); Eosinophil# 0.01 X10^3/uL; Eosinophils% 0.8 % (0-5); Hematocrit 22.6 % (40-54); Hemoglobin 7.6 g/dL (13.0-16.5); Lymphocyte # 0.42 X10^3/ul (0.83-4.51); Lymphocyte % 33.6 % (19-41); Mean Corp Hgb Conc 33.6 g/dL (32-36); Mean Corpuscular Hgb 29.7 pg (27.0-32.0); Mean Corpuscular Volume 88.3 fL (80-94); Mean Platelet Vol. 11.5 fl (6.2-12.0); Monocyte# 0.08 X10^3/uL; Monocyte% 6.4 % (0-10); NRBC Flagged by Analyzer 0 % (0-5); Neutrophil # 0.73 X10^3/uL (2.7-7.7); Neutrophil % 58.4 % (47-70); POSITIVE COUNT YES; POSITIVE DIFFERENTIAL YES; POSITIVE MORPHOLOGY YES; Platelet Count 54 K/mm3 (150-450); RBC Distribution Width CV 17.3 % (11.6-14.6); RBC Distribution Width SD 54.7 fl (35.1-43.9); Red Blood Count 2.56 M/mm3 (4.6-6.2)
[2022-05-29 10:11] LABS: Differential Indicated SCAN CRITERIA MET
[2022-05-29 10:13] LABS: White Blood Count 1.3 K/mm3 (4.4-11.0)
[2022-05-29 10:41] LABS: Smudge Cells A
--- NOTE | 2022-05-29 12:05 | CASEMGMT ---
Per liaison, pt/family signed for palliative at this time. Bossman NEGRETE CM
--- NOTE | 2022-05-29 12:24 | CASEMGMT ---
Addendum entered by Ramona Hughes 05/29/22 15:49: CATHRYN asked d/c city planning engineer Sana to check with [facility]. Sana checked with [facility]. They do not do transfusions there, but they would transport him to to get transfusions. CATHRYN will notify patient's daughter. Ramona GILMORE Addendum entered by Ramona Hughes 05/29/22 15:34: CATHRYN called patient's daughter Vale. CATHRYN let Vale know that [facility] can still take patient. CATHRYN explained his insurance approved him, but if the patient doesn't get to the correction within so may days from the approval a new authorization will be needed. Vale asked SW if he needs transfusions would the correction do this or would they transfer him out every time he needs one. CATHRYN told her SW will have to check on this. Ramona GILMORE Original Note: CATHRYN was informed that family thinks patient is not going to [facility]. CATHRYN went to patient's room to clarify with family. However, there were numerous family members present and patient was talking to them. CATHRYN will check back. Ramona GILMORE
[2022-05-29] MEDS: Furosemide 40 MG Tablet PO (13:08)
[2022-05-29] MEDS: Insulin Lispro 100 UNIT/ML INSULN.PEN 8 UNIT SC ×2 (13:09→17:25)
[2022-05-29] MEDS: Insulin Glargine-YFGN 100 UNIT/ML Pen 25 UNIT SC ×2 (13:10→21:20)
[2022-05-29 13:40] LABS: Bedside Glucose 266 mg/dL (74-106)
--- NOTE | 2022-05-29 14:10 | PCM.PN.REN ---
Subjective Subjective no new events Objective Data Objective Data Vital Signs: Vital Signs Temp Pulse Resp BP Pulse Ox O2 Del Method O2 Flow Rate 97.9 F 60 18 110/76 98 Nasal Cannula 2 05/29/22 08:32 05/29/22 11:01 05/29/22 08:32 05/29/22 08:32 05/29/22 09:42 05/29/22 09:42 05/29/22 09:42 FiO2 21 05/29/22 08:32 Oxygen Flow Rate (L/min) 2 Oxygen Delivery Method Nasal Cannula Weight: 156.7 kg Body Mass Index (BMI) 44.3 Intake & Output: Intake and Output for Last 24 Hours 05/27/22 05/28/22 05/29/22 23:59 23:59 23:59 Intake Total 3190 / 3190 1736.25 / 1736.25 Output Total 650 / 650 1130 / 1130 800 / 800 Balance 2540 / 2540 606.25 / 606.25 -800 / -800 Lab / Micro Data Result Diagrams: 05/29/22 06:47 05/29/22 06:47 Labs: Laboratory Results - last 24 hr 05/28/22 12:57: Blood Type O POSITIVE, Antibody Screen NEGATIVE, Crossmatch See Detail 05/28/22 17:30: POC Glucose 183 H 05/28/22 21:05: POC Glucose 163 H 05/29/22 06:47: Sodium 137, Potassium 3.1 L, Chloride 110 H, Carbon Dioxide 22.0, Anion Gap 5, BUN 14, Creatinine 1.09, Estim Creat Clear Calc 74.37, Est GFR (MDRD) Af Amer 86, Est GFR (MDRD) Non-Af 71, BUN/Creatinine Ratio 12.8, Glucose 178 H, Calcium 7.2 L, Total Bilirubin 0.50, AST 22, ALT 19, Alkaline Phosphatase 91, Total Protein 6.9, Albumin 1.4 L, Globulin 5.5 H, Albumin/Globulin Ratio 0.3 L 05/29/22 06:47: WBC 1.3 L*, RBC 2.56 L, Hgb 7.6 L, Hct 22.6 L, MCV 88.3, MCH 29.7, MCHC 33.6, RDW Std Deviation 54.7 H, RDW Coeff of Juliet 17.3 H, Plt Count 54 L, MPV 11.5, Immature Gran % (Auto) 0.800, Neut % (Auto) 58.4, Lymph % (Auto) 33.6, [place] % (Auto) 6.4, Eos % (Auto) 0.8, Baso % (Auto) 0.0, Absolute Neuts (auto) 0.7 L, Absolute Lymphs (auto) 0.42 L, Nucleated RBC % 0, Diff Path Review May foll, Smudge Cells A 05/29/22 08:24: POC Glucose 172 H 05/29/22 13:08: POC Glucose 266 H Micro: Microbiology 05/20/22 11:13 Blood Culture (Wb) - Anticubital Right Blood Culture - Final No growth in 5 days. 05/20/22 11:24 Blood Culture (Wb) - Right Hand Blood Culture - Final No growth in 5 days. 05/19/22 00:39 Urine, Clean Catch Urine Culture - Final Mixed Gram Positive Organisms 05/18/22 16:45 Stool Stool Occult Blood (BASHIR) - Final Occult Blood Positive Physical Exam Narrative Alert awake oriented x 3 no obvious distress no pallor no icterus no JVD s1s2 no murmurs lungs clear abdomen soft no organomegaly no edema no cyanosis Assessment & Plan Assessment/Plan (1) Hypercalcemia: PLAN: Corrected calcium is 13.5-14. Phosphate normal. PTH appropriately suppressed. PTH RP is pending. 25-hydroxy vitamin D is normal. 1, 25 hydroxy vitamin D is low. With low 1, 25 hydroxy vitamin D, suspicion for granulomatous disease will be somewhat lower. Reviewed hematology notes, likely bone marrow failure due to unknown infiltrative condition. Fungal serologies have been sent, will likely take long time to come back. Serum calcium is normal, albumin is low, corrected for albumin and calcium values are still normal. (2) Chronic kidney disease: PLAN: Likely mediated by hypercalcemia. Previous abdominal imaging without any hydronephrosis. Urine analysis does show some glycosuria. Creatinine is back to baseline PLAN: Plan will follow peripherally
--- NOTE | 2022-05-29 17:25 | PCM.PN.HOSP ---
Subjective Subjective Follow-up for multiple acute issues including pancytopenia, transfusion dependent anemia, neuropathy, failure to thrive. Multiple family members present in the room waiting for palliative care meeting. I talked with patient's , daughters, brother and multiple other relatives. Objective Data Objective Data Vital Signs: Vital Signs Temp Pulse Resp BP Pulse Ox O2 Del Method O2 Flow Rate 97.8 F 65 16 123/69 H 98 Nasal Cannula 2 05/29/22 14:00 05/29/22 14:58 05/29/22 14:00 05/29/22 14:00 05/29/22 14:00 05/29/22 15:00 05/29/22 15:00 FiO2 21 05/29/22 14:00 Oxygen Flow Rate (L/min) 2 Oxygen Delivery Method Nasal Cannula Weight: 345 lb 7.43 oz Body Mass Index (BMI) 44.3 Intake & Output: Intake and Output for Last 24 Hours 05/27/22 05/28/22 05/29/22 23:59 23:59 23:59 Intake Total 3190 / 3190 1736.25 / 1736.25 Output Total 650 / 650 1130 / 1130 1375 / 1375 Balance 2540 / 2540 606.25 / 606.25 -1375 / -1375 Lab / Micro Data Result Diagrams: 05/29/22 06:47 05/29/22 06:47 Labs: Laboratory Results - last 24 hr 05/28/22 12:57: Crossmatch See Detail 05/28/22 17:30: POC Glucose 183 H 05/28/22 21:05: POC Glucose 163 H 05/29/22 06:47: Sodium 137, Potassium 3.1 L, Chloride 110 H, Carbon Dioxide 22.0, Anion Gap 5, BUN 14, Creatinine 1.09, Estim Creat Clear Calc 74.37, Est GFR (MDRD) Af Amer 86, Est GFR (MDRD) Non-Af 71, BUN/Creatinine Ratio 12.8, Glucose 178 H, Calcium 7.2 L, Total Bilirubin 0.50, AST 22, ALT 19, Alkaline Phosphatase 91, Total Protein 6.9, Albumin 1.4 L, Globulin 5.5 H, Albumin/Globulin Ratio 0.3 L 05/29/22 06:47: WBC 1.3 L*, RBC 2.56 L, Hgb 7.6 L, Hct 22.6 L, MCV 88.3, MCH 29.7, MCHC 33.6, RDW Std Deviation 54.7 H, RDW Coeff of Juliet 17.3 H, Plt Count 54 L, MPV 11.5, Immature Gran % (Auto) 0.800, Neut % (Auto) 58.4, Lymph % (Auto) 33.6, [place] % (Auto) 6.4, Eos % (Auto) 0.8, Baso % (Auto) 0.0, Absolute Neuts (auto) 0.7 L, Absolute Lymphs (auto) 0.42 L, Nucleated RBC % 0, Diff Path Review May foll, Smudge Cells A 05/29/22 08:24: POC Glucose 172 H 05/29/22 13:08: POC Glucose 266 H Micro: Microbiology 05/20/22 11:13 Blood Culture (Wb) - Anticubital Right Blood Culture - Final No growth in 5 days. 05/20/22 11:24 Blood Culture (Wb) - Right Hand Blood Culture - Final No growth in 5 days. 05/19/22 00:39 Urine, Clean Catch Urine Culture - Final Mixed Gram Positive Organisms 05/18/22 16:45 Stool Stool Occult Blood (BASHIR) - Final Occult Blood Positive Physical Exam Narrative The patient is stated he was short of breath yesterday. He was put on CPAP which he tolerated for few hours. He is more awake alert oriented now. Currently on baseline breathing. General: Awake, Oriented x3, Cooperative, morbid recently BMI 44.4 kg/m? HEENT: Atraumatic, PERRLA, EOMI, Normocephalic. Oral: Oral mucosa moist. No Gingival or Mucosal Lesions/ Ulcerations Neck: Supple, No JVD, Negative Carotid Bruits Lungs: Air entry diminished in bilateral lung bases due to obesity. No crepitation/rhonchi Cardiovascular: Sinus rhythm, Normal S1, Normal S2, grade 3/6 LLSB systolic murmur Abdomen: Bowel Sounds Present, Soft, Non Tender, Non-Distended : Large urinary incontinence, spontaneously voiding. No renal angle or suprapubic tenderness. Extremities: No edema, Capillary Refill Less than 3 Seconds Skin: No rashes, No breakdown Musculoskeletal: No Tenderness to Palpation of Joints or Extremities. Muscle strength 4/5 at knee and hip joints, left chronically is more weaker than right Neurological: Chronic polyneuropathy. Cranial nerves II-XII grossly intact, DTR 2+/4. Psych/Mental Status: Flat affect. Assessment & Plan Assessment/Plan (1) Pancytopenia: (2) Hypokalemia: (3) Chronic kidney disease: (4) Hypercalcemia: (5) Toxic metabolic encephalopathy: PLAN: Plan This is a 71-year-old question gentleman is admitted for work-up for TIA and severe pancytopenia predominantly anemia 1.? Pancytopenia with predominant anemia: Patient is being admitted in PCU on cardiac telemetry.? H&H 6.2/20.7%.? 2 units of PRBC type and crossmatch and transfuse 1 unit today.? Monitor CBC tomorrow and decide about second unit.? Patient has been transfused 3 units in the last 3 weeks recently. The patient is willing to try the third bone marrow biopsy but Dr. Oliva said no reason to repeat as prior to bone marrow were dry tap. 05/25: Hemoglobin 5.9/27.7, platelet count 47,000. WBC count 1.3 thousand, ANC 0.8 thousand, ALC 0.4 thousand. Anisocytosis 1+. Patient had total of 4 units PRBC transfusion till now during this admission Patient had repeat EGD on 05/21 noted old blood in nasopharynx and oropharynx, some mild esophagitis distally, angiodysplastic lesions stomach, noted to be bleeding and was hemostasis was done. Does not require platelet transfusion. 05/26: H&H 6.4/20.4.. Fluid smear shows moderate thrombocytopenia, leukopenia and normocytic normochromic anemia. Patient does not have chest pain or shortness of breath. We will hold for transfusion. 05/27: Hemoglobin 6.6 g, 1 unit of PRBC ordered last night. Patient on PRBC transfusion. Repeat hemoglobin 7.4 in afternoon. 05/28: Hemoglobin 6.9 g, WBC 1.3 thousand. Platelet count 51,000. Discussed with fishing captain Dr Dillard who saw the patient as consult. We discussed after the consult. The diagnosis for transfusion dependent anemia/pancytopenia is not clear as the patient has thick bone with bone marrow sclerosis. 2 times dry tap. Patient was also recommended to see [facility] fishing captain specialist but his insurance does not cover for consult therefore that plan was dropped in the past. Patient has some sort of plasmacytic disorder although the exact diagnosis not clear, POEMS was in consideration but not ruled in or ruled out. Palliative care consult requested because of low functional activity 05/29: Hemoglobin 7.6, WC 1.3 thousand. Platelet count 54,000. Discussed with the fishing captain. Advised 1 more unit of PRBC transfusion and plan for discharge. Palliative care meeting arranged for today. Laboratory Results 05/28/22 12:57: Crossmatch See Detail 05/28/22 17:30: POC Glucose 183 H 05/28/22 21:05: POC Glucose 163 H 05/29/22 06:47: Sodium 137, Potassium 3.1 L, Chloride 110 H, Carbon Dioxide 22.0, Anion Gap 5, BUN 14, Creatinine 1.09, Estim Creat Clear Calc 74.37, Est GFR (MDRD) Af Amer 86, Est GFR (MDRD) Non-Af 71, BUN/Creatinine Ratio 12.8, Glucose 178 H, Calcium 7.2 L, Total Bilirubin 0.50, AST 22, ALT 19, Alkaline Phosphatase 91, Total Protein 6.9, Albumin 1.4 L, Globulin 5.5 H, Albumin/Globulin Ratio 0.3 L 05/29/22 06:47: WBC 1.3 L*, RBC 2.56 L, Hgb 7.6 L, Hct 22.6 L, MCV 88.3, MCH 29.7, MCHC 33.6, RDW Std Deviation 54.7 H, RDW Coeff of Juliet 17.3 H, Plt Count 54 L, MPV 11.5, Immature Gran % (Auto) 0.800, Neut % (Auto) 58.4, Lymph % (Auto) 33.6, [place] % (Auto) 6.4, Eos % (Auto) 0.8, Baso % (Auto) 0.0, Absolute Neuts (auto) 0.7 L, Absolute Lymphs (auto) 0.42 L, Nucleated RBC % 0, Diff Path Review May foll, Smudge Cells A 05/29/22 08:24: POC Glucose 172 H 05/29/22 13:08: POC Glucose 266 H 2. Metabolic/toxic encephalopathy suspected to be due to hypercalcemia: Serum calcium level of 8.9. -MRA and MRI were negative -Lipids performed and showed total cholesterol of 91/LDL 23/HDL 28 -Aspirin on hold secondary to severe thrombocytopenia/anemia -Continue statin -Echo performed 2021 that shows an EF of 53% and stage II diastolic dysfunction with mild left atrial enlargement -PT/OT following and overall patient did fairly well need some therapy at discharge most likely will be home health -Speech has cleared for diet of regular textures and thin liquids 05/27: Patient is still lethargic, Sleepy, responds to simple questions. 05/28: Patient encephalopathy looks much better today. Not confused. 3. Hypercalcemia -This appears to be new -With previous known lytic lesions -Alk phos within normal limits -Vitamin D level was greater than 60 -PTH is appropriately suppressed at 11.2 -Continue Lasix and add IV fluids - PTHrP, vitamin D 1,25, SPEP and UPEP are all pending -vitamin D 1,25 should be elevated if granulomatous disease present -Pamidronate 60 mg given 1 dose on 05/22/2022 -Calcium level is finally improving with corrected down from 15-13.73 05/26: Serum calcium 8.2. 05/28: Serum calcium 7.3. 4. 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 Fungal and AFB work-up was ordered. Histo antibody antigen Bartonella antibodies TB Ig and fungal immunodiffusion panel and Aspergillus antibodies. Being comanaged with ID. Paroxysmal atrial fibrillation: As per daughter, patient was sinus rhythm for long time and then in A. fib. The patient was on amiodarone drip, changed to amiodarone oral 200 mg daily. Converted to sinus rhythm. Carvedilol 6.25 mg p.o. twice daily. Due to pancytopenia. High risk for bleeding and contraindication for anticoagulant. Nasal bleeding -CT of the sinuses and nasopharynx was normal with no masses -We will refer to ENT for possible cauterization as an outpatient after discharge CKD stage IIIb -Slight trend up and serum creatinine -Continue Lasix per nephrology orders as nephrology -Nephrology following 05/26: Serum creatinine improving. Admitting creatinine 1.83 Hypokalemia -Repeat K3.2. Mild hyponatremia. Spironolactone added. 05/27: Potassium 3.1. Patient spironolactone was increased to 50 mg daily. Creatinine improved to 1.2. 05/28: IV fluid discontinued by senior accounting specialist. Serum creatinine 1.1. Extra dose of spironolactone 50 mg 1 dose given for hypokalemia. Entresto resumed 05/29: Potassium continues to be low. Patient on Entresto and spironolactone. Potassium supplement ordered. DM-2 -Hold home oral agents -Fasting blood sugar remains elevated at 33 increase Lantus from 16 units to 22 units -Sliding scale insulin -Accu-Cheks as ordered -Most recent hemoglobin A1c from 04/04/2022 was 7 indicating adequate control -Unclear why blood sugars are so elevated at this time Nonobstructive cardiomyopathy/HFpEF -Currently compensated -Continue carvedilol -Aspirin on hold secondary to the above -Continue Lasix. 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 -Liver ultrasound previously reported fatty infiltration with hepatomegaly -CT-guided biopsy 2021 with focal macrovesicular steatosis -No cirrhosis noted at this time -Continue to follow with gastroenterology Fall -No severe injury -Complaining of left knee pain -Imaging with no acute fracture History of gout -Continue ursodiol Vitamin D deficiency -Vitamin D level is normal -Most recent one documented in the computer was 21.6 from 09/25/2021 Fibromyalgia -No current acute issues Essential tremor/myoclonus -Continue outpatient follow-up with neurology KADE -Nocturnal CPAP ordered -Family to bring in home unit but will need one of our masks Hypertension -Continue home carvedilol -Continue Entresto Hyperlipidemia -Continue home simvastatin Chronic dyspnea -Likely multifactorial -We will monitor for oxygen needs at discharge with ambulation Debility -Patient will need placement at discharge -PT and OT to continue to follow -Management following and discharge planning for placement in progress Morbid obesity -BMI 44.4 -Recommend weight loss -Complicates treatment, prognosis, outcomes DVT prophylaxis -SCDs -No chemoprophylaxis with severe thrombocytopenia CODE STATUS -Full code Total time of the visit including total time spent in counseling or coordination of care, (more than 50% of the total time, spent in obtaining medical information from nurses and other ancillary care providers,explaining to the patient about labs, imaging, diagnosis and management of active complex medical conditions), discussion with fishing captain and senior accounting specialist, family member and daughter near the bedside regarding palliative care, review of labs and imaging is 45 minutes. Microbiology Past 72 Hours 05/20/22 11:13 Blood Culture (Wb) - Anticubital Right Blood Culture - Final No growth in 5 days. 05/20/22 11:24 Blood Culture (Wb) - Right Hand Blood Culture - Final No growth in 5 days. Laboratory Results 05/25/22 05:40: Diff Path Review Reviewed 05/26/22 05:28: Diff Path Review Reviewed 05/27/22 05:23: Diff Path Review Reviewed 05/27/22 14:03: Hgb 7.4 L, Hct 23.0 L 05/27/22 16:54: POC Glucose 209 H 05/27/22 20:46: POC Glucose 186 H 05/28/22 04:39: WBC 1.3 L*, RBC 2.41 L, Hgb 6.9 L, Hct 21.5 L, MCV 89.2, MCH 28.6, MCHC 32.1, RDW Std Deviation 56.4 H, RDW Coeff of Juliet 17.5 H, Plt Count 51 L, MPV 12.4 H, Immature Gran % (Auto) 0.000, Neut % (Auto) 59.5, Lymph % (Auto) 33.6, [place] % (Auto) 6.1, Eos % (Auto) 0.8, Baso % (Auto) 0.0, Absolute Neuts (auto) 0.8 L, Absolute Lymphs (auto) 0.44 L, Nucleated RBC % 0, Differential Comment SCANNED, Diff Path Review Reviewed 05/28/22 04:39: Sodium 137, Potassium 3.3 L, Chloride 109 H, Carbon Dioxide 21.0, Anion Gap 7, BUN 14, Creatinine 1.14, Estim Creat Clear Calc 71.10, Est GFR (MDRD) Af Amer 82, Est GFR (MDRD) Non-Af 68, BUN/Creatinine Ratio 12.3, Glucose 192 H, Calcium 7.3 L, Total Bilirubin 0.50, AST 19, ALT 18, Alkaline Phosphatase 89, Total Protein 7.2, Albumin 1.5 L, Globulin 5.7 H, Albumin/Globulin Ratio 0.3 L 05/28/22 08:04: POC Glucose 171 H 05/28/22 12:46: POC Glucose 235 H 05/28/22 12:57: Blood Type Pending, Antibody Screen Pending, Crossmatch See Detail Charges/Coding Visit Charges Inpatient E&M: 92547 Subs Hosp L3
[2022-05-29 17:45] LABS: Bedside Glucose 185 mg/dL (74-106)
[2022-05-29] MEDS: Potassium Chloride Oral Tablet 20 MEQ 40 MEQ PO ×2 (18:00→21:19)
[2022-05-29 21:07] LABS: Aspirgillus flavus Negative (Neg:<1:1); Aspirgillus fumigatus Negative (Neg:<1:1); Aspirgillus niger Negative (Neg:<1:1); B. henselae IgG Negative titer (Neg:<1:320); B. henselae IgM Negative titer (Neg:<1:100); B. quintana IgG Negative titer (Neg:<1:320); QNTFERON TB Mitogen Value 9.03 IU/mL (.); QNTFERON TB Nil Value 0.16 IU/mL (.); QNTFERON TB1+ Ag Value 0.16 IU/mL (.); QNTFERON TB2+ Ag Value 0.17 IU/mL (.)
[2022-05-29] MEDS: Atorvastatin Calcium 80 MG Tablet PO (21:19)
[2022-05-29] MEDS: Carvedilol 6.25 MG Tablet PO (21:19)
[2022-05-29] MEDS: 0.9% Saline Lock 10 ML Syringe IV (21:20)
[2022-05-29 22:30] LABS: Bedside Glucose 131 mg/dL (74-106)
[2022-05-30] VITALS (12 sets, daily range): BP systolic 100–147; BP diastolic 48–56; PULSE 61–68; RESP 16–20; TEMP 36.4–37.5; O2SAT 94–100
[2022-05-30 05:34] LABS: Absolute Lymphocyte Count 0.47 X10^3/uL (0.83-4.51); Basophil# 0.01 X10^3/uL; Basophil% 0.6 % (0-1); Eosinophil# 0.03 X10^3/uL; Eosinophils% 1.9 % (0-5); Hematocrit 25.3 % (40-54); Hemoglobin 8.4 g/dL (13.0-16.5); Lymphocyte # 0.47 X10^3/ul (0.83-4.51); Lymphocyte % 29.4 % (19-41); Mean Corp Hgb Conc 33.2 g/dL (32-36); Mean Corpuscular Hgb 28.9 pg (27.0-32.0); Mean Corpuscular Volume 86.9 fL (80-94); Mean Platelet Vol. 11.9 fl (6.2-12.0); Monocyte# 0.14 X10^3/uL; Monocyte% 8.8 % (0-10); NRBC Flagged by Analyzer 0 % (0-5); Neutrophil # 0.95 X10^3/uL (2.7-7.7); Neutrophil % 59.3 % (47-70); POSITIVE COUNT YES; POSITIVE DIFFERENTIAL YES; POSITIVE MORPHOLOGY YES; Platelet Count 61 K/mm3 (150-450); RBC Distribution Width CV 17.3 % (11.6-14.6); RBC Distribution Width SD 54.4 fl (35.1-43.9); Red Blood Count 2.91 M/mm3 (4.6-6.2); White Blood Count 1.6 K/mm3 (4.4-11.0)
[2022-05-30 05:36] LABS: Differential Indicated SCAN CRITERIA MET
[2022-05-30 06:08] LABS: Anion Gap 7 (5-15); BUN 12 mg/dL (7-18); BUN/Creat Ratio 11.7 RATIO (10-20); Chloride 109 mmol/L (98-107); Creatinine, Serum 1.03 mg/dL (0.70-1.30); EST Glomerular Filtration Rate 76 mL/min (>60); Est Glom Filt Rate - Afr Amer 92 mL/min (>60); Glucose 135 mg/dL (74-106); Magnesium 1.8 mg/dL (1.6-2.6); Phosphorus 1.6 mg/dL (2.5-4.9); Potassium 3.2 mmol/L (3.5-5.1); Sodium Level 135 mmol/L (136-145)
[2022-05-30 06:17] LABS: Anisocytosis 1+; Platelet Morphology MD
[2022-05-30] MEDS: Magnesium Chloride 64 MG Delay Rel.Tablet 128 MG PO (07:52)
[2022-05-30] MEDS: Spironolactone 50 MG Tablet PO (07:52)
[2022-05-30] MEDS: Vitamin E 400 UNITS Capsule PO (07:52)
[2022-05-30] MEDS: Amiodarone 200 MG Tablet PO (07:52)
[2022-05-30] MEDS: Furosemide 40 MG Tablet PO (07:53)
[2022-05-30] MEDS: Multivitamins,Therapeutic Tablet 1 TABLET PO (07:53)
[2022-05-30] MEDS: Insulin Lispro 100 UNIT/ML INSULN.PEN 8 UNIT SC ×3 (07:53→16:11)
[2022-05-30] MEDS: Carvedilol 6.25 MG Tablet PO ×2 (07:53→20:54)
[2022-05-30] MEDS: Ursodiol 250 MG Tablet PO ×2 (07:53→21:01)
[2022-05-30] MEDS: SACUBITRIL/VALSARTAN 49-51 MG TABLET 1 EACH PO ×2 (07:53→20:54)
[2022-05-30] MEDS: Potassium Chloride Oral Tablet 20 MEQ 40 MEQ PO (08:05)
--- NOTE | 2022-05-30 08:47 | PN.HOSP_ITS ---
Subjective Subjective Follow-up for multiple issues including bedbound, low function along with multiple issues pancytopenia, kidney dysfunction. Patient had palliative meeting yesterday. I informed the patient that salesforce developer Dr. Dillard is eager to talk to patient's [id number] Potassium is still low even on spironolactone, potassium supplement and Entresto. Objective Data Objective Data Vital Signs: Vital Signs Temp Pulse Resp BP Pulse Ox O2 Del Method O2 Flow Rate 97.5 F L 66 18 147/56 H 97 Nasal Cannula 2 05/30/22 02:29 05/30/22 06:52 05/30/22 02:29 05/30/22 02:29 05/30/22 07:52 05/30/22 07:52 05/30/22 07:52 FiO2 21 05/29/22 14:00 Oxygen Flow Rate (L/min) 2 Oxygen Delivery Method Nasal Cannula Weight: 345 lb 7.43 oz Body Mass Index (BMI) 44.3 Intake & Output: Intake and Output for Last 24 Hours 05/28/22 05/29/22 05/30/22 23:59 23:59 23:59 Intake Total 1736.25 / 1736.25 400 / 400 Output Total 1130 / 1130 1875 / 1875 900 / 900 Balance 606.25 / 606.25 -1475 / -1475 -900 / -900 Lab / Micro Data Result Diagrams: 05/30/22 04:48 05/30/22 04:48 Labs: Laboratory Results - last 24 hr 05/23/22 14:40: Urine Total Protein 5.3, Urine Albumin 15.8, U Sxzzh-2-Hwupeaoz 5.1, U Alaul-0-Tglqrhpe 19.5, U Beta Globulin 25.0, U Gamma Globulin 34.6, U PEP M-Travon 13.5 H, Ur Immunofix PEP Note Comment 05/28/22 12:57: Crossmatch See Detail 05/29/22 06:47: WBC 1.3 L*, RBC 2.56 L, Hgb 7.6 L, Hct 22.6 L, MCV 88.3, MCH 29.7, MCHC 33.6, RDW Std Deviation 54.7 H, RDW Coeff of Juliet 17.3 H, Plt Count 54 L, MPV 11.5, Immature Gran % (Auto) 0.800, Neut % (Auto) 58.4, Lymph % (Auto) 33.6, Broome % (Auto) 6.4, Eos % (Auto) 0.8, Baso % (Auto) 0.0, Absolute Neuts (auto) 0.7 L, Absolute Lymphs (auto) 0.42 L, Nucleated RBC % 0, Diff Path Review Suzanne wheat, Smudge Cells A 05/29/22 08:24: POC Glucose 172 H 05/29/22 13:08: POC Glucose 266 H 05/29/22 17:20: POC Glucose 185 H 05/29/22 21:13: POC Glucose 131 H 05/30/22 04:48: WBC 1.6 L, RBC 2.91 L, Hgb 8.4 L, Hct 25.3 L, MCV 86.9, MCH 28.9, MCHC 33.2, RDW Std Deviation 54.4 H, RDW Coeff of Juliet 17.3 H, Plt Count 61 L, MPV 11.9, Immature Gran % (Auto) 0.000, Neut % (Auto) 59.3, Lymph % (Auto) 29.4, Broome % (Auto) 8.8, Eos % (Auto) 1.9, Baso % (Auto) 0.6, Absolute Neuts (auto) 1.0 L, Absolute Lymphs (auto) 0.47 L, Nucleated RBC % 0, Diff Path Review Suzanne wheat, Plt Morphology Comment MD, Anisocytosis 1+ 05/30/22 04:48: Sodium 135 L, Potassium 3.2 L, Chloride 109 H, Carbon Dioxide 19.0 L, Anion Gap 7, BUN 12, Creatinine 1.03, Estim Creat Clear Calc 78.70, Est GFR (MDRD) Af Amer 92, Est GFR (MDRD) Non-Af 76, BUN/Creatinine Ratio 11.7, Glucose 135 H, Calcium 7.0 L, Phosphorus 1.6 L, Magnesium 1.8 Micro: Microbiology 05/20/22 11:13 Blood Culture (Wb) - Anticubital Right Blood Culture - Final No growth in 5 days. 05/20/22 11:24 Blood Culture (Wb) - Right Hand Blood Culture - Final No growth in 5 days. 05/19/22 00:39 Urine, Clean Catch Urine Culture - Final Mixed Gram Positive Organisms 05/18/22 16:45 Stool Stool Occult Blood (BASHIR) - Final Occult Blood Positive Physical Exam Narrative He is more awake alert oriented now. Currently on baseline breathing. General: Awake, Oriented x3, Cooperative, morbid recently BMI 44.4 kg/m? HEENT: Atraumatic, PERRLA, EOMI, Normocephalic. Oral: Oral mucosa moist. No Gingival or Mucosal Lesions/ Ulcerations Neck: Supple, No JVD, Negative Carotid Bruits Lungs: Air entry diminished in bilateral lung bases due to obesity. No crepitation/rhonchi Cardiovascular: Sinus rhythm, Normal S1, Normal S2, grade 3/6 LLSB systolic murmur Abdomen: Bowel Sounds Present, Soft, Non Tender, Non-Distended : urinary incontinence. No renal angle or suprapubic tenderness. Extremities: No edema, Capillary Refill Less than 3 Seconds Skin: No rashes, No breakdown Musculoskeletal: No Tenderness to Palpation of Joints or Extremities. Muscle strength 4/5 at knee and hip joints, left chronically is more weaker than right Neurological: Chronic polyneuropathy. Cranial nerves II-XII grossly intact, DTR 2+/4. No specific focal deficit. Psych/Mental Status: Flat affect. Assessment & Plan Assessment/Plan (1) Pancytopenia: (2) Hypokalemia: (3) Chronic kidney disease: (4) Hypercalcemia: (5) Toxic metabolic encephalopathy: PLAN: Plan This is a 71-year-old question gentleman is admitted for work-up for TIA and severe pancytopenia predominantly anemia 1.? Pancytopenia with predominant anemia: Patient is being admitted in PCU on cardiac telemetry.? H&H 6.2/20.7%.? 2 units of PRBC type and crossmatch and transfuse 1 unit today.? Monitor CBC tomorrow and decide about second unit.? Patient has been transfused 3 units in the last 3 weeks recently. The patient is willing to try the third bone marrow biopsy but Dr. Oliva said no reason to repeat as prior to bone marrow were dry tap. 05/25: Hemoglobin 5.9/27.7, platelet count 47,000. WBC count 1.3 thousand, ANC 0.8 thousand, ALC 0.4 thousand. Anisocytosis 1+. Patient had total of 4 units PRBC transfusion till now during this admission Patient had repeat EGD on 05/21 noted old blood in nasopharynx and oropharynx, some mild esophagitis distally, angiodysplastic lesions stomach, noted to be bleeding and was hemostasis was done. Does not require platelet transfusion. 05/26: H&H 6.4/20.4.. Fluid smear shows moderate thrombocytopenia, leukopenia and normocytic normochromic anemia. Patient does not have chest pain or shortness of breath. We will hold for transfusion. 05/27: Hemoglobin 6.6 g, 1 unit of PRBC ordered last night. Patient on PRBC transfusion. Repeat hemoglobin 7.4 in afternoon. 05/28: Hemoglobin 6.9 g, WBC 1.3 thousand. Platelet count 51,000. Discussed w [facility] salesforce developer Dr Dillard who saw the patient as consult. We discussed after the consult. The diagnosis for transfusion dependent anemia/pancytopenia is not clear as the patient has thick bone with bone marrow sclerosis. 2 times dry tap. Patient was also recommended to see [facility] salesforce developer specialist but his insurance does not cover for consult therefore that plan was dropped in the past. Patient has some sort of plasmacytic disorder although the exact diagnosis not clear, POEMS was in consideration but not ruled in or ruled out. Palliative care consult requested because of low functional activity 05/29: Hemoglobin 7.6, WC 1.3 thousand. Platelet count 54,000. Discussed with the salesforce developer. Advised 1 more unit of PRBC transfusion and plan for discharge. Palliative care meeting arranged for today. 05/30: 1 unit of PRBC transfusion was ordered. Hemoglobin 8.4. Otherwise other WBC count and platelet count profile remains similar. 2. Metabolic/toxic encephalopathy suspected to be due to hypercalcemia: Serum calcium level of 8.9. -MRA and MRI were negative -Lipids performed and showed total cholesterol of 91/LDL 23/HDL 28 -Aspirin on hold secondary to severe thrombocytopenia/anemia -Continue statin -Echo performed 2021 that shows an EF of 53% and stage II diastolic dysfunction with mild left atrial enlargement -PT/OT following and overall patient did fairly well need some therapy at discharge most likely will be home health -Speech has cleared for diet of regular textures and thin liquids 05/27: Patient is still lethargic, Sleepy, responds to simple questions. 05/28: Patient encephalopathy looks much better today. Not confused. 3. Hypercalcemia -This appears to be new -With previous known lytic lesions -Alk phos within normal limits -Vitamin D level was greater than 60 -PTH is appropriately suppressed at 11.2 -Continue Lasix and add IV fluids - PTHrP, vitamin D 1,25, SPEP and UPEP are all pending -vitamin D 1,25 should be elevated if granulomatous disease present -Pamidronate 60 mg given 1 dose on 05/22/2022 -Calcium level is finally improving with corrected down from 15-13.73 05/26: Serum calcium 8.2. 05/28: Serum calcium 7.3. 05/30: Serum calcium 7.0. 4. 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 Fungal and AFB work-up was ordered. Histo antibody antigen Bartonella antibodies TB Ig and fungal immunodiffusion panel and Aspergillus antibodies. Being comanaged with ID. Paroxysmal atrial fibrillation: As per daughter, patient was sinus rhythm for long time and then in A. fib. The patient was on amiodarone drip, changed to amiodarone oral 200 mg daily. Converted to sinus rhythm. Carvedilol 6.25 mg p.o. twice daily. Due to pancytopenia. High risk for bleeding and contraindication for anticoagulant. Nasal bleeding -CT of the sinuses and nasopharynx was normal with no masses -We will refer to ENT for possible cauterization as an outpatient after discharge CKD stage IIIb -Slight trend up and serum creatinine -Continue Lasix per nephrology orders as nephrology -Nephrology following 05/26: Serum creatinine improving. Admitting creatinine 1.83 Hypokalemia -Repeat K3.2. Mild hyponatremia. Spironolactone added. 05/27: Potassium 3.1. Patient spironolactone was increased to 50 mg daily. Creatinine improved to 1.2. 05/28: IV fluid discontinued by rn neonatal icu. Serum creatinine 1.1. Extra dose of spironolactone 50 mg 1 dose given for hypokalemia. Entresto resumed 05/29: Potassium continues to be low. Patient on Entresto and spironolactone. Potassium supplement ordered. 05/30: Patient still has hypokalemia and hypophosphatemia. Serum magnesium normal. Neutra-Phos ordered. Spironolactone was increased to 75 mg daily. DM-2 -Hold home oral agents -Fasting blood sugar remains elevated at 33 increase Lantus from 16 units to 22 units -Sliding scale insulin -Accu-Cheks as ordered -Most recent hemoglobin A1c from 04/04/2022 was 7 indicating adequate control -Unclear why blood sugars are so elevated at this time Nonobstructive cardiomyopathy/HFpEF -Currently compensated -Continue carvedilol -Aspirin on hold secondary to the above -Continue Lasix. 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 -Liver ultrasound previously reported fatty infiltration with hepatomegaly -CT-guided biopsy 2021 with focal macrovesicular steatosis -No cirrhosis noted at this time -Continue to follow with gastroenterology Fall -No severe injury -Complaining of left knee pain -Imaging with no acute fracture History of gout -Continue ursodiol Vitamin D deficiency -Vitamin D level is normal -Most recent one documented in the computer was 21.6 from 09/25/2021 Fibromyalgia -No current acute issues Essential tremor/myoclonus -Continue outpatient follow-up with neurology KADE -Nocturnal CPAP ordered -Family to bring in home unit but will need one of our masks Hypertension -Continue home carvedilol -Continue Entresto Hyperlipidemia -Continue home simvastatin Chronic dyspnea -Likely multifactorial -We will monitor for oxygen needs at discharge with ambulation Debility -Patient will need placement at discharge -PT and OT to continue to follow -Management following and discharge planning for placement in progress Morbid obesity -BMI 44.4 -Recommend weight loss -Complicates treatment, prognosis, outcomes DVT prophylaxis -SCDs -No chemoprophylaxis with severe thrombocytopenia CODE STATUS -Full code Discharge planning: Discussed with family caseworker. Needs pre-CERT. Patient needs usp from where doctor can prescribe transfusion if needed and patient has access to outpatient infusion center. Therefore difficult discharge Total time of the visit including total time spent in counseling or coordination of care, (more than 50% of the total time, spent in obtaining medical information from nurses and other ancillary care providers,explaining to the patient about labs, imaging, diagnosis and management of active complex medical conditions), discussion with salesforce developer and rn neonatal icu, family member and daughter near the bedside regarding palliative care, review of labs and imaging is 45 minutes. Laboratory Results 05/23/22 14:40: Urine Total Protein 5.3, Urine Albumin 15.8, U Wxxen-6-Nnfjppsz 5.1, U Wrngu-0-Hwwjcoaf 19.5, U Beta Globulin 25.0, U Gamma Globulin 34.6, U PEP M-Travon 13.5 H, Ur Immunofix PEP Note Comment 05/28/22 12:57: Crossmatch See Detail 05/29/22 17:20: POC Glucose 185 H 05/29/22 21:13: POC Glucose 131 H 05/30/22 04:48: WBC 1.6 L, RBC 2.91 L, Hgb 8.4 L, Hct 25.3 L, MCV 86.9, MCH 28.9, MCHC 33.2, RDW Std Deviation 54.4 H, RDW Coeff of Juliet 17.3 H, Plt Count 61 L, MPV 11.9, Immature Gran % (Auto) 0.000, Neut % (Auto) 59.3, Lymph % (Auto) 29.4, Broome % (Auto) 8.8, Eos % (Auto) 1.9, Baso % (Auto) 0.6, Absolute Neuts (auto) 1.0 L, Absolute Lymphs (auto) 0.47 L, Nucleated RBC % 0, Diff Path Review May jarret, Plt Morphology Comment , Anisocytosis 1+ 05/30/22 04:48: Sodium 135 L, Potassium 3.2 L, Chloride 109 H, Carbon Dioxide 19.0 L, Anion Gap 7, BUN 12, Creatinine 1.03, Estim Creat Clear Calc 78.70, Est GFR (MDRD) Af Amer 92, Est GFR (MDRD) Non-Af 76, BUN/Creatinine Ratio 11.7, Glucose 135 H, Calcium 7.0 L, Phosphorus 1.6 L, Magnesium 1.8 05/30/22 11:07: POC Glucose 201 H Charges/Coding Visit Charges Inpatient E&M: 11437 Subs Hosp L3
--- NOTE | 2022-05-30 09:08 | CASEMGMT ---
Addendum entered by Roslyn Colbert 05/30/22 14:27: Call from Marine at [facility] and she states Dr. Boothe wrote a script for the standing blood draw/transfusion order and she will fax it to this RN CM at this time. [facility] in TCU is aware and she states Dr. Suggs is on board as well. Script will be sent with pt on admission to TCU. Dr. Boothe already has an appt with pt scheduled for 06/20/22 at 1500 and this will be relayed to TCU as well. Standing order script obtained and given to Angelika LOCKETT. Bossman RN GARRICK Addendum entered by Roslyn Colbert 05/30/22 13:02: Per Angelika OLCKETT, pt/family now would like pt to go to TCU at discharge and precert pending. Call back to Marine at Dr. Boothe' office to notify that pt will now be going to TCU so that they can get standing order for transfusion/blood draws weekly, voices understanding and states will call this RN CM back. Call to [facility] in TCU to notify of same and she states that they just need an order from Dr. Boothe or it placed on transfer summary but Dr. Brown does transfer summary and will not be following pt in TCU. CM to follow. Bossman RN GARRICK Addendum entered by Roslyn Colbert 05/30/22 12:53: This RN CM has not heard back from DON at [facility], so another call placed to DON and another message left with her to call this RN CM back when able. CM to follow. Bossman RN CM Original Note: Pt will likely require OP blood transfusions per Dr. Boothe to keep Hgb 8.0 and above and family wants to make sure that pt will be able to get these at [facility]. Sade, d/c planning asst, called [facility] and they state they can have transfusions set up. Call to Dr. Boothe' office yesterday and left message for them to call back. This RN CM received message from office and called them back this am. Dr. Boothe states that he will write a standing order for CBC w/ diff every saturday and if Hgb less than 8 then transfusion on saturday but he states he can only do this if pt will get at [facility]. He states he cannot write order for [facility] in [place] which is where [facility] would transport pt for OP transfusion. This RN CM placed call and left message for DON at [facility] to see if their physician would be able to write standing order for same. CM to follow. SStrc NEGRETE CM
[2022-05-30] MEDS: Na Biphos/Potassium Phosphate PACKET 1 PACKET PO ×4 (09:38→21:00)
[2022-05-30] MEDS: Spironolactone 25 MG Tablet PO (09:38)
[2022-05-30] MEDS: Insulin Glargine-YFGN 100 UNIT/ML Pen 25 UNIT SC ×2 (11:09→20:57)
[2022-05-30] MEDS: Insulin Lispro 100 UNIT/ML INSULN.PEN SC ×3 (11:09→20:55)
[2022-05-30 12:20] LABS: Bedside Glucose 201 mg/dL (74-106)
--- NOTE | 2022-05-30 13:07 | CASEMGMT ---
CADEN Torres spoke with Dr Dillard' office and he can write a standing order for transfusions, but only for [facility]. Patient was set to go to [facility]. Patient will need a physician that is willing to write a standing order for transfusions. CADEN Mcgowan called [facility] 2 times to talk with their customer consulting manager to see if [facility]'s physician would be willing to write the standing order. No one has called CADEN MCCAULEY back. [facility] would have to get a doctor to write the standing order for transfusions and then every time he needs a transfusion they would have to send him to [facility] via ambulance. Patient's daughter Vale and patient were concerned about patient having to be transported back and forth. With patient and his daughter's concern regarding being transported back and forth it may be worth checking with [facility] TCU to see if they could take patient. Dr Dillard would be able to write the order and patient would just be wheeled by wheelchair to the outpatient pavilion. No ambulance would have to be involved. CATHRYN spoke with patient's daughter Vale, patient, and his letting them know above information. CATHRYN explained that CADEN MCCAULEY can keep trying to reach [facility]'s customer consulting manager or CATHRYN could check with [facility] TCU if they would like. Patient and his family were very interested in patient staying at [facility] TCU. CATHRYN checked with [facility] and they can take patient. CATHRYN let patient and his family know this information. CATHRYN called [facility] and spoke with Sana in admissions. CATHRYN asked that they cancel the pre-cert request so a new pre-cert can be initiated. Sana d/c planning rn called [facility] prior to CATHRYN's call to notify them patient will not be coming to them at discharge. Plan: d/c to [facility] pending insurance approval. Ramona Hughes WATER RESOURCE MANAGER DEFENCE FORCE MEMBER OTHER RANKS
--- NOTE | 2022-05-30 13:22 | CASEMGMT ---
Discharge Ultrasound Technician This hand sign writer called [facility] to cancel referral per CATHRYN Greene. Sade AVERY Sales Recruitment Specialist
[2022-05-30 15:31] LABS: Bedside Glucose 146 mg/dL (74-106)
[2022-05-30 16:31] LABS: Bedside Glucose 196 mg/dL (74-106)
[2022-05-30] MEDS: Atorvastatin Calcium 80 MG Tablet PO (21:01)
[2022-05-31] VITALS (12 sets, daily range): BP systolic 115–135; BP diastolic 42–67; PULSE 63–71; RESP 12–18; TEMP 36.4–36.6; O2SAT 95–100
--- NOTE | 2022-05-31 00:24 | CPS ---
Pt placed on home unit Bipap
[2022-05-31 02:55] LABS: Bedside Glucose 190 mg/dL (74-106)
[2022-05-31 06:58] LABS: Absolute Neutrophil Count 0.9 X10^3/uL (2.0-7.7); Eosinophil# 0.02 X10^3/uL; Eosinophils% 1.4 % (0-5); Hematocrit 24.6 % (40-54); Hemoglobin 8.1 g/dL (13.0-16.5); Lymphocyte % 27.6 % (19-41); Mean Corp Hgb Conc 32.9 g/dL (32-36); Mean Corpuscular Hgb 28.9 pg (27.0-32.0); Mean Corpuscular Volume 87.9 fL (80-94); Mean Platelet Vol. 11.2 fl (6.2-12.0); Monocyte% 6.9 % (0-10); NRBC Flagged by Analyzer 0 % (0-5); Neutrophil # 0.92 X10^3/uL (2.7-7.7); Neutrophil % 63.4 % (47-70); POSITIVE COUNT YES; POSITIVE DIFFERENTIAL YES; POSITIVE MORPHOLOGY YES; Platelet Count 58 K/mm3 (150-450); RBC Distribution Width CV 17.5 % (11.6-14.6); RBC Distribution Width SD 55.8 fl (35.1-43.9); White Blood Count 1.5 K/mm3 (4.4-11.0)
[2022-05-31 07:01] LABS: Differential Indicated SCAN CRITERIA MET
[2022-05-31 07:13] LABS: Anisocytosis 1+; Platelet Estimate MOD DEC (ADEQ)
[2022-05-31 07:22] LABS: Anion Gap 7 (5-15); BUN 10 mg/dL (7-18); Calcium,Total 7.2 mg/dL (8.5-10.1); Chloride 109 mmol/L (98-107); EST Glomerular Filtration Rate 79 mL/min (>60); Est Glom Filt Rate - Afr Amer 95 mL/min (>60); Estimated Creatinine Clearance 81.06 ml/min; Glucose 172 mg/dL (74-106); Magnesium 1.6 mg/dL (1.6-2.6); Potassium 3.5 mmol/L (3.5-5.1); Sodium Level 137 mmol/L (136-145)
[2022-05-31 09:52] LABS: Pathologist Review Reviewed
[2022-05-31] MEDS: Insulin Lispro 100 UNIT/ML INSULN.PEN 8 UNIT SC ×3 (10:00→16:32)
[2022-05-31] MEDS: Insulin Lispro 100 UNIT/ML INSULN.PEN SC ×2 (10:00→11:46)
[2022-05-31] MEDS: Multivitamins,Therapeutic Tablet 1 TABLET PO (10:01)
[2022-05-31] MEDS: Carvedilol 6.25 MG Tablet PO ×2 (10:01→20:57)
[2022-05-31] MEDS: Amiodarone 200 MG Tablet PO (10:01)
[2022-05-31] MEDS: Vitamin E 400 UNITS Capsule PO (10:01)
[2022-05-31] MEDS: SACUBITRIL/VALSARTAN 49-51 MG TABLET 1 EACH PO ×2 (10:02→20:57)
[2022-05-31] MEDS: Magnesium Chloride 64 MG Delay Rel.Tablet 128 MG PO (10:02)
[2022-05-31] MEDS: Ursodiol 250 MG Tablet PO ×2 (10:02→20:56)
[2022-05-31] MEDS: Na Biphos/Potassium Phosphate PACKET 1 PACKET PO ×3 (10:02→20:57)
[2022-05-31] MEDS: Furosemide 40 MG Tablet PO (10:02)
[2022-05-31] MEDS: Insulin Glargine-YFGN 100 UNIT/ML Pen 25 UNIT SC ×2 (10:02→20:59)
[2022-05-31 10:04] LABS: Pathologist Review Reviewed
--- NOTE | 2022-05-31 10:11 | PCM.PN.REN ---
Subjective Subjective Resting in bed, no complaints Objective Data Objective Data Vital Signs: Vital Signs Temp Pulse Resp BP Pulse Ox O2 Del Method O2 Flow Rate 97.5 F L 71 12 115/42 L 95 Room Air 2 05/31/22 09:58 05/31/22 09:58 05/31/22 09:58 05/31/22 09:58 05/31/22 09:58 05/31/22 09:58 05/31/22 05:00 FiO2 21 05/31/22 05:00 Oxygen Flow Rate (L/min) 2 Oxygen Delivery Method Room Air Weight: 156.7 kg Body Mass Index (BMI) 44.3 Intake & Output: Intake and Output for Last 24 Hours 05/29/22 05/30/22 05/31/22 23:59 23:59 23:59 Intake Total 400 / 400 1030 / 1030 Output Total 1875 / 1875 2750 / 2750 500 / 500 Balance -1475 / -1475 -1720 / -1720 -500 / -500 Lab / Micro Data Result Diagrams: 05/31/22 06:35 05/31/22 06:35 Labs: Laboratory Results - last 24 hr 05/24/22 05:10: Miscellaneous Test 05/29/22 06:47: Diff Path Review Reviewed 05/30/22 04:48: Diff Path Review Reviewed 05/30/22 07:46: POC Glucose 146 H 05/30/22 11:07: POC Glucose 201 H 05/30/22 16:09: POC Glucose 196 H 05/30/22 20:53: POC Glucose 190 H 05/31/22 06:35: WBC 1.5 L, RBC 2.80 L, Hgb 8.1 L, Hct 24.6 L, MCV 87.9, MCH 28.9, MCHC 32.9, RDW Std Deviation 55.8 H, RDW Coeff of Juliet 17.5 H, Plt Count 58 L, MPV 11.2, Immature Gran % (Auto) 0.700, Neut % (Auto) 63.4, Lymph % (Auto) 27.6, [place]ler % (Auto) 6.9, Eos % (Auto) 1.4, Baso % (Auto) 0.0, Absolute Neuts (auto) 0.9 L, Absolute Lymphs (auto) 0.40 L, Nucleated RBC % 0, Diff Path Review May foll, Platelet Estimate MOD DEC, Anisocytosis 1+ 05/31/22 06:35: Sodium 137, Potassium 3.5, Chloride 109 H, Carbon Dioxide 21.0, Anion Gap 7, BUN 10, Creatinine 1.00, Estim Creat Clear Calc 81.06, Est GFR (MDRD) Af Amer 95, Est GFR (MDRD) Non-Af 79, BUN/Creatinine Ratio 10.0, Glucose 172 H, Calcium 7.2 L, Magnesium 1.6 Micro: Microbiology 05/20/22 11:13 Blood Culture (Wb) - Anticubital Right Blood Culture - Final No growth in 5 days. 05/20/22 11:24 Blood Culture (Wb) - Right Hand Blood Culture - Final No growth in 5 days. 05/19/22 00:39 Urine, Clean Catch Urine Culture - Final Mixed Gram Positive Organisms 05/18/22 16:45 Stool Stool Occult Blood (BASHIR) - Final Occult Blood Positive Radiography Diagnostic Testing: Radiology Impression Head MRA 05/19/22 11:00 IMPRESSION: Normal MRA of the head Electronically Signed: Sidney Ashton MD at 14:10 EDT , ADDENDUM: 05/30/22 1126 IMPRESSION: Normal MRA of the head and unchanged since 08/19/2006. Electronically Signed: Sidney Ashton MD at 11:19 EDT , Physical Exam Narrative Alert awake oriented x 3 no obvious distress s1s2 no murmurs lungs clear abdomen soft no pitting edema Assessment & Plan Assessment/Plan (1) Hypercalcemia: PLAN: Corrected calcium is 13.5-14. Phosphate normal. PTH appropriately suppressed. PTH RP is pending. 25-hydroxy vitamin D is normal. 1, 25 hydroxy vitamin D is low. With low 1, 25 hydroxy vitamin D, suspicion for granulomatous disease will be somewhat lower. Reviewed hematology notes, likely bone marrow failure due to unknown infiltrative condition. Fungal serologies have been sent, will likely take long time to come back. Serum calcium is normal, albumin is low, corrected for albumin and calcium values are still normal. Potassium normalized today. (2) Chronic kidney disease: PLAN: Baseline Creatinine ~1-1.3mg/dL. TAVO likely mediated by hypercalcemia. Previous abdominal imaging without any hydronephrosis. Urine analysis does show some glycosuria. Creatinine is back to baseline PLAN: Plan discharge planning in progress. Possible discharge to TCU. discussed with Dr. Brown
[2022-05-31 10:25] LABS: Bedside Glucose 208 mg/dL (74-106)
[2022-05-31] MEDS: Spironolactone 25 MG Tablet 75 MG PO (10:43)
[2022-05-31 12:25] LABS: Bedside Glucose 214 mg/dL (74-106)
[2022-05-31 15:33] LABS: Pathologist Review Reviewed
[2022-05-31 15:42] LABS: B. quintana IgM Negative titer (Neg:<1:100); Histoplasma Abs Negative (Neg:<1:1); QNTIFERON TB Positive Criteria Negative (Negative)
--- NOTE | 2022-05-31 16:10 | PN.HOSP_ITS ---
Subjective Subjective Follow-up for pancytopenia and other medical conditions Objective Data Objective Data Vital Signs: Vital Signs Temp Pulse Resp BP Pulse Ox O2 Del Method O2 Flow Rate 97.8 F 66 14 123/51 H 100 Room Air 2 05/31/22 15:10 05/31/22 15:10 05/31/22 15:10 05/31/22 15:10 05/31/22 15:10 05/31/22 15:35 05/31/22 07:22 FiO2 21 05/31/22 05:00 Oxygen Flow Rate (L/min) 2 Oxygen Delivery Method Room Air Weight: 345 lb 7.43 oz Body Mass Index (BMI) 44.3 Intake & Output: Intake and Output for Last 24 Hours 05/29/22 05/30/22 05/31/22 23:59 23:59 23:59 Intake Total 400 / 400 1030 / 1030 450 / 450 Output Total 1875 / 1875 2750 / 2750 1000 / 1000 Balance -1475 / -1475 -1720 / -1720 -550 / -550 Lab / Micro Data Result Diagrams: 05/31/22 06:35 05/31/22 06:35 Labs: Laboratory Results - last 24 hr 05/24/22 05:10: Miscellaneous Test 05/24/22 05:10: Bartonella henselae IgG Negative, Bartonella henselae IgM Negative, Bartonella mcdonough IgG Negative, Bartonella mcdonough IgM Negative, Histoplasma Antibody Negative, Aspergillus flavus Ab Negative, Aspergill fumigatus Ab Negative, Aspergillus niger Ab Negative, TB Test (QFT) Nil 0.16, TB Test (QFT) Mitogen 9.03, TB Test (QFT) Ag 1 0.16, TB Test (QFT) Ag 2 0.17, TB Test (QFT) Comment, TB Positive Criteria Negative 05/29/22 06:47: Diff Path Review Reviewed 05/30/22 04:48: Diff Path Review Reviewed 05/30/22 16:09: POC Glucose 196 H 05/30/22 20:53: POC Glucose 190 H 05/31/22 06:35: WBC 1.5 L, RBC 2.80 L, Hgb 8.1 L, Hct 24.6 L, MCV 87.9, MCH 28.9, MCHC 32.9, RDW Std Deviation 55.8 H, RDW Coeff of Juliet 17.5 H, Plt Count 58 L, MPV 11.2, Immature Gran % (Auto) 0.700, Neut % (Auto) 63.4, Lymph % (Auto) 27.6, Camas % (Auto) 6.9, Eos % (Auto) 1.4, Baso % (Auto) 0.0, Absolute Neuts (auto) 0.9 L, Absolute Lymphs (auto) 0.40 L, Nucleated RBC % 0, Diff Path Review Reviewed, Platelet Estimate MOD DEC, Anisocytosis 1+ 05/31/22 06:35: Sodium 137, Potassium 3.5, Chloride 109 H, Carbon Dioxide 21.0, Anion Gap 7, BUN 10, Creatinine 1.00, Estim Creat Clear Calc 81.06, Est GFR (MDRD) Af Amer 95, Est GFR (MDRD) Non-Af 79, BUN/Creatinine Ratio 10.0, Glucose 172 H, Calcium 7.2 L, Magnesium 1.6 05/31/22 09:59: POC Glucose 208 H 05/31/22 11:44: POC Glucose 214 H Micro: Microbiology 05/20/22 11:13 Blood Culture (Wb) - Anticubital Right Blood Culture - Final No growth in 5 days. 05/20/22 11:24 Blood Culture (Wb) - Right Hand Blood Culture - Final No growth in 5 days. 05/19/22 00:39 Urine, Clean Catch Urine Culture - Final Mixed Gram Positive Organisms 05/18/22 16:45 Stool Stool Occult Blood (BASHIR) - Final Occult Blood Positive Physical Exam Narrative Seen and examined. Discussed with patient's near the bedside. The patient is more awake alert oriented now. Currently on baseline breathing. General: Awake, Oriented x3, Cooperative, morbid recently BMI 44.4 kg/m? HEENT: Atraumatic, PERRLA, EOMI, Normocephalic. Oral: Oral mucosa moist. No Gingival or Mucosal Lesions/ Ulcerations Neck: Supple, No JVD, Negative Carotid Bruits Lungs: Air entry diminished in bilateral lung bases due to obesity. No crepitation/rhonchi Cardiovascular: Sinus rhythm, Normal S1, Normal S2, grade 3/6 LLSB systolic murmur Abdomen: Bowel Sounds Present, Soft, Non Tender, Non-Distended : urinary incontinence. No renal angle or suprapubic tenderness. Extremities: No edema, Capillary Refill Less than 3 Seconds Skin: No rashes, No breakdown Musculoskeletal: No Tenderness to Palpation of Joints or Extremities. Muscle strength 4/5 at knee and hip joints, left chronically is more weaker than right Neurological: Chronic polyneuropathy. Cranial nerves II-XII grossly intact, DTR 2+/4. No specific focal deficit. Psych/Mental Status: Flat affect. Const alert, oriented x3, no apparent distress and well nourished Constitutional Narrative: Very pleasant, morbidly obese, upper middle-aged white male sitting up in bed, patient appears nontoxic and comfortable at this time, family at bedside and feel that his mental status is better today than it has been, disoriented on current place but oriented to self, month, year, and vice president risk management HEENT head/scalp atraumatic and moist oral mucous membranes Resp normal respiratory effort, no retractions, no use of accessory muscles and clear to auscultation bilaterally Resp Narrative: Diminished diffusely but clear Auscultation: Negative for crackles, rales, rhonchi or wheezes Cardio regular rate, regular rhythm, S1 normal heart sound, S2 normal heart sound, no murmurs, no rub, no gallops and no clicks GI normal to inspection, nondistended, normoactive bowel sounds, soft to palpation and non-tender Extremity no clubbing, cyanosis or edema Extremity Narrative: 2+ pedal pulses, trace edema in hands and feet bilaterally, no cyanosis or clubbing Skin skin turgor normal, no jaundice, no petechiae and no mottling Skin Narrative: Linear ecchymotic area on upper back left side, skin is pale Neuro oriented x3, CN's II-XII intact bilaterally, moves all extremities and no focal motor deficits Neuro Narrative: Generalized weakness but no focal deficits Speech: speech normal Psych affect normal Psych Narrative: Confusion seems better however not resolved, patient very pleasant Assessment & Plan Assessment/Plan (1) Pancytopenia: (2) Hypokalemia: (3) Chronic kidney disease: (4) Hypercalcemia: (5) Toxic metabolic encephalopathy: PLAN: Plan This is a 71-year-old question gentleman is admitted for work-up for TIA and severe pancytopenia predominantly anemia 1.? Pancytopenia with predominant anemia: Patient is being admitted in U on cardiac telemetry.? H&H 6.2/20.7%.? 2 units of PRBC type and crossmatch and transfuse 1 unit today.? Monitor CBC tomorrow and decide about second unit.? Patient has been transfused 3 units in the last 3 weeks recently. The patient is willing to try the third bone marrow biopsy but Dr. Oliva said no reason to repeat as prior to bone marrow were dry tap. 05/25: Hemoglobin 5.9/27.7, platelet count 47,000. WBC count 1.3 thousand, ANC 0.8 thousand, ALC 0.4 thousand. Anisocytosis 1+. Patient had total of 4 units PRBC transfusion till now during this admission Patient had repeat EGD on 05/21 noted old blood in nasopharynx and oropharynx, some mild esophagitis distally, angiodysplastic lesions stomach, noted to be bleeding and was hemostasis was done. Does not require platelet transfusion. 05/26: H&H 6.4/20.4.. Fluid smear shows moderate thrombocytopenia, leukopenia and normocytic normochromic anemia. Patient does not have chest pain or shortness of breath. We will hold for transfusion. 05/27: Hemoglobin 6.6 g, 1 unit of PRBC ordered last night. Patient on PRBC transfusion. Repeat hemoglobin 7.4 in afternoon. 05/28: Hemoglobin 6.9 g, WBC 1.3 thousand. Platelet count 51,000. Discussed with automotive service porter Dr Dillard who saw the patient as consult. We discussed after the consult. The diagnosis for transfusion dependent anemia/pancytopenia is not clear as the patient has thick bone with bone marrow sclerosis. 2 times dry tap. Patient was also recommended to see [facility] automotive service porter specialist but his insurance does not cover for consult therefore that plan was dropped in the past. Patient has some sort of plasmacytic disorder although the exact diagnosis not clear, POEMS was in consideration but not ruled in or ruled out. Palliative care consult requested because of low functional activity 05/29: Hemoglobin 7.6, WC 1.3 thousand. Platelet count 54,000. Discussed with the automotive service porter. Advised 1 more unit of PRBC transfusion and plan for discharge. Palliative care meeting arranged for today. 05/30: 1 unit of PRBC transfusion was ordered. Hemoglobin 8.4. Otherwise other WBC count and platelet count profile remains similar. 05/31: Patient hemoglobin is 8.1 on second day. Case with social services manager working on patient's discharge to TCU pre-CERT pending 2. Metabolic/toxic encephalopathy suspected to be due to hypercalcemia: Serum calcium level of 8.9. -MRA and MRI were negative -Lipids performed and showed total cholesterol of 91/LDL 23/HDL 28 -Aspirin on hold secondary to severe thrombocytopenia/anemia -Continue statin -Echo performed 2021 that shows an EF of 53% and stage II diastolic dysfunction with mild left atrial enlargement -PT/OT following and overall patient did fairly well need some therapy at discharge most likely will be home health -Speech has cleared for diet of regular textures and thin liquids 05/27: Patient is still lethargic, Sleepy, responds to simple questions. 05/28: Patient encephalopathy looks much better today. Not confused. 3. Hypercalcemia -This appears to be new -With previous known lytic lesions -Alk phos within normal limits -Vitamin D level was greater than 60 -PTH is appropriately suppressed at 11.2 -Continue Lasix and add IV fluids - PTHrP, vitamin D 1,25, SPEP and UPEP are all pending -vitamin D 1,25 should be elevated if granulomatous disease present -Pamidronate 60 mg given 1 dose on 05/22/2022 -Calcium level is finally improving with corrected down from 15-13.73 05/26: Serum calcium 8.2. 05/28: Serum calcium 7.3. 05/30: Serum calcium 7.0. 4. 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 Fungal and AFB work-up was ordered. Histo antibody antigen Bartonella antibodies TB Ig and fungal immunodiffusion panel and Aspergillus antibodies. Being comanaged with ID. Paroxysmal atrial fibrillation: As per daughter, patient was sinus rhythm for long time and then in A. fib. The patient was on amiodarone drip, changed to amiodarone oral 200 mg daily. Converted to sinus rhythm. Carvedilol 6.25 mg p.o. twice daily. Due to pancytopenia. High risk for bleeding and contraindication for anticoagulant. Nasal bleeding -CT of the sinuses and nasopharynx was normal with no masses -We will refer to ENT for possible cauterization as an outpatient after discharge CKD stage IIIb -Slight trend up and serum creatinine -Continue Lasix per nephrology orders as nephrology -Nephrology following 05/26: Serum creatinine improving. Admitting creatinine 1.83 Hypokalemia -Repeat K3.2. Mild hyponatremia. Spironolactone added. 05/27: Potassium 3.1. Patient spironolactone was increased to 50 mg daily. Creatinine improved to 1.2. 05/28: IV fluid discontinued by paste mixing supervisor. Serum creatinine 1.1. Extra dose of spironolactone 50 mg 1 dose given for hypokalemia. Entresto resumed 05/29: Potassium continues to be low. Patient on Entresto and spironolactone. Potassium supplement ordered. 05/30: Patient still has hypokalemia and hypophosphatemia. Serum magnesium normal. Neutra-Phos ordered. Spironolactone was increased to 75 mg daily. DM-2 -Hold home oral agents -Fasting blood sugar remains elevated at 33 increase Lantus from 16 units to 22 units -Sliding scale insulin -Accu-Cheks as ordered -Most recent hemoglobin A1c from 04/04/2022 was 7 indicating adequate control -Unclear why blood sugars are so elevated at this time Nonobstructive cardiomyopathy/HFpEF -Currently compensated -Continue carvedilol -Aspirin on hold secondary to the above -Continue Lasix. 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 -Liver ultrasound previously reported fatty infiltration with hepatomegaly -CT-guided biopsy 2021 with focal macrovesicular steatosis -No cirrhosis noted at this time -Continue to follow with gastroenterology Fall -No severe injury -Complaining of left knee pain -Imaging with no acute fracture History of gout -Continue ursodiol Vitamin D deficiency -Vitamin D level is normal -Most recent one documented in the computer was 21.6 from 09/25/2021 Fibromyalgia -No current acute issues Essential tremor/myoclonus -Continue outpatient follow-up with neurology KADE -Nocturnal CPAP ordered -Family to bring in home unit but will need one of our masks Hypertension -Continue home carvedilol -Continue Entresto Hyperlipidemia -Continue home simvastatin Chronic dyspnea -Likely multifactorial -We will monitor for oxygen needs at discharge with ambulation Debility -Patient will need placement at discharge -PT and OT to continue to follow -Management following and discharge planning for placement in progress Morbid obesity -BMI 44.4 -Recommend weight loss -Complicates treatment, prognosis, outcomes DVT prophylaxis -SCDs -No chemoprophylaxis with severe thrombocytopenia CODE STATUS -Full code Discharge planning: Discussed with supportive employment case manager. Needs pre-CERT. Patient needs intermediate from where doctor can prescribe transfusion if needed and patient has access to outpatient infusion center. Therefore difficult discharge Laboratory Results 05/24/22 05:10: Miscellaneous Test 05/24/22 05:10: Bartonella henselae IgG Negative, Bartonella henselae IgM Negative, Bartonella mcdonough IgG Negative, Bartonella mcdonough IgM Negative, Histoplasma Antibody Negative, Aspergillus flavus Ab Negative, Aspergill fumigatus Ab Negative, Aspergillus niger Ab Negative, TB Test (QFT) Nil 0.16, TB Test (QFT) Mitogen 9.03, TB Test (QFT) Ag 1 0.16, TB Test (QFT) Ag 2 0.17, TB Test (QFT) Comment, TB Positive Criteria Negative 05/29/22 06:47: Diff Path Review Reviewed 05/30/22 04:48: Diff Path Review Reviewed 05/30/22 16:09: POC Glucose 196 H 05/30/22 20:53: POC Glucose 190 H 05/31/22 06:35: WBC 1.5 L, RBC 2.80 L, Hgb 8.1 L, Hct 24.6 L, MCV 87.9, MCH 28.9, MCHC 32.9, RDW Std Deviation 55.8 H, RDW Coeff of Juliet 17.5 H, Plt Count 58 L, MPV 11.2, Immature Gran % (Auto) 0.700, Neut % (Auto) 63.4, Lymph % (Auto) 27.6, Camas % (Auto) 6.9, Eos % (Auto) 1.4, Baso % (Auto) 0.0, Absolute Neuts (auto) 0.9 L, Absolute Lymphs (auto) 0.40 L, Nucleated RBC % 0, Diff Path Review Reviewed, Platelet Estimate MOD DEC, Anisocytosis 1+ 05/31/22 06:35: Sodium 137, Potassium 3.5, Chloride 109 H, Carbon Dioxide 21.0, Anion Gap 7, BUN 10, Creatinine 1.00, Estim Creat Clear Calc 81.06, Est GFR (MDRD) Af Amer 95, Est GFR (MDRD) Non-Af 79, BUN/Creatinine Ratio 10.0, Glucose 172 H, Calcium 7.2 L, Magnesium 1.6 05/31/22 09:59: POC Glucose 208 H 05/31/22 11:44: POC Glucose 214 H Charges/Coding Visit Charges Inpatient E&M: 23499 Subs Hosp L2
[2022-05-31 16:55] LABS: Bedside Glucose 130 mg/dL (74-106)
[2022-05-31] MEDS: Atorvastatin Calcium 80 MG Tablet PO (20:56)
[2022-05-31 21:20] LABS: Bedside Glucose 145 mg/dL (74-106)
--- NOTE | 2022-05-31 22:23 | NURSING ---
burst of afib noted
[2022-06-01] VITALS (12 sets, daily range): BP systolic 122–148; BP diastolic 53–81; PULSE 57–74; RESP 16–18; TEMP 36.4–37.6; O2SAT 95–100
[2022-06-01] MEDS: Acetaminophen 325 MG Tablet 650 MG PO (03:47)
[2022-06-01 07:30] LABS: Absolute Neutrophil Count 0.8 X10^3/uL (2.0-7.7); Eosinophil# 0.02 X10^3/uL; Eosinophils% 1.6 % (0-5); Hematocrit 24.1 % (40-54); Hemoglobin 7.9 g/dL (13.0-16.5); Lymphocyte % 31.5 % (19-41); Mean Corp Hgb Conc 32.8 g/dL (32-36); Mean Corpuscular Hgb 28.9 pg (27.0-32.0); Mean Corpuscular Volume 88.3 fL (80-94); Mean Platelet Vol. 11.3 fl (6.2-12.0); Monocyte# 0.06 X10^3/uL; Monocyte% 4.7 % (0-10); NRBC Flagged by Analyzer 0 % (0-5); Neutrophil # 0.77 X10^3/uL (2.7-7.7); Neutrophil % 60.6 % (47-70); POSITIVE COUNT YES; POSITIVE DIFFERENTIAL YES; POSITIVE MORPHOLOGY YES; Platelet Count 58 K/mm3 (150-450); RBC Distribution Width CV 17.6 % (11.6-14.6); RBC Distribution Width SD 56.2 fl (35.1-43.9); Red Blood Count 2.73 M/mm3 (4.6-6.2)
[2022-06-01 07:33] LABS: White Blood Count 1.3 K/mm3 (4.4-11.0)
[2022-06-01 07:59] LABS: Anion Gap 10 (5-15); BUN 10 mg/dL (7-18); BUN/Creat Ratio 9.8 RATIO (10-20); Calcium,Total 7.3 mg/dL (8.5-10.1); Chloride 106 mmol/L (98-107); Creatinine, Serum 1.02 mg/dL (0.70-1.30); EST Glomerular Filtration Rate 77 mL/min (>60); Est Glom Filt Rate - Afr Amer 93 mL/min (>60); Estimated Creatinine Clearance 79.47 ml/min; Glucose 152 mg/dL (74-106); Magnesium 1.6 mg/dL (1.6-2.6); Potassium 3.4 mmol/L (3.5-5.1); Sodium Level 136 mmol/L (136-145)
[2022-06-01] MEDS: Insulin Lispro 100 UNIT/ML INSULN.PEN SC ×3 (08:06→17:05)
[2022-06-01] MEDS: Insulin Lispro 100 UNIT/ML INSULN.PEN 8 UNIT SC ×3 (08:07→17:06)
[2022-06-01] MEDS: Magnesium Chloride 64 MG Delay Rel.Tablet 128 MG PO (08:07)
[2022-06-01] MEDS: Vitamin E 400 UNITS Capsule PO (08:09)
[2022-06-01] MEDS: Na Biphos/Potassium Phosphate PACKET 1 PACKET PO ×3 (08:09→17:05)
[2022-06-01] MEDS: Ursodiol 250 MG Tablet PO (08:09)
[2022-06-01] MEDS: Carvedilol 6.25 MG Tablet PO (08:09)
[2022-06-01] MEDS: SACUBITRIL/VALSARTAN 49-51 MG TABLET 1 EACH PO (08:09)
[2022-06-01] MEDS: Furosemide 40 MG Tablet PO (08:09)
[2022-06-01] MEDS: Amiodarone 200 MG Tablet PO (08:09)
[2022-06-01] MEDS: Multivitamins,Therapeutic Tablet 1 TABLET PO (08:09)
[2022-06-01] MEDS: 0.9% Saline Lock 10 ML Syringe IV (08:10)
[2022-06-01 08:45] LABS: Differential Indicated SCAN CRITERIA MET
[2022-06-01 08:47] LABS: Platelet Estimate ADEQUATE (ADEQ)
[2022-06-01 08:48] LABS: Anisocytosis 1+; Ovalocyte 1+
[2022-06-01 08:49] LABS: Microcytosis 1+
[2022-06-01 09:11] LABS: Bedside Glucose 156 mg/dL (74-106)
--- NOTE | 2022-06-01 09:30 | CASEMGMT ---
Enriqueta notified CATHRYN that patient was approved for [facility]. CATHRYN notified physician, RN, and patient. CATHRYN placed a copy of the standing order for Hemoglobin and blood transfusions in patient's packet for TCU. Plan: d/c to [facility] under skilled level of care.
--- NOTE | 2022-06-01 10:00 | TREXTCAR_ITS ---
Diet Diet Order/Speech Therapy: 05/21/22 17:11 Diet: Cardiac: Calorie-Controlled Type of Dietary Supplement:: magic cup Is pt able to select menu?: No Diet Comments: Magic Cup BID with lunch and dinner How many daily calories?: 2000 calorie Routine Orders/Code Status Suppository Type: Dulcolax 10mg Suppository Frequency: Daily PRN Routine Lab Work: - (CBC, BMP, magnesium, phosphorus, at least twice a week) Code Status: Full Code Wound(s) back: Wound Type: Abrasion Therapies Weight Bearing: Weight bearing as tolerated Extremity Affected:: Bilateral Lower Physical Therapy: Eval and Treat Occupational Therapy: Eval and Treat Speech Therapy: Eval and Treat Problem/Diagnosis (1) Pancytopenia: Status: Acute Code(s): D61.818 - Other pancytopenia (2) Hypokalemia: Status: Acute Code(s): E87.6 - Hypokalemia (3) Chronic kidney disease: Status: Acute Code(s): N18.9 - Chronic kidney disease, unspecified (4) Hypercalcemia: Status: Acute Code(s): E83.52 - Hypercalcemia (5) Toxic metabolic encephalopathy: Status: Acute Code(s): G92.8 - Other toxic encephalopathy Allergies/Procedures Done in Hospital Allergies PITER Inhibitors Allergy (Severe, Verified 05/18/22 15:01) edema diltiazem [From Cardizem] Allergy (Unknown, Verified 05/18/22 15:01) unknown Penicillins Adverse Reaction (Intermediate, Verified 05/18/22 15:01) diarrhea Type of Care/Length of Stay Estimated LOS: Convalescent Care Less Than 30 days Type of Care Needed: Skilled Rehab Potential: Good Prognosis: Good Additional Orders/Day of Discharge Day of Discharge: 06/01/22 Dietary and Speech Recommendations Dietitian Recommendations/Changes: Continue 2000 CCD and Cardiac diet to manage medical conditions. RD will discontinue 120mL Glucerna TID with med pass RD will order Magic Cup BID with lunch and dinner to promote weight maintenance and provide supplemental energy. Speech Linguistic Eval Summary: Pt was oriented to name, , address, current location (room and floor of hospital included), today's date, current day of week and current month. Pt was able to perform degenerative naming tasks with 50% accuracy in trial 1 and 40% accuracy on trial 2. Pt was able to recall verbatim lemon, salazar, and ball. Pt displayed mild difficulty during clock drawing task, presented with mild left neglect. Pt was able to recall words lemon, salazar, and ball with 66% accuracy given a time delay. Discharge Plan Admission Admit Date/Time: 05/18/22 17:24 Primary Reason for Your Visit: Pancytopenia, anemia mainly bone marrow failure. Hypercalcemia Attending Provider: Richard Brown Primary Care Provider: Constanza Alegria Consulting Providers: Richard Brown ; Solomon Hope ; Chu Sanchez ; Nina Martin ; Ysabel Rubalcava ; Mauricio Montes ; Hayden Coffey ; Cheryl Coy ; Chu Moe ; Juancho Padilla ; Melvin Garcia ; Merlin Rosenthal ; Kerry Gutierrez [employer] DES[employer]ER Discharge Orders/Prescriptions Prescriptions: New sennosides-docusate sodium [Stool Softener-Stimulant Laxat] 8.6-50 mg Tablet 2 tab PO BID PRN PRN (Reason: Constipation) Qty: 0 0RF spironolactone 50 mg Tablet 100 mg PO DAILY Qty: 0 0RF Rx Instructions: Hold if potassium more than 5.0. insulin lispro [Humalog KwikPen Insulin] 100 unit/mL Insulin Pen See Protocol subcut ACHS Qty: 0 0RF Protocol: 4. Sliding Scale Insulin High-Med Dosing Condition: 150-199 mg/dl = 2 units Condition: 200-259 mg/dl = 4 units Condition: 260-324 mg/dl = 6 units Condition: 325-374 mg/dl = 8 units Condition: 375-409 mg/dl = 10 units Condition: 410-449 mg/dl = 11 units Condition: Greater than 449 call physician Protocol Text: - Use for Total Daily Dose of Insulin 56-80 units - Patient who are insulin resistant or septic HIGH MEDIUM DOSING ALGORITHM potassium, sodium phosphates 280-160-250 mg Powder In Packet 1 packet PO 4X/DAY Qty: 0 0RF Rx Instructions: For 2 days and then repeat BMP, magnesium and phosphorus. Entresto 49-51 mg Tablet 1 ea PO BID Qty: 0 0RF insulin glargine-yfgn 100 unit/mL (3 mL) Insulin Pen 25 unit subcut 1100,2200 Qty: 0 0RF Rx Instructions: Hold if glucose less than 130 mg/dl insulin lispro [Humalog KwikPen Insulin] 100 unit/mL Insulin Pen 8 unit subcut TIDAC Qty: 0 0RF Rx Instructions: Hold if glucose less than 130 mg/dl atorvastatin 80 mg Tablet 40 mg PO QHS Qty: 0 0RF acetaminophen [Tylenol] 325 mg Tablet 650 mg PO Q4H PRN PRN (Reason: Pain 1-10 Or Fever) Qty: 0 0RF amiodarone 200 mg Tablet 200 mg PO DAILYCM Qty: 0 0RF Continued multivitamin [Daily Multi-Vitamin] Tablet 1 tab PO DAILY fenofibric acid (choline) [Trilipix] 135 mg capsule,delayed release(DR/EC) 135 mg PO DAILY cholecalciferol (vitamin D3) 25 mcg (1,000 unit) tablet 25 mcg PO DAILY magnesium oxide 400 mg magnesium tablet 400 mg PO DAILY vitamin E mixed 400 unit capsule 400 unit PO DAILY Rx Instructions: Take one capsule a day. furosemide [Lasix] 40 mg tablet 40 mg PO DAILY carvedilol [Coreg] 6.25 mg tablet 6.25 mg PO BID Rx Instructions: must administer with a meal/food ursodiol 300 mg capsule 300 mg PO BID Farxiga 10 mg tablet 10 mg PO DAILY Entresto 49-51 mg tablet 1 tab PO BID Rx Instructions: Patient will start at next refill date 04/02/2022 We are titrating. Changed metformin 500 mg tablet 500 mg PO BID Qty: 60 0RF Discontinued simvastatin 40 mg tablet 40 mg PO DAILY ibuprofen 200 mg Tablet 400 mg PO Q8H PRN (Reason: Pain) Humulin R U-500 (Conc) Insulin 500 unit/mL solution 100 unit continuous subcutaneous infusion .continuous Label Comments: PT STATES INSULIN PUMP IS BROKEN AND NEW ONE BEING SENT SHOULD RECEIVE 05/19/22. PT HAS BEEN INJECTING. metformin 1,000 mg tablet 1,000 mg PO BID Referrals / Follow Up: Solomon Hope MD [Med Staff - Consulting] - Within 1 Week Constanza Alegria DO [Primary Care Provider] - Cheryl Dillard MD [Med Staff - Active Staff] - Within 1 Month Nina Martin MD [Med Staff - Active Staff] - Within 1 Month (Chronic HFpEF, nonobstructive cardiomyopathy) Victorino Cavazos DO [Med Staff - Active Staff] - Within 1 Month (For Wu, F3 fibrosis on elastography.) Chu Sanchez MD [Med Staff - Active Staff] - Within 1 Month Disposition Disposition (needs filled in before D/C Order can be placed): Long Term Facility
[2022-06-01 10:38] LABS: Phosphorus 2.3 mg/dL (2.5-4.9)
[2022-06-01] MEDS: Potassium Chloride Oral Tablet 20 MEQ 40 MEQ PO (11:31)
[2022-06-01] MEDS: Insulin Glargine-YFGN 100 UNIT/ML Pen 25 UNIT SC (11:32)
[2022-06-01 12:39] LABS: Pathologist Review Reviewed
[2022-06-01 13:01] LABS: Bedside Glucose 207 mg/dL (74-106)
[2022-06-01] MEDS: Spironolactone 50 MG Tablet 100 MG PO (13:41)
--- NOTE | 2022-06-01 15:30 | CASEMGMT ---
CATHRYN called patient's daughter Vale and let her know patient was approved for [facility]. CATHRYN let Vale know patient will be going today. Vale thanked CATHRYN for letting her know. Plan: [facility] under skilled level of care. Ramona GILMORE
--- NOTE | 2022-06-01 15:30 | PCM.DC.SUM ---
Providers Date of Admission: 05/18/22 Date of Discharge: 06/01/22 Primary Care Physician: Dr. Constanza Alegria, Consultations 05/18/22 19:30 Consult: Gastroenterology Routine Consulting Provider: [facility] Reason for Consult: GI BLeed, POEMS SYNDROME EMERGENT Consult: No MD Notified: Yes Date Notified: 05/18/22 Time Notified: 19:09 Method of Notification: ED Physician Initiated 05/23/22 07:24 Consult: Nephrology Routine Consulting Provider: Solomon Hope Reason for Consult: hypercalcemia EMERGENT Consult: No Notified: Yes Date Notified: 05/23/22 Time Notified: 07:25 Method of Notification: Text 05/23/22 10:50 Consult: Infectious Disease Routine Consulting Provider: Chu Sanchez Reason for Consult: suspected fungal infections EMERGENT Consult: No Notified: Yes Date Notified: 05/23/22 Time Notified: 10:54 Method of Notification: Verbal 05/24/22 07:13 Consult: Cardiology Routine Consulting Provider: Nina Martin Reason for Consult: afib EMERGENT Consult: No Notified: Yes Date Notified: 05/24/22 Time Notified: 07:13 Method of Notification: Text 05/28/22 12:19 Consult: Oncology/Hematology Routine Consulting Provider: [facility] Reason for Consult: pancytopenia EMERGENT Consult: No Notified: Yes Date Notified: 05/28/22 Time Notified: 12:19 Method of Notification: Verbal Reason For Visit: TIA, GI BLEED Diagnosis Discharge Diagnosis (1) Pancytopenia: Status: Acute Code(s): D61.818 - Other pancytopenia (2) Hypokalemia: Status: Acute Code(s): E87.6 - Hypokalemia (3) Chronic kidney disease: Status: Acute Code(s): N18.9 - Chronic kidney disease, unspecified (4) Hypercalcemia: Status: Acute Code(s): E83.52 - Hypercalcemia (5) Toxic metabolic encephalopathy: Status: Acute Code(s): G92.8 - Other toxic encephalopathy Medications at Discharge Home Medications multivitamin (Daily Multi-Vitamin tablet) 1 tab PO DAILY SUPPLEMENT 06/15/21 fenofibric acid (choline) 135 mg capsule,delayed release (Trilipix) 135 mg PO DAILY CHOLESTEROL 08/01/21 cholecalciferol (vitamin D3) 25 mcg (1,000 unit) tablet 25 mcg PO DAILY SUPLEMENT 03/08/22 magnesium oxide 400 mg PO DAILY SUPPLEMETN 04/17/22 vitamin E mixed 400 unit capsule 400 unit PO DAILY SUPPLEMENT 04/17/22 carvedilol 6.25 mg tablet (Coreg) 6.25 mg PO BID HEART 05/18/22 dapagliflozin 10 mg tablet (Farxiga) 10 mg PO DAILY DM 05/18/22 furosemide 40 mg tablet (Lasix) 40 mg PO DAILY FLUID 05/18/22 sacubitril 49 mg-valsartan 51 mg tablet (Entresto) 1 tab PO BID HEART 05/18/22 ursodiol 300 mg capsule 300 mg PO BID GOUT 05/18/22 acetaminophen 325 mg tablet (Tylenol) 650 mg PO Q4H PRN PRN Pain 1-10 Or Fever #0 tabs 06/01/22 amiodarone 200 mg tablet 200 mg PO DAILYCM #0 tabs 06/01/22 atorvastatin 80 mg tablet 40 mg PO QHS #0 tabs 06/01/22 insulin glargine-yfgn 100 unit/mL (3 mL) subcutaneous pen 25 unit (0.25 mL) subcut 1100,2200 #0 mL 06/01/22 insulin lispro 100 unit/mL subcutaneous pen (Humalog KwikPen (U-100) Insulin) 8 unit (0.08 mL) subcut TIDAC #0 mL 06/01/22 insulin lispro 100 unit/mL subcutaneous pen (Humalog KwikPen (U-100) Insulin) See Protocol subcut ACHS #0 mL 06/01/22 metformin 500 mg tablet 500 mg PO BID DM #60 tabs 06/01/22 potassium, sodium phosphates 280 mg-160 mg-250 mg oral powder packet 1 packet PO 4X/DAY #0 ea 06/01/22 sacubitril 49 mg-valsartan 51 mg tablet (Entresto) 1 ea PO BID #0 tabs 06/01/22 sennosides 8.6 mg-docusate sodium 50 mg tablet (Stool Softener-Stimulant Laxative) 2 tab PO BID PRN PRN Constipation #0 tabs 11/04/22 spironolactone 50 mg tablet 100 mg PO DAILY #0 tabs 06/01/22 Hospital Course Summary of Care Provided Hospital Course: This is a 71-year-old question gentleman is admitted for work-up for TIA and severe pancytopenia predominantly anemia, hypercalcemia, metabolic encephalopathy acute and electrolyte abnormality hypokalemia and hypophosphatemia. 1.? Pancytopenia with predominant anemia: Patient is being admitted in PCU on cardiac telemetry.? H&H 6.2/20.7%.? 2 units of PRBC type and crossmatch and transfuse 1 unit today.? Monitor CBC tomorrow and decide about second unit.? Patient has been transfused 3 units in the last 3 weeks recently. The patient is willing to try the third bone marrow biopsy but Dr. Oliva said no reason to repeat as prior to bone marrow were dry tap. 05/25: Hemoglobin 5.9/27.7, platelet count 47,000. WBC count 1.3 thousand, ANC 0.8 thousand, ALC 0.4 thousand. Anisocytosis 1+. Patient had total of 4 units PRBC transfusion till now during this admission Patient had repeat EGD on 05/21 noted old blood in nasopharynx and oropharynx, some mild esophagitis distally, angiodysplastic lesions stomach, noted to be bleeding and was hemostasis was done. Does not require platelet transfusion. 05/26: H&H 6.4/20.4.. Fluid smear shows moderate thrombocytopenia, leukopenia and normocytic normochromic anemia. Patient does not have chest pain or shortness of breath. We will hold for transfusion. 05/27: Hemoglobin 6.6 g, 1 unit of PRBC ordered last night. Patient on PRBC transfusion. Repeat hemoglobin 7.4 in afternoon. 05/28: Hemoglobin 6.9 g, WBC 1.3 thousand. Platelet count 51,000. Discussed with inspector assemblies and installations Dr Dillard who saw the patient as consult. We discussed after the consult. The diagnosis for transfusion dependent anemia/pancytopenia is not clear as the patient has thick bone with bone marrow sclerosis. 2 times dry tap. Patient was also recommended to see [facility] inspector assemblies and installations specialist but his insurance does not cover for consult therefore that plan was dropped in the past. Patient has some sort of plasmacytic disorder although the exact diagnosis not clear, POEMS was in consideration but not ruled in or ruled out. Palliative care consult requested because of low functional activity 05/29: Hemoglobin 7.6, WC 1.3 thousand. Platelet count 54,000. Discussed with the inspector assemblies and installations. Advised 1 more unit of PRBC transfusion and plan for discharge. Palliative care meeting arranged for today. 05/30: 1 unit of PRBC transfusion was ordered. Hemoglobin 8.4. Otherwise other WBC count and platelet count profile remains similar. 05/31: Patient hemoglobin is 8.1 on second day. Case with social work administrator working on patient's discharge to TCU pre-CERT pending 06/01: Hemoglobin is 7.9 today. [employer], Dr. Boothe advised to keep hemoglobin more than 8 as patient has chronic heart failure. Monitor PRBC transfusion ordered. Patient can go to TCU after that. 2. Metabolic/toxic encephalopathy suspected to be due to hypercalcemia: Serum calcium level of 8.9. -MRA and MRI were negative -Lipids performed and showed total cholesterol of 91/LDL 23/HDL 28 -Aspirin on hold secondary to severe thrombocytopenia/anemia -Continue statin -Echo performed 2021 that shows an EF of 53% and stage II diastolic dysfunction with mild left atrial enlargement -PT/OT following and overall patient did fairly well need some therapy at discharge most likely will be home health -Speech has cleared for diet of regular textures and thin liquids 05/27: Patient is still lethargic, Sleepy, responds to simple questions. 05/28: Patient encephalopathy looks much better today. Not confused. 06/01: Acute encephalopathy has resolved. 3. Hypercalcemia -This appears to be new -With previous known lytic lesions -Alk phos within normal limits -Vitamin D level was greater than 60 -PTH is appropriately suppressed at 11.2 -Continue Lasix and add IV fluids - PTHrP, vitamin D 1,25, SPEP and UPEP are all pending -vitamin D 1,25 should be elevated if granulomatous disease present -Pamidronate 60 mg given 1 dose on 05/22/2022 -Calcium level is finally improving with corrected down from 15-13.73 05/26: Serum calcium 8.2. 05/28: Serum calcium 7.3. 05/30: Serum calcium 7.0. 06/01: Calcium 7.3. Magnesium 1.6. 4. 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 Fungal and AFB work-up was ordered. Histo antibody antigen Bartonella antibodies TB Ig and fungal immunodiffusion panel and Aspergillus antibodies. Being comanaged with ID. 06/01: Patient had immunological antibody test came. Bartonella Scherer IgM, Bartonella Mcdonough IgM, histoplasma antibody, Aspergillus flavus antibody, Aspergillus fumigatus, Aspergillus Niger and TB QuantiFERON tests are negative. QuantiFERON gold test negative. Paroxysmal atrial fibrillation: As per daughter, patient was sinus rhythm for long time and then in A. fib. The patient was on amiodarone drip, changed to amiodarone oral 200 mg daily. Converted to sinus rhythm. Carvedilol 6.25 mg p.o. twice daily. Due to pancytopenia. High risk for bleeding and contraindication for anticoagulant. Nasal bleeding -CT of the sinuses and nasopharynx was normal with no masses -We will refer to ENT for possible cauterization as an outpatient after discharge CKD stage IIIb -Slight trend up and serum creatinine -Continue Lasix per nephrology orders as nephrology -Nephrology following 05/26: Serum creatinine improving. Admitting creatinine 1.83 Hypokalemia -Repeat K3.2. Mild hyponatremia. Spironolactone added. 05/27: Potassium 3.1. Patient spironolactone was increased to 50 mg daily. Creatinine improved to 1.2. 05/28: IV fluid discontinued by city collector. Serum creatinine 1.1. Extra dose of spironolactone 50 mg 1 dose given for hypokalemia. Entresto resumed 05/29: Potassium continues to be low. Patient on Entresto and spironolactone. Potassium supplement ordered. 05/30: Patient still has hypokalemia and hypophosphatemia. Serum magnesium normal. Neutra-Phos ordered. Spironolactone was increased to 75 mg daily. DM-2 -Hold home oral agents -Fasting blood sugar remains elevated at 33 increase Lantus from 16 units to 22 units -Sliding scale insulin -Accu-Cheks as ordered -Most recent hemoglobin A1c from 04/04/2022 was 7 indicating adequate control -Unclear why blood sugars are so elevated at this time 06/01: Patient was on insulin pump which has been discontinued. Farxiga resumed as patient has creatinine clearance more than 60 mL/min. Continue Accu-Cheks and cover with Humalog sliding scale along with his scheduled Humalog and long-acting insulin with holding parameters. Nonobstructive cardiomyopathy/HFpEF -Currently compensated -Continue carvedilol -Aspirin on hold secondary to the above -Continue Lasix. 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 -Liver ultrasound previously reported fatty infiltration with hepatomegaly -CT-guided biopsy 2021 with focal macrovesicular steatosis -No cirrhosis noted at this time -Continue to follow with gastroenterology Fall -No severe injury -Complaining of left knee pain -Imaging with no acute fracture History of gout -Continue ursodiol Vitamin D deficiency -Vitamin D level is normal -Most recent one documented in the computer was 21.6 from 09/25/2021 Fibromyalgia -No current acute issues Essential tremor/myoclonus -Continue outpatient follow-up with neurology KADE -Nocturnal CPAP ordered -Family to bring in home unit but will need one of our masks Hypertension -Continue home carvedilol -Continue Entresto Hyperlipidemia -Continue home simvastatin Chronic dyspnea -Likely multifactorial -We will monitor for oxygen needs at discharge with ambulation Debility -Patient will need placement at discharge -PT and OT to continue to follow -Management following and discharge planning for placement in progress Morbid obesity -BMI 44.4 -Recommend weight loss -Complicates treatment, prognosis, outcomes DVT prophylaxis -SCDs -No chemoprophylaxis with severe thrombocytopenia CODE STATUS -Full code Discharge medication reconciliation done. Discharge follow-up instructions completed. Discharge process discussed with the patient and all questions were answered to patient's satisfaction. Total time spent, exact 35 minutes on discharge meds reconciliation, examination, coordination of care with nurses and ancillary staff, review of imaging and blood test and discussion with the patient on follow-up instructions. Laboratory Results 05/24/22 05:10: Bartonella henselae IgG Negative, Bartonella henselae IgM Negative, Bartonella mcdonough IgG Negative, Bartonella mcdonough IgM Negative, Histoplasma Antibody Negative, Aspergillus flavus Ab Negative, Aspergill fumigatus Ab Negative, Aspergillus niger Ab Negative, TB Test (QFT) Nil 0.16, TB Test (QFT) Mitogen 9.03, TB Test (QFT) Ag 1 0.16, TB Test (QFT) Ag 2 0.17, TB Test (QFT) Comment, TB Positive Criteria Negative 05/31/22 06:35: Diff Path Review Reviewed 05/31/22 06:35: Blood Type Pending, Antibody Screen Pending, Crossmatch See Detail 05/31/22 11:44: POC Glucose 214 H 05/31/22 16:30: POC Glucose 130 H 05/31/22 20:55: POC Glucose 145 H 06/01/22 06:15: WBC 1.3 L*, RBC 2.73 L, Hgb 7.9 L, Hct 24.1 L, MCV 88.3, MCH 28.9, MCHC 32.8, RDW Std Deviation 56.2 H, RDW Coeff of Juliet 17.6 H, Plt Count 58 L, MPV 11.3, Immature Gran % (Auto) 1.600 H, Neut % (Auto) 60.6, Lymph % (Auto) 31.5, Valley % (Auto) 4.7, Eos % (Auto) 1.6, Baso % (Auto) 0.0, Absolute Neuts (auto) 0.8 L, Absolute Lymphs (auto) 0.40 L, Nucleated RBC % 0, Diff Path Review May , Platelet Estimate ADEQUATE, Anisocytosis 1+, Microcytosis 1+, Ovalocytes 1+ 06/01/22 06:15: Sodium 136, Potassium 3.4 L, Chloride 106, Carbon Dioxide 20.0 L, Anion Gap 10, BUN 10, Creatinine 1.02, Estim Creat Clear Calc 79.47, Est GFR (MDRD) Af Amer 93, Est GFR (MDRD) Non-Af 77, BUN/Creatinine Ratio 9.8 L, Glucose 152 H, Calcium 7.3 L, Magnesium 1.6 06/01/22 06:15: Phosphorus 2.3 L 06/01/22 07:52: POC Glucose 156 H Physical Exam Narrative Seen and examined. Discussed with patient's near the bedside. Patient is awake alert oriented x3. No new symptoms. Hemoglobin 7.9 g%. Patient is out of bed to recliner. 1 unit of PRBC ordered. Physical exam: General: Awake, Oriented x3, Cooperative, morbid recently BMI 44.4 kg/m? HEENT: Atraumatic, PERRLA, EOMI, Normocephalic. Oral: Oral mucosa moist. No Gingival or Mucosal Lesions/ Ulcerations Neck: Supple, No JVD, Negative Carotid Bruits Lungs: Air entry diminished in bilateral lung bases due to obesity. No crepitation/rhonchi Cardiovascular: Sinus rhythm, Normal S1, Normal S2, grade 3/6 LLSB systolic murmur Abdomen: Bowel Sounds Present, Soft, Non Tender, Non-Distended : urinary incontinence. No renal angle or suprapubic tenderness. Extremities: Mild dependent nonpitting edema, Capillary Refill Less than 3 Seconds Skin: No rashes, No breakdown Musculoskeletal: No Tenderness to Palpation of Joints or Extremities. Muscle strength 4/5 at knee and hip joints, left chronically is more weaker than right Neurological: Chronic polyneuropathy. Cranial nerves II-XII grossly intact, DTR 2+/4. No specific focal deficit. Psych/Mental Status: Flat affect. Weight / BMI Weight Weight: 345 lb 7.43 oz Body Mass Index (BMI) 44.3 ABG / Lab / Microbiology Data Result Diagrams: 06/01/22 06:15 06/01/22 06:15 Laboratory: Laboratory Results - last 24 hr 05/24/22 05:10: Bartonella henselae IgG Negative, Bartonella henselae IgM Negative, Bartonella mcdonough IgG Negative, Bartonella mcdonough IgM Negative, Histoplasma Antibody Negative, Aspergillus flavus Ab Negative, Aspergill fumigatus Ab Negative, Aspergillus niger Ab Negative, TB Test (QFT) Nil 0.16, TB Test (QFT) Mitogen 9.03, TB Test (QFT) Ag 1 0.16, TB Test (QFT) Ag 2 0.17, TB Test (QFT) Comment, TB Positive Criteria Negative 05/31/22 06:35: Diff Path Review Reviewed 05/31/22 06:35: Crossmatch See Detail 05/31/22 11:44: POC Glucose 214 H 05/31/22 16:30: POC Glucose 130 H 05/31/22 20:55: POC Glucose 145 H 06/01/22 06:15: WBC 1.3 L*, RBC 2.73 L, Hgb 7.9 L, Hct 24.1 L, MCV 88.3, MCH 28.9, MCHC 32.8, RDW Std Deviation 56.2 H, RDW Coeff of Juliet 17.6 H, Plt Count 58 L, MPV 11.3, Immature Gran % (Auto) 1.600 H, Neut % (Auto) 60.6, Lymph % (Auto) 31.5, Valley % (Auto) 4.7, Eos % (Auto) 1.6, Baso % (Auto) 0.0, Absolute Neuts (auto) 0.8 L, Absolute Lymphs (auto) 0.40 L, Nucleated RBC % 0, Diff Path Review May foll, Platelet Estimate ADEQUATE, Anisocytosis 1+, Microcytosis 1+, Ovalocytes 1+ 06/01/22 06:15: Sodium 136, Potassium 3.4 L, Chloride 106, Carbon Dioxide 20.0 L, Anion Gap 10, BUN 10, Creatinine 1.02, Estim Creat Clear Calc 79.47, Est GFR (MDRD) Af Amer 93, Est GFR (MDRD) Non-Af 77, BUN/Creatinine Ratio 9.8 L, Glucose 152 H, Calcium 7.3 L, Magnesium 1.6 06/01/22 06:15: Phosphorus 2.3 L 06/01/22 07:52: POC Glucose 156 H Microbiology: Microbiology 05/20/22 11:13 Blood Culture (Wb) - Anticubital Right Blood Culture - Final No growth in 5 days. 05/20/22 11:24 Blood Culture (Wb) - Right Hand Blood Culture - Final No growth in 5 days. 05/19/22 00:39 Urine, Clean Catch Urine Culture - Final Mixed Gram Positive Organisms 05/18/22 16:45 Stool Stool Occult Blood (BASHIR) - Final Occult Blood Positive Meaningful Use Info Meaningful Use Diagnoses (Choose all that apply): None applicable Discharge Plan Admission Admit Date/Time: 05/18/22 17:24 Primary Reason for Your Visit: Pancytopenia, anemia mainly bone marrow failure. Hypercalcemia Attending Provider: Richard Brown Primary Care Provider: Constanza Alegria Consulting Providers: Richard Brown ; Solomon Hope ; Chu Sanchez ; Nina Martin ; Ysabel Rubalcava ; Mauricio oMntes ; Hayden Coffey ; Cheryl Dillard ; Chu Moe ; Juancho Padilla ; Melvin Garcia ; Merlin Rosenthal ; Kerry Gutierrez SENIOR SEARCH MARKETING ANALYST Discharge Orders/Prescriptions Prescriptions: New sennosides-docusate sodium [Stool Softener-Stimulant Laxat] 8.6-50 mg Tablet 2 tab PO BID PRN PRN (Reason: Constipation) Qty: 0 0RF spironolactone 50 mg Tablet 100 mg PO DAILY Qty: 0 0RF Rx Instructions: Hold if potassium more than 5.0. insulin lispro [Humalog KwikPen Insulin] 100 unit/mL Insulin Pen See Protocol subcut ACHS Qty: 0 0RF Protocol: 4. Sliding Scale Insulin High-Med Dosing Condition: 150-199 mg/dl = 2 units Condition: 200-259 mg/dl = 4 units Condition: 260-324 mg/dl = 6 units Condition: 325-374 mg/dl = 8 units Condition: 375-409 mg/dl = 10 units Condition: 410-449 mg/dl = 11 units Condition: Greater than 449 call physician Protocol Text: - Use for Total Daily Dose of Insulin 56-80 units - Patient who are insulin resistant or septic HIGH MEDIUM DOSING ALGORITHM potassium, sodium phosphates 280-160-250 mg Powder In Packet 1 packet PO 4X/DAY Qty: 0 0RF Rx Instructions: For 2 days and then repeat BMP, magnesium and phosphorus. Entresto 49-51 mg Tablet 1 ea PO BID Qty: 0 0RF insulin glargine-yfgn 100 unit/mL (3 mL) Insulin Pen 25 unit subcut 1100,2200 Qty: 0 0RF Rx Instructions: Hold if glucose less than 130 mg/dl insulin lispro [Humalog KwikPen Insulin] 100 unit/mL Insulin Pen 8 unit subcut TIDAC Qty: 0 0RF Rx Instructions: Hold if glucose less than 130 mg/dl atorvastatin 80 mg Tablet 40 mg PO QHS Qty: 0 0RF acetaminophen [Tylenol] 325 mg Tablet 650 mg PO Q4H PRN PRN (Reason: Pain 1-10 Or Fever) Qty: 0 0RF amiodarone 200 mg Tablet 200 mg PO DAILYCM Qty: 0 0RF Continued multivitamin [Daily Multi-Vitamin] Tablet 1 tab PO DAILY fenofibric acid (choline) [Trilipix] 135 mg capsule,delayed release(DR/EC) 135 mg PO DAILY cholecalciferol (vitamin D3) 25 mcg (1,000 unit) tablet 25 mcg PO DAILY magnesium oxide 400 mg magnesium tablet 400 mg PO DAILY vitamin E mixed 400 unit capsule 400 unit PO DAILY Rx Instructions: Take one capsule a day. furosemide [Lasix] 40 mg tablet 40 mg PO DAILY carvedilol [Coreg] 6.25 mg tablet 6.25 mg PO BID Rx Instructions: must administer with a meal/food ursodiol 300 mg capsule 300 mg PO BID Farxiga 10 mg tablet 10 mg PO DAILY Entresto 49-51 mg tablet 1 tab PO BID Rx Instructions: Patient will start at next refill date 04/02/2022 We are titrating. Changed metformin 500 mg tablet 500 mg PO BID Qty: 60 0RF Discontinued simvastatin 40 mg tablet 40 mg PO DAILY ibuprofen 200 mg Tablet 400 mg PO Q8H PRN (Reason: Pain) Humulin R U-500 (Conc) Insulin 500 unit/mL solution 100 unit continuous subcutaneous infusion .continuous Label Comments: PT STATES INSULIN PUMP IS BROKEN AND NEW ONE BEING SENT SHOULD RECEIVE 05/19/22. PT HAS BEEN INJECTING. metformin 1,000 mg tablet 1,000 mg PO BID Referrals / Follow Up: Solomon Hope MD [Med Staff - Consulting] - Within 1 Week Constanza Alegria DO [Primary Care Provider] - Cheryl Dillard MD [Med Staff - Active Staff] - Within 1 Month Nina Martin MD [Med Staff - Active Staff] - Within 1 Month (Chronic HFpEF, nonobstructive cardiomyopathy) Victorino Cavazos DO [Med Staff - Active Staff] - Within 1 Month (For Wu, F3 fibrosis on elastography.) Chu Sanchez MD [Med Staff - Active Staff] - Within 1 Month Disposition Disposition (needs filled in before D/C Order can be placed): Nursing Home Facility Charges/Coding Visit Charges Inpatient E&M: 94863 Disch Hosp
--- NOTE | 2022-06-01 15:35 | NURSING ---
Report called to CADEN Hayes in TCU
[2022-06-01 17:31] LABS: Bedside Glucose 201 mg/dL (74-106)
== END 2022-06-01 17:26 | disposition skilled nursing facility (03) | DRG 808 ==
LOC: ED 15:28 → PCU 17:46
PROVIDERS: Internal Medicine; Internal Medicine Gastroenterology; Internal Medicine Infectious Disease; Admitting Provider Internal Medicine; Emergency Provider Emergency Medicine; PCP Internal Medicine; Visit Provider Internal Medicine
PROC: 0DJ08ZZ Inspection of Upper Intestinal Tract, Via Natural or Artificial Opening Endoscopic (ICD-10-PCS; CPT 43235; principal; 2022-05-21 15:25)
DX: D61.9 Aplastic anemia, unspecified (principal); G92.8 Other toxic encephalopathy; K31.811 Angiodysplasia of stomach and duodenum with bleeding; I13.0 Hypertensive heart and chronic kidney disease with heart failure and stage 1 through stage 4 chronic kidney disease, or unspecified chronic kidney disease; N17.9 Acute kidney failure, unspecified; C79.51 Secondary malignant neoplasm of bone; I42.8 Other cardiomyopathies; I50.32 Chronic diastolic (congestive) heart failure; Z68.41 Body mass index [BMI] 40.0-44.9, adult; E87.1 Hypo-osmolality and hyponatremia; I48.0 Paroxysmal atrial fibrillation; E11.22 Type 2 diabetes mellitus with diabetic chronic kidney disease; E11.42 Type 2 diabetes mellitus with diabetic polyneuropathy; N18.32 Chronic kidney disease, stage 3b; J44.9 Chronic obstructive pulmonary disease, unspecified; Z79.4 Long term (current) use of insulin; E66.01 Morbid (severe) obesity due to excess calories; D61.818 Other pancytopenia; G25.3 Myoclonus; E87.6 Hypokalemia; M79.7 Fibromyalgia; G47.33 Obstructive sleep apnea (adult) (pediatric); G25.0 Essential tremor; I25.10 Atherosclerotic heart disease of native coronary artery without angina pectoris; E78.5 Hyperlipidemia, unspecified; E55.9 Vitamin D deficiency, unspecified; K75.81 Nonalcoholic steatohepatitis (NASH); E83.52 Hypercalcemia; R47.81 Slurred speech; Z66 Do not resuscitate; R62.7 Adult failure to thrive; Z79.84 Long term (current) use of oral hypoglycemic drugs; Z79.899 Other long term (current) drug therapy; R04.0 Epistaxis
CPT/HCPCS: 36415; 70450; 70486; 70544; 70547; 70551; 71045; 73562; 80048; 80053; 80061; 80076; 81001; 82274; 82306; 82652; 82962; 83735; 83970; 84100; 84166; 84443; 84484; 85014; 85018; 85025; 85610; 85730; 86480; 86606; 86611; 86698; 86850; 86900; 86901; 86920; 86922; 87015; 87040; 87086; 87088; 87116; 87206; 87426; 92507; 92522; 92610; 93005; 94762; 97110; 97116; 97162; 97166; 97530; 97535; 97802; 97803; 99284; J7030; J7040; J7120; P9016; A4216; J1940; J2430

== ENCOUNTER 2022-06-01 17:30 | Inpatient (IN) | payer MEDICARE, SELFPAY ==
[2022-06-01 18:16] VITALS: BP 127/59; PULSE 69; RESP 16; TEMP 36.9; O2SAT 92
--- NOTE | 2022-06-01 19:36 | HP.PCM_ITS ---
HPI - General General Date of Admission: 06/01/22 Date of Service: 06/01/22 Chief Complaint: Here for rehab. HPI Narrative 05/18/2022 BLU SAMUEL, is a 71 Male who presents to [facility] Emergency Department with generalized illness. 05/18/2022 EKG normal sinus rhythm, inferior infarct, age undetermined, nonspecific ST segment abnormality. Slurred speech x 15 minutes. Pancytopenia followed by Dr. Dillard. Bone marrow x 2 non-diagnostic. CT scan shows bony lesions without source. Working diagnosis of POEMS syndrome. Recent unit PRBC transfusion. Recent heart cath, failed intervention. Insulin pump failed. Stool hemoccult positive. 05/18/2022 Admit to Hospital. Transfuse 1 unit PRBC for pancytopenia. MRI brain, MRA head/neck to rule out stroke. 05/19/2022 PT/OT/ST. Transfuse 2 units PRBC for hemoglobin 6.5. 05/20/2022MRI brain, MRA head/neck negative stroke. Fever 101, urine culture pending, blood culture pending, hold antibiotics. 05/21/2022 Urine culture contaminated. Rx HCTZ for hypercalcemia. 05/22/2022 EGD showed mild esophagitis. CT sinus negative for nasal bleeding. Fever resolved, blood cultures negative. Lasix, IV fluids, Pamidronate x 1 for hypercalcemia. 05/23/2022 Mental status +/- Speech therapy cleared regular diet, thin liquids. 05/24/2022 Amiodarone bolus, drip for atrial fibrillation with rapid ventricular response. 05/24/2022 Calcium improved from 15 to 13.73. Hold anticoagulation for atrial fibrillation secondary to pancytopenia. 05/25/2022 Weak, lethargic. ID evaluated for granulomatous lung disease. 05/26/2022 Weak. Calcium 8.2. 05/27/2022 Transfuse 1 unit PRBC for hemoglobin 6.6. Potassium 3.1, Increase Aldactone to 50mg, Creatinine 1.2. 05/28/2022 Not confused today, Palliative consult for weakness. Calcium 7.3. 05/29/2022 Transfuse 1 unit PRBC for hemoglobin 7.6. Encephalopathy secondary to hypercalcemia, calcium 8.9. 05/30/2022 Hypokalemia, on Aldactone, potassium, Entresto. Transfuse 1 unit PRBC, Hemoglobin 8.4. 05/31/2022 Hemoglobin 8.1. 06/01/2022 Transfuse 1 unit PRBC. 06/01/2022 Admit to TCU with debility, here for rehabilitation, strengthening, prior to discharge home with . Dr. Dillard recommends maintaining Hemogl obin above 8.0 due to heart failure. 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 Presence of insulin pump Pulmonary disease Radiculopathy, cervical region Secondary pulmonary arterial hypertension Sleep apnea Vision problems Home Medications multivitamin (Daily Multi-Vitamin tablet) 1 tab PO DAILY SUPPLEMENT 06/15/21 [History Last Taken 05/18/22] fenofibric acid (choline) 135 mg capsule,delayed release (Trilipix) 135 mg PO DAILY CHOLESTEROL 08/01/21 [History Last Taken 05/17/22] cholecalciferol (vitamin D3) 25 mcg (1,000 unit) tablet 25 mcg PO DAILY SUPLEMENT 03/08/22 [History Last Taken 05/17/22] magnesium oxide 400 mg PO DAILY SUPPLEMETN 04/17/22 [History Last Taken 05/17/22] vitamin E mixed 400 unit capsule 400 unit PO DAILY SUPPLEMENT 04/17/22 [History Last Taken 05/18/22] carvedilol 6.25 mg tablet (Coreg) 6.25 mg PO BID HEART 05/18/22 [History Last Taken 05/18/22] dapagliflozin 10 mg tablet (Farxiga) 10 mg PO DAILY DM 05/18/22 [History Last Taken 05/17/22] furosemide 40 mg tablet (Lasix) 40 mg PO DAILY FLUID 05/18/22 [History Last Taken 05/18/22] sacubitril 49 mg-valsartan 51 mg tablet (Entresto) 1 tab PO BID HEART 05/18/22 [History Last Taken 05/18/22] ursodiol 300 mg capsule 300 mg PO BID GOUT 05/18/22 [History Last Taken 05/18/22] acetaminophen 325 mg tablet (Tylenol) 650 mg PO Q4H PRN PRN Pain 1-10 Or Fever #0 tabs 06/01/22 [Rx Last Taken Unknown] amiodarone 200 mg tablet 200 mg PO DAILYCM heart 06/01/22 [History Last Taken Unknown] atorvastatin 80 mg tablet 40 mg PO QHS cholesterol 06/01/22 [History Last Taken Unknown] insulin glargine-yfgn 100 unit/mL (3 mL) subcutaneous pen 25 unit subcut 1100,2200 diabetes 06/01/22 [History Last Taken Unknown] insulin lispro 100 unit/mL subcutaneous pen (Humalog KwikPen (U-100) Insulin) 8 unit subcut TIDAC diabetes 06/01/22 [History Last Taken Unknown] insulin lispro 100 unit/mL subcutaneous pen (Humalog KwikPen (U-100) Insulin) See Protocol subcut ACHS diabetes 06/01/22 [History Last Taken Unknown] metformin 500 mg tablet 500 mg PO BID DM #60 tabs 06/01/22 [Rx Last Taken Unknown] potassium, sodium phosphates 280 mg-160 mg-250 mg oral powder packet 1 packet PO 4X/DAY supplement 06/01/22 [History Last Taken Unknown] sacubitril 49 mg-valsartan 51 mg tablet (Entresto) 1 ea PO BID heart 06/01/22 [History Last Taken Unknown] sennosides 8.6 mg-docusate sodium 50 mg tablet (Stool Softener-Stimulant Laxative) 2 tab PO BID PRN PRN Constipation #0 tabs 06/01/22 [Rx Last Taken Unknown] spironolactone 50 mg tablet 100 mg PO DAILY fluid 06/01/22 [History Last Taken Unknown] Allergy/AdvReac Type Severity Reaction Status Date / Time PITER Inhibitors Allergy Severe edema Verified 05/18/22 15:01 diltiazem [From Cardizem] Allergy Unknown unknown Verified 05/18/22 15:01 Penicillins AdvReac Intermediate diarrhea Verified 05/18/22 15:01 Family History Grandfather Alcoholism Father Arthritis Myocardial infarction Heart disease Hypertension Sister Autoimmune disorder Mother Cancer Brother Diabetes Myocardial infarction Heart disease Other Lung cancer Surgical History History of left heart catheterization (2012) History of right and left heart catheterization (03/02/22) History of surgery on arm Social History (Updated 06/01/22 @ 19:[address] Zackary Suggs MD) household members: spouse second hand exposure: No alcohol intake: never substance use type: does not use caffeine: Yes Type: carbonated beverages Number of servings: 8 and coffee Number of servings: 3 what type of physical activity do you participate in: none octavio/baptism: Brethern seatbelt use: sometimes do you feel safe at home: Yes ROS Constitutional Constitutional: Reports fatigue and weakness; Denies chills, fever(s) or weight gain ENT HEENT: Denies headache(s), nasal congestion or nasal discharge Cardiovascular Cardiovascular: Denies chest pain or palpitations Respiratory/Chest Respiratory/Chest: Denies cough, excessive phlegm production or shortness of breath with exertion Gastrointestinal Gastrointestinal: Denies abdominal pain, nausea or vomiting Genitourinary Genitourinary: Denies dysuria Musculoskeletal Musculoskeletal: Denies joint pain or joint swelling Integumentary Integumentary: Denies rash or wounds Neurologic Neurologic: Denies focal weakness, numbness or tingling Psychiatric Psychiatric: Denies anxiety, auditory hallucinations, depression, homicidal ideation or suicidal ideation Vital Signs Vital Signs Vital Signs: 06/01/22 18:16 Temperature 98.4 F Temperature Source Temporal Pulse Rate 69 Respiratory Rate 16 Blood Pressure 127/59 H Blood Pressure Mean 81 Blood Pressure Source Monitor Blood Pressure Position Semi-Fowlers Blood Pressure Location Left Arm Pulse Ox 92 Oxygen Delivery Method Room Air Physical Exam Const alert General Appearance: cooperative HEENT normocephalic Eyes PERRL and EOMs intact bilaterally Neck supple, no JVD and no carotid bruits Resp normal respiratory effort, normal air movement and clear to auscultation bilaterally Cardio regular rate and regular rhythm GI normal to inspection, nondistended, normoactive bowel sounds, non-tender and non-distended Extremity normal capillary refill General Extremity: Negative for edema Skin no rashes or lesions noted General Skin Exam: no breakdown Psych affect normal Appearance: appropriate Assessment & Plan Assessment/Plan (1) Debility: (2) Encephalopathy: (3) Hypercalcemia: (4) Bone marrow failure: (5) Pancytopenia: (6) Dysarthria: (7) Atrial fibrillation with rapid ventricular response: (8) Vitamin D deficiency: (9) Hypomagnesemia: (10) Diabetes mellitus: (11) MIX (nonalcoholic steatohepatitis): (12) Obstructive sleep apnea: (13) Heart failure with preserved ejection fraction: PLAN: Plan 71 year old male with below past medical history hospitalized for acute encephalopathy secondary to hypercalcemia, transfusion dependent bone marrow disorder, complicated by atrial fibrillation with rapid ventricular response, acute kidney injury, electrolyte abnormalities, admitted to TCU with debility here for rehabilitation, strengthening, prior to discharge home with . * Debility - PT/OT. * Pain - Tylenol 1000mg tid, Tramadol 50mg q6h prn pain (1-10). * Bowel - senna/colace 2 tablets bid prn. * Adult immunization - Administer pneumonia vaccine, covid19 vaccine, flu v accine as appropriate. * DVT prophylaxis - Hold, pancytopenia. * Atrial fibrillation - Carvedilol 6.25mg twice daily, Amiodarone 200mg daily, no anticoagulation due to pancytopenia. * Hyperlipidemia - Atorvastatin 40mg qhs, Fenofibrate 145mg daily. * Heart failure with preserved ejection fraction - Carvedilol 6.25mg twice daily, Entresto 49/51mg twice daily, Jardiance 25mg daily, Aldactone 100mg da roly, Furosemide 40mg daily. * Diabetes Mellitus II - Metformin 500mg bid, Jardiance 25mg daily, Glargine 25 units bid, Lispro 8 units tidac. * Hypomagnesemia - Magnesium chloride 128mg daily. * Nutrition - MVI daily. * Hypophosphatemia - K-Phos 1 packet 4x/day thru 06/03/2022. * MIX - Yamila 250mg bid, Vitamin E 400iu daily. * Vitamin D deficiency - D3 25mcg daily.
[2022-06-01 20:16] VITALS: PULSE 67
[2022-06-01 21:00] VITALS: BMI 44.3
[2022-06-01] MEDS: Acetaminophen 500 MG Tablet 1000 MG PO (21:28)
[2022-06-01] MEDS: Carvedilol 6.25 MG Tablet PO (21:28)
[2022-06-01] MEDS: Na Biphos/Potassium Phosphate PACKET 1 PACKET PO (21:28)
[2022-06-01] MEDS: Insulin Glargine-YFGN 100 UNIT/ML Pen 25 UNIT SC (21:28)
[2022-06-01] MEDS: Atorvastatin Calcium 40 MG Tablet PO (21:28)
[2022-06-02] MEDS: Empagliflozin 25 MG Tablet PO (05:53)
[2022-06-02] MEDS: Magnesium Chloride 64 MG Delay Rel.Tablet 128 MG PO (05:53)
[2022-06-02] MEDS: SACUBITRIL/VALSARTAN 49-51 MG TABLET 1 EACH PO ×2 (05:53→17:17)
[2022-06-02] MEDS: Na Biphos/Potassium Phosphate PACKET 1 PACKET PO ×4 (05:53→22:10)
[2022-06-02] MEDS: Furosemide 40 MG Tablet PO (05:53)
[2022-06-02] MEDS: Acetaminophen 500 MG Tablet 1000 MG PO ×3 (05:53→22:10)
[2022-06-02] MEDS: Fenofibrate 145 MG Tablet PO (05:53)
[2022-06-02] MEDS: Cholecalciferol (VIT D3) 25 MCG TABLET (1,000 UNITS) PO (05:53)
[2022-06-02] MEDS: Spironolactone 50 MG Tablet 100 MG PO (05:53)
[2022-06-02] MEDS: Ursodiol 250 MG Tablet PO ×2 (06:07→17:17)
[2022-06-02 08:00] LABS: Absolute Lymphocyte Count 0.44 X10^3/uL (0.83-4.51); Absolute Neutrophil Count 0.8 X10^3/uL (2.0-7.7); Eosinophil# 0.02 X10^3/uL; Eosinophils% 1.4 % (0-5); Hemoglobin 9.3 g/dL (13.0-16.5); Lymphocyte # 0.44 X10^3/ul (0.83-4.51); Lymphocyte % 31.2 % (19-41); Mean Corp Hgb Conc 33.2 g/dL (32-36); Mean Corpuscular Hgb 28.8 pg (27.0-32.0); Mean Corpuscular Volume 86.7 fL (80-94); Mean Platelet Vol. 10.9 fl (6.2-12.0); Monocyte% 7.1 % (0-10); NRBC Flagged by Analyzer 0 % (0-5); Neutrophil # 0.84 X10^3/uL (2.7-7.7); Neutrophil % 59.6 % (47-70); POSITIVE COUNT YES; POSITIVE DIFFERENTIAL YES; POSITIVE MORPHOLOGY YES; Platelet Count 62 K/mm3 (150-450); RBC Distribution Width CV 17.4 % (11.6-14.6); Red Blood Count 3.23 M/mm3 (4.6-6.2)
[2022-06-02 08:03] LABS: Differential Indicated SCAN CRITERIA MET; White Blood Count 1.4 K/mm3 (4.4-11.0)
[2022-06-02 08:23] LABS: Anion Gap 6 (5-15); BUN 13 mg/dL (7-18); Calcium,Total 8.2 mg/dL (8.5-10.1); Chloride 109 mmol/L (98-107); Creatinine, Serum 1.08 mg/dL (0.70-1.30); EST Glomerular Filtration Rate 72 mL/min (>60); Est Glom Filt Rate - Afr Amer 87 mL/min (>60); Estimated Creatinine Clearance 75.05 ml/min; Glucose 177 mg/dL (74-106); Phosphorus 3.5 mg/dL (2.5-4.9); Sodium Level 136 mmol/L (136-145)
[2022-06-02] MEDS: Insulin Lispro 100 UNIT/ML INSULN.PEN 8 UNIT SC ×3 (08:57→17:17)
[2022-06-02] MEDS: Vitamin E 400 UNITS Capsule PO (08:58)
[2022-06-02] MEDS: traMADol 50 MG Tablet PO (08:59)
[2022-06-02] MEDS: metFORMIN HCl 500 MG Tablet PO ×2 (08:59→17:17)
[2022-06-02] MEDS: Multivitamins,Therapeutic Tablet 1 TABLET PO (08:59)
[2022-06-02 09:03] VITALS: BP 107/44; PULSE 65
[2022-06-02 10:11] LABS: Bedside Glucose 206 mg/dL (74-106)
[2022-06-02 11:00] LABS: Differential Comment SCANNED
[2022-06-02 11:50] LABS: Bedside Glucose 184 mg/dL (74-106)
[2022-06-02] MEDS: Insulin Glargine-YFGN 100 UNIT/ML Pen 25 UNIT SC ×2 (11:59→22:10)
[2022-06-02] MEDS: Glucerna Shake 120 ML LIQUID PO (12:04)
[2022-06-02] MEDS: Tuberculin,Purif.prot.deriv. 50 TU/ML Vial 0.1 ML ID (13:32)
[2022-06-02 14:33] VITALS: BP 113/52; PULSE 66; RESP 18; TEMP 36.1; O2SAT 97
[2022-06-02 16:42] LABS: Magnesium 1.6 mg/dL (1.6-2.6)
[2022-06-02 16:51] LABS: Bedside Glucose 149 mg/dL (74-106)
[2022-06-02] MEDS: Carvedilol 6.25 MG Tablet PO (17:17)
[2022-06-02 20:00] VITALS: PULSE 68; RESP 16; O2SAT 95
[2022-06-02 21:30] LABS: Bedside Glucose 107 mg/dL (74-106)
[2022-06-02] MEDS: Atorvastatin Calcium 40 MG Tablet PO (22:11)
--- NOTE | 2022-06-02 22:29 | NURSING ---
Addendum entered by Veronica Corrales 06/03/22 07:31: correction: HS snack offered* Original Note: HS offered and accepted by patient. 240mL apple juice and applesauce provided per pt .request.
[2022-06-03 06:00] VITALS: BP 124/48; PULSE 73; RESP 16
[2022-06-03] MEDS: Na Biphos/Potassium Phosphate PACKET 1 PACKET PO ×4 (06:24→21:44)
[2022-06-03] MEDS: Furosemide 40 MG Tablet PO (06:24)
[2022-06-03] MEDS: Magnesium Chloride 64 MG Delay Rel.Tablet 128 MG PO (06:24)
[2022-06-03] MEDS: Ursodiol 250 MG Tablet PO ×2 (06:24→17:52)
[2022-06-03] MEDS: Acetaminophen 500 MG Tablet 1000 MG PO ×3 (06:24→21:45)
[2022-06-03] MEDS: Spironolactone 50 MG Tablet 100 MG PO (06:24)
[2022-06-03] MEDS: SACUBITRIL/VALSARTAN 49-51 MG TABLET 1 EACH PO ×2 (06:25→17:55)
[2022-06-03] MEDS: Fenofibrate 145 MG Tablet PO (06:25)
[2022-06-03] MEDS: Cholecalciferol (VIT D3) 25 MCG TABLET (1,000 UNITS) PO (06:27)
[2022-06-03] MEDS: 0.9% Saline Lock 10 ML Syringe IV (06:30)
[2022-06-03 06:40] LABS: Bedside Glucose 132 mg/dL (74-106)
[2022-06-03] MEDS: Insulin Lispro 100 UNIT/ML INSULN.PEN 8 UNIT SC (08:59)
[2022-06-03] MEDS: Multivitamins,Therapeutic Tablet 1 TABLET PO (09:03)
[2022-06-03] MEDS: Vitamin E 400 UNITS Capsule PO (09:04)
[2022-06-03] MEDS: metFORMIN HCl 500 MG Tablet PO ×2 (09:05→17:52)
[2022-06-03] MEDS: Amiodarone 200 MG Tablet PO (09:05)
[2022-06-03] MEDS: Empagliflozin 25 MG Tablet PO (09:05)
[2022-06-03] MEDS: Carvedilol 6.25 MG Tablet PO ×2 (09:05→17:51)
[2022-06-03] MEDS: traMADol 50 MG Tablet PO (09:13)
[2022-06-03 12:00] LABS: Bedside Glucose 116 mg/dL (74-106)
[2022-06-03 14:59] VITALS: BP 149/75; PULSE 70; RESP 16; TEMP 36.3; O2SAT 96
[2022-06-03 17:30] LABS: Bedside Glucose 114 mg/dL (74-106)
--- NOTE | 2022-06-03 20:33 | NURSING ---
Paged Dr. Suggs w/ immediate return phone call. Requested an order for a purewick due to frequent be changes, poor tolerance with bed mobility, and pt was witnessed using both his urinal and water pitcher for voiding last night. Telephone order received for a purewick.
[2022-06-03] MEDS: Atorvastatin Calcium 40 MG Tablet PO (21:45)
[2022-06-03 21:46] LABS: Bedside Glucose 141 mg/dL (74-106)
[2022-06-03] MEDS: Insulin Glargine-YFGN 100 UNIT/ML Pen 25 UNIT SC (21:46)
--- NOTE | 2022-06-03 21:53 | NURSING ---
HS snack offered and accepted. applesauce provided per pt. request, declines other snack options stating applesauce is the only thing that sounds good. Denies further requests Call light in reach.
[2022-06-04] MEDS: Ursodiol 250 MG Tablet PO ×2 (05:24→17:50)
[2022-06-04] MEDS: Fenofibrate 145 MG Tablet PO (05:24)
[2022-06-04] MEDS: Acetaminophen 500 MG Tablet 1000 MG PO ×3 (05:24→21:30)
[2022-06-04] MEDS: Furosemide 40 MG Tablet PO (05:24)
[2022-06-04] MEDS: SACUBITRIL/VALSARTAN 49-51 MG TABLET 1 EACH PO ×2 (05:24→17:50)
[2022-06-04] MEDS: Spironolactone 50 MG Tablet 100 MG PO (05:25)
[2022-06-04] MEDS: Magnesium Chloride 64 MG Delay Rel.Tablet 128 MG PO (05:25)
[2022-06-04] MEDS: Cholecalciferol (VIT D3) 25 MCG TABLET (1,000 UNITS) PO (05:26)
[2022-06-04 05:42] LABS: Absolute Neutrophil Count 0.9 X10^3/uL (2.0-7.7); Eosinophil# 0.02 X10^3/uL; Eosinophils% 1.3 % (0-5); Hematocrit 27.1 % (40-54); Hemoglobin 8.9 g/dL (13.0-16.5); Lymphocyte % 33.3 % (19-41); Mean Corp Hgb Conc 32.8 g/dL (32-36); Mean Corpuscular Hgb 29.2 pg (27.0-32.0); Mean Corpuscular Volume 88.9 fL (80-94); Mean Platelet Vol. 11.5 fl (6.2-12.0); Monocyte% 6.7 % (0-10); NRBC Flagged by Analyzer 0 % (0-5); Neutrophil # 0.87 X10^3/uL (2.7-7.7); POSITIVE COUNT YES; POSITIVE DIFFERENTIAL YES; POSITIVE MORPHOLOGY YES; Platelet Count 61 K/mm3 (150-450); RBC Distribution Width CV 17.3 % (11.6-14.6); RBC Distribution Width SD 55.7 fl (35.1-43.9); Red Blood Count 3.05 M/mm3 (4.6-6.2)
[2022-06-04 05:45] VITALS: BP 144/76; PULSE 65; RESP 16
[2022-06-04 05:45] LABS: Differential Indicated SCAN CRITERIA MET; White Blood Count 1.5 K/mm3 (4.4-11.0)
[2022-06-04 06:13] LABS: Anion Gap 8 (5-15); BUN 12 mg/dL (7-18); Chloride 104 mmol/L (98-107); Creatinine, Serum 1.09 mg/dL (0.70-1.30); EST Glomerular Filtration Rate 71 mL/min (>60); Est Glom Filt Rate - Afr Amer 86 mL/min (>60); Estimated Creatinine Clearance 74.37 ml/min; Glucose 107 mg/dL (74-106); Potassium 3.9 mmol/L (3.5-5.1); Sodium Level 135 mmol/L (136-145)
[2022-06-04 06:19] LABS: Magnesium 1.6 mg/dL (1.6-2.6); Phosphorus 3.5 mg/dL (2.5-4.9)
[2022-06-04 06:30] LABS: Bedside Glucose 108 mg/dL (74-106)
[2022-06-04 07:29] LABS: Hypochromasia 1+; Platelet Estimate MKD DEC (ADEQ)
[2022-06-04 08:03] VITALS: BP 117/85; PULSE 68; RESP 16
[2022-06-04] MEDS: Amiodarone 200 MG Tablet PO (08:04)
[2022-06-04] MEDS: metFORMIN HCl 500 MG Tablet PO ×2 (08:04→17:50)
[2022-06-04] MEDS: Carvedilol 6.25 MG Tablet PO ×2 (08:04→17:50)
[2022-06-04] MEDS: Empagliflozin 25 MG Tablet PO (08:05)
[2022-06-04] MEDS: Multivitamins,Therapeutic Tablet 1 TABLET PO (08:05)
[2022-06-04] MEDS: Vitamin E 400 UNITS Capsule PO (08:05)
[2022-06-04 11:30] LABS: Bedside Glucose 134 mg/dL (74-106)
[2022-06-04] MEDS: Insulin Glargine-YFGN 100 UNIT/ML Pen 25 UNIT SC ×2 (11:39→21:29)
[2022-06-04 12:49] LABS: Pathologist Review Reviewed
[2022-06-04 12:50] LABS: Pathologist Review Reviewed
[2022-06-04 13:24] VITALS: BP 125/63; PULSE 69; RESP 20; TEMP 36.4; O2SAT 96
[2022-06-04] MEDS: traMADol 50 MG Tablet PO (13:28)
[2022-06-04 17:45] LABS: Bedside Glucose 127 mg/dL (74-106)
[2022-06-04 17:54] VITALS: BP 146/54; PULSE 64
[2022-06-04 21:15] VITALS: PULSE 70; RESP 16; O2SAT 91
[2022-06-04] MEDS: Atorvastatin Calcium 40 MG Tablet PO (21:29)
[2022-06-04 21:45] LABS: Bedside Glucose 160 mg/dL (74-106)
[2022-06-05] MEDS: 0.9% Saline Lock 10 ML Syringe IV ×2 (05:21→15:02)
[2022-06-05] MEDS: Cholecalciferol (VIT D3) 25 MCG TABLET (1,000 UNITS) PO (05:26)
[2022-06-05] MEDS: Magnesium Chloride 64 MG Delay Rel.Tablet 128 MG PO (05:26)
[2022-06-05] MEDS: Ursodiol 250 MG Tablet PO (05:26)
[2022-06-05] MEDS: Fenofibrate 145 MG Tablet PO (05:27)
[2022-06-05] MEDS: SACUBITRIL/VALSARTAN 49-51 MG TABLET 1 EACH PO (05:27)
[2022-06-05] MEDS: Acetaminophen 500 MG Tablet 1000 MG PO (05:29)
--- NOTE | 2022-06-05 05:36 | NURSING ---
BP 105/38. Lasix and Spironolactone held at this time. Will continue to monitor.
[2022-06-05 06:35] LABS: Bedside Glucose 140 mg/dL (74-106)
[2022-06-05] MEDS: Multivitamins,Therapeutic Tablet 1 TABLET PO (08:14)
[2022-06-05] MEDS: Vitamin E 400 UNITS Capsule PO (08:14)
[2022-06-05] MEDS: Empagliflozin 25 MG Tablet PO (08:15)
[2022-06-05] MEDS: metFORMIN HCl 500 MG Tablet PO (08:15)
[2022-06-05 08:16] VITALS: BP 108/35; PULSE 66
--- NOTE | 2022-06-05 09:39 | CASEMGMT ---
Addendum entered by Emma Randle 06/05/22 11:39: [facility] does not have any beds available. [facility] is reviewing. [facility] is meeting with family/pt to sign consents at noon today. Original Note: Social Work Received notification from that pt is requesting hospice at SNF and to no longer puruse therapy or treatment. SW met with pt, and dtr in room. Introduced self and role. Inquired about wishes. Pt confirms pt would like hospice care. Pt explained he and family were under the impression that was the goal for pt admitting to TCU. pt explained he does not want therapy nor does he have a desire to go home; he wants a SNF with hospice. SW apologized for miscommunication but assured this worker will assist with wishes. Pt and family appreciative. SW noted pt was first accepted to [facility], if pt would like referral there. Pt stated he has no preference on facility. Family elected to have pt in [facility] at either [facility] or [facility]. SW agreed and will make referrals. SW provided printed list of [facility] with quality and resource data via [employer] for family to review with first choices are not available. SW discussed pt will be paying privately for room and board at SNF. Family/pt was unaware. Educated to Medicare benefit covering hospice services and not nonskilled services or room and board. Educated to SNFs typically asking for 30 days of payment initially. Offered to review finances for Medicaid, but pt shook his head no. SW confirmed pt can pay privately - family agreed. SW educated to goal for DC today or tomorrow, once services are in place. Pt expressed appreciation for this worker information and timeliness. CATHRYN phoned and faxed referral to Bailee at [facility]. Sent referral via [facility] to [facility] and [facility]. Will continue to follow. Emma Randle, RICARDO WILLETTW
[2022-06-05 11:11] LABS: Bedside Glucose 151 mg/dL (74-106)
[2022-06-05 11:17] VITALS: O2SAT 93
--- NOTE | 2022-06-05 13:55 | CASEMGMT ---
Addendum entered by Emma aRndle 06/06/22 08:27: Results received - rule out. Updated [facility], [facility], [facility]. Sent [facility] the [place] paperwork and [facility]. Scheduled cot transport through [facility] for 1000. Faxed [facility] paperwork. Addendum entered by Emma Randle 06/05/22 15:19: Received update that [facility] can accept. [facility] does not have beds available. SW canceled referral to [facility]. SW spoke with pt and on [facility] acceptance and DC 06/06. Both appreciative. Updated IDT. PASRR completed - triggered level II for encephalopathy. Notified [facility]. SW to wait on scheduling cot transport until results are received. SW updated Bailee at [facility] Plan: DC 06/06 PENDING PASRR RESULTS to [facility], [facility] Original Note: Social Work Sent another request to [facility]. Updated pt on current status. Pt appreciative. Received call from inquiring about update. SW informed of [facility] is full and [facility] still reviewing. Requested additional facilities if [facility] cannot accept. had no preference. SW offered to send to the other 2 SNFs in [place]. agreed. Referrals sent to [facility] and [facility]. Will continue to follow. Emma Randle, RICARDO SECURITY CONTROL ASSESSOR
[2022-06-05 15:00] VITALS: BP 135/45; PULSE 75; RESP 22; TEMP 37.5; O2SAT 95
[2022-06-05 17:11] LABS: Bedside Glucose 146 mg/dL (74-106)
--- NOTE | 2022-06-05 17:23 | NURSING ---
Pt refused all medications this shift d/t discharging with hospice tomorrow. Pt stated I do not want to take anymore pills. Will updated Dr. Suggs.
--- NOTE | 2022-06-05 19:23 | PCM.DC.SUM ---
Providers Date of Admission: 06/01/22 Primary Care Physician: Dr. Constanza Alegria DO Reason For Visit: TIA- GI BLEED Diagnosis Discharge Diagnosis (1) Debility: Status: Acute Code(s): R53.81 - Other malaise (2) Encephalopathy: Status: Acute Code(s): G93.40 - Encephalopathy, unspecified (3) Hypercalcemia: Status: Acute Code(s): E83.52 - Hypercalcemia (4) Bone marrow failure: Status: Chronic Code(s): D61.9 - Aplastic anemia, unspecified (5) Pancytopenia: Status: Acute Code(s): D61.818 - Other pancytopenia (6) Dysarthria: Status: Acute Code(s): R47.1 - Dysarthria and anarthria (7) Atrial fibrillation with rapid ventricular response: Status: Acute Code(s): I48.91 - Unspecified atrial fibrillation (8) Vitamin D deficiency: Status: Acute Code(s): E55.9 - Vitamin D deficiency, unspecified (9) Hypomagnesemia: Status: Acute Code(s): E83.42 - Hypomagnesemia (10) Diabetes mellitus: Status: Acute Code(s): E11.9 - Type 2 diabetes mellitus without complications (11) MIX (nonalcoholic steatohepatitis): Status: Acute Code(s): K75.81 - Nonalcoholic steatohepatitis (MIX) (12) Obstructive sleep apnea: Status: Acute Code(s): G47.33 - Obstructive sleep apnea (adult) (pediatric) (13) Heart failure with preserved ejection fraction: Status: Acute Code(s): I50.30 - Unspecified diastolic (congestive) heart failure Plan 71 year old male with below past medical history hospitalized for acute encephalopathy secondary to hypercalcemia, transfusion dependent bone marrow disorder, complicated by atrial fibrillation with rapid ventricular response, acute kidney injury, electrolyte abnormalities, admitted to TCU with debility here for rehabilitation, strengthening, prior to discharge home with . Debility - PT/OT. Pain - Tylenol 1000mg tid, Tramadol 50mg q6h prn pain (1-10). Bowel - senna/colace 2 tablets bid prn. Adult immunization - Administer pneumonia vaccine, covid19 vaccine, flu vaccine as appropriate. DVT prophylaxis - Hold, pancytopenia. Atrial fibrillation - Carvedilol 6.25mg twice daily, Amiodarone 200mg daily, no anticoagulation due to pancytopenia. Hyperlipidemia - Atorvastatin 40mg qhs, Fenofibrate 145mg daily. Heart failure with preserved ejection fraction - Carvedilol 6.25mg twice daily, Entresto 49/51mg twice daily, Jardiance 25mg daily, Aldactone 100mg daily, Furosemide 40mg daily. Diabetes Mellitus II - Metformin 500mg bid, Jardiance 25mg daily, Glargine 25 units bid, Lispro 8 units tidac. Hypomagnesemia - Magnesium chloride 128mg daily. Nutrition - MVI daily. Hypophosphatemia - K-Phos 1 packet 4x/day thru 06/03/2022. MIX - Yamila 250mg bid, Vitamin E 400iu daily. Vitamin D deficiency - D3 25mcg daily. Hospital Course Operations None Procedures None Summary of Care Provided Minutes Spent on Discharge: 35 Hospital Course: 71 year old male with below past medical history hospitalized for acute encephalopathy secondary to hypercalcemia, transfusion dependent bone marrow disorder, complicated by atrial fibrillation with rapid ventricular response, acute kidney injury, electrolyte abnormalities, admitted to TCU with debility here for rehabilitation, strengthening, prior to discharge home with . Resident dying, he declined further treatment, blood transfusions. Discharge 06/06/2022 pending PASRR results to [facility], [facility], [facility]. Physical Exam Const alert General Appearance: cooperative HEENT normocephalic Eyes PERRL and EOMs intact bilaterally Neck supple, no JVD and no carotid bruits Resp normal respiratory effort, normal air movement and clear to auscultation bilaterally Cardio regular rate and regular rhythm GI normal to inspection, nondistended, normoactive bowel sounds, non-tender and non-distended Extremity normal capillary refill General Extremity: Negative for edema Skin no rashes or lesions noted General Skin Exam: no breakdown Psych affect normal Appearance: appropriate Medical Records Data Medical Nutrition Assessment Dietitian: Malnutrition Criteria Met Start: 06/02/22 13:45 Freq: Status: Active Protocol: Document 06/02/22 13:45 RAVINDRA (Rec: 06/02/22 13:45 [facility] [id number]) Nutrition Malnutrition Evidence of Malnutrition Exists Yes Malnutrition (severe): Acute Illness/Injury Evidenced By Suboptimal Energy Intake ( Severe),Weight Loss (Severe) Clinical Problem Unintended Weight Loss Etiology related to acute illness and decreased appetite Signs/Symptoms as evidenced by <50% po intake at most meals x 2 wks and 9.8 % wt loss x 3 months Status Active Problem Recommendation Dietitian Recommendations/Changes Will change diet Consistent CHO / No Added Salt Will d/c glucerna shake tid w/ medpass - continue magic cup w/ lunch and dinner instead per res preference. Weight / BMI Weight Weight: 154.085 kg Body Mass Index (BMI) 44.3 ABG / Lab / Microbiology Data Result Diagrams: 06/04/22 05:24 06/04/22 05:24 Laboratory: Laboratory Results - last 24 hr 06/04/22 21:26: POC Glucose 160 H 06/05/22 06:14: POC Glucose 140 H 06/05/22 10:51: POC Glucose 151 H 06/05/22 16:49: POC Glucose 146 H D/C Instructions Discharge Diet: No restrictions Discharge Activity: Return to Normal Activity, May Shower and Use Walker Weight Bearing Status: Weight bearing as tolerated Call your doctor if you observe: Fever of 101 or Higher, Inability to urinate, Inability to have a bowel movement, Shortness of breath, Dizziness, Fainting spells, Swelling in the ankles, Chest pain and Uncontrolled pain Additional Instructions: Discharge 06/06/2022 pending PASRR results to [facility]. Meaningful Use Info Meaningful Use Diagnoses (Choose all that apply): None applicable Discharge Plan Admission Admit Date/Time: 06/01/22 17:30 Primary Reason for Your Visit: Debility. Attending Provider: Zackary Suggs Chi Primary Care Provider: Constanza Alegria Instructions Additional Instructions / Restrictions: Discharge 06/06/2022 pending PASRR results to [facility]. Discharge Orders/Prescriptions Prescriptions: Discontinued multivitamin [Daily Multi-Vitamin] Tablet 1 tab PO DAILY fenofibric acid (choline) [Trilipix] 135 mg capsule,delayed release(DR/EC) 135 mg PO DAILY cholecalciferol (vitamin D3) 25 mcg (1,000 unit) tablet 25 mcg PO DAILY magnesium oxide 400 mg magnesium tablet 400 mg PO DAILY vitamin E mixed 400 unit capsule 400 unit PO DAILY Rx Instructions: Take one capsule a day. furosemide [Lasix] 40 mg tablet 40 mg PO DAILY carvedilol [Coreg] 6.25 mg tablet 6.25 mg PO BID Rx Instructions: must administer with a meal/food ursodiol 300 mg capsule 300 mg PO BID Farxiga 10 mg tablet 10 mg PO DAILY Entresto 49-51 mg tablet 1 tab PO BID Rx Instructions: Patient will start at next refill date 04/02/2022 We are titrating. sennosides-docusate sodium [Stool Softener-Stimulant Laxat] 8.6-50 mg Tablet 2 tab PO BID PRN PRN (Reason: Constipation) Qty: 0 0RF acetaminophen [Tylenol] 325 mg Tablet 650 mg PO Q4H PRN PRN (Reason: Pain 1-10 Or Fever) Qty: 0 0RF metformin 500 mg tablet 500 mg PO BID Qty: 60 0RF atorvastatin 80 mg tablet 40 mg PO QHS amiodarone 200 mg tablet 200 mg PO DAILYCM spironolactone 50 mg tablet 100 mg PO DAILY Rx Instructions: Hold if potassium more than 5.0. insulin lispro [Humalog KwikPen Insulin] 100 unit/mL insulin pen 8 unit subcut TIDAC Rx Instructions: Hold if glucose less than 130 mg/dl insulin lispro [Humalog KwikPen Insulin] 100 unit/mL insulin pen See Protocol subcut [facility] Protocol: 4. Sliding Scale Insulin High-Med Dosing Condition: 150-199 mg/dl = 2 units Condition: 200-259 mg/dl = 4 units Condition: 260-324 mg/dl = 6 units Condition: 325-374 mg/dl = 8 units Condition: 375-409 mg/dl = 10 units Condition: 410-449 mg/dl = 11 units Condition: Greater than 449 call physician Protocol Text: - Use for Total Daily Dose of Insulin 56-80 units - Patient who are insulin resistant or septic HIGH MEDIUM DOSING ALGORITHM potassium, sodium phosphates 280-160-250 mg powder in packet 1 packet PO 4X/DAY Rx Instructions: For 2 days and then repeat BMP, magnesium and phosphorus. Entresto 49-51 mg tablet 1 ea PO BID insulin glargine-yfgn 100 unit/mL (3 mL) insulin pen 25 unit subcut 1100,2200 Rx Instructions: Hold if glucose less than 130 mg/dl Referrals / Follow Up: Airam,Constanza, DO [Primary Care Provider] - Disposition Disposition (needs filled in before D/C Order can be placed): Hospice in Medical Facility
--- NOTE | 2022-06-05 19:28 | TREXTCAR_ITS ---
Diet Diet Order/Speech Therapy: 06/01/22 18:56 Diet: Consistent Carb - Calorie Controlled Food consistency:: Regular Liquid Consistency:: Regular/Thin Diet Comments: Magic cup with lunch and dinner - likes chocolate How many daily calories?: 2000 calorie Routine Orders/Code Status Code Status: DNRCC-A (No intubation.) Therapies Weight Bearing: Weight bearing as tolerated Problem/Diagnosis (1) Debility: Status: Acute Code(s): R53.81 - Other malaise (2) Encephalopathy: Status: Acute Code(s): G93.40 - Encephalopathy, unspecified (3) Hypercalcemia: Status: Acute Code(s): E83.52 - Hypercalcemia (4) Bone marrow failure: Status: Chronic Code(s): D61.9 - Aplastic anemia, unspecified (5) Pancytopenia: Status: Acute Code(s): D61.818 - Other pancytopenia (6) Dysarthria: Status: Acute Code(s): R47.1 - Dysarthria and anarthria (7) Atrial fibrillation with rapid ventricular response: Status: Acute Code(s): I48.91 - Unspecified atrial fibrillation (8) Vitamin D deficiency: Status: Acute Code(s): E55.9 - Vitamin D deficiency, unspecified (9) Hypomagnesemia: Status: Acute Code(s): E83.42 - Hypomagnesemia (10) Diabetes mellitus: Status: Acute Code(s): E11.9 - Type 2 diabetes mellitus without complications (11) MIX (nonalcoholic steatohepatitis): Status: Acute Code(s): K75.81 - Nonalcoholic steatohepatitis (MIX) (12) Obstructive sleep apnea: Status: Acute Code(s): G47.33 - Obstructive sleep apnea (adult) (pediatric) (13) Heart failure with preserved ejection fraction: Status: Acute Code(s): I50.30 - Unspecified diastolic (congestive) heart failure Plan 71 year old male with below past medical history hospitalized for acute en cephalopathy secondary to hypercalcemia, transfusion dependent bone marrow disorder, complicated by atrial fibrillation with rapid ventricular response, acute kidney injury, electrolyte abnormalities, admitted to TCU with debility here for rehabilitation, strengthening, prior to discharge home with . * Debility - PT/OT. * Pain - Tylenol 1000mg tid, Tramadol 50mg q6h prn pain (1-10). * Bowel - senna/colace 2 tablets bid prn. * Adult immunization - Administer pneumonia vaccine, covid19 vaccine, flu vaccine as appropriate. * DVT prophylaxis - Hold, pancytopenia. * Atrial fibrillation - Carvedilol 6.25mg twice daily, Amiodarone 200mg daily, no anticoagulation due to pancytopenia. * Hyperlipidemia - Atorvastatin 40mg qhs, Fenofibrate 145mg daily. * Heart failure with preserved ejection fraction - Carvedilol 6.25mg twice daily, Entresto 49/51mg twice daily, Jardiance 25mg daily, Aldactone 100mg daily, Furosemide 40mg daily. * Diabetes Mellitus II - Metformin 500mg bid, Jardiance 25mg daily, Glargine 25 units bid, Lispro 8 units tidac. * Hypomagnesemia - Magnesium chloride 128mg daily. * Nutrition - MVI daily. * Hypophosphatemia - K-Phos 1 packet 4x/day thru 06/03/2022. * MIX - Yamila 250mg bid, Vitamin E 400iu daily. * Vitamin D deficiency - D3 25mcg daily. Allergies/Procedures Done in Hospital Allergies PITER Inhibitors Allergy (Severe, Verified 05/18/22 15:01) edema diltiazem [From Cardizem] Allergy (Unknown, Verified 05/18/22 15:01) unknown Penicillins Adverse Reaction (Intermediate, Verified 05/18/22 15:01) diarrhea Procedures: None Type of Care/Length of Stay Estimated LOS: Convalescent Care Less Than 30 days Type of Care Needed: Intermediate Rehab Potential: Poor Prognosis: Poor Additional Orders/Day of Discharge Day of Discharge: 06/06/22 Dietary and Speech Recommendations Dietitian Recommendations/Changes: Will change diet Consistent CHO / No Added Salt Will d/c glucerna shake tid w/ medpass - continue magic cup w/ lunch and dinner instead per res preference. Discharge Plan Admission Admit Date/Time: 06/01/22 17:30 Primary Reason for Your Visit: Debility. Attending Provider: Zackary Suggs Chi Primary Care Provider: Constanza Alegria Instructions Additional Instructions / Restrictions: Discharge 06/06/2022 pending PASRR results to [facility]. Discharge Orders/Prescriptions Prescriptions: Discontinued multivitamin [Daily Multi-Vitamin] Tablet 1 tab PO DAILY fenofibric acid (choline) [Trilipix] 135 mg capsule,delayed release(DR/EC) 135 mg PO DAILY cholecalciferol (vitamin D3) 25 mcg (1,000 unit) tablet 25 mcg PO DAILY magnesium oxide 400 mg magnesium tablet 400 mg PO DAILY vitamin E mixed 400 unit capsule 400 unit PO DAILY Rx Instructions: Take one capsule a day. furosemide [Lasix] 40 mg tablet 40 mg PO DAILY carvedilol [Coreg] 6.25 mg tablet 6.25 mg PO BID Rx Instructions: must administer with a meal/food ursodiol 300 mg capsule 300 mg PO BID Farxiga 10 mg tablet 10 mg PO DAILY Entresto 49-51 mg tablet 1 tab PO BID Rx Instructions: Patient will start at next refill date 04/02/2022 We are titrating. sennosides-docusate sodium [Stool Softener-Stimulant Laxat] 8.6-50 mg Tablet 2 tab PO BID PRN PRN (Reason: Constipation) Qty: 0 0RF acetaminophen [Tylenol] 325 mg Tablet 650 mg PO Q4H PRN PRN (Reason: Pain 1-10 Or Fever) Qty: 0 0RF metformin 500 mg tablet 500 mg PO BID Qty: 60 0RF atorvastatin 80 mg tablet 40 mg PO QHS amiodarone 200 mg tablet 200 mg PO DAILYCM spironolactone 50 mg tablet 100 mg PO DAILY Rx Instructions: Hold if potassium more than 5.0. insulin lispro [Humalog KwikPen Insulin] 100 unit/mL insulin pen 8 unit subcut TIDAC Rx Instructions: Hold if glucose less than 130 mg/dl insulin lispro [Humalog KwikPen Insulin] 100 unit/mL insulin pen See Protocol subcut ACHS Protocol: 4. Sliding Scale Insulin High-Med Dosing Condition: 150-199 mg/dl = 2 units Condition: 200-259 mg/dl = 4 units Condition: 260-324 mg/dl = 6 units Condition: 325-374 mg/dl = 8 units Condition: 375-409 mg/dl = 10 units Condition: 410-449 mg/dl = 11 units Condition: Greater than 449 call physician Protocol Text: - Use for Total Daily Dose of Insulin 56-80 units - Patient who are insulin resistant or septic HIGH MEDIUM DOSING ALGORITHM potassium, sodium phosphates 280-160-250 mg powder in packet 1 packet PO 4X/DAY Rx Instructions: For 2 days and then repeat BMP, magnesium and phosphorus. Entresto 49-51 mg tablet 1 ea PO BID insulin glargine-yfgn 100 unit/mL (3 mL) insulin pen 25 unit subcut 1100,2200 Rx Instructions: Hold if glucose less than 130 mg/dl Referrals / Follow Up: Constanza Alegria DO [Primary Care Provider] - Disposition Disposition (needs filled in before D/C Order can be placed): Hospice in Medical Facility
[2022-06-05 21:35] LABS: Bedside Glucose 144 mg/dL (74-106)
[2022-06-06 06:36] LABS: Bedside Glucose 125 mg/dL (74-106)
--- NOTE | 2022-06-06 08:31 | NURSING ---
Gluing Pressman Note; MDS complete
--- NOTE | 2022-06-06 10:05 | NURSING ---
Called Report [facility] and spoke with Kristie NEGRETE.
--- NOTE | 2022-06-06 10:09 | CASEMGMT ---
Social Work BIMS and PHQ-9 completed for MDS assessment. Emma Randle, [employer] CONFIGURATOR
[2022-06-06 10:10] VITALS: BP 119/43; PULSE 77; RESP 24; TEMP 37.6; O2SAT 92
--- NOTE | 2022-06-14 08:56 | MDS.RN ---
Information for the mds was obtained from review of the clinical record, interview of resident, staff, and direct observation of resident's care.
== END 2022-06-06 12:30 | disposition hospice, inpatient (51) | DRG 641 ==
PROVIDERS: Admitting Provider Family Medicine Geriatric Medicine; PCP Internal Medicine; Visit Provider Family Medicine Geriatric Medicine
DX: E87.71 Transfusion associated circulatory overload (principal); D61.818 Other pancytopenia; I42.8 Other cardiomyopathies; I50.32 Chronic diastolic (congestive) heart failure; I11.0 Hypertensive heart disease with heart failure; Z79.4 Long term (current) use of insulin; I48.91 Unspecified atrial fibrillation; E11.42 Type 2 diabetes mellitus with diabetic polyneuropathy; E83.52 Hypercalcemia; I25.10 Atherosclerotic heart disease of native coronary artery without angina pectoris; K75.81 Nonalcoholic steatohepatitis (NASH); G47.33 Obstructive sleep apnea (adult) (pediatric); E55.9 Vitamin D deficiency, unspecified; E78.5 Hyperlipidemia, unspecified; M79.7 Fibromyalgia; R47.1 Dysarthria and anarthria; R47.81 Slurred speech; Z79.899 Other long term (current) drug therapy
CPT/HCPCS: 36415; 80048; 82962; 83735; 84100; 85025; 87811; 97110; 97162; 97166; 97530; 97535; 97802; A4216